=== PATIENT | female | born 1975 | race Caucasian/White ===

== ENCOUNTER 2022-11-08 11:50 | Emergency (ER) | payer OTHER, SELFPAY ==
[2022-11-08 11:56] VITALS: BP 180/97; PULSE 84; RESP 16; TEMP 36.6; O2SAT 100; BMI 30.8
--- NOTE | 2022-11-08 12:06 | ECG_ITS ---
The [facility] Test Date: 2022-11-08 Pat Name: Diana Arizmendi Department: Room: - Gender: Female General Administrator: : 1975 Requested By: Order Number: [id number] Reading MD: DESIREE PALOMINO Measurements Intervals [place] Rate: 70 P: 62 PA: 162 QRS: -7 QRSD: 94 T: 3 QT: 372 QTc: 393 Interpretive Statements 1100 Sinus rhythm T wave invcersion III, aVF -may represent inf wall ischemia 9130 borderline ECG No previous ECG available for comparison Electronically Signed On 11-11-2022 7:28:44 EDT by DESIREE PALOMINO
--- NOTE | 2022-11-08 12:07 | CT_ITS ---
The [address] [address] Patient Name: SANDEE VENEGAS MRN: [id number] date: 1975 Sex: F Assigned Patient Location: ER Current Patient Location: ER Accession/Order Number: [id number] Exam Date: 11/08/2022 12:35 Report Date: 11/08/2022 12:52 At the request of: BRENTON DIA Procedure: CT head/brain wo con EXAMINATION: CT head/brain wo con, 11/08/2022 12:35 PM EDT HISTORY: near-syncope, VO COMPARISON: None. TECHNIQUE: CT scan of the head was performed IV contrast. CT dose reduction technique was used, including Automated Exposure Control. HISTORY: near-syncope, VO FINDINGS: BRAIN: No edema, hemorrhage, mass, acute infarction, or inappropriate atrophy. CSF SPACES: No hydrocephalus, subarachnoid hemorrhage, or mass. Appropriate for age. SKULL: No fracture, mass, or other significant visible lesion. SINUSES: No significant mucosal thickening or fluid on the limited views. ORBITS: No appreciable abnormality on the limited views. OTHER: Negative IMPRESSION: No acute intracranial abnormality Electronically authenticated by: ERICKA LOERA Date: 11/08/2022 12:52
--- NOTE | 2022-11-08 12:08 | ED.DIZZY1 ---
HPI - Dizziness General Chief Complaint: Dizziness Stated Complaint: DIZZINESS Time Seen by Provider: 11/08/22 11:58 Source: patient Mode of arrival: walk-in History of Present Illness HPI Narrative: 46-year-old female presented for dizziness and a near syncopal episode. She had a normal day and had eaten breakfast and she was at a store. The symptoms came on suddenly and she felt like she needed to sit down or she would pass out. She did sit down and she did not pass out. She's had a headache for a week, no trauma. No palpitations. She felt a bit short of breath as well. No fever cough or vomiting. Related Data Home Medications Medication Instructions Recorded Confirmed adalimumab 40 mg/0.4 mL 40 mg subcut Q14D 11/08/22 11/08/22 subcutaneous pen kit (Humira(CF) Pen) alprazolam 0.5 mg tablet 0.5 mg PO DAILY 11/08/22 11/08/22 lisinopril 10 mg tablet 10 mg PO DAILY 11/08/22 11/08/22 Allergies Allergy/AdvReac Type Severity Reaction Status Date / Time infliximab-dyyb Allergy Severe Verified 11/08/22 12:01 [From Inflectra] influenza A (H5N1) virus Allergy Severe Verified 11/08/22 12:01 vaccine mo eggs Allergy Severe Uncoded 11/08/22 12:01 Review of Systems ROS Narrative A ten point review of systems is negative except as noted above. [facility] Medical History (Updated 11/08/22 @ 13:10 by Sonny Medina MD) Exam Narrative Exam Narrative: Nurses note and vital signs reviewed and patient is not hypoxic. General: The patient appears well and in no apparent distress. Patient is resting comfortably on cart. Skin: Warm, dry, no pallor noted. There is no rash noted. Head: Normocephalic, atraumatic Eye: Normal conjunctiva, no drainage, EOMI. PERRL Ears, Nose, Mouth, and Throat: oral mucosa is moist. Nares patent. Cardiovascular: Regular Rate and Rhythm Respiratory: Patient is in no distress, no accessory muscle use, lungs are clear to auscultation, no wheezing, rales or rhonchi Back: non-tender GI: soft and nontender Musculoskeletal: The patient has no evidence of calf tenderness, no pitting edema, symmetrical pulses noted bilaterally Neurological: A&O, normal speech; upper and lower extremity strength intact. Psychiatric: Cooperative Constitutional Vital Signs - 24 hr 11/08/22 11:56 11/08/22 12:28 11/08/22 13:04 Temperature 97.8 F Pulse Rate 72 Pulse Rate [Monitor] 84 Respiratory Rate 16 16 Blood Pressure 145/85 H Blood Pressure [Right Arm] 180/97 H Pulse Oximetry 100 100 98 Oxygen Delivery Method Room Air Room Air Course Vital Signs Vital signs: Vital Signs Temperature 97.8 F 11/08/22 11:56 Pulse Rate 84 11/08/22 11:56 Respiratory Rate 16 11/08/22 11:56 Blood Pressure 180/97 H 11/08/22 11:56 Pulse Oximetry 100 11/08/22 11:56 Oxygen Delivery Method Room Air 11/08/22 11:56 Temperature 97.8 F 11/08/22 11:56 Pulse Rate 72 11/08/22 13:04 Respiratory Rate 16 11/08/22 13:04 Blood Pressure 145/85 H 11/08/22 13:04 Pulse Oximetry 98 11/08/22 13:04 Oxygen Delivery Method Room Air 11/08/22 12:28 MDM - Dizziness MDM Narrative Medical decision making narrative: The patient's workup is negative and she is feeling improved. Her blood pressure has improved as well without intervention. The cause of her symptoms is uncertain and she'll be discharged home. Treatment diagnosis and follow-up were discussed with the patient. Differential Diagnosis Differential diagnosis: Likely benign paroxysmal positional vertigo, orthostatic hypotension and other (dehydration, anemia, hypoglycemia) Lab Data Attestation: I reviewed the patient's lab results. Labs: Lab Results 11/08/22 11/08/22 Range/Units 12:10 12:33 WBC 9.2 (4.0-11.0) 10^3/uL RBC 4.92 (4.20-5.40) 10^6/uL Hgb 10.6 L (12.0-16.0) g/dL Hct 35.6 L (36.0-48.0) % MCV 72.4 L (81.0-99.0) fL MCH 21.5 L (26.7-34.0) pg MCHC 29.8 L (29.9-35.2) g/dL RDW 18.7 H (11.0-15.0) % Plt Count 347 (150-450) 10^3/uL MPV 8.6 L (9.5-13.5) fL Neut % (Auto) 71.8 (43.0-75.0) % Lymph % (Auto) 18.6 L (20.5-60.0) % Martin % (Auto) 6.8 (1.7-12.0) % Eos % (Auto) 1.9 (0.9-7.0) % Baso % (Auto) 0.5 (0.2-2.0) % Neut # (Auto) 6.6 H (1.4-6.5) 10^3/uL Lymph # (Auto) 1.7 (1.2-3.8) 10^3/uL Martin # (Auto) 0.6 (0.3-0.8) 10^3/uL Eos # (Auto) 0.2 (0.0-0.7) 10^3/uL Baso # (Auto) 0.1 (0.0-0.1) 10^3/uL Abs Immat Gran (auto) 0.04 H (0.00-0.03) 10^3/uL Imm/Tot Granulo (auto) 0.4 (0.0-0.5) % Sodium 142 (136-145) mmol/L Potassium 3.8 (3.5-5.1) mmol/L Chloride 107 (98-107) mmol/L Carbon Dioxide 28.7 (21.0-32.0) mmol/L Anion Gap 10.1 BUN 12.0 (7.0-18.0) mg/dL Creatinine 0.81 (0.55-1.02) mg/dL Est GFR ( Amer) >60 (>=60) Est GFR (Non-Af Amer) >60 (>=60) BUN/Creatinine Ratio 14.8 Glucose 102 (74-106) mg/dL Calcium 9.1 (8.5-10.1) mg/dL Urine Color Lt. yellow (YELLOW) Urine Clarity Clear (CLEAR) Urine pH 6.0 (5.0-9.0) Ur Specific [place] <=1.005 A (1.005-1.025) Urine Protein Negative (NEG/TRACE) mg/dL Urine Glucose (UA) Negative (NEGATIVE) mg/dL Urine Ketones Negative (NEGATIVE) mg/dL Urine Occult Blood Negative (NEGATIVE) Urine Nitrite Negative (NEGATIVE) Urine Bilirubin Negative (NEGATIVE) Urine Urobilinogen 0.2 (0.2-1.0) EU/dL Ur Leukocyte Esterase Negative (NEGATIVE) Urine HCG, Qual Negative (NEGATIVE) ECG Data Attestation: I personally reviewed and interpreted this ECG as follows: (EKG on my interpretation shows sinus rhythm and a rate of 70) Discharge Plan Discharge Chief Complaint: Dizziness Clinical Impression: Dizziness Patient Disposition: Home, Self-Care Time of Disposition Decision: 13:09 Condition: Good Mode of Transportation: Private Vehicle Prescriptions / Home Meds: No Action Humira(CF) Pen 40 mg/0.4 mL pen injector kit 40 mg SUBCUT Q14D alprazolam 0.5 mg tablet 0.5 mg PO DAILY lisinopril 10 mg tablet 10 mg PO DAILY Instructions: Dizziness (ED) Additional Instructions: Follow up with your family DR and return to ER for any problems or concerns Stand Alone Forms: Portal Instructions Referrals: Physician,Non-Staff, MD [Primary Care Provider] - 1 week
--- NOTE | 2022-11-08 12:10 | XR_ITS ---
[address] [address] Patient Name: SANDEE VENEGAS MRN: [id number] date: 1975 Sex: F Assigned Patient Location: ER Current Patient Location: ER Accession/Order Number: [id number] Exam Date: 11/08/2022 12:35 Report Date: 11/08/2022 12:47 At the request of: BRENTON DIA Procedure: XR chest 1V EXAMINATION: XR chest 1V HISTORY: dizzy, SOB COMPARISON: No relevant comparison available. TECHNIQUE: AP portable FINDINGS: LUNGS: No significant pulmonary parenchymal abnormalities. VASCULATURE: No increased pulmonary vasculature. PLEURA: No pneumothorax, effusion, or pleural thickening. CARDIAC: No cardiomegaly or cardiac silhouette abnormality. MEDIASTINUM: No visible mass or adenopathy. BONES: No fracture or visible bone lesion. OTHER: Negative. IMPRESSION: No acute disease. Electronically authenticated by: ERICKA LOERA Date: 11/08/2022 12:47
[2022-11-08 12:28] VITALS: O2SAT 100
[2022-11-08 12:46] LABS: Basophils Absolute Auto 0.1 10^3/uL (0.0-0.1); Basophils Percent Auto 0.5 % (0.2-2.0); Eosinophils Absolute Auto 0.2 10^3/uL (0.0-0.7); Eosinophils Percent Auto 1.9 % (0.9-7.0); Hematocrit 35.6 % (36.0-48.0); Hemoglobin 10.6 g/dL (12.0-16.0); Immature Granulocytes Abs Auto 0.04 10^3/uL (0.00-0.03); Immature Granulocytes Pct Auto 0.4 % (0.0-0.5); Lymphocytes Absolute Auto 1.7 10^3/uL (1.2-3.8); Lymphocytes Percent Auto 18.6 % (20.5-60.0); Mean Corpuscular HGB Conc 29.8 g/dL (29.9-35.2); Mean Corpuscular Hemoglobin 21.5 pg (26.7-34.0); Mean Corpuscular Volume 72.4 fL (81.0-99.0); Mean Platelet Volume 8.6 fL (9.5-13.5); Monocytes Absolute Auto 0.6 10^3/uL (0.3-0.8); Monocytes Percent Auto 6.8 % (1.7-12.0); Neutrophils Absolute Auto 6.6 10^3/uL (1.4-6.5); Neutrophils Percent Auto 71.8 % (43.0-75.0); Platelet Count 347 10^3/uL (150-450); Red Blood Count 4.92 10^6/uL (4.20-5.40); Red Cell Distribution Width 18.7 % (11.0-15.0); White Blood Count 9.2 10^3/uL (4.0-11.0)
[2022-11-08 12:52] LABS: Anion Gap 10.1; BUN Creatinine Ratio 14.8; Calcium 9.1 mg/dL (8.5-10.1); Carbon Dioxide 28.7 mmol/L (21.0-32.0); Chloride 107 mmol/L (98-107); Estimated GFR (African America >60 (>=60); Estimated GFR (Non-African Ame >60 (>=60); Glucose 102 mg/dL (74-106); Potassium 3.8 mmol/L (3.5-5.1); Sodium 142 mmol/L (136-145)
[2022-11-08 12:59] LABS: Bilirubin Urine NEGATIVE (NEGATIVE); Blood Urine NEGATIVE (NEGATIVE); Clarity Urine CLEAR (CLEAR); Color Urine LT. YELLOW (YELLOW); Glucose Urine UA NEGATIVE (NEGATIVE); Ketones Urine NEGATIVE (NEGATIVE); Leukocyte Esterase Urine NEGATIVE (NEGATIVE); Nitrite Urine NEGATIVE (NEGATIVE); Protein Urine NEGATIVE (NEG/TRACE); Specific Gravity Urine <=1.005 (1.005-1.025); Urobilinogen Urine 0.2 EU/dL (0.2-1.0)
[2022-11-08 13:00] LABS: HCG Qualitative Urine* NEGATIVE (NEGATIVE)
[2022-11-08 13:04] VITALS: BP 145/85; PULSE 72; RESP 16; O2SAT 98
[2022-11-08] MEDS: KETOROLAC TROMETHAMINE 60 MG/2 ML VIAL IM (13:32)
--- NOTE | 2022-11-08 13:39 | PC.NURSE ---
d/c instructions complete, pt verbalized understanding. no new prescriptions and pt told to return for any problems or concerns
== END 2022-11-08 13:50 | disposition home or self-care (01) ==
PROVIDERS: Emergency Provider Emergency Medicine
DX: R42 Dizziness and giddiness (principal); Z79.899 Other long term (current) drug therapy
CPT/HCPCS: 36415; 70450; 71045; 80048; 81003; 84703; 85025; 93005; 96374; 99285

== ENCOUNTER 2023-11-22 23:29 | Emergency (ER) | payer OTHER, SELFPAY ==
[2023-11-22 23:35] VITALS: BP 161/107; PULSE 93; O2SAT 90; BMI 31.8
--- NOTE | 2023-11-22 23:57 | ED_ITS ---
HPI HPI - Back Pain/Injury General Chief Complaint: Back Pain/Injury Stated Complaint: flank pain Time Seen by Provider: 11/22/23 23:52 Source: patient Mode of arrival: Wheelchair Limitations: no limitations History of Present Illness HPI Narrative: past history of ulcerative colitis. Presents complaining of pain right chest and flank. Pain radiates to her right back. pain is pleuritic. Not short of breath. No fever or nausea. Increased pain when lying down. Denies injury Related Data Home Medications ?Medication ?Instructions ?Recorded ?Confirmed adalimumab 40 mg/0.4 mL 40 mg subcut Q14D 11/08/22 11/22/23 subcutaneous pen kit (Humira(CF) Pen) lisinopril 10 mg tablet 10 mg PO DAILY 11/08/22 11/22/23 alprazolam 0.25 mg tablet 0.25 mg PO TID PRN anxiety 11/22/23 11/22/23 sertraline 50 mg tablet 50 mg PO Q24H 11/22/23 11/22/23 zolpidem 5 mg tablet 5 mg PO .BED 11/22/23 11/22/23 Allergies Allergy/AdvReac Type Severity Reaction Status Date / Time infliximab-dyyb Allergy Severe Anaphylaxis Verified 11/22/23 23:41 [From Inflectra] influenza A (H5N1) virus Allergy Severe Hives Verified 11/22/23 23:41 vaccine mo eggs Allergy Severe Hives Uncoded 11/22/23 23:41 Opioid HPI Opioid Management Most Recent Opioid Data: Last Pain Scale 9 11/23/23 02:59 Last MAR Pain Assessment 11/23/23 02:59 Review of Systems ROS Status of ROS 10 or more systems reviewed and unremark able except as noted in history and below [facility] Medical History (Updated 11/23/23 @ 03:46 by Dionisio Cheung MD) Hypertension ?I10 - Essential (primary) hypertension (ICD-10) Colitis ?K52.9 - Noninfective gastroenteritis and colitis, unspecified (ICD-10) Anemia ?D64.9 - Anemia, unspecified (ICD-10) Exam Constitutional Vital Signs, click to edit/add: Last Vital Signs Pulse 70 11/23/23 03:20 Resp 14 11/23/23 03:20 BP 142/88 H 11/23/23 03:00 Pulse Ox 92 L 11/23/23 03:20 O2 Del Method Room Air 11/22/23 23:35 Common normals: no apparent distress (mod distres), average body habitus, oriented x3, healthy appearing, alert and well nourished [facility] Common normals: normocephalic and head/scalp atraumatic Eye Common normals: EOMs intact bilaterally and conjunctivae normal Chest Other: right chest wall tender. right flank tender. RUQ nontender Respiratory Common normals: normal respiratory effort, no retractions, no use of accessory muscles and clear to auscultation bilaterally Cardio Common normals: regular rate, regular rhythm, S1 normal heart sound and S2 normal heart sound GI Common normals: Normal to inspection, nondistended, normoactive bowel sounds present and soft to palpation Extremity Common normals: normal to inspection and full ROM Neuro Common normals: oriented x3, CN's II-XII intact bilaterally, moves all extremities, no focal motor deficits and no sensory deficits noted Psych Appearance: grossly normal Course Vital Signs Vital signs: Vital Signs Pulse Rate 93 H 11/22/23 23:35 Respiratory Rate 22 H 11/22/23 23:35 Blood Pressure 161/107 H 11/22/23 23:35 Pulse Oximetry 90 L 11/22/23 23:35 Oxygen Delivery Method Room Air 11/22/23 23:35 Pulse Rate 70 11/23/23 03:20 Respiratory Rate 14 11/23/23 03:20 Blood Pressure 142/88 H 11/23/23 03:00 Pulse Oximetry 92 L 11/23/23 03:20 Oxygen Delivery Method Room Air 11/22/23 23:35 MDM - Back Pain/Injury MDM Narrative Medical decision making narrative: patient presents with pleuritic chest pain for a couple of days. Pain right chest and upper abdomen. History of UC and takes adalimumab. workup remarkable for RML infiltrate. Patient treated in the department with Rocephin and zithromax and discharged home to follow up with her doctor. Patient states she is at risk for C. Diff. Also prescribed Flagyl for this treatment possibility pain improved at discharge Lab Data Labs: Lab Results 11/23/23 11/23/23 Range/Units 00:20 00:25 WBC 12.3 H (4.0-11.0) 10^3/uL RBC 4.56 (4.20-5.40) 10^6/uL Hgb 12.9 (12.0-16.0) g/dL Hct 40.2 (36.0-48.0) % MCV 88.2 (81.0-99.0) fL MCH 28.3 (26.7-34.0) pg MCHC 32.1 (29.9-35.2) g/dL RDW 13.5 (11.0-15.0) % Plt Count 291 (150-450) 10^3/uL MPV 9.4 L (9.5-13.5) fL Neut % (Auto) 67.3 (43.0-75.0) % Lymph % (Auto) 20.5 (20.5-60.0) % [place] % (Auto) 7.6 (1.7-12.0) % Eos % (Auto) 3.8 (0.9-7.0) % Baso % (Auto) 0.6 (0.2-2.0) % Neut # (Auto) 8.2 H (1.4-6.5) 10^3/uL Lymph # (Auto) 2.5 (1.2-3.8) 10^3/uL [place] # (Auto) 0.9 H (0.3-0.8) 10^3/uL Eos # (Auto) 0.5 (0.0-0.7) 10^3/uL Baso # (Auto) 0.1 (0.0-0.1) 10^3/uL Abs Immat Gran (auto) 0.03 (0.00-0.03) 10^3/uL Imm/Tot Granulo (auto) 0.2 (0.0-0.5) % Sodium 139 (136-145) mmol/L Potassium 3.5 (3.5-5.1) mmol/L Chloride 103 (98-107) mmol/L Carbon Dioxide 29.7 (21.0-32.0) mmol/L Anion Gap 9.8 BUN 9.0 (7.0-18.0) mg/dL Creatinine 0.73 (0.55-1.02) mg/dL Est GFR ( Amer) >60 (>=60) Est GFR (Non-Af Amer) >60 (>=60) BUN/Creatinine Ratio 12.3 Glucose 102 (74-106) mg/dL Lactate 0.8 (0.4-2.0) mmol/L Calcium 9.0 (8.5-10.1) mg/dL Total Bilirubin 0.2 (0.2-1.0) mg/dL AST 12 L (15-37) U/L ALT 19 (14-59) U/L Alkaline Phosphatase 62 (46-116) U/L Troponin I High Sens 4.6 (4.0-51.3) pg/mL Total Protein 7.0 (6.4-8.2) g/dL Albumin 3.4 (3.4-5.0) g/dL Globulin 3.6 g/dL Albumin/Globulin Ratio 0.9 Lipase 37.0 (16.0-77.0) U/L Urine Color Yellow (YELLOW) Urine Clarity Clear (CLEAR) Urine pH 6.0 (5.0-9.0) Ur Specific [place] 1.025 (1.005-1.025) Urine Protein Negative (NEG/TRACE) mg/dL Urine Glucose (UA) Negative (NEGATIVE) mg/dL Urine Ketones Negative (NEGATIVE) mg/dL Urine Occult Blood Trace-i (NEGATIVE) Urine Nitrite Negative (NEGATIVE) Urine Bilirubin Negative (NEGATIVE) Urine Urobilinogen 0.2 (0.2-1.0) EU/dL Ur Leukocyte Esterase Negative (NEGATIVE) Urine RBC 0-2 (0-2) #/HPF Urine WBC 0-2 A (NONE SEEN) #/HPF Ur Squamous Epith Cells Few A (NONE/RARE) #/LPF Urine Crystals None seen (None Seen) #/HPF Urine Bacteria Small A (NONE SEEN) #/HPF Urine Casts None seen (NONE SEEN) #/LPF Urine Mucus None seen (NONE SEEN) Ur Culture Indicated? Yes Imaging Data Chest x-ray: Radiologist's impression: ITS Impressions Chest CTA 11/23/23 00:00 IMPRESSION: 1. No dissection or aneurysm of the thoracoabdominal aorta or iliac arteries and pelvis. 2. Mild atherosclerotic calcific plaque of the infrarenal abdominal aorta and common iliac arteries. 3. Negative for acute PE. 4. Focal area of infection or inflammation lateral segment right middle lobe. Follow-up to ensure resolution. Correlate for any signs of early pneumonia. There is some superimposed dependent bibasilar atelectasis. 5. Mild hepatomegaly. 6. No acute abdominal or pelvic findings or other significant abnormality. Electronically authenticated by: COLIN AUSTIN Date: 11/23/2023 02:39 Abdomen/Pelvis CTA 11/23/23 00:01 IMPRESSION: 1. No dissection or aneurysm of the thoracoabdominal aorta or iliac arteries and pelvis. 2. Mild atherosclerotic calcific plaque of the infrarenal abdominal aorta and common iliac arteries. 3. Negative for acute PE. 4. Focal area of infection or inflammation lateral segment right middle lobe. Follow-up to ensure resolution. Correlate for any signs of early pneumonia. There is some superimposed dependent bibasilar atelectasis. 5. Mild hepatomegaly. 6. No acute abdominal or pelvic findings or other significant abnormality. Electronically authenticated by: COLIN AUSTIN Date: 11/23/2023 02:39 Discharge Plan Discharge Stand Alone Forms: Portal Instructions Chief Complaint: Back Pain/Injury Clinical Impression: Thoracic back pain, Pneumonia Patient Disposition: Home, Self-Care Prescriptions / Home Meds: No Action Humira(CF) Pen 40 mg/0.4 mL pen injector kit 40 mg SUBCUT Q14D lisinopril 10 mg tablet 10 mg PO DAILY alprazolam 0.25 mg tablet 0.25 mg PO TID PRN (Reason: anxiety) sertraline 50 mg tablet 50 mg PO Q24H zolpidem 5 mg tablet 5 mg PO .BED Print Language: Faroese Instructions: Thoracic Pain (ED), Pneumonia (ED) Additional Instructions: follow up with your doctor early next week Referrals: Physician,Non-Staff, MD [Primary Care Provider] - 1 week
[2023-11-23] VITALS (27 sets, daily range): BP systolic 114–146; BP diastolic 71–90; PULSE 62–90; O2SAT 90–98
--- NOTE | 2023-11-23 | CT_ITS ---
The [address] [address] Patient Name: SANDEE VENEGAS MRN: [id number] date: 1975 Sex: F Assigned Patient Location: ER Current Patient Location: Accession/Order Number: [id number] Exam Date: 11/23/2023 00:44 Report Date: 11/23/2023 02:39 At the request of: JOSE R GILMORE Procedure: CT angio chest EXAM: CT angio abdomen pelvis, CT angio chest HISTORY: abdominal pain COMPARISON: None. TECHNIQUE: Precontrast images obtained for timing bolus. Post IV contrast, contiguous thin section axial scans obtained from thoracic inlet through ischial tuberosities with coronal and sagittal reformatted images of the chest, abdomen and pelvis. MIP (maximum intensity projection) images or 3D post processing was performed. A separate workstation, 3-D reconstructions of the thoracoabdominal aorta and iliac arteries and pelvis obtained and reviewed. Dose reduction techniques were achieved by using automated exposure control and/or adjustment of mA and/or kV according to patient size and/or use of iterative reconstruction technique. CONTRAST: Optiray 350 100 ml IV. AORTIC FINDINGS: There is normal course and caliber of the thoracoabdominal aorta and iliac arteries with no dissection or aneurysm. Normal appearance of the arch and vessels and branches are patent. There is mild scattered calcific plaque and wall of the infrarenal abdominal aorta and common iliac arteries. Mesenteric arteries are patent throughout the abdominal aorta. Normal enhancement of the renal arteries. PULMONARY ARTERIES: Normal enhancement of the pulmonary arteries. No evidence of PE. CHEST FINDINGS: Cardiac chambers are normal in appearance and size. There is some dependent atelectasis at lung bases and base of lateral segment right middle lobe versus possible early right middle lobe lateral segment pneumonia. Follow-up. Both lungs otherwise are clear and expanded and well aerated. No mass or nodule. No pneumothorax or pleural effusion. No mediastinal or pericardial fluid. No mediastinal or hilar axillary adenopathy. Normal thoracic osseous structures. Normal thoracic inlet and thyroid gland. ABDOMEN AND PELVIC FINDINGS: Liver is mildly enlarged measuring 21 [place] in length. No liver mass or cyst. Normal spleen, pancreas, adrenals and kidneys. Normal appearance and caliber of small and large bowel loops without obstruction or inflammation. No diverticulosis. Normal appendix. No mass or adenopathy in the abdomen or pelvis. Urinary bladder is normal. Reproductive organs are normal. No ascites or free air or loculated fluid. No inflammatory changes of mesentery. Abdominal wall is normal. Normal osseous structures and joints within the abdomen and pelvis. 3-D reconstructions of the thoracoabdominal aorta demonstrate overall normal appearance. CT/CT angio chest IMPRESSION: 1. No dissection or aneurysm of the thoracoabdominal aorta or iliac arteries and pelvis. 2. Mild atherosclerotic calcific plaque of the infrarenal abdominal aorta and common iliac arteries. 3. Negative for acute PE. 4. Focal area of infection or inflammation lateral segment right middle lobe. Follow-up to ensure resolution. Correlate for any signs of early pneumonia. There is some superimposed dependent bibasilar atelectasis. 5. Mild hepatomegaly. 6. No acute abdominal or pelvic findings or other significant abnormality. Electronically authenticated by: COLIN AUSTIN Date: 11/23/2023 02:39
--- NOTE | 2023-11-23 00:01 | CT_ITS ---
The [address] [address] Patient Name: SANDEE VENEGAS MRN: [id number] date: 1975 Sex: F Assigned Patient Location: ER Current Patient Location: Accession/Order Number: [id number] Exam Date: 11/23/2023 00:44 Report Date: 11/23/2023 02:39 At the request of: JOSE R GILMORE Procedure: CT angio abdomen pelvis EXAM: CT angio abdomen pelvis, CT angio chest HISTORY: abdominal pain COMPARISON: None. TECHNIQUE: Precontrast images obtained for timing bolus. Post IV contrast, contiguous thin section axial scans obtained from thoracic inlet through ischial tuberosities with coronal and sagittal reformatted images of the chest, abdomen and pelvis. MIP (maximum intensity projection) images or 3D post processing was performed. A separate workstation, 3-D reconstructions of the thoracoabdominal aorta and iliac arteries and pelvis obtained and reviewed. Dose reduction techniques were achieved by using automated exposure control and/or adjustment of mA and/or kV according to patient size and/or use of iterative reconstruction technique. CONTRAST: Optiray 350 100 ml IV. AORTIC FINDINGS: There is normal course and caliber of the thoracoabdominal aorta and iliac arteries with no dissection or aneurysm. Normal appearance of the arch and vessels and branches are patent. There is mild scattered calcific plaque and wall of the infrarenal abdominal aorta and common iliac arteries. Mesenteric arteries are patent throughout the abdominal aorta. Normal enhancement of the renal arteries. PULMONARY ARTERIES: Normal enhancement of the pulmonary arteries. No evidence of PE. CHEST FINDINGS: Cardiac chambers are normal in appearance and size. There is some dependent atelectasis at lung bases and base of lateral segment right middle lobe versus possible early right middle lobe lateral segment pneumonia. Follow-up. Both lungs otherwise are clear and expanded and well aerated. No mass or nodule. No pneumothorax or pleural effusion. No mediastinal or pericardial fluid. No mediastinal or hilar axillary adenopathy. Normal thoracic osseous structures. Normal thoracic inlet and thyroid gland. ABDOMEN AND PELVIC FINDINGS: Liver is mildly enlarged measuring 21 [place] in length. No liver mass or cyst. Normal spleen, pancreas, adrenals and kidneys. Normal appearance and caliber of small and large bowel loops without obstruction or inflammation. No diverticulosis. Normal appendix. No mass or adenopathy in the abdomen or pelvis. Urinary bladder is normal. Reproductive organs are normal. No ascites or free air or loculated fluid. No inflammatory changes of mesentery. Abdominal wall is normal. Normal osseous structures and joints within the abdomen and pelvis. 3-D reconstructions of the thoracoabdominal aorta demonstrate overall normal appearance. CT/CT angio abdomen pelvis IMPRESSION: 1. No dissection or aneurysm of the thoracoabdominal aorta or iliac arteries and pelvis. 2. Mild atherosclerotic calcific plaque of the infrarenal abdominal aorta and common iliac arteries. 3. Negative for acute PE. 4. Focal area of infection or inflammation lateral segment right middle lobe. Follow-up to ensure resolution. Correlate for any signs of early pneumonia. There is some superimposed dependent bibasilar atelectasis. 5. Mild hepatomegaly. 6. No acute abdominal or pelvic findings or other significant abnormality. Electronically authenticated by: COLIN AUSTIN Date: 11/23/2023 02:39
--- NOTE | 2023-11-23 00:02 | ECG_ITS ---
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
[2023-11-23] MEDS: HYDROMORPHONE HCL 0.5 MG/0.5 ML SYRINGE IV ×2 (00:26→02:59)
[2023-11-23 00:33] LABS: Basophils Absolute Auto 0.1 10^3/uL (0.0-0.1); Basophils Percent Auto 0.6 % (0.2-2.0); Eosinophils Absolute Auto 0.5 10^3/uL (0.0-0.7); Eosinophils Percent Auto 3.8 % (0.9-7.0); Hematocrit 40.2 % (36.0-48.0); Hemoglobin 12.9 g/dL (12.0-16.0); Immature Granulocytes Abs Auto 0.03 10^3/uL (0.00-0.03); Immature Granulocytes Pct Auto 0.2 % (0.0-0.5); Lymphocytes Absolute Auto 2.5 10^3/uL (1.2-3.8); Lymphocytes Percent Auto 20.5 % (20.5-60.0); Mean Corpuscular HGB Conc 32.1 g/dL (29.9-35.2); Mean Corpuscular Hemoglobin 28.3 pg (26.7-34.0); Mean Corpuscular Volume 88.2 fL (81.0-99.0); Mean Platelet Volume 9.4 fL (9.5-13.5); Monocytes Absolute Auto 0.9 10^3/uL (0.3-0.8); Monocytes Percent Auto 7.6 % (1.7-12.0); Neutrophils Absolute Auto 8.2 10^3/uL (1.4-6.5); Neutrophils Percent Auto 67.3 % (43.0-75.0); Platelet Count 291 10^3/uL (150-450); Red Blood Count 4.56 10^6/uL (4.20-5.40); Red Cell Distribution Width 13.5 % (11.0-15.0); White Blood Count 12.3 10^3/uL (4.0-11.0)
[2023-11-23] MEDS: METHYLPREDNISOLONE SOD SUCC PF 125 MG/2 ML VIAL IVP (00:34)
[2023-11-23 00:42] LABS: Bilirubin Urine NEGATIVE (NEGATIVE); Blood Urine TRACE-I (NEGATIVE); Clarity Urine CLEAR (CLEAR); Color Urine YELLOW (YELLOW); Glucose Urine UA NEGATIVE (NEGATIVE); Ketones Urine NEGATIVE (NEGATIVE); Leukocyte Esterase Urine NEGATIVE (NEGATIVE); Nitrite Urine NEGATIVE (NEGATIVE); Protein Urine NEGATIVE (NEG/TRACE); Specific Gravity Urine 1.025 (1.005-1.025); Urobilinogen Urine 0.2 EU/dL (0.2-1.0)
[2023-11-23 00:43] LABS: Urine Microscopic Indicated YES
[2023-11-23 00:51] LABS: Lactate/Lactic Acid 0.8 mmol/L (0.4-2.0)
[2023-11-23 00:53] LABS: Bacteria Urine SMALL #/HPF (NONE SEEN); Cast Seen? NONE SEEN #/LPF (NONE SEEN); Crystals Seen? None Seen #/HPF (None Seen); Mucus Urine NONE SEEN (NONE SEEN); RBC Urine 0-2 #/HPF (0-2); Squamous Epithelial Cell Urine FEW #/LPF (NONE/RARE); Urine Culture Indicated YES; WBC Urine 0-2 #/HPF (NONE SEEN)
[2023-11-23 00:58] LABS: Alanine Aminotransferase 19 U/L (14-59); Albumin Globulin Ratio 0.9; Albumin Level 3.4 g/dL (3.4-5.0); Alkaline Phosphatase 62 U/L (46-116); Anion Gap 9.8; Aspartate Amino Transferase 12 U/L (15-37); BUN Creatinine Ratio 12.3; Bilirubin Total 0.2 mg/dL (0.2-1.0); Carbon Dioxide 29.7 mmol/L (21.0-32.0); Chloride 103 mmol/L (98-107); Estimated GFR (African America >60 (>=60); Estimated GFR (Non-African Ame >60 (>=60); Globulin 3.6 g/dL; Glucose 102 mg/dL (74-106); Potassium 3.5 mmol/L (3.5-5.1); Sodium 139 mmol/L (136-145); Troponin I High Sensitivity 4.6 pg/mL (4.0-51.3)
[2023-11-23] MEDS: KETOROLAC TROMETHAMINE 30 MG/ML VIAL IVP (04:16)
[2023-11-23] MEDS: AZITHROMYCIN 250 MG TABLET 500 MG PO (04:16)
[2023-11-23] MEDS: CEFTRIAXONE 1,000 MG in 0.9 % SODIUM CHLORIDE 50 ML 100 MG IV (04:16)
[2023-11-23] MEDS: KETOROLAC TROMETHAMINE 10 MG TABLET PO (04:56)
== END 2023-11-23 05:03 | disposition home or self-care (01) ==
PROVIDERS: Emergency Provider Internal Medicine
DX: J18.9 Pneumonia, unspecified organism (principal); M54.6 Pain in thoracic spine; K51.90 Ulcerative colitis, unspecified, without complications; Z79.899 Other long term (current) drug therapy
CPT/HCPCS: 36415; 71275; 74174; 80053; 81001; 83605; 83690; 84484; 85025; 87086; 93005; 96365; 96375; 96376; 99285; J0696; J1170; J1885; J2919; Q9967

== ENCOUNTER 2024-06-08 11:02 | Emergency (ER) | payer OTHER, SELFPAY ==
[2024-06-08 11:11] VITALS: BP 165/100; PULSE 81; TEMP 36.9; O2SAT 98; BMI 32.1
[2024-06-08 11:21] VITALS: O2SAT 98
--- NOTE | 2024-06-08 11:36 | ED.URI1 ---
HPI - URI/Sore Throat General Chief Complaint: Upper Respiratory Infection Stated Complaint: URTI COMPLAINTS Time Seen by Provider: 06/08/24 11:22 Source: patient Limitations: no limitations History of Present Illness HPI Narrative: 48-year-old female presents for a 7 to 10-day history of cough. She has been coughing up a small amount of phlegm and has not had a known fever. No hemoptysis. She is not worried about COVID or influenza but she is worried about pneumonia. She takes Humira and is immunocompromise because of that and is worried about pneumonia. Related Data Home Medications ?Medication ?Instructions ?Recorded ?Confirmed adalimumab 40 mg/0.4 mL 40 mg subcut Q14D 11/08/22 11/22/23 subcutaneous pen kit (Humira(CF) Pen) lisinopril 10 mg tablet 10 mg PO DAILY 11/08/22 11/22/23 alprazolam 0.25 mg tablet 0.25 mg PO TID PRN anxiety 11/22/23 11/22/23 sertraline 50 mg tablet 50 mg PO Q24H 11/22/23 11/22/23 zolpidem 5 mg tablet 5 mg PO .BED 11/22/23 11/22/23 Previous Rx's ?Medication ?Instructions ?Recorded azithromycin 250 mg tablet See Rx Instructions PO .COMPLEX #6 06/08/24 (Zithromax Z-Everardo) tabs Allergies Allergy/AdvReac Type Severity Reaction Status Date / Time infliximab-dyyb (From Allergy Severe Anaphylaxis Verified 06/08/24 11:17 Inflectra) influenza A (H5N1) virus Allergy Severe Hives Verified 06/08/24 11:17 vaccine mo eggs Allergy Severe Hives Uncoded 06/08/24 11:17 Review of Systems ROS Narrative A ten point review of systems is negative except as noted above. [facility] Medical History (Updated 06/08/24 @ 12:01 by Sonny Medina MD) Hypertension ?I10 - Essential (primary) hypertension (ICD-10) Colitis ?K52.9 - Noninfective gastroenteritis and colitis, unspecified (ICD-10) Anemia ?D64.9 - Anemia, unspecified (ICD-10) Social History Little interest or pleasure in doing things: not at all Feeling down, depressed, or hopeless: not at all Exam Narrative Exam Narrative: Nurses note and vital signs reviewed and patient is not hypoxic. General: The patient appears well and in no apparent distress. Patient is resting comfortably on cart. Skin: Warm, dry, no pallor noted. There is no rash noted. Head: Normocephalic, atraumatic Eye: Normal conjunctiva, no drainage Ears, Nose, Mouth, and Throat: oral mucosa is moist. Nares patent. Cardiovascular: Regular Rate and Rhythm Respiratory: Patient is in no distress, no accessory muscle use, lungs are clear to auscultation, no wheezing, rales or rhonchi Back: non-tender GI: Soft and nontender Musculoskeletal: The patient has no evidence of calf tenderness, no pitting edema, symmetrical pulses noted bilaterally Neurological: A&O normal speech Psychiatric: Cooperative Constitutional Vital Signs, click to edit/add: Last Vital Signs Temp 98.4 F 06/08/24 11:11 Pulse 81 06/08/24 11:11 Resp 20 06/08/24 11:11 BP 165/100 H 06/08/24 11:11 Pulse Ox 98 06/08/24 11:21 O2 Del Method Room Air 06/08/24 11:21 Course Vital Signs Vital signs: Vital Signs Temperature 98.4 F 06/08/24 11:11 Pulse Rate 81 06/08/24 11:11 Respiratory Rate 20 06/08/24 11:11 Blood Pressure 165/100 H 06/08/24 11:11 Pulse Oximetry 98 06/08/24 11:11 Oxygen Delivery Method Room Air 06/08/24 11:11 Temperature 98.4 F 06/08/24 11:11 Pulse Rate 81 06/08/24 11:11 Respiratory Rate 06/08/24 11:11 Blood Pressure 165/100 H 06/08/24 11:11 Pulse Oximetry 98 06/08/24 11:21 Oxygen Delivery Method Room Air 06/08/24 11:21 MDM - URI/Sore Throat MDM Narrative Medical decision making narrative: Chest x-ray per radiologist shows pneumonia and she is prescribed Zithromax. Treatment diagnosis and follow-up were discussed with the patient. Imaging Data Chest x-ray: Radiologist's impression: ITS Impressions Chest X-Ray 06/08/24 11:39 IMPRESSION: Right lung infiltrate, consider pneumonia Electronically authenticated by: ERICKA LOERA Date: 06/08/2024 11:44 Discharge Plan Discharge Chief Complaint: Upper Respiratory Infection Clinical Impression: Pneumonia Patient Disposition: Home, Self-Care Time of Disposition Decision: 12:01 Condition: Good Mode of Transportation: Private Vehicle Prescriptions / Home Meds: New azithromycin [Zithromax Z-Everardo] 250 mg tablet See Rx Instructions .ROUTE .COMPLEX Qty: 6 0RF Rx Instructions: For 250 mg dose pack: take 500 mg today (day 1), then 250 mg for 4 days (days 2-5) No Action Humira(CF) Pen 40 mg/0.4 mL pen injector kit 40 mg SUBCUT Q14D lisinopril 10 mg tablet 10 mg PO DAILY alprazolam 0.25 mg tablet 0.25 mg PO TID PRN (Reason: anxiety) sertraline 50 mg tablet 50 mg PO Q24H zolpidem 5 mg tablet 5 mg PO .BED Print Language: Mongolian Instructions: Community Acquired Pneumonia (ED) Referrals: Vernell Ackerman [Primary Care Provider] - 1 week
--- NOTE | 2024-06-08 11:39 | XR_ITS ---
The [address] [address] Patient Name: SANDEE VENEGAS MRN: [id number] date: 1975 Sex: F Assigned Patient Location: ER Current Patient Location: ER Accession/Order Number: [id number] Exam Date: 06/08/2024 11:30 Report Date: 06/08/2024 11:44 At the request of: BRENTON DIA Procedure: XR chest 1V EXAMINATION: XR chest 1V HISTORY: cough COMPARISON: 11/08/2022 TECHNIQUE: AP portable FINDINGS: LUNGS: Focal infiltrate right lateral midlung. The left lung is clear VASCULATURE: No increased pulmonary vasculature. PLEURA: No pneumothorax, effusion, or pleural thickening. CARDIAC: No cardiomegaly or cardiac silhouette abnormality. MEDIASTINUM: No visible mass or adenopathy. BONES: No fracture or visible bone lesion. OTHER: Negative. XR/XR chest 1V IMPRESSION: Right lung infiltrate, consider pneumonia Electronically authenticated by: ERICKA LOERA Date: 06/08/2024 11:44
== END 2024-06-08 12:19 | disposition home or self-care (01) ==
PROVIDERS: Emergency Provider Emergency Medicine; PCP Nurse Practitioner Family
DX: J18.9 Pneumonia, unspecified organism (principal); Z79.899 Other long term (current) drug therapy; T78.40XA Allergy, unspecified, initial encounter; X58.XXXA Exposure to other specified factors, initial encounter; I10 Essential (primary) hypertension
CPT/HCPCS: 71045; 94640; 96365; 96367; 96375; 99283; 99284; J1200; J2919; J3490

== ENCOUNTER 2024-06-08 20:15 | Emergency (ER) | payer OTHER, SELFPAY ==
[2024-06-08] VITALS (21 sets, daily range): BP systolic 129–181; BP diastolic 78–109; PULSE 74–79; TEMP 36.7–36.8; O2SAT 92–100; BMI 32.1
--- NOTE | 2024-06-08 20:38 | PC.NURSE ---
patient complains of warm feeling and redness to upper chest and tongue swelling, about 40 minutes ago plus took her oral ATB for the first dose. at this time this patient awake and alert sitting upright on the bed, talking full sentences and no visible drooling. this patient has redness to upper chest and no tongue swelling. this patient voices no other complaints and shows no signs of distress
[2024-06-08] MEDS: RACEPINEPHRINE HCL 11.25 MG, SODIUM CHLORIDE FOR INHALATION 3 ML IH (20:55)
[2024-06-08] MEDS: METHYLPREDNISOLONE SOD SUCC PF 40 MG/ML VIAL 80 MG IVP (21:00)
[2024-06-08] MEDS: FAMOTIDINE/PF 20 MG/2 ML VIAL IV (21:00)
[2024-06-08] MEDS: TRANEXAMIC ACID 1,000 MG in 0.9 % SODIUM CHLORIDE 100 ML 440 MG IV (21:05)
[2024-06-08] MEDS: diphenhydrAMINE HCL 25 MG in 0.9 % SODIUM CHLORIDE 100 ML 301.5 MG IV (21:31)
--- NOTE | 2024-06-08 22:50 | ED.GENADUL1 ---
HPI HPI - General Adult General Chief complaint: Allergic Reaction Stated complaint: ALLERGIC REACTION Time Seen by Provider: 06/08/24 20:22 History of Present Illness HPI narrative: Patient was seen in this ED earlier in the morning and was diagnosed with pneumonia of the right lung. She was placed on azithromycin. Around 6:30 PM tonight she took 2 azithromycin tablets and 1/2-hour later felt that her tongue was swollen and felt that she had fullness in her throat and difficulty swallowing. She also noticed a rash. She also takes lisinopril for hypertension. Related Data Home Medications ?Medication ?Instructions ?Recorded ?Confirmed adalimumab 40 mg/0.4 mL 40 mg subcut Q14D 11/08/22 11/22/23 subcutaneous pen kit (Humira(CF) Pen) lisinopril 10 mg tablet 10 mg PO DAILY 11/08/22 11/22/23 alprazolam 0.25 mg tablet 0.25 mg PO TID PRN anxiety 11/22/23 11/22/23 sertraline 50 mg tablet 50 mg PO Q24H 11/22/23 11/22/23 zolpidem 5 mg tablet 5 mg PO .BED 11/22/23 11/22/23 Previous Rx's ?Medication ?Instructions ?Recorded amlodipine 5 mg tablet 5 mg PO DAILY #30 tabs 06/08/24 azithromycin 250 mg tablet See Rx Instructions PO .COMPLEX #6 06/08/24 (Zithromax Z-Everardo) tabs doxycycline hyclate 100 mg capsule 100 mg PO BID 10 days #20 caps 06/08/24 Allergies Allergy/AdvReac Type Severity Reaction Status Date / Time azithromycin Allergy Severe Swelling Verified 06/08/24 20:32 of Lip/Tongue/Throat infliximab-dyyb (From Allergy Severe Anaphylaxis Verified 06/08/24 11:17 Inflectra) influenza A (H5N1) virus Allergy Severe Hives Verified 06/08/24 11:17 vaccine mo eggs Allergy Severe Hives Uncoded 06/08/24 11:17 Opioid HPI Opioid Management Most Recent Opioid Data: Last Pain Scale 9 11/23/23 02:59 11/23/23 Review of Systems ROS Status of ROS 10 or more systems reviewed and unremarkable except as noted in history and below [facility] Medical History Hypertension ?I10 - Essential (primary) hypertension (ICD-10) Colitis ?K52.9 - Noninfective gastroenteritis and colitis, unspecified (ICD-10) Anemia ?D64.9 - Anemia, unspecified (ICD-10) Social History Little interest or pleasure in doing things: not at all Feeling down, depressed, or hopeless: not at all Exam Narrative Exam Narrative: On examination patient's vitals are stable. With a fine rash over the chest and maybe the face also examination the oral cavity does not reveal obvious angioedema of the tongue. Pharynx is clear. No alteration of phonation is noted. Lung sounds are clear to auscultation bilaterally heart has regular rate and rhythm. Abdomen is soft benign. Constitutional Vital Signs, click to edit/add: Last Vital Signs Temp 98.2 F 06/08/24 23:03 Pulse 74 06/08/24 20:55 Resp 16 06/08/24 20:55 BP 139/78 06/08/24 23:00 Pulse Ox 95 06/08/24 23:00 O2 Del Method Room Air 06/08/24 20:27 Course Vital Signs Vital signs: Vital Signs Temperature 98.1 F 06/08/24 20:27 Pulse Rate 79 06/08/24 20:27 Respiratory Rate 18 06/08/24 20:27 Blood Pressure 178/109 H 06/08/24 20:27 Pulse Oximetry 98 06/08/24 20:27 Oxygen Delivery Method Room Air 06/08/24 20:27 Temperature 98.2 F 06/08/24 23:03 Pulse Rate 74 06/08/24 20:55 Respiratory Rate 16 06/08/24 20:55 Blood Pressure 139/78 06/08/24 23:00 Pulse Oximetry 95 06/08/24 23:00 Oxygen Delivery Method Room Air 06/08/24 20:27 Medical Decision Making MDM Narrative Medical decision making narrative: Patient presents with allergic type symptoms that started 1/2-hour after she took 2 azithromycin tablets. She reported swelling of the tongue which made me a little concerned because she is on an EMILY inhibitor also. She was treated with 1 g of TXA IV. She was also administered racemic epinephrine aerosol treatment, Pepcid, Benadryl, Solu-Medrol IV. Over the next hour his symptoms have completely resolved. She has been observed for over an hour and has not had any rebound. My plan is to switch her from azithromycin to doxycycline and have her continue Benadryl for a couple days. At this time my index of suspicion for EMILY inhibitor induced angioedema of the tongue is very low but as a caution I will ask her to discontinue lisinopril and instead will prescribe amlodipine in its place. Early follow-up as advised with PCP and she is to return anytime for worsening symptoms. Discharge Plan Discharge Chief Complaint: Allergic Reaction Clinical Impression: Allergic reaction Qualifiers: Encounter type: initial encounter Qualified Code(s): T78.40XA - Allergy, unspecified, initial encounter Patient Disposition: Home, Self-Care Time of Disposition Decision: 22:55 Condition: Good Mode of Transportation: Private Vehicle Prescriptions / Home Meds: New doxycycline hyclate 100 mg capsule 100 mg PO BID 10 Days Qty: 20 0RF amlodipine 5 mg tablet 5 mg PO DAILY Qty: 30 0RF No Action Humira(CF) Pen 40 mg/0.4 mL pen injector kit 40 mg SUBCUT Q14D lisinopril 10 mg tablet 10 mg PO DAILY alprazolam 0.25 mg tablet 0.25 mg PO TID PRN (Reason: anxiety) sertraline 50 mg tablet 50 mg PO Q24H zolpidem 5 mg tablet 5 mg PO .BED azithromycin [Zithromax Z-Everardo] 250 mg tablet See Rx Instructions .ROUTE .COMPLEX Qty: 6 0RF Rx Instructions: For 250 mg dose pack: take 500 mg today (day 1), then 250 mg for 4 days (days 2-5) Print Language: Namibian Instructions: General Allergic Reaction (ED) Additional Instructions: Stop taking Zithromax. Stop taking lisinopril. Doxycycline is the new antibiotic that has been prescribed for your pneumonia. Amlodipine is the new blood pressure medication that is being prescribed for hypertension. Benadryl 25 mg every 6 hours for any residual symptoms. Follow-up with your physician within the next 2 days. Return anytime for worsening symptoms. Referrals: Vernell Ackerman [Primary Care Provider] - As soon as possible Discharge Date/Time: 06/08/24 23:12
--- NOTE | 2024-06-08 23:10 | PC.NURSE ---
i gave this patient verbal and written discharge orders along with 2 e-scripts and this patient voices yes to understanding these. at time of discharge this patient voices no concerns and shows no signs of distress
== END 2024-06-08 23:12 | disposition home or self-care (01) ==
PROVIDERS: Emergency Provider Emergency Medicine; PCP Nurse Practitioner Family
DX: T78.40XA Allergy, unspecified, initial encounter (principal); X58.XXXA Exposure to other specified factors, initial encounter; I10 Essential (primary) hypertension
CPT/HCPCS: 94640; 96365; 96367; 96375; 99284; J1200; J2919; J3490

== ENCOUNTER 2024-07-16 12:30 | Emergency (ER) | payer OTHER, SELFPAY ==
[2024-07-16 12:35] VITALS: BP 168/98; PULSE 88; TEMP 36.8; O2SAT 99; BMI 32.6
[2024-07-16 12:40] VITALS: O2SAT 100
--- NOTE | 2024-07-16 12:48 | ED.GENADUL1 ---
HPI HPI - General Adult General Chief complaint: Upper Respiratory Infection Stated complaint: flu like symptoms Time Seen by Provider: 07/16/24 12:43 Source: patient Mode of arrival: walk-in Limitations: no limitations History of Present Illness HPI narrative: Patient presents with 3-day history of cough with some congestion. She reports headache with nausea. She has had a couple loose stools also and has felt feverish. She reports pain in the right lower chest anterolaterally when she coughs and is concerned about muscular pain due to coughing versus pneumonia. She has had pneumonia in the past. She has a history of hypertension for which she is on medication and she is a cigarette smoker also. Related Data Home Medications ?Medication ?Instructions ?Recorded ?Confirmed adalimumab 40 mg/0.4 mL 40 mg subcut Q14D 11/08/22 11/22/23 subcutaneous pen kit (Humira(CF) Pen) lisinopril 10 mg tablet 10 mg PO DAILY 11/08/22 11/22/23 alprazolam 0.25 mg tablet 0.25 mg PO TID PRN anxiety 11/22/23 11/22/23 sertraline 50 mg tablet 50 mg PO Q24H 11/22/23 11/22/23 zolpidem 5 mg tablet 5 mg PO .BED 11/22/23 11/22/23 Previous Rx's ?Medication ?Instructions ?Recorded amlodipine 5 mg tablet 5 mg PO DAILY #30 tabs 06/08/24 Allergies Allergy/AdvReac Type Severity Reaction Status Date / Time azithromycin Allergy Severe Swelling Verified 07/16/24 12:35 of Lip/Tongue/Throat infliximab-dyyb (From Allergy Severe Anaphylaxis Verified 07/16/24 12:35 Inflectra) influenza A (H5N1) virus Allergy Severe Hives Verified 07/16/24 12:35 vaccine mo eggs Allergy Severe Hives Uncoded 07/16/24 12:35 Opioid HPI Opioid Management Most Recent Opioid Data: Last Pain Scale 4 07/16/24 12:40 07/16/24 Review of Systems ROS Narrative All other systems are reviewed and are negative other than what is mentioned in the HPI. [facility] Medical History Hypertension ?I10 - Essential (primary) hypertension (ICD-10) Colitis ?K52.9 - Noninfective gastroenteritis and colitis, unspecified (ICD-10) Anemia ?D64.9 - Anemia, unspecified (ICD-10) Social History Little interest or pleasure in doing things: not at all Feeling down, depressed, or hopeless: not at all Exam Narrative Exam Narrative: Patient is noted to have a dry cough. She does not have conversational dyspnea. Vital signs are stable and are as documented. HEENT exam is normal to inspection. The oral cavity is moist with no erythema. Neck is supple. Lung sounds are clear to auscultation bilaterally. Heart has regular rate and rhythm. Abdomen is protuberant, soft and nontender. She does not have unilateral leg swelling or calf tenderness. Constitutional Vital Signs, click to edit/add: Last Vital Signs Temp 98.2 F 07/16/24 12:35 Pulse 88 07/16/24 12:35 Resp 20 07/16/24 12:35 BP 168/98 H 07/16/24 12:35 Pulse Ox 100 07/16/24 12:40 O2 Del Method Room Air 07/16/24 12:40 Course Vital Signs Vital signs: Vital Signs Temperature 98.2 F 07/16/24 12:35 Pulse Rate 88 07/16/24 12:35 Respiratory Rate 20 07/16/24 12:35 Blood Pressure 168/98 H 07/16/24 12:35 Pulse Oximetry 99 07/16/24 12:35 Oxygen Delivery Method Room Air 07/16/24 12:35 Temperature 98.2 F 07/16/24 12:35 Pulse Rate 88 07/16/24 12:35 Respiratory Rate 20 07/16/24 12:35 Blood Pressure 168/98 H 07/16/24 12:35 Pulse Oximetry 100 07/16/24 12:40 Oxygen Delivery Method Room Air 07/16/24 12:40 Medical Decision Making MDM Narrative Medical decision making narrative: Patient presents with URI symptoms and some musculoskeletal type right lower chest pain. She is concerned about pneumonia. Chest x-ray does not show any infiltrate. Patient's chest pain is of musculoskeletal etiology related to a viral upper respiratory tract infection. Supportive care is advised and she is advised to take ibuprofen for pain and Mucinex DM for cough. Follow-up is with her PCP next week and she may return to the ED anytime for worsening symptoms. Differential Diagnosis Differential Diagnosis: Pneumonia, pneumothorax, acute bronchitis, pleural effusion. Discharge Plan Discharge Chief Complaint: Upper Respiratory Infection Clinical Impression: Upper respiratory infection, viral Patient Disposition: Home, Self-Care Time of Disposition Decision: 13:26 Condition: Good Mode of Transportation: Private Vehicle Prescriptions / Home Meds: No Action Humira(CF) Pen 40 mg/0.4 mL pen injector kit 40 mg SUBCUT Q14D lisinopril 10 mg tablet 10 mg PO DAILY alprazolam 0.25 mg tablet 0.25 mg PO TID PRN (Reason: anxiety) sertraline 50 mg tablet 50 mg PO Q24H zolpidem 5 mg tablet 5 mg PO .BED amlodipine 5 mg tablet 5 mg PO DAILY Qty: 30 0RF Print Language: Occitan Instructions: Upper Respiratory Infection (ED) Additional Instructions: Mucinex DM twice a day for cough and congestion. Ibuprofen 400 mg every 6 hours for pain or fever as needed. Follow-up with your physician next week if not much better. Return for worsening symptoms. Referrals: Vernell Ackerman [Primary Care Provider] - 1 week
--- OUTSIDE RECORDS SUMMARY | 2024-07-16 13:01 | XMS_ITS | CCD ---
Author Organization [facility] Care Team Providers Care Filler Spreader Name Role Phone Unavailable Primary Care Provider UnavailVernell Constantino APRN, CNP Primary Care Provid er Agnieszka Frost DO Primary Care Provider Vernell Lozada APRN, CNP Primary Care Provid er Agnieszka Frost DO Primary Care Provider Vernell Ackerman Unavailable Unknown, Referring Provider Unavailable Unav ailable Unavailable Unavailable DR NATALIE BARAHONA Attending Unavailable BROOKLYN, DR ESTRADA Admitting Unavailable KOMAL BAZAN Consulting Unavailable MISC, DR CHI Primary Care Unavailable ZEE MCCANN Consulting Unavailable BRENTON DIA Admitting Unavailable BRENTON DIA Attending Unavailable MISMitchell, DR CHI Primary Care Unavailable BRENTON DIA Consulting Unavailable FALEDEN OSULLIVAN Consulting Unavailable KAVITA ZELAYA Consulting Unavailable JOSE R GILMORE Consulting Unavailable JOSE R GILMORE Admitting Unavailable JOSE R GILMORE Attending Unavailable MISC, DR CHI Primary Care Unavailable AZAR, DR DIMITRI Medina Consulting Unavaildejah CHEEK, DR JESSE Brown Admitting Unavailable NADEREJuan David, DR JESSE Brown Attending Unavailable MISC, DR CHI Primary Care Unavailable HAM, DR JESSE Brown Consulting Unavailable ZEE HILL Consulting Unavailable MARKER, DR KIRBY Consulting Unavailable JOJO CURIEL Consulting Unavailable JASPER ARNETT Consulting Unavailable BRENTON DIA Consulting Unavailable BRENTON DIA Admitting Unavailable BRENTON DIA Attending Unavailable YURIC, DR CHI Primary Care Unavailable BROOKLYN, DR ESTRADA Admitting Unavailable BROOKLYN, DR ESTRADA Attending Unavailable BROOKLYN, DR ESTRADA Consulting Unavailable MISC, DR CHI Primary Care Unavailable HAY, DR ESTRADA Attending Unavailable MISC, DR CHI Primary Care Unavailable SERGIO, ZEE FORMAN Consulting Unavailable HAY, DR ESTRADA Admitting Unavailable HAY, DR ESTRADA Attending Unavailable HAY, DR ESTRADA Admitting Unavailable HAY, DR ESTRADA Consulting Unavailable MISC, DR CHI Primary Care Unavailable NASEER, MIKEY Attending Unavailable LILKO, [facility] Primary Care Unavailable NASEER, MIKEY Referring Unavailable LILKO, [facility] Primary Care Unavailable LILKO, [facility] Primary Care Unavailable ALMA SHEN Attending Unavailable NASEER, MIKEY Attending Unavailable LILKO, [facility] Primary Care Unavailable NASEER, MIKEY Attending Unavailable NASEER, MIKEY Referring Unavailable LILKO, [facility] Primary Care Unavailable TimmiKimberly delgado Referring Unavaila ble UNKNOWN, PCP Primary Care Unavailable Rezaee, Dr. Gokul Siddiqui Attending Ara vailable UNKNOWN, PCP Primary Care Unavailable Rezaee, Dr. Gokul Siddiqui Referring Ara vailable Rezaee, Dr. Gokul Siddiqui Attending Ara vailable Rezaee, Gokul Attending Unavailable Rezaee, Gokul Referring Unavailable UNKNOWN, PCP Primary Care Unavailable Rezaee, Gokul Attending Unavailable Rezaee, Gokul Referring Unavailable UNKNOWN, PCP Primary Care Unavailable Baltazar LOPEZ - [facility], [facility], [facility] Primary Care Provid er Baltazar [facility] - [facility], [facility] Primary Care [facility] er SHYANN MARIA Referring Unavailable BALTAZAR, [facility] Primary Care Unavailable SHYANN MARIA Referring Unavailable BALTAZAR, [facility] Primary Care Unavailable SHYANN MARIA Referring Unavailable BALTAZAR, [facility] Primary Care Unavailable SHYANN MARIA Referring Unavailable BALTAZAR, [facility] Primary Care Unavailable Mercedes DOVER, Shyann Ames Attending Unavaila ble Baltazar [facility], [facility] Primary Care Unava deshaun Maria MD, Shyann Ames Attending Unavaila ble Baltazar [facility], [facility] Primary Care Unava deshaun Maria MD, Shyann Ames Attending Unavaila ble Baltazar [employer], [facility] Primary Care Unava deshaun Maria MD, Shyann Ames Attending Unavaila ble Baltazar [facility], [facility] Primary Care Unava Vernell Bazan Primary Care Fabien Maria MD, Shyann Ames Attending Mariaelena Maria MD, Shyann Ames Attending Vernell Smith Primary Care Venrell Bradley Primary Care Provider Allergies Allergy Classification Reported Allergen(s) Allergy Type Date of Onset Reaction(s) Facility (16 sources) Eggs Or Egg-Derived Products Propensity to adverse reactions to drug 8 [place] (12 sources) Egg; Translations: [EGG DERIVED] Drug Allergy 8 Other: See Comments (11 sources) inFLIXimab; Translations: [INFLIXIMAB-DYY B] Drug Allergy 2 Anaphylaxis (20 sources) Measles Immune Globulin; Translations: [Measles Immune Globulin] Drug Allergy 7 Other: See Comments, Rash (10 sources) inFLIXimab Drug Allergy 2 Anaphylaxis [facility] (9 sources) Flu Vac-2016 [id number](P f); Translations: [FLU VAC-2016 [id number](P F)] Drug Allergy 2 Hives (1 source) egg extract Drug Allergy 7 [facility] (2 sources) inFLIXimab; Translations: [Inflectra] Drug Allergy 2 [facility] (1 source) influenza A (H1N1) Drug allergy (disorder) 2 [facility] (3 sources) Egg-Derived Products Propensity to adverse reactions to drug 8 [facility] (1 source) Egg; Translations: [eggs] Propensity to adverse reactions to food (disorder) [facility] Rep[facility] Medications Current Medications Medication Drug Class(es) Dates Sig (Normalized) Sig (Original) acetaminophen 300 mg / codeine phosphate 30 mg oral tablet (11 sources) Opioid Agonist Start: 02-22-2022 take 1 tablet by mouth every six hours as needed acetaminophen-cod eine (TYLENOL #3) 300-30 mg per tablet Take 1 tablet by mouth every 6 (six) hours as needed. 02/22/2022 Active Start: 01-28-2022 End: 01-28-2022 acetaminophen-codeine (TYLEN OL #3) 300-30 MG per tablet 1 tablet Comment on above: Take 1 tablet by lucia th every 6 hours as needed. acetaminophen 325 mg / HYDROcodone bitartrate 5 mg oral tablet (2 sources) Opioid Agonist Start: 12-09-2021 End: 12-12-2021 HYDROcodone-acetaminophe n (NORCO) 5-325 MG per tablet Indications: Abdominal pain, unspecified abdominal location Take 1 tablet by mouth every 4 hours as needed for Pain for up to 3 days. Intended supply: 3 days. Take lowest dose possible to manage pain 18 tablet 0 12/09/2021 12/12/2021 Active Start: 09-18-2020 End: 09-25-2020 take 1-2 tablets by mouth every six hours as needed for pain HYDROcodone-acetaminophen (NORCO) 5-325 MG per tablet Indications: S/P left knee arthroscopy Take 1-2 tablets by mouth every 6 hours as needed for Pain for up to 7 days. 30 tablet 0 09/18/2020 09/25/2020 Active acetaminophen 325 mg / oxyCODONE hydrochloride 5 mg oral tablet (2 sources) Opioid Agonist Start: 03-12-2022 oxyCODONE-acet aminophen (PERCOCET) 5-325 mg per tablet Take 1 tablet by mouth 4 (four) times a day as needed. Max Daily Amount: 4 tablets 03/12/2022 Active Start: 01-25-2022 oxyCODONE-acet aminophen (PERCOCET) tablet 5-325 mg (2 tablet STARTER PACK) 0.8 ml adalimumab 100 mg/ml auto-injector (5 sources) Tumor Necrosis Factor Tiffanie Start: 08-13-2022 HUMIRA PEN-CD/UC/HS STARTER 80 MG/0.8ML PNKT INJECT 160MG (2 PENS) UNDER THE SKIN ON DAY 1, THEN 80MG (1 PEN) ON DAY 15 08/13/2022 Active ALPRAZolam 0.25 mg oral tablet (1 source) Benzodiazepine Start: 09-04-2023 take 1 tablet by mouth three times daily as needed for anxiety ALPRAZolam (XANAX) 0.25 mg tablet TAKE 1 TABLET BY MOUTH THREE TIMES DAILY NEEDED FOR ANXIETY 09/04/2023 Active amitriptyline hydrochloride 10 mg oral tablet (13 sources) Tricyclic Antidepressant Start: 02-26-2022 End: 03-28-2022 take 1 tablet by mouth once daily amitriptyline (ELAVIL) 10 mg tablet Take 1 tablet (10 mg total) by mouth nightly. 02/26/2022 Active Comment on above: Take 1 tablet by lucia th daily at bedtime. cholecalciferol 0.05 mg oral capsule (1 source) Vitamin D Start: 03-17-2022 take 1 capsule by mouth in the morning VITAMIN D3 50 mcg (2,000 unit) capsule Take 1 capsule (2,000 Units total) by mouth in the morning. 03/17/2022 Active Dextran (1 source) Dextran 70-Hypromellose (ARTIFICIAL TEARS PF OP) Apply to eye 0 Active erythromycin 0.005 mg/mg ophthalmic ointment (1 source) Macrolide, Macrolide Antimicrobial Start: 01-28-2022 erythromycin (ROMYCIN) ophthalmic ointment ferrous sulfate 325 mg oral tablet (6 sources) Start: 01-15-2024 End: 04-14-2024 take 1 tablet by mouth once daily at breakfast ferrous sulfate (IRON 325) 325 (65 Fe) MG tablet Indications: Anemia, unspecified type Take 1 tablet by mouth daily (with breakfast) 90 tablet 1 01/15/2024 04/14/2024 Active Start: 07-15-2022 take 1 tablet by lucia th once daily at breakfast ferrous sulfate (IRON 325) 325 (65 Fe) MG tablet Indications: Iron deficiency anemia, unspecified iron deficiency anemia type Take 1 tablet by mouth daily (with breakfast) 30 tablet 5 07/15/2022 Active 1 ml hydrALAZINE hydrochloride 20 mg/ml injection (1 source) Arteriolar Vasodilator Start: 09-18-2020 hydrALAZINE (APRESOLINE) injection 5 mg hydrOXYzine pamoate 50 mg oral capsule (1 source) Antihistamine Start: 02-28-2022 End: 03-30-2022 take 1 capsule by mouth three times daily as needed hydrOXYzine pamoate (VISTARIL) 50 MG capsule Indications: Anxiety , Dysthymia Take 1 capsule by mouth 3 times daily as needed for Itching 30 capsule 1 02/28/2022 03/30/2022 Active isopropyl alcohol 0.7 ml/ml medicated pad (3 sources) Start: 02-06-2023 UltiCare Alcohol Swabs 70 % PADS USE NEEDED 02/06/2023 Active labetalol hydrochloride 5 mg/ml injectable solution (1 source) beta-Adrenergic Tiffanie Start: 09-18-2020 labetalol (NORMODYNE;TRANDAT E) injection 5 mg lisinopril 10 mg oral tablet (20 sources) Angiotensin Converting Enzyme Inhibitor Start: 01-08-2024 take 1 tablet by mouth once daily lisinopril (PRINIVIL;ZESTRIL) 10 MG tablet Indications: Primary hypertension TAKE 1 TABLET BY MOUTH DAILY 90 tablet 01/08/2024 Active Start: 11-07-2021 take 1 tablet by lucia th once daily lisinopril (PRINIVIL;ZESTRIL) 10 MG tablet Indications: Primary hypertension Take 1 tablet by mouth daily 90 tablet 1 06/05/2023 Active Comment on above: Take 1 tablet by lucia th once daily. metoclopramide 10 mg oral tablet (5 sources) Dopamine-2 Receptor Antagonist Start: 12-09-2021 metoclopramide (REGLAN) 10 MG tablet Take 1 tablet by mouth in the morning and 1 tablet at noon and 1 tablet in the evening and 1 tablet before bedtime. 20 tablet 0 12/09/2021 Active Start: 12-09-2021 metoclopramide (REGLAN) injection 10 mg omeprazole 20 mg delayed release oral capsule (2 sources) Proton Pump Inhibitor Start: 01-01-2024 End: 01-31-2024 take 1 capsule by mouth once daily before breakfast omeprazole (PRILOSEC) 20 MG delayed release capsule Indications: Gastroesophageal reflux disease with esophagitis without hemorrhage Take 1 capsule by mouth every morning (before breakfast) 30 capsule 01/01/2024 01/31/2024 Active ondansetron 4 mg oral tablet (5 sources) Serotonin-3 Receptor Antagonist Start: 01-01-2024 End: 01-31-2024 take 1 tablet by mouth three times daily as needed for nausea ondansetron (ZOFRAN) 4 MG tablet Indications: Gastroesophageal reflux disease with esophagitis without hemorrhage Take 1 tablet by mouth 3 times daily as needed for Nausea or Vomiting 60 tablet 01/01/2024 01/31/2024 Active Start: 12-01-2021 End: 12-09-2021 take 1 tablet by mouth every eight hours as needed for nausea ondansetron (ZOFRAN ODT) 4 MG disintegrating tablet Take 1 tablet by mouth every 8 hours as needed for Nausea or Vomiting 10 tablet 0 12/01/2021 12/09/2021 Discontinued (LIST CLEANUP) Start: 12-01-2021 End: 12-01-2021 ondansetron (ZOFRAN) injecti on 4 mg Parenteral Therapy Supplies (SHARPSAFETY SAFETY IN ROOM) MISC (3 sources) Start: 04-21-2023 Parenteral The rapy Supplies (SHARPSAFETY SAFETY IN ROOM) MISC USE DIRECTED 04/21/2023 Active Start: 04-21-2023 Parenteral The rapy Supplies (SHARPSAFETY SAFETY IN ROOM) MISC USE DIRECTED 0 04/21/2023 Active polyethylene glycol 3350 517942 mg / potassium chloride 2970 mg / sodium bicarbonate 6740 mg / sodium chloride 5860 mg / sodium sulfate 33143 mg powder for oral solution (1 source) Osmotic Laxative Start: 02-26-2022 End: 02-26-2022 peg 3350-Electrolytes (GOLYTELY) 236-22.74-6.74 -5.86 gram suspension Take 4,000 mL by mouth one time only for 1 dose. Refer to printed prep instructions from your provider. 4000 mL 0 02/26/2022 02/26/2022 Active Comment on above: Take 4,000 mL by lucia th one time only for 1 dose. Refer to printed prep instructions from your provider. predniSONE 20 mg oral tablet (7 sources) Start: 12-09-2021 End: 12-09-2021 take 1 dose by mouth once 60 mg, Oral, ONCE, 1 dose, On 12/09/21 at 1430 Start: 11-07-2021 End: 12-09-2021 predniSONE (DELTASONE) 10 MG tablet Day 1-4: Take 6 tablets once a day. Day 5-6: Take 5 tablets once a day.Day 7-8: Take 4 tablets once a day.Day 9-10: Take 3 tablets once a day.Day 11-12: Take 2 tablets once a day.Day 13-14: Take 1 tablet once a day. 54 tablet 0 12/09/2021 Active promethazine hydrochloride 12.5 mg oral tablet (2 sources) Phenothiazine Start: 03-30-2022 take 1 tablet by mouth every four hours as needed for nausea and vomiting promethazine (PHENERGAN) 12.5 mg tablet TAKE 1 TABLET BY MOUTH EVERY 4 HOURS FOR 30 DAYS NEEDED FOR NAUSEA AND VOMITING 03/30/2022 Active Start: 09-18-2020 End: 09-18-2020 promethazine (PHENERGAN) inj ection 6.25 mg sertraline 50 mg oral tablet (5 sources) Serotonin Reuptake Inhibitor Start: 01-08-2024 End: 04-07-2024 take 1 tablet by mouth once daily sertraline (ZOLOFT) 50 MG tablet Indications: Anxiety TAKE 1 TABLET BY MOUTH DAILY 90 tablet 01/08/2024 04/07/2024 Active Start: 10-02-2023 End: 12-31-2023 take 1 tablet by mouth once daily sertraline (ZOLOFT) 50 MG tablet Indications: Anxiety Take 1 tablet by mouth daily 90 tablet 0 10/02/2023 12/31/2023 Active Start: 04-01-2022 sertraline (ZO LOFT) 50 mg tablet 04/01/2022 Active Start: 02-28-2022 End: 03-30-2022 sertraline (ZOLOFT) 50 MG ta blet Indications: Anxiety , Dysthymia Take 2 tablets by mouth daily Take 1 tablet for 7 days then increase to 2 tablets 90 tablet 1 02/28/2022 03/30/2022 Active 5 ml sodium chloride 9 mg/ml injection (6 sources) Start: 05-09-2022 End: 11-05-2022 NaCl (PF) 0.9% 10-20 mL injection Start: 12-01-2021 End: 12-01-2021 0.9 % sodium chloride bolus Start: 09-18-2020 sodium chlorid e flush 0.9 % injection 5-40 mL Start: 09-18-2020 0.9 % sodium c hloride infusion Start: 09-18-2020 sodium chlorid e flush 0.9 % injection 5-40 mL SUMAtriptan 50 mg oral tablet (1 source) Serotonin-1b and Serotonin-1d Receptor Agonist Start: 02-28-2022 take 1 tablet by mouth every two hours SUMAtriptan (IMITREX) 50 mg tablet take 1 tablet by mouth if needed AT ONSET OF HEADACHE may repeat in 2 hours IF headache PERSISTS 02/28/2022 Active zolpidem tartrate 5 mg oral tablet (4 sources) gamma-Aminobutyric Acid-ergic Agonist Start: 01-01-2024 End: 03-31-2024 take 1 tablet by mouth once daily as needed for sleep zolpidem (AMBIEN) 5 MG tablet Indications: Insomnia, unspecified type Take 1 tablet by mouth nightly as needed for Sleep for up to 90 days. Max Daily Amount: 5 mg 90 tablet 01/01/2024 03/31/2024 Active Start: 11-20-2022 End: 12-20-2022 take 1 tablet by mouth at bedtime for sleep zolpidem (AMBIEN) 5 MG tablet Indications: Insomnia, unspecified type take 1 tablet by mouth at bedtime if needed for sleep 30 tablet 1 11/20/2022 12/20/2022 Active Completed/Discontinued Medications Medication Drug Class(es) Dates Sig (Normalized) Sig (Original) acetaminophen 325 mg oral tablet (20 sources) Start: 01-28-2022 End: 01-28-2022 acetaminophen (TYLENOL) tablet 650 mg Start: 09-18-2020 End: 09-18-2020 acetaminophen (TYLENOL) tabl et 650 mg take 1 tablet by lucia th every six hours as needed for pain acetaminophen (TYLENOL) 500 MG tablet Take 1 tablet by mouth every 6 hours as needed for Pain Active Comment on above: Take 500 mg by mouth . acetaminophen 250 mg / aspirin 250 mg / caffeine 65 mg oral tablet (2 sources) Platelet Aggregation Inhibitor, Nonsteroidal Anti-inflammatory Drug, Central Nervous System Stimulant, Methylxanthine End: 12-10-19 take 1 tablet by mouth every six hours as needed for headache aspirin-acetaminoph en-caffeine (EXCEDRIN MIGRAINE) 250-250-65 MG per tablet Take 1 tablet by mouth every 6 hours as needed for Headaches 0 12/09/2021 Discontinued (LIST CLEANUP) acetaminophen 300 mg / butalbital 50 mg / caffeine 40 mg oral capsule (4 sources) Barbiturate, Central Nervous System Stimulant, Methylxanthine Start: 01-06-20 End: 09-09-19 take 1 capsule by mouth every six hours as needed for headache spbzdxtrrr-IFNK-shw feine (FIORICET) 50-300-40 MG CAPS per capsule Take 1 capsule by mouth every 6 hours as needed for Headaches 20 capsule 0 01/05/2019 09/08/2020 Discontinued (Therapy completed) aspirin 81 mg chewable tablet (1 source) Platelet Aggregation Inhibitor, Nonsteroidal Anti-inflammatory Drug Start: 01-26-20 End: 01-26-20 aspirin chewable tablet 324 mg budesonide 3 mg delayed release oral capsule (8 sources) Corticosteroid Start: 01-18-20 budesonide, enteric coated (ENTOCORT EC) 3 mg 24 hr capsule Take 3 mg by mouth. 0 01/17/2022 Active Comment on above: Take 3 mg by mouth. calcium chloride 0.0014 meq/ml / potassium chloride 0.004 meq/ml / sodium chloride 0.103 meq/ml / sodium lactate 0.028 meq/ml injectable solution (2 sources) Start: 12-10-19 End: 12-10-19 lactated ringers bolus Start: 09-18-2020 lactated ringe rs infusion Carboxymethylcellulose (8 sources) carboxymethylcel lulose sodium (ARTIFICIAL TEARS, CMC, OPHTHALMIC) Use in eyes. 0 Active Comment on above: Use in eyes. ceFAZolin 2000 mg injection (1 source) Cephalosporin Antibacterial Start: 2020 End: 2020 ceFAZolin (ANCEF) 2000 mg in dextrose 3 % 50 mL IVPB (duplex) dimenhyDRINATE 50 mg oral tablet (1 source) Start: 2020 End: 2020 dimenhyDRINATE (DRAMAMINE) tablet 50 mg 1 ml diphenhydrAMINE hydrochloride 50 mg/ml cartridge (1 source) Histamine-1 Receptor Antagonist Start: 2018 End: 2018 diphenhydrAMINE (BENADRYL) injection 25 mg 2 ml fentaNYL 0.05 mg/ml injection (3 sources) Opioid Agonist Start: 2021 End: 2021 fentaNYL (SUBLIMAZE) injection 50 mcg Start: 09-18-2020 fentaNYL (SUBL IMAZE) injection 50 mcg Start: 09-18-2020 fentaNYL (SUBL IMAZE) injection 25 mcg iopamidol (ISOVUE-370) 76 % injection 75 mL (2 sources) Start: 01-25-2022 End: 01-25-2022 iopamidol (ISOVUE-370) 76 % injection 75 mL Start: 12-01-2021 End: 12-01-2021 iopamidol (ISOVUE-370) 76 % injection 75 mL 10 ml iron sucrose 20 mg/ml injection (2 sources) Parenteral Iron Replacement Start: 05-09-2022 iron sucrose (VENOFE R) 200 mg iron/10 mL soln injection Indications: Iron deficiency anemia, unspecified iron deficiency anemia type , Intestinal malabsorption, unspecified type Inject 10 mL intravenously as directed for 4 doses. 10 mL 3 05/09/2022 Active Comment on above: Inject 10 mL intrave nously as directed for 4 doses. 2 ml ketorolac tromethamine 30 mg/ml cartridge (2 sources) Nonsteroidal Anti-inflammatory Drug, Cyclooxygenase Inhibitor Start: 01-28-2022 End: 01-28-2022 ketorolac (TORADOL) injection 60 mg Start: 01-05-2019 End: 01-05-2019 ketorolac (TORADOL) injectio n 15 mg mesalamine 66.7 mg/ml enema (15 sources) Aminosalicylate Start: 04-16-2022 take 4 g rectal route every twenty-four hours as needed mesalamine (ROWASA) 4 gram/60 mL enema 60 mL by RECTAL route at bedtime as needed. 900 mL 2 04/16/2022 Active Start: 02-26-2022 End: 03-28-2022 take 4 tablets by mouth once daily at mealtime mesalamine (LIALDA) 1.2 gram EC tablet take 4 tablets by mouth once daily take with food DO NOT CUT TABLET 02/26/2022 Active Start: 02-26-2022 take 1 tablet by mouth once da devora mesalamine (LIALDA) 1.2 g EC tablet Take 1.2 g by mouth daily 0 02/26/2022 Active Comment on above: Take 4 tablets by mo uth once daily. Take with food. Do not cut tablet. 60 mL [address] RECTAL rout e at bedtime as needed. 1 ml morphine sulfate 4 mg/ml cartridge (2 sources) Opioid Agonist Start: 01-25-2022 End: 01-25-2022 morphine injection 4 mg Start: 12-01-2021 End: 12-01-2021 morphine (PF) injection 2 mg oxyCODONE hydrochloride 5 mg oral tablet (1 source) Opioid Agonist Start: 09-18-2020 End: 09-18-2020 oxyCODONE (ROXICODONE) immediate release tablet 5 mg 2 ml prochlorperazine 5 mg/ml injection (2 sources) Phenothiazine Start: 09-18-2020 End: 09-18-2020 prochlorperazine (COMPAZINE) injection 5 mg Start: 01-05-2019 End: 01-05-2019 prochlorperazine (COMPAZINE) injection 10 mg proparacaine hydrochloride 5 mg/ml ophthalmic solution (1 source) Local Anesthetic Start: 01-28-2022 End: 01-28-2022 proparacaine (ALCAINE) 0.5 % ophthalmic solution 2 drop 20 ml ropivacaine hydrochloride 5 mg/ml injection (1 source) Amide Local Anesthetic Start: 09-18-2020 End: 09-18-2020 ropivacaine (NAROPIN) 0.5% injection vitamin b12 1 mg/ml injectable solution (2 sources) Vitamin B12 Start: 11-28-2022 End: 11-28-2022 cyanocobalamin injection 1,000 mcg Start: 11-27-2022 End: 11-27-2022 cyanocobalamin injection 1,0 00 mcg Problems Active Problems Problem Classification Problem Date Documented Da te Episodic/Chronic Abdominal pain (2 sources) Generalized abdominal pain; Translations: [Generalized abdominal pain] Episodic Cardiac dysrhythmias (1 source) Palpitations; Translations: [Palpitations] Onset: 2 Episodic Conditions associated with dizziness or vertigo (4 sources) Dizziness and giddiness; Translations: [DIZZINESS AND GIDDINESS] Onset: 2 Episodic Deficiency and other anemia (1 source) Anemia, unspecified; Translations: [Anemia, unspecified type] Onset: 2 Episodic Deficiency and other anemia (2 sources) Iron deficiency anemia; Translations: [Iron deficiency anemia, unspecified] Episodic Diseases of white blood cells (6 sources) Neutrophilia; Translations: [Disorder of white blood cells, unspecified] Onset: 3 09-05-2022 Chronic E Codes: Adverse effects of medical drugs (1 source) Adverse effect of antineoplastic and immunosuppressive drugs, initial encounter; Translations: [ADVRS EFF ANTINEOPL IMMUNOSUP INIT] Onset: 2 Episodic Essential hypertension (1 source) Essential (primary) hypertension; Translations: [ESSENTIAL PRIMARY HYPERTENSION] Onset: 2 Chronic Headache; including migraine (5 sources) Migraine; Translations: [Migraine, unspecified, not intractable, without status migrainosus] Onset: 2 Chronic Headache; including migraine (4 sources) Headache; including migraine; Translations: [HEADACHE UNSPECIFIED] Onset: 2 Inflammation; infection of eye (except that caused by tuberculosis or sexually transmitteddisease) (2 sources) Acute infectious conjunctivitis; Translations: [Unspecified acute conjunctivitis, right eye] Episodic Joint disorders and dislocations; trauma-related (12 sources) Derangement of lateral meniscus; Translations: [Other meniscus derangements, unspecified lateral meniscus, unspecified knee] Onset: 2 12-11-2021 Chronic Malaise and fatigue (4 sources) Fatigue; Translations: [Other fatigue] Onset: 4 01-14-2024 Episodic Mood disorders (1 source) Major depressive disorder, single episode, unspecified; Translations: [KAROLYN DEPRESS D/O SINGLE EPIS UNS] Onset: 2 Chronic Nausea and vomiting (2 sources) Nausea; Translations: [Nausea with vomiting, unspecified] Onset: 2 Episodic Nonspecific chest pain (1 source) Chest pain; Translations: [Chest pain, unspecified] Episodic Other aftercare (1 source) Other terminal worker (current) drug therapy; Translations: [OTH ALF CURRENT DRUG THERAPY] Onset: 2 Episodic Other aftercare (1 source) snf (current) use of systemic steroids; Translations: [ALF USE OF SYSTEMIC STEROIDS] Onset: 2 Episodic Other ear and sense organ disorders (1 source) Tinnitus, unspecified ear; Translations: [TINNITUS UNSPECIFIED EAR] Onset: 2 Episodic Other gastrointestinal disorders (1 source) Intestinal malabsorption; Translations: [Intestinal malabsorption, unspecified] Chronic Other gastrointestinal disorders (1 source) H/O: colitis; Translations: [Personal history of other diseases of the digestive system] Episodic Other gastrointestinal disorders (1 source) Diarrhea, unspecified; Translations: [Nausea vomiting and diarrhea] Onset: 2 Episodic Other inflammatory condition of skin (1 source) Pruritus, unspecified; Translations: [PRURITUS UNSPECIFIED] Onset: 2 Episodic Other non-traumatic joint disorders (3 sources) Pain in left knee; Translations: [Pain in left knee] Onset: 2 12-11-2021 Episodic Other nutritional; endocrine; and metabolic disorders (10 sources) Obese class I; Translations: [Obesity, unspecified] Onset: 2 02-26-2022 Chronic Other nutritional; endocrine; and metabolic disorders (1 source) Weight gain; Translations: [Abnormal weight gain] Episodic Other skin disorders (2 sources) Mass of parapharyngeal space; Translations: [Swelling, mass, or lump in head and neck] Episodic Other skin disorders (5 sources) Localized swelling, mass and lump, neck; Translations: [LOCALIZED SWELLING MASS AND LUMP NECK] Onset: 2 Episodic Regional enteritis and ulcerative colitis (18 sources) Ulcerative pancolitis; Translations: [Ulcerative (chronic) pancolitis with rectal bleeding] Onset: 2 Chronic Residual codes; unclassified (1 source) History of arthroscopy of knee joint; Translations: [Other specified postprocedural states] Episodic Residual codes; unclassified (1 source) Other specified postprocedural states; Translations: [History of endoscopy] Onset: 2 Episodic Screening and history of mental health and substance abuse codes (1 source) Personal history of nicotine dependence; Translations: [PERSONAL HISTORY OF NICOTINE DEPEND] Onset: 2 Episodic Spondylosis; intervertebral disc disorders; other back problems (4 sources) Dorsalgia, unspecified; Translations: [DORSALGIA UNSPECIFIED] Onset: 2 Episodic Syncope (1 source) Syncope and collapse; Translations: [Syncope and collapse] Onset: 2 Episodic Unclassified (1 source) CONTACT W/AND (SUSP) EXPOS COVID-19; Translations: [CONTACT W/AND (SUSP) EXPOS COVID-19] Onset: 2 Past or Other Problems Problem Classification Problem Date Documented Date Episodic/Chronic Blindness and vision defects (2 sources) Bilateral eye strain; Translations: [Unspecified subjective visual disturbances] 09-23-2023 Episodic Deficiency and other anemia (6 sources) Normocytic anemia; Translations: [Anemia, unspecified] Onset: 09-05-2022 09-05-2022 Episodic Deficiency and other anemia (6 sources) Anemia; Translations: [Anemia, unspecified] Onset: 09-05-2022 09-05-2022 Episodic Deficiency and other anemia (5 sources) Iron deficiency anemia secondary to inadequate dietary iron intake; Translations: [Other iron deficiency anemias] Onset: 11-18-2022 11-18-2022 Episodic Deficiency and other anemia (5 sources) Pernicious anemia; Translations: [Vitamin B12 deficiency anemia due to intrinsic factor deficiency] Onset: 11-18-2022 11-18-2022 Episodic Joint disorders and dislocations; trauma-related (12 sources) Tear of medial meniscus of knee; Translations: [Other tear of medial meniscus, current injury, left knee, initial encounter] Onset: 12-11-2021 12-11-2021 Episodic Nutritional deficiencies (9 sources) Cobalamin deficiency; Translations: [Deficiency of other specified B group vitamins] Onset: 11-18-2022 Episodic Other bone disease and musculoskeletal deformities (12 sources) Chondromalacia of left knee; Translations: [Chondromalacia, left knee] Onset: 12-11-2021 12-11-2021 Episodic Other connective tissue disease (12 sources) Transient synovitis, left knee; Translations: [Synovitis and tenosynovitis, unspecified] Onset: 12-11-2021 12-11-2021 Episodic Other connective tissue disease (12 sources) Synovial cyst of left popliteal space; Translations: [Synovial cyst of popliteal space [Brady], left knee] Onset: 12-11-2021 12-11-2021 Episodic Other eye disorders (1 source) Tear film insufficiency; Translations: [Dry eye syndrome of bilateral lacrimal glands] 09-23-2023 Episodic Other non-traumatic joint disorders (9 sources) Pain in left knee; Translations: [Pain in joint, lower leg] Onset: 12-11-2021 12-11-2021 Episodic Other screening for suspected conditions (not mental disorders or infectious disease) (16 sources) Imaging of gastrointestinal tract abnormal; Translations: [Abnormal findings on diagnostic imaging of other parts of digestive tract] Onset: 02-26-2022 Episodic Residual codes; unclassified (13 sources) Past history of procedure; Translations: [Other specified postprocedural states] Onset: 02-26-2022 Episodic Residual codes; unclassified (6 sources) Family history of breast cancer; Translations: [Family history of malignant neoplasm of breast] Onset: 09-05-2022 09-05-2022 Episodic Results Test Name Value Interpretation Reference Range Facility Gastroenterology Office/Clin ic Noteon 04-22-2024 Gastroenterology Office/Clinic Note Chief Complaint 6m f/u UC History of Present Illness 48-year-old female presents in follow-up of severe ulcerative colitis. Patient was seen in endoscopy 12/14/21 in evaluation of ulcerative colitis. The patient was diagnosed at age 16. She had not been on medications in over 15 years. Patient was having significant symptoms with diarrhea and hematochezia up to 20 bowel movements daily. Colonoscopy with findings of Diaz UC score 3 severe ulcerative colitis. Given findings and the patient symptoms she was admitted for inpatient management. Patient was initiated on IV steroids which she failed with ongoing significant diarrhea and hematochezia. She was given infliximab rescue with significant improvement in symptoms. The patient then developed significant eye irritation and is following with an lead coater. She reported resolution. Following the patient's third Inflectra infusion she reported an infusion reaction with loss of consciousness requiring emergency department evaluation. Full details and etiology are overall unclear. The patient has since discontinued Inflectra and ultimately transitioned to Humira. The patient was hospitalized for C. difficile infection and ultimately ileus as a result. Patient ultimately developed antibodies to Humira thus was transition to Entyvio 02/2024. The patient is currently doing well. Reports she can have formed stool up to multiple bowel movements in a day. No hematochezia. Reports some intermittent hair loss. Most recent endoscopic evaluation as below. No additional complaints. Notes: Impression: ?Incomplete colonoscopy advanced to the transverse colon ? Severely inflamed, ulcerated colonic mucosa with spontaneous bleeding consistent with Diaz UC score 3. Biopsied. [1] Parts A-E: Colon biopsies at 50, 40, 30, 20, and 10cm: Active colitis consistent with ulcerative colitis with moderate inflammatory activity. [1] (01/07/2022 09:22 EDT XR Abdomen 2 Views w/ Chest 1 View) personally reviewed per emr IMPRESSION: 1. Nonspecific few borderline dilated loops of small bowel in the upper abdomen. 2. Unremarkable chest. [1] Most recent cross-sectional imaging 03/16/2022 (03/16/2022 13:[address] Abdomen Pelvis w/ IV Contrast) IMPRESSION: 1. Grossly similar colonic wall thickening as compared to previous CT 03/11/2022 suggesting mild colitis. 2. Mildly increased stool and gas distention of the colon to the level of the sigmoid colon possibly on the basis of a partial functional obstruction versus colonic hypomotility. Stricture is felt unlikely. 3. Trace right pleural fluid, with minimal atelectasis of the lower lobes bilaterally. [1] EGD/colonoscopy 06/30/2023 ?Normal esophagus ? Gastric erythema. Biopsied. ? Duodenal erythema. Biopsied. [2] ?Normal examined terminal ileum ? Extensive pseudopolyps. Biopsied. [3] Part A: Duodenum, biopsy: Benign small bowel. Negative for celiac disease. Part B: Stomach, biopsy: Mild chronic gastritis. Parts C/D/E/F/G: Ascending colon, transverse colon, descending colon, sigmoid colon and rectum, multiple biopsies: Benign colonic mucosa with mild chronic inflammation consistent with quiescent ulcerative colitis. [1] Physical Exam Vitals & Measurements HR: 88 (Peripheral) SpO2: 96% HT: 163 cm WT: 87.1 kg BMI: 32.78 General: Alert and oriented, well nourished, no acute distress Eye: tracks well, anicteric sclera HENT: Normocephalic, external ear normal, no discharge, moist oral mucosa Neck: Supple, non-tender, trachea midline Lungs: symmetrical expansion, nonlabored respirations Heart: regular rate, distal pulses intact Abdomen: soft, nontender, nondistended Musculoskeletal: no deformity, no swelling Skin: clean, dry, intact, no jaundice Neurologic: A&Ox3, no focal deficits Psychiatric: Cooperative, appropriate mood and affect Additional Vitals No qualifying data available. Assessment/Plan 1. Ulcerative colitis 2. Iron deficiency 47-year-old with 1. Ulcerative colitis: Severe pancolonic disease diagnosed at age 16. Initiated on Inflectra 12/2021. Patient with reported infusion reaction secondary to Inflectra thus has been discontinued. Transition to Humira. Most recent colonoscopy with remission 06/2023. Transitione dto Entyvio 02/2024 due to ab to humira. ? Continue Entyvio , previously discussed risk and the patient was in agreement to continue ?Patient following with an lead coater regarding her prior eye concerns ? Counseled patient on the need for routine laboratory studies while on biologic. She reported understanding. Will obtain today and in 3 months ? [facility] ? Hepatitis B studies negative previously, QuantiFERON negative ?PCP follow-up for annual Pap smear, health maintenance, immunizations, bone health management, etc. ? Annual dermatology evaluation ? Counseled patient on sun safety previously - stop budesonide with next entyvio dose 2. Iron deficiency anemia: Patient continues on iron suppleme (more content not included)... Normal [facility] Calprotectin, Fecalon 2023 Calprotectin, Fecal 48 ug/g Normal <=49 [facility] Comment on above: Result Comment: (NOT E) REFERENCE INTERVAL: Calprotectin, Fecal by Immunoassay Less than 50 ug/g.........Normal 50-120 ug/g...............Borderline elevated, test should be re-evaluated in 4-6 weeks. 121 ug/g or greater.......Elevated Performed By: [facility] [address] [place] [address] Splicer Operator: Sonu Gonzalez MD, PhD CLIA Number: [id number] Performed By: #### A CALPF #### [facility] [address] [place] [address] Hospital Administrative Assistant: Tello Frazier MD Adalimumab/Ab to Adalimumab Quanton 01-16-2024 Ab to Adalimumab Quant 263 ng/mL Normal [facility] Comment on above: Result Comment: (NOT E) INTERPRETIVE INFORMATION: Antibodies to Adalimumab Quantitation Limit of Quantitation = 20 ng/mL Results of 20 ng/mL or higher indicate the detection of antibodies against adalimumab or an adalimumab biosimilar. Interpret in the context of adalimumab or adalimumab biosimilar trough concentration to determine clinical significance and impact on treatment efficacy. This test was developed and its performance characteristics determined by [facility]. It has not been cleared or approved by the U.S. Food and Drug Administration. This test was performed in a CLIA-certified laboratory and is intended for clinical purposes. Performed By: [facility] [address] [place] [address] Splicer Operator: Sonu Gonzalez MD, PhD CLIA Number: [id number] Performed By: #### A NORTH #### [facility] [address] [place] [address] Hospital Administrative Assistant: Tello Frazier MD #### FERI #### [address] [place], [place] [id number] Hospital Administrative Assistant: Raj Daly MD #### CRP #### [facility] [address] [place] [address] [place] [address] Hospital Administrative Assistant: Omar Martinez MD Adalimumab <0.4 Normal [facility] Comment on above: Result Comment: (NOT E) INTERPRETIVE INFORMATION: Adalimumab Quantitation Limit of Quantitation = 0.4 ug/mL. Results of 0.4 ug/mL or higher indicate the detection of adalimumab or an adalimumab biosimilar. Therapeutic level may vary depending on the disease being treated. Performed By: #### A NORTH #### [facility] [address] [place] [address] Hospital Administrative Assistant: Tello Frazier MD #### FERI #### [address] [address] Hospital Administrative Assistant: Raj Daly MD #### CRP #### [facility] [address] [place] [address] Hospital Administrative Assistant: Omar Martinez MD Ferritinon 01-16-2024 Ferritin [Mass/Vol] 26 ng/mL Normal 13-150 [facility] Comment on above: Result Comment: FERRITIN Reference Ranges: Adult Males 20 - 60 years: 30 - 400 ng/mL Adult females 17 - 60 years: 13 - 150 ng/mL Adults greater than 60 years: no established reference range Pediatrics: no established reference range Performed By: #### A NORTH #### [facility] [address] [place] [address] Hospital Administrative Assistant: Tello Frazier MD #### FERI #### [address] [address] Hospital Administrative Assistant: Raj Daly MD #### CRP #### [facility] [address] [place] [address] Hospital Administrative Assistant: Omar Martinez MD B12/Folate Panelon 4 Cobalamin (Vitamin B12) [Mass/Vol] 319 pg/mL Normal 232-1245 [facility] Comment on above: Performed By: #### B 12FOL #### [address] [address] Hospital Administrative Assistant: Raj Daly MD Folic Acid 8.7 ng/mL Normal 4.8-24.2 [facility] Comment on above: Performed By: #### B 12FOL #### [address] [address] Hospital Administrative Assistant: Raj Daly MD Iron Binding Cap.on 01-15-20 24 % Fe Saturation 16 % Low 20-55 [facility] Comment on above: Performed By: #### F EBMitchell VD25 #### [address] [address] Hospital Administrative Assistant: Raj Daly MD Iron [Mass/Vol] 61 ug/dL Normal 37-145 [facility] Comment on above: Performed By: #### F EBC, VD25 #### [address] [address] Hospital Administrative Assistant: Raj Daly MD Total Fe Binding Cap 385 ug/dL Normal 250-450 [facility] Comment on above: Performed By: #### F EBC, VD25 #### [address] [address] Hospital Administrative Assistant: Raj Daly MD Unbound Fe Bind Cap 324 ug/dL Normal 112-347 [facility] Comment on above: Performed By: #### F EBC, VD25 #### [facility] [address] [place], [place] [id number] Hospital Administrative Assistant: Raj Daly MD Vitamin D 25 OHon 01-15-2024 Vitamin D 25 [place] 45.7 ng/mL Normal 30.0-100.0 [facility] Comment on above: Result Comment: Reference Range: Vitamin D status Range Deficiency <20 ng/mL Mild Deficiency 20-30 ng/mL Sufficiency 30-100 ng/mL Toxicity >100 ng/mL Performed By: #### F EBC, VD25 #### [facility] [address] [place], [place] [id number] Hospital Administrative Assistant: Raj Daly MD C-Reactive Proteinon 024 CRP High sensitivity method [Mass/Vol] 4.6 mg/L 0.0 - 5.0 mg/L [facility] CRP [Mass/Vol] 4.6 mg/L Normal 0.0-5.0 [facility] Comment on above: Performed By: #### A NORTH #### [facility] [address] [place] [address] Hospital Administrative Assistant: Tello Frazier MD #### FERI #### [address] [id number] Hospital Administrative Assistant: Raj Daly MD #### CRP #### [facility] [address] [place] [address] [place] [address] Hospital Administrative Assistant: Omar Martinez MD TSH With Reflex Ft4on 2023 TSH Qn 0.66 m[IU]/L [facility] TSH w/reflex to FT4on 2023 Thyroid Stim. Horm. 0.66 uIU/mL Normal 0.27-4.20 [facility] Comment on above: Performed By: #### T SHX #### [facility] [address] [place] [address] [place] [address] Hospital Administrative Assistant: Omar Martinez MD Gastroenterology Office/Clin ic Noteon 12-25-2023 Gastroenterology Office/Clinic Note Chief Complaint f/u NELI, UC History of Present Illness 47-year-old female presents in follow-up of severe ulcerative colitis. Patient was seen in endoscopy 12/14/21 in evaluation of ulcerative colitis. The patient was diagnosed at age 16. She had not been on medications in over 15 years. Patient was having significant symptoms with diarrhea and hematochezia up to 20 bowel movements daily. Colonoscopy with findings of Diaz UC score 3 severe ulcerative colitis. Given findings and the patient symptoms she was admitted for inpatient management. Patient was initiated on IV steroids which she failed with ongoing significant diarrhea and hematochezia. She was given infliximab rescue with significant improvement in symptoms. The patient then developed significant eye irritation and is following with an lead coater. She reported resolution. Following the patient's third Inflectra infusion she reported an infusion reaction with loss of consciousness requiring emergency department evaluation. Full details and etiology are overall unclear. The patient has since discontinued Inflectra and ultimately transition to Humira. The patient was hospitalized for C. difficile infection and ultimately ileus as a result. The patient is currently doing well. Reports she can have formed stool up to multiple bowel movements in a day. No hematochezia. Patient does note recent fatigue. Most recent endoscopic evaluation as below. No additional complaints. Notes: Impression: ?Incomplete colonoscopy advanced to the transverse colon ? Severely inflamed, ulcerated colonic mucosa with spontaneous bleeding consistent with Diaz UC score 3. Biopsied. [1] Parts A-E: Colon biopsies at 50, 40, 30, 20, and 10cm: Active colitis consistent with ulcerative colitis with moderate inflammatory activity. [1] (01/07/2022 09:22 EDT XR Abdomen 2 Views w/ Chest 1 View) personally reviewed per emr IMPRESSION: 1. Nonspecific few borderline dilated loops of small bowel in the upper abdomen. 2. Unremarkable chest. [1] Most recent cross-sectional imaging 03/16/2022 (03/16/2022 13:[address] Abdomen Pelvis w/ IV Contrast) IMPRESSION: 1. Grossly similar colonic wall thickening as compared to previous CT 03/11/2022 suggesting mild colitis. 2. Mildly increased stool and gas distention of the colon to the level of the sigmoid colon possibly on the basis of a partial functional obstruction versus colonic hypomotility. Stricture is felt unlikely. 3. Trace right pleural fluid, with minimal atelectasis of the lower lobes bilaterally. [1] EGD/colonoscopy 06/30/2023 ?Normal esophagus ? Gastric erythema. Biopsied. ? Duodenal erythema. Biopsied. [2] ?Normal examined terminal ileum ? Extensive pseudopolyps. Biopsied. [3] Part A: Duodenum, biopsy: Benign small bowel. Negative for celiac disease. Part B: Stomach, biopsy: Mild chronic gastritis. Parts C/D/E/F/G: Ascending colon, transverse colon, descending colon, sigmoid colon and rectum, multiple biopsies: Benign colonic mucosa with mild chronic inflammation consistent with quiescent ulcerative colitis. [4] Physical Exam Vitals & Measurements HR: 91 (Peripheral) BP: 147/90 SpO2: 98 HT: 163 cm WT: 86.1 kg BMI: 32.41 General: Alert and oriented, well nourished, no acute distress Eye: tracks well, anicteric sclera HENT: Normocephalic, external ear normal, no discharge, moist oral mucosa Neck: Supple, non-tender, trachea midline Lungs: symmetrical expansion, nonlabored respirations Heart: regular rate, distal pulses intact Abdomen: soft, nontender, nondistended Musculoskeletal: no deformity, no swelling Skin: clean, dry, intact, no jaundice Neurologic: A&Ox3, no focal deficits Psychiatric: Cooperative, appropriate mood and affect Additional Vitals BP Position/Location: Sitting, Left arm Assessment/Plan 1. Ulcerative colitis 2. Iron deficiency 47-year-old with 1. Ulcerative colitis: Severe pancolonic disease diagnosed at age 16. Initiated on Inflectra 12/2021. Patient with reported infusion reaction secondary to Inflectra thus has been discontinued. Transition to Humira. Most recent colonoscopy with remission 06/2023. ? Continue Humira, previously discussed risk and the patient was in agreement to continue ?Patient following with an lead coater regarding her prior eye concerns ? Counseled patient on the need for routine laboratory studies while on biologic. She reported understanding. Will obtain today and in 3 months ? Obtain colonoscopy ? Hepatitis B studies negative previously, QuantiFERON negative ?PCP follow-up for annual Pap smear, health maintenance, immunizations, bone health management, etc. ? Annual dermatology evaluation ? Counseled patient on sun safety ?Given reports of fatigue will obtain additional laboratory studies. Will obtain Humira level and calprotectin as well given some changes in bowel habits. 2. Iron deficiency anemia: Patient continues on iron supplementation. Patient following with a h (more content not included)... Normal [facility] CBC with Auto Differentialon 12-18-2023 Basophils (Bld) [#/Vol] 0.07 10*3/uL [facility] Basophils/100 WBC (Bld) 1 % 0 - 2 % [facility] Eosinophils (Bld) [#/Vol] 0.38 10*3/uL [facility] Eosinophils/100 WBC (Bld) 4 % 1 - 4 % [facility] Erythrocyte distribution width (RBC) [Ratio] 13.0 % 11.8 - 14.4 % [facility] Hematocrit (Bld) [Volume fraction] 43.6 % 36.3 - 47.1 % [facility] Hemoglobin (Bld) [Mass/Vol] 14.2 g/dL 11.9 - 15.1 g/dL [facility] Immature granulocytes (Bld) [#/Vol] 0.04 10*3/uL [facility] Immature granulocytes/100 WBC (Bld) 0 % 0 [facility] Lymphocytes/100 WBC (Bld) 27 % 24 - 43 % [facility] Lymphocytes/100 WBC (Bld) 2.59 % [facility] MCH (RBC) [Entitic mass] 28.7 pg 25.2 - 33.5 pg [facility] MCHC (RBC) [Mass/Vol] 32.6 g/dL 28.4 - 34.8 g/dL [facility] MCV (RBC) [Entitic vol] 88.3 fL 82.6 - 102.9 fL [facility] Monocytes/100 WBC (Bld) 6 % 3 - 12 % [facility] Monocytes/100 WBC (Bld) 0.54 % [facility] Neutrophils/100 WBC (Bld) 62 % 36 - 65 % [facility] Nucleated RBC/100 WBC (Bld) [Ratio] 0.0 % 0.0 per 100 WBC [facility] Platelet mean volume (Bld) [Entitic vol] 9.3 fL 8.1 - 13.5 fL [facility] Platelets (Bld) [#/Vol] 388 10*3/uL [facility] RBC (Bld) [#/Vol] 4.94 10*6/uL 3.95 - 5.1 1 m/uL [facility] Segmented neutrophils/100 WBC (Bld) 6.12 % [facility] WBC other (Bld) [#/Vol] 9.7 [facility] CBC with Diffon 12-18-2023 Abs. Basophil 0.07 k/uL Normal 0.00-0.20 [facility] Comment on above: Performed By: #### C DP, CP #### [facility] [address] [place] [address] Hospital Administrative Assistant: Omar Martinez MD Abs.Imm.Granulocyte 0.04 k/uL Normal 0.00-0.30 [facility] Comment on above: Performed By: #### C DP, CP #### [facility] [address] [place], [facility] Hospital Administrative Assistant: Omar Martinez MD Abs.Neutrophil (Seg) 6.12 k/uL Normal 1.50-8.10 [facility] Comment on above: Performed By: #### C DP, CP #### [facility] [address] [place], [place] [address] Hospital Administrative Assistant: Omar Martinez MD Basophils/100 WBC (Bld) 1 % Normal 0-2 [facility] Comment on above: Performed By: #### C DP, CP #### [facility] [address] [place], [facility] Hospital Administrative Assistant: Omar Martinez MD Eosinophils (Bld) [#/Vol] 0.38 10*3/uL Normal 0.00-0.44 [facility] Comment on above: Performed By: #### C DP, CP #### [facility] [address] [place], [place] [id number] Hospital Administrative Assistant: Omar Martinez MD Eosinophils/100 WBC (Bld) 4 % Normal 1-4 [facility] Comment on above: Performed By: #### C DP, CP #### [address] [place], [facility] Hospital Administrative Assistant: Omar Martinez MD Erythrocyte distribution width (RBC) [Ratio] 13.0 % Normal 11.8-14.4 [facility] Comment on above: Performed By: #### C DP, CP #### [address] [place] [id number] Hospital Administrative Assistant: Omar Martinez MD Hematocrit (Bld) [Volume fraction] 43.6 % Normal 36.3-47.1 [facility] Comment on above: Performed By: #### C DP, CP #### [address] [place], [facility] Hospital Administrative Assistant: Omar Martinez MD Hemoglobin (Bld) [Mass/Vol] 14.2 g/dL Normal 11.9-15.1 [facility] Comment on above: Performed By: #### C DP, CP #### [address] [place], [facility] Hospital Administrative Assistant: Omar Martinez MD Immature granulocytes/100 WBC (Bld) 0 % Normal 0 [facility] Comment on above: Performed By: #### C DP, CP #### [address] [place], [facility] Hospital Administrative Assistant: Omar Martinez MD Lymphocytes (Bld) [#/Vol] 2.59 10*3/uL Normal 1.10-3.70 [facility] Comment on above: Performed By: #### C DP, CP #### [address] [place] [id number] Hospital Administrative Assistant: Omar Martinez MD Lymphocytes/100 WBC (Bld) 27 % Normal 24-43 [facility] Comment on above: Performed By: #### C DP, CP #### [facility] [address] [place], [place] [id number] Hospital Administrative Assistant: Omar Martinez MD MCH (RBC) [Entitic mass] 28.7 pg Normal 25.2-33.5 [facility] Comment on above: Performed By: #### C DP, CP #### [facility] [address] [place], [place] [id number] Hospital Administrative Assistant: Omar Martinez MD MCHC (RBC) [Mass/Vol] 32.6 g/dL Normal 28.4-34.8 [facility] Comment on above: Performed By: #### C DP, CP #### [address] [place], [facility] Hospital Administrative Assistant: Omar Martinez MD MCV (RBC) [Entitic vol] 88.3 fL Normal 82.6-102.9 [facility] Comment on above: Performed By: #### C DP, CP #### [address] [place], [place] [id number] Hospital Administrative Assistant: Omar Martinez MD Monocytes (Bld) [#/Vol] 0.54 10*3/uL Normal 0.10-1.20 [facility] Comment on above: Performed By: #### C DP, CP #### [facility] [address] [place] [address] Hospital Administrative Assistant: Omar Martinez MD Monocytes/100 WBC (Bld) 6 % Normal 3-12 [facility] Comment on above: Performed By: #### C DP, CP #### [facility] [address] [place], [place] [id number] Hospital Administrative Assistant: Omar Martinez MD Neutrophil (Seg) 62 % Normal 36-65 [facility] Comment on above: Performed By: #### C DP, CP #### [facility] [address] [place], [place] [id number] Hospital Administrative Assistant: Omar Martinez MD NRBC Automated 0.0 per 100 WBC Normal 0.0 [facility] Comment on above: Performed By: #### C DP, CP #### [facility] [address] [place], [place] [id number] Hospital Administrative Assistant: Omar Martinez MD Platelet mean volume (Bld) [Entitic vol] 9.3 fL Normal 8.1-13.5 [facility] Comment on above: Performed By: #### C DP, CP #### [facility] [address] [place], [place] [id number] Hospital Administrative Assistant: Omar Martinez MD Platelets (Bld) [#/Vol] 388 10*3/uL Normal 138-453 [facility] Comment on above: Performed By: #### C DP, CP #### [address] [place], [place] [id number] Hospital Administrative Assistant: Omar Martinez MD RBC (Bld) [#/Vol] 4.94 10*6/uL Normal 3.95-5.11 [facility] Comment on above: Performed By: #### C DP, CP #### [address] [place], [facility] Hospital Administrative Assistant: Omar Martinez MD WBC (Bld) [#/Vol] 9.7 10*3/uL Normal 3.5-11.3 [facility] Comment on above: Performed By: #### C DP, CP #### [facility] [address] [place] [address] Hospital Administrative Assistant: Omar Martinez MD Comp Metabolic Profon 2023 Bilirubin [Mass/Vol] mg/dL Low 0.3-1.2 [facility] Comment on above: Performed By: #### C DP, CP #### [facility] [address] [place], [place] [id number] Hospital Administrative Assistant: Omar Martinez MD Albumin [Mass/Vol] 4.2 g/dL Normal 3.5-5.2 [facility] Comment on above: Performed By: #### C DP, CP #### [facility] [address] [place], [place] [id number] Hospital Administrative Assistant: Omar Martinez MD Albumin/Glob Ratio 1.4 Normal 1.0-2.5 [facility] Comment on above: Performed By: #### C DP, CP #### [address] [place], [place] [id number] Hospital Administrative Assistant: Omar Martinez MD Alkaline Phos 63 U/L Normal 35-104 [facility] Comment on above: Performed By: #### C DP, CP #### [facility] [address] [place] [address] Dr[place], [place] 1335583 Hospital Administrative Assistant: Omar Martinez MD ALT [Catalytic activity/Vol] 8 U/L Normal 5-33 [facility] Comment on above: Performed By: #### C DP, CP #### [address] [place], [place] [id number] Hospital Administrative Assistant: Omar Martinez MD Anion gap [Moles/Vol] 9 mmol/L Normal 9-17 [facility] Comment on above: Performed By: #### C DP, CP #### [facility] [address] [place] [address] Dr[place], [place] [id number] Hospital Administrative Assistant: Omar Martinez MD AST [Catalytic activity/Vol] 14 U/L Normal <32 [facility] Comment on above: Performed By: #### C DP, CP #### [facility] [address] [place] [address] Dr[place], [place] [id number] Hospital Administrative Assistant: Omar Martinez MD BUN/CRE Ratio 10 Normal 9-20 [facility] Comment on above: Performed By: #### C DP, CP #### [facility] [address] [place], [place] 1909483 Hospital Administrative Assistant: Omar Martinez MD Calcium [Mass/Vol] 9.4 mg/dL Normal 8.6-10.4 [facility] Comment on above: Performed By: #### C DP, CP #### [facility] [address] [place], [place] [id number] Hospital Administrative Assistant: Omar Martinez MD Chloride [Moles/Vol] 104 mmol/L Normal 98-107 [facility] Comment on above: Performed By: #### C DP, CP #### [facility] [address] [place], [place] [id number] Hospital Administrative Assistant: Omar Martinez MD CO2 [Moles/Vol] 29 mmol/L Normal 20-31 [facility] Comment on above: Performed By: #### C DP, CP #### [facility] [address] [place], [place] [id number] Hospital Administrative Assistant: Omar Martinez MD Creatinine [Mass/Vol] 0.7 mg/dL Normal 0.5-0.9 [facility] Comment on above: Performed By: #### C DP, CP #### [address] [place], [place] [id number] Hospital Administrative Assistant: Omar Martinez MD GFR/1.73 sq M.predicted among non-blacks MDRD (S/P/Bld) [Vol rate/Area] mL/min/{1.73_m2} Normal >60 [facility] Comment on above: Result Comment: These results are not intended for use in patients <18 years of age. eGFR results are calculated without a race factor using the 2020 CKD-EPI equation. Careful clinical correlation is recommended, particularly when comparing to results calculated using previous equations. The CKD-EPI equation is less accurate in patients with extremes of muscle mass, extra-renal metabolism of creatine, excessive creatine ingestion, or following therapy that affects renal tubular secretion. Performed By: #### C DP, CP #### [facility] [address] [place] [address] Hospital Administrative Assistant: Omar Martinez MD Glucose [Mass/Vol] 90 mg/dL Normal 70-99 [facility] Comment on above: Performed By: #### C DP, CP #### [facility] [address] [place] [address] Hospital Administrative Assistant: Omar Martinez MD Potassium [Moles/Vol] 4.1 mmol/L Normal 3.7-5.3 [facility] Comment on above: Performed By: #### C DP, CP #### [facility] [address] [place] [address] Hospital Administrative Assistant: Omar Martinez MD Protein [Mass/Vol] 7.2 g/dL Normal 6.4-8.3 [facility] Comment on above: Performed By: #### C DP, CP #### [facility] [address] [place], [place] [id number] Hospital Administrative Assistant: Omar Martinez MD Sodium [Moles/Vol] 142 mmol/L Normal 135-144 [facility] Comment on above: Performed By: #### C DP, CP #### [facility] [address] [place], [place] [id number] Hospital Administrative Assistant: Omar Martinez MD Urea nitrogen [Mass/Vol] 7 mg/dL Normal 6-20 [facility] Comment on above: Performed By: #### C DP, CP #### [facility] [address] [place] [address] Hospital Administrative Assistant: Omar Martinez MD Comprehensive Metabolic Pane [facility] 12-18-2023 Albumin [Mass/Vol] 4.2 g/dL 3.5 - 5.2 g/dL [facility] Albumin/Globulin [Mass ratio] 1.4 {ratio} 1.0 - 2.5 [facility] ALP [Catalytic activity/Vol] 63 U/L 35 - 104 U/L [facility] ALT [Catalytic activity/Vol] 8 U/L 5 - 33 U/L [facility] Anion gap [Moles/Vol] 9 mmol/L 9 - 17 mmol/L [facility] AST [Catalytic activity/Vol] 14 U/L NINF - 32 U/L [facility] Bilirubin [Mass/Vol] mg/dL Low 0.3 - 1 .2 mg/dL [facility] Calcium [Mass/Vol] 9.4 mg/dL 8.6 - 10. 4 mg/dL [facility] Chloride [Moles/Vol] 104 mmol/L 98 - 10 7 mmol/L [facility] CO2 [Moles/Vol] 29 mmol/L 20 - 31 mmol/L [facility] Creatinine [Mass/Vol] 0.7 mg/dL 0.5 - 0.9 mg/dL [facility] Est, Glom Filt Rate - [facility] Comment on above: These results are not intended for use in patients <18 years of age. eGFR results are calculated without a race factor using the 2020 CKD-EPI equation. Careful clinical correlation is recommended, particularly when comparing to results calculated using previous equations. The CKD-EPI equation is less accurate in patients with extremes of muscle mass, extra-renal metabolism of creatine, excessive creatine ingestion, or following therapy that affects renal tubular secretion. Glucose [Mass/Vol] 90 mg/dL 70 - 99 mg/dL [facility] Interpretation and review of laboratory results Abnormal [facility] Potassium [Moles/Vol] 4.1 mmol/L 3.7 - 5.3 mmol/L [facility] Protein [Mass/Vol] 7.2 g/dL 6.4 - 8.3 g/dL [facility] Sodium [Moles/Vol] 142 mmol/L 135 - 144 mmol/L [facility] Urea nitrogen [Mass/Vol] 7 mg/dL 6 - 20 mg/dL [facility] Urea nitrogen/Creatinine [Mass ratio] 10 mg/mg 9 - 20 [facility] QuantiFERON TBon 07-06-2023 Quanti Kin minus NIL 8.94 IU/mL Normal [facility] Comment on above: Performed By: #### C DP, CP #### [facility] [address] [place] [address] Hospital Administrative Assistant: Omar Martinez MD Quanti TB Gold Plus Negative Normal Negative [facility] Comment on above: Result Comment: (NOT E) Interpretive Data: Quantiferon TB Gold Plus Interferon gamma release is measured for specimens from each of the four collection tubes. A qualitative result (Negative, Positive, or Indeterminate) is based on interpretation of the four values, NIL, MITOGEN minus NIL (MITOGEN-NIL), TB1 minus NIL (TB1-NIL), and TB2 minus NIL (TB2-NIL). The NIL value represents nonspecific reactivity produced by the patient specimen. The MITOGEN-NIL value serves as the positive control for the patient specimen, demonstrating successful lymphocyte activity. The TB1-NIL tube specifically detects CD4+ lymphocyte reactivity, specifically stimulated by the TB1 antigens. The TB2-NIL tube detects both CD4+ and CD8+ lymphocyte reactivity, stimulated by TB2 antigens. An overall Negative result does not completely rule out TB infection. A false-positive result in the absence of other clinical evidence of TB infection is not uncommon. Refer to: Updated Guidelines for Using Interferon Gamma Release Assays to Detect Mycobacterium tuberculosis Infection --- [place], 2010 (http://www.cdc.gov/mmwr/preview/mmwrhtml/ug8350u3.htm), for more information concerning test performance in low-prevalence populations and use in occupational screening. Performed By: #### C MELA, CP #### [facility] [address] [place] [address] Hospital Administrative Assistant: Omar Martinez MD Quanti TB1 minus NIL 0.01 IU/mL Normal 0.00-0.34 [facility] Comment on above: Performed By: #### C MELA, CP #### [facility] [address] [place] [address] Hospital Administrative Assistant: Omar Martinez MD Quanti TB2 minus NIL 0.08 IU/mL Normal 0.00-0.34 [facility] Comment on above: Performed By: #### C DP, CP #### [facility] [address] [place], [place] [id number] Hospital Administrative Assistant: Omar Martinez MD QuantiFERON NIL 0.02 IU/mL Normal [facility] Comment on above: Result Comment: (NOT E) Performed By: [employer] [address] [place] [id number] Splicer Operator: Sonu Gonzalez MD, PhD CLIA Number: [id number] Performed By: #### C DP, CP #### [facility] [address] [place], [place] [id number] Hospital Administrative Assistant: Omar Martinez MD C-Reactive Proteinon 024 CRP [Mass/Vol] 13.3 mg/L High 0.0-5.0 [facility] Comment on above: Performed By: #### C DP, CP #### [facility] [address] [place] [address] Dr[place], [facility] Hospital Administrative Assistant: Omar Martinez MD CBC with Diffon 07-03-2023 Abs. Basophil 0.08 k/uL Normal 0.00-0.20 [facility] Comment on above: Performed By: #### C DP, CP #### [facility] [address] [place] [address] [place] [address] Hospital Administrative Assistant: Omar Martinez MD Abs.Imm.Granulocyte 0.04 k/uL Normal 0.00-0.30 [facility] Comment on above: Performed By: #### C DP, CP #### [facility] [address] [place], [place] [id number] Hospital Administrative Assistant: Omar Martinez MD Abs.Neutrophil (Seg) 6.84 k/uL Normal 1.50-8.10 [facility] Comment on above: Performed By: #### C DP, CP #### [facility] [address] [place], [place] [id number] Hospital Administrative Assistant: Omar Martinez MD Basophils/100 WBC (Bld) 1 % Normal 0-2 [facility] Comment on above: Performed By: #### C DP, CP #### [facility] [address] [place], [place] [id number] Hospital Administrative Assistant: Omar Martinez MD Eosinophils (Bld) [#/Vol] 0.60 10*3/uL High 0.00-0.44 [facility] Comment on above: Performed By: #### C DP, CP #### [facility] [address] [place] [address] Hospital Administrative Assistant: Omar Martinez MD Eosinophils/100 WBC (Bld) 6 % High 1-4 [facility] Comment on above: Performed By: #### C DP, CP #### [address] [place], [facility] Hospital Administrative Assistant: Omar Martinez MD Erythrocyte distribution width (RBC) [Ratio] 13.6 % Normal 11.8-14.4 [facility] Comment on above: Performed By: #### C DP, CP #### [address] [place], [place] [id number] Hospital Administrative Assistant: Omar Martinez MD Hematocrit (Bld) [Volume fraction] 43.8 % Normal 36.3-47.1 [facility] Comment on above: Performed By: #### C DP, CP #### [address] [place], [facility] Hospital Administrative Assistant: Omar Martinez MD Hemoglobin (Bld) [Mass/Vol] 13.9 g/dL Normal 11.9-15.1 [facility] Comment on above: Performed By: #### C DP, CP #### [address] [place], [place] [id number] Hospital Administrative Assistant: Omar Martinez MD Immature granulocytes/100 WBC (Bld) 0 % Normal 0 [facility] Comment on above: Performed By: #### C DP, CP #### [address] [place], [facility] Hospital Administrative Assistant: Omar Martinez MD Lymphocytes (Bld) [#/Vol] 2.45 10*3/uL Normal 1.10-3.70 [facility] Comment on above: Performed By: #### C DP, CP #### [address] [place], [facility] Hospital Administrative Assistant: Omar Martinez MD Lymphocytes/100 WBC (Bld) 23 % Low 24-43 [facility] Comment on above: Performed By: #### C DP, CP #### [address] [place], [facility] Hospital Administrative Assistant: Omar Martinez MD MCH (RBC) [Entitic mass] 27.4 pg Normal 25.2-33.5 [facility] Comment on above: Performed By: #### C DP, CP #### [address] [place], [facility] Hospital Administrative Assistant: Omar Martinez MD MCHC (RBC) [Mass/Vol] 31.7 g/dL Normal 28.4-34.8 [facility] Comment on above: Performed By: #### C DP, CP #### [address] [place], [place] [address] Hospital Administrative Assistant: Omar Martinez MD MCV (RBC) [Entitic vol] 86.2 fL Normal 82.6-102.9 [facility] Comment on above: Performed By: #### C DP, CP #### [address] [place] [address] Hospital Administrative Assistant: Omar Martinez MD Monocytes (Bld) [#/Vol] 0.58 10*3/uL Normal 0.10-1.20 [facility] Comment on above: Performed By: #### C DP, CP #### [facility] [address] [place], [place] 1476983 Hospital Administrative Assistant: Omar Martinez MD Monocytes/100 WBC (Bld) 6 % Normal 3-12 [facility] Comment on above: Performed By: #### C DP, CP #### [facility] [address] [place], [place] [id number] Hospital Administrative Assistant: Omar Martinez MD Neutrophil (Seg) 64 % Normal 36-65 [facility] Comment on above: Performed By: #### C DP, CP #### [facility] [address] [place], [place] [id number] Hospital Administrative Assistant: Omar Martinez MD NRBC Automated 0.0 per 100 WBC Normal 0.0 [facility] Comment on above: Performed By: #### C DP, CP #### [address] [place], [facility] Hospital Administrative Assistant: Omar Martinze MD Platelet mean volume (Bld) [Entitic vol] 9.5 fL Normal 8.1-13.5 [facility] Comment on above: Performed By: #### C DP, CP #### [address] [place], [place] [id number] Hospital Administrative Assistant: Omar Martinez MD Platelets (Bld) [#/Vol] 360 10*3/uL Normal 138-453 [facility] Comment on above: Performed By: #### C DP, CP #### [facility] [address] [place] [address] [place] [address] Hospital Administrative Assistant: Omar Martinez MD RBC (Bld) [#/Vol] 5.08 10*6/uL Normal 3.95-5.11 [facility] Comment on above: Performed By: #### C DP, CP #### [facility] [address] [place], [place] [id number] Hospital Administrative Assistant: Omar Martinez MD WBC (Bld) [#/Vol] 10.6 10*3/uL Normal 3.5-11.3 [facility] Comment on above: Performed By: #### C DP, CP #### [facility] [address] [place], [place] [id number] Hospital Administrative Assistant: Omar Martinez MD Comp Metabolic Profon 2023 Albumin [Mass/Vol] 4.3 g/dL Normal 3.5-5.2 [facility] Comment on above: Performed By: #### C DP, CP #### [facility] [address] [place], [place] [id number] Hospital Administrative Assistant: Omar Martinez MD Albumin/Glob Ratio 1.3 Normal 1.0-2.5 [facility] Comment on above: Performed By: #### C DP, CP #### [facility] [address] [place], [place] [id number] Hospital Administrative Assistant: Omar Martinez MD Alkaline Phos 61 U/L Normal 35-104 [facility] Comment on above: Performed By: #### C DP, CP #### [facility] [address] [place], [place] [id number] Hospital Administrative Assistant: Omar Martinez MD ALT [Catalytic activity/Vol] 12 U/L Normal 5-33 [facility] Comment on above: Performed By: #### C DP, CP #### [facility] [address] [place], [place] 7198883 Hospital Administrative Assistant: Omar Martinez MD Anion gap [Moles/Vol] 10 mmol/L Normal 9-17 [facility] Comment on above: Performed By: #### C DP, CP #### [facility] [address] [place] [address] Hospital Administrative Assistant: Omar Martinez MD AST [Catalytic activity/Vol] 15 U/L Normal <32 [facility] Comment on above: Performed By: #### C DP, CP #### [facility] [address] [place], [place] [id number] Hospital Administrative Assistant: Omar Martinez MD Bilirubin [Mass/Vol] 0.2 mg/dL Low 0.3-1.2 [facility] Comment on above: Performed By: #### C DP, CP #### [facility] [address] [place], [place] 3461583 Hospital Administrative Assistant: Omar Martinez MD BUN/CRE Ratio 14 Normal 9-20 [facility] Comment on above: Performed By: #### C DP, CP #### [facility] [address] [place], [place] [id number] Hospital Administrative Assistant: Omar Martinez MD Calcium [Mass/Vol] 9.5 mg/dL Normal 8.6-10.4 [facility] Comment on above: Performed By: #### C DP, CP #### [facility] [address] [place] [address] Hospital Administrative Assistant: Omar Martinez MD Chloride [Moles/Vol] 104 mmol/L Normal 98-107 [facility] Comment on above: Performed By: #### C DP, CP #### [address] [place], [place] 9942283 Hospital Administrative Assistant: Omar Martinez MD CO2 [Moles/Vol] 28 mmol/L Normal 20-31 [facility] Comment on above: Performed By: #### C DP, CP #### [facility] [address] [place] [address] Hospital Administrative Assistant: Omar Martinez MD Creatinine [Mass/Vol] 0.7 mg/dL Normal 0.5-0.9 [facility] Comment on above: Performed By: #### C DP, CP #### [facility] [address] [place], [place] [id number] Hospital Administrative Assistant: Omar Martinez MD GFR/1.73 sq M.predicted among non-blacks MDRD (S/P/Bld) [Vol rate/Area] mL/min/{1.73_m2} Normal >60 [facility] Comment on above: Result Comment: These results are not intended for use in patients <18 years of age. eGFR results are calculated without a race factor using the 2020 CKD-EPI equation. Careful clinical correlation is recommended, particularly when comparing to results calculated using previous equations. The CKD-EPI equation is less accurate in patients with extremes of muscle mass, extra-renal metabolism of creatine, excessive creatine ingestion, or following therapy that affects renal tubular secretion. Performed By: #### C DP, CP #### [facility] [address] [place] [address] [place] [address] Hospital Administrative Assistant: Omar Martinez MD Glucose [Mass/Vol] 81 mg/dL Normal 70-99 [facility] Comment on above: Performed By: #### C DP, CP #### [address] [place], [place] [id number] Hospital Administrative Assistant: Omar Martinez MD Potassium [Moles/Vol] 4.3 mmol/L Normal 3.7-5.3 [facility] Comment on above: Performed By: #### C DP, CP #### [address] [place], [place] [id number] Hospital Administrative Assistant: Omar Martinez MD Protein [Mass/Vol] 7.7 g/dL Normal 6.4-8.3 [facility] Comment on above: Performed By: #### C DP, CP #### [facility] [address] [place] [address] [place], [place] [phone] Hospital Administrative Assistant: Omar Martinez MD Sodium [Moles/Vol] 142 mmol/L Normal 135-144 [facility] Comment on above: Performed By: #### C DP, CP #### [facility] [address] [place] [address] [place], [place] [phone] Hospital Administrative Assistant: Omar Martinez MD Urea nitrogen [Mass/Vol] 10 mg/dL Normal 6-20 [facility] Comment on above: Performed By: #### C DP, CP #### [facility] [address] [place], [place] [phone] Hospital Administrative Assistant: Omar Martinez MD Ferritinon 07-03-2023 Ferritin [Mass/Vol] 17 ng/mL Normal 13-150 [facility] Comment on above: Performed By: #### C DP, CP #### [facility] [address] [place], [place] [phone] Hospital Administrative Assistant: Omar Martinez MD Iron Binding Cap.on 07-03-19 24 % Fe Saturation 12 % Low 20-55 [facility] Comment on above: Performed By: #### C DP, CP #### [facility] [address] [place], [place] [id number] Hospital Administrative Assistant: Omar Martinez MD Iron [Mass/Vol] 44 ug/dL Normal 37-145 [facility] Comment on above: Performed By: #### C DP, CP #### [facility] [address] [place], [place] [phone] Hospital Administrative Assistant: Omar Martinez MD Total Fe Binding Cap 379 ug/dL Normal 250-450 [facility] Comment on above: Performed By: #### C DP, CP #### [facility] [address] [place] [address] Hospital Administrative Assistant: Omar Martinez MD Unbound Fe Bind Cap 335 ug/dL Normal 112-347 [facility] Comment on above: Performed By: #### C DP, CP #### [facility] [address] [place], [place] [phone] Hospital Administrative Assistant: Omar Martinez MD ABBIE [facility] DIGITAL DIAGNOSTIC UNILATERAL RIGHTon 09-13-2022 No mammographic evid ence of malignancy BIRADS: BIRADS - CATEGORY 1 Negative. Normal interval follow-up is recommended in 12 months. OVERALL ASSESSMENT - NEGATIVE A letter of notification will be sent to the patient regarding the results. [employer] recommends annual mammograms for women 40 years and older. [facility] EXAMINATION: DIAGNOSTIC DIGITAL RIGHT BREAST MAMMOGRAM WITH TOMOSYNTHESIS, 09/13/2022 9:46 am TECHNIQUE: Diagnostic mammography of the right breast was performed with tomosynthesis. 2D standard and 3D tomosynthesis combination imaging performed through the right breast. Computer aided detection was utilized in the interpretation of this exam. Views: COMPARISON: August 29, 2022 HISTORY: ORDERING SYSTEM PROVIDED HISTORY: Abnormality of right breast on screening mammogram TECHNOLOGIST PROVIDED HISTORY: abnormal screening mammogram of right breast Is the patient ?->No FINDINGS: The right breast is composed of scattered fibroglandular density. The asymmetry of concern sufficiently effaces with spot compressed imaging with no suspicious findings on this exam. [facility] Radiology Study observation (narrative) [employer] Work Phone: [facility]IMBERLY DIGITAL DIAGNOSTIC UNILATERAL RIGHTOrdered By: Alvin Colon on 09-13-2022 [employer] Work Phone: Cortisol Totalon 09-04-2022 Cortisol 9.3 ug/dL 2.7 - 18.4 ug/dL [employer] Comment on above: Cortisol Reference Range: AM 6.0-18.4 PM 2.7-10.5 [employer] Lipid Panelon 09-04-2022 Cholesterol [Mass/Vol] 194 mg/dL NINF - 200 mg/dL [employer] Comment on above: Cholesterol Guidelines: <200 Desirable 200-240 Borderline >240 Undesirable Cholesterol in HDL [Mass/Vol] 66 mg/dL 40 - PINF mg/dL [employer] Comment on above: HDL Guidelines: <40 Undesirable 40-59 Borderline >59 Desirable Cholesterol in LDL [Mass/Vol] 103 mg/dL 0 - 130 mg/dL [employer] Comment on above: LDL Guidelines: <100 Desirable 100-129 Near to/above Desirable 130-159 Borderline >159 Undesirable Direct (measured) LDL and calculated LDL are not interchangeable tests. Cholesterol.total/Cho lesterol in HDL [Mass ratio] 2.9 {ratio} NINF - 5 [employer] Triglyceride [Mass/Vol] 124 mg/dL NINF - 150 mg/dL [facility] Comment on above: Triglyceride Guidelines: <150 Desirable 150-199 Borderline 200-499 High >499 Very high Based on AHA Guidelines for fasting triglyceride, February 2012. [facility] TSH With Reflex Ft4on 2022 TSH Qn 0.56 m[IU]/L [facility] KIMBERLY DIGITAL SCREEN BILA TERALon 08-29-2022 Asymmetry posterior central right breast on the CC view. Recommend true lateral spot compressed right CC for complete evaluation with possible progression to ultrasound. BIRADS: BIRADS - CATEGORY 0 Incomplete: Needs Additional Imaging Evaluation OVERALL ASSESSMENT - INCOMPLETE:NEED ADDITIONAL IMAGING EVALUATION. [facility] EXAMINATION: SCREENING DIGITAL BILATERAL MAMMOGRAM WITH TOMOSYNTHESIS, 08/29/2022 TECHNIQUE: Screening mammography was performed with tomosynthesis including MLO and CC views of the bilateral breasts. Computer aided detection was used for the interpretation of this exam. COMPARISON: Baseline study HISTORY: Screening. FINDINGS: Breasts are composed of scattered fibroglandular density. Asymmetry posterior central right breast seen only on the CC view. Left breast demonstrates no concerning findings. No suspicious calcification either breast. 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 COMPARISON: CT February 2022. ACCESSION NUMBER(S): [id number] ORDERING CLINICIAN: GOKUL VOSS TECHNIQUE: Axial, sagittal and coronal T1 and T2 weighted images were performed through the soft tissues of the neck both before and following intravenous injection of utilizing fat suppression. FINDINGS: * The visualized orbits and paranasal sinuses are normal. *The skull base and mastoid air cells are normal. *The nasopharynx and oropharynx are normal. *The mandible, maxilla and casting technician spaces are normal *There is a heterogeneous partially calcified mass in the left parapharyngeal space measuring up to 2.5 cm in size. There is minimal peripheral enhancement following contrast injection without vascular enhancement or flow voids. *The major salivary glands are normal. *The larynx and related cartilages are normal *Thyroid gland is normal. *There is no measurable adenopathy. A subcentimeter lymph node is present at level 2A on the left unchanged from the previous exam. *The visualized cervical spine is normal. *The visualized mediastinum is normal. 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 : No Is the patient or breast feeding? : No What are the patient's signs and symptoms? : parapharyngeal space mass Chief Complaint parapharyngeal space mass History of Present IllnessCC: skull base mass Consulted by: dr butler HPI: was getting migraines, got a ct scan showed the mass no sympomts no swalloinwg issues no issues opening jaw Past medical history:UC, no DM, + HTN Past surgical history: knee surgery, c section, tubal Social history: stopped smoking one year ago, prior 1 ppd for 15 years, no drinking, lives with Family history: Reviewed and not relevant to the presenting complaint Current medications: Reviewed as noted in current orders Allergies: Reviewed and as noted in current orders ROS: All other systems have been reviewed and are negative for complaint. I personally reviewed the intake form that was scanned in today PE: CONSTITUTIONAL: Vitals -reviewed from intake field, well developed, well nourished. VOICE: RESPIRATION: Breathing comfortably, no stridor. CV: No clubbing/cyanosis/edema in hands. EYES: EOM Intact, sclera normal. NEURO: Alert and oriented times 3, Cranial nerves II-XII intact and symmetric bilaterally. HEAD AND FACE: Symmetric facial features, no masses or lesions, sinuses nontender to palpation. SALIVARY GLANDS: Parotid and submandibular glands normal bilaterally. EARS: Normal external ears, external auditory canals, and TMs to otoscopy, normal hearing to whispered voice. NOSE: External nose midline, anterior rhinoscopy is normal with limited visualization to the anterior aspect of the inferior turbinates. No lesions noted. ORAL CAVITY/OROPHARYNX/LIPS: Normal mucous membranes, normal floor of mouth/tongue/OP, no masses or lesions are noted. PHARYNGEAL ELIAS AND NASOPHARYNX: No masses noted. Mucosa appears clean and moist NECK/LYMPH: No LAD, no thyroid masses. Trachea palpably midline SKIN: Neck skin is without scar or injury PSYCH: Alert and oriented with appropriate mood and affect Radiology reviewed: I personally reviewed the ct sacn showing left paraphayngeal space mass A/P: left parapharyngeal space mass, asymptomatic disussed differential diagnosis and treatment option MRI +/- contrast discussed surgical options and observation in addition to indications for IR guided FNA regional cranial nerves and great vessels and functional defictis with surgery and options for rehab in needed reviewed surgical approaches reviewed interval for repeat imaging reviewed if obs chosen multiple questions answered ulikely cancer, she can proceed with UC infusions if medically indicated Vitals Vital Signs Recorded: [id number] 08:41AM [id number] F Height5 ft 4 in Etfwds964 lb 0.6 oz BMI Aizmvqhbld38.99 kg/m2 BSA Calculated1.79 'Scores and Scales' Signatures Electronically signed by : Gokul Voss MD; Apr 26 2022 10:13AM EST (Author) Normal [facility] 25(OH)D[facility] 2021 25-hydroxyvitamin D3 [Mass/Vol] 44.7 ng/mL Normal 31.0-80.0 [facility] Comment on above: Order Comment: Speci men Type: BLOOD SPECIMENOrdering Facility: [facility] Address: [address] [place] [phone] Result Comment: Clas sification of 25 [place] Vitamin D status: Deficiency/Insufficiency: < or = 30 ng/ml. Sufficiency/Optimal Levels: 31-80 ng/mL Toxicity: > 100 ng/mL. Test performed by chemiluminescent immunoassay. Performed By: #### 1 989-3 ####[facility] [id number] [address] [facility] CBC W Auto Differential pane l (Bld)on 04-16-2022 Basophils (Bld) [#/Vol] 0.04 10*3/uL Normal <0.11 [facility] Comment on above: Order Comment: Speci men Type: BLOOD SPECIMENOrdering Facility: [facility] Address: [address] [address] Performed By: #### 5 7021-8 ####[facility] [id number] [address] [place] Basophils/100 WBC (Bld) 0.5 % Normal [facility] Comment on above: Order Comment: Speci men Type: BLOOD SPECIMENOrdering Facility: [facility] Address: [address] [address] Performed By: #### 5 7021-8 ####[facility] [id number] [address] [place] Differential cell count method Nom (Bld) Auto Normal [facility] Comment on above: Order Comment: Speci men Type: BLOOD SPECIMENOrdering Facility: [facility] Address: [address] Performed By: #### 5 7021-8 ####[facility] LABIA [id number] [place] [address] [place] Eosinophils (Bld) [#/Vol] 0.08 10*3/uL Normal <0.46 [facility] Comment on above: Order Comment: Speci men Type: BLOOD SPECIMENOrdering Facility: [facility] Address: [address] Performed By: #### 5 7021-8 ####[facility] LABCLIA [id number] [place] [address] [place] Eosinophils/100 WBC (Bld) 1.0 % Normal [facility] Comment on above: Order Comment: Speci men Type: BLOOD SPECIMENOrdering Facility: [facility] Address: [address] [place] [address] Performed By: #### 5 7021-8 ####[facility]IA [id number] [place] [address] [place] Erythrocyte distribution width (RBC) [Ratio] 16.1 % High 11.5-15.0 [facility] Comment on above: Order Comment: Speci men Type: BLOOD SPECIMENOrdering Facility: [facility] Address: [address] [place] [address] Performed By: #### 5 7021-8 ####[facility]IA [id number] [place] [address] [place] Hematocrit (Bld) [Volume fraction] 35.6 % Low 36.0-46.0 [facility] Comment on above: Order Comment: Speci men Type: BLOOD SPECIMENOrdering Facility: [facility] Address: [address] [place] [address] Performed By: #### 5 7021-8 ####[facility]IA [id number] [place] [address] [place] Hemoglobin (Bld) [Mass/Vol] 10.5 g/dL Low 11.5-15.5 [facility] Comment on above: Order Comment: Speci men Type: BLOOD SPECIMENOrdering Facility: [facility] Address: [address] [place], [place] [address] Performed By: #### 5 7021-8 ####[facility]IA [id number] [place] [address] [place] Immature granulocytes (Bld) [#/Vol] 10*3/uL Normal <0.10 [facility] Comment on above: Order Comment: Speci men Type: BLOOD SPECIMENOrdering Facility: [facility] Address: [address] Performed By: #### 5 7021-8 ####[facility] LABCLIA [id number] [place] [address] [place] Immature granulocytes/100 WBC (Bld) 0.3 % Normal [facility] Comment on above: Order Comment: Speci men Type: BLOOD SPECIMENOrdering Facility: [facility] Address: [address] Performed By: #### 5 7021-8 ####[facility]IA [id number] [place] [address] [place] Lymphocytes (Bld) [#/Vol] 1.46 10*3/uL Normal 1.00-4.00 [facility] Comment on above: Order Comment: Speci men Type: BLOOD SPECIMENOrdering Facility: [facility] Address: [address] Performed By: #### 5 7021-8 ####[facility] LABCLIA [id number] [address] [place] Lymphocytes/100 WBC (Bld) 18.6 % Normal [facility] Comment on above: Order Comment: Speci men Type: BLOOD SPECIMENOrdering Facility: [facility] Address: [address] [place] [address] Performed By: #### 5 7021-8 ####[facility]IA [id number] [place] [address] [place] MCH (RBC) [Entitic mass] 22.5 pg Low 26.0-34.0 [facility] Comment on above: Order Comment: Speci men Type: BLOOD SPECIMENOrdering Facility: [facility] Address: [address] Performed By: #### 5 7021-8 ####[facility] LABCLIA [id number] [place] [address] [place] MCHC (RBC) [Mass/Vol] 29.5 g/dL Low 30.5-36.0 [facility] Comment on above: Order Comment: Speci men Type: BLOOD SPECIMENOrdering Facility: [facility] Address: [address] Performed By: #### 5 7021-8 ####[facility]IA [id number] [place] [address] [place] MCV (RBC) [Entitic vol] 76.4 fL Low 80.0-100.0 [facility] Comment on above: Order Comment: Speci men Type: BLOOD SPECIMENOrdering Facility: [facility] Address: [address] [place], [place] [address] Performed By: #### 5 7021-8 ####[facility]IA [id number] [place] [address] [place] Monocytes (Bld) [#/Vol] 0.78 10*3/uL Normal <0.87 [facility] Comment on above: Order Comment: Speci men Type: BLOOD SPECIMENOrdering Facility: [facility] Address: [address] [place] [address] Performed By: #### 5 7021-8 ####[facility]IA [id number] [address] [place] Monocytes/100 WBC (Bld) 9.9 % Normal [facility] Comment on above: Order Comment: Speci men Type: BLOOD SPECIMENOrdering Facility: [facility] Address: [address] [place] [address] Performed By: #### 5 7021-8 ####[facility]IA [id number] [id number] [address] [place] Neutrophils (Bld) [#/Vol] 5.46 10*3/uL Normal 1.45-7.50 [facility] Comment on above: Order Comment: Speci men Type: BLOOD SPECIMENOrdering Facility: [facility] Address: [address] [place] [address] Performed By: #### 5 7021-8 ####[facility] LABCLIA [id number] [place] [address] [place] Neutrophils/100 WBC (Bld) 69.7 % Normal [facility] Comment on above: Order Comment: Speci men Type: BLOOD SPECIMENOrdering Facility: [facility] Address: [address] [place] [address] Performed By: #### 5 7021-8 ####[facility] LABCLIA [id number] [place] [address] [place] Nucleated RBC (Bld) [#/Vol] 10*3/uL Normal <0.01 [facility] Comment on above: Order Comment: Speci men Type: BLOOD SPECIMENOrdering Facility: [facility] Address: [address] [place], [place] [address] Performed By: #### 5 7021-8 ####[facility] LABCLIA [id number] [place] [address] [place] Nucleated RBC/100 WBC (Bld) [Ratio] 0.0 /100 WBC Normal [facility] Comment on above: Order Comment: Speci men Type: BLOOD SPECIMENOrdering Facility: [facility] Address: [address] [place], [place] [address] Performed By: #### 5 7021-8 ####[facility] LABCLIA [id number] [place] [address] [place] Platelet mean volume (Bld) [Entitic vol] 8.5 fL Low 9.0-12.7 [facility] Comment on above: Order Comment: Speci men Type: BLOOD SPECIMENOrdering Facility: [facility] Address: [address] Performed By: #### 5 7021-8 ####[facility]IA [id number] [place] [address] [place] Platelets (Bld) [#/Vol] 422 10*3/uL High 150-400 [facility] Comment on above: Order Comment: Speci men Type: BLOOD SPECIMENOrdering Facility: [facility] Address: [address] Performed By: #### 5 7021-8 ####[facility]IA [id number] [place] [address] [place] RBC (Bld) [#/Vol] 4.66 10*6/uL Normal 3.90-5.20 [facility] Comment on above: Order Comment: Speci men Type: BLOOD SPECIMENOrdering Facility: [facility] Address: [address] [place], [place] [address] Performed By: #### 5 7021-8 ####[facility]IA [id number] [place] [address] [place] WBC (Bld) [#/Vol] 7.84 10*3/uL Normal 3.70-11.00 [facility] Comment on above: Order Comment: Speci men Type: BLOOD SPECIMENOrdering Facility: [facility] Address: [address] [place], [place] [address] Performed By: #### 5 7021-8 ####[facility]IA [id number] [place] [address] [place] Basophils (Bld) [#/Vol] 0.05 10*3/uL Normal <0.11 [facility] Comment on above: Order Comment: Speci men Type: BLOOD SPECIMENOrdering Facility: [facility] Address: [address] [place], [place] [address] Performed By: #### 5 7021-8 ####[facility] LABCLIA [id number] [address] [place] Basophils/100 WBC (Bld) 0.6 % Normal [facility] Comment on above: Order Comment: Speci men Type: BLOOD SPECIMENOrdering Facility: [facility] Address: [address] [place] [address] Performed By: #### 5 7021-8 ####[facility] LABCLIA [id number] [place] [address] [place] Differential cell count method Nom (Bld) Auto Normal [facility] Comment on above: Order Comment: Speci men Type: BLOOD SPECIMENOrdering Facility: [facility] Address: [address] [place] [address] Performed By: #### 5 7021-8 ####[facility] LABCLIA [id number] [place] [address] [place] Eosinophils (Bld) [#/Vol] 0.11 10*3/uL Normal <0.46 [facility] Comment on above: Order Comment: Speci men Type: BLOOD SPECIMENOrdering Facility: [facility] Address: [address] [place], [place] [address] Performed By: #### 5 7021-8 ####[facility] LABCLIA [id number] [address] [facility] Eosinophils/100 WBC (Bld) 1.2 % Normal [facility] Comment on above: Order Comment: Speci men Type: BLOOD SPECIMENOrdering Facility: [facility] Address: [address] [place], [place] [address] Performed By: #### 5 7021-8 ####[facility] LABCLIA [id number] [place] [address] [place] Erythrocyte distribution width (RBC) [Ratio] 16.1 % High 11.5-15.0 [facility] Comment on above: Order Comment: Speci men Type: BLOOD SPECIMENOrdering Facility: [facility] Address: [address] Performed By: #### 5 7021-8 ####[facility] LABIA [id number] [place] [address] [place] Hematocrit (Bld) [Volume fraction] 36.2 % Normal 36.0-46.0 [facility] Comment on above: Order Comment: Speci men Type: BLOOD SPECIMENOrdering Facility: [facility] Address: [address] Performed By: #### 5 7021-8 ####[facility] LABIA [id number] [place] [address] [place] Hemoglobin (Bld) [Mass/Vol] 10.7 g/dL Low 11.5-15.5 [facility] Comment on above: Order Comment: Speci men Type: BLOOD SPECIMENOrdering Facility: [facility] Address: [address] Performed By: #### 5 7021-8 ####[facility] LABIA [id number] [address] [place] Immature granulocytes (Bld) [#/Vol] 10*3/uL Normal <0.10 [facility] Comment on above: Order Comment: Speci men Type: BLOOD SPECIMENOrdering Facility: [facility] Address: [address] Performed By: #### 5 7021-8 ####[facility] LABIA [id number] [address] [place] Immature granulocytes/100 WBC (Bld) 0.2 % Normal [facility] Comment on above: Order Comment: Speci men Type: BLOOD SPECIMENOrdering Facility: [facility] Address: [address] Performed By: #### 5 7021-8 ####[facility] LABCLIA [id number] [place] [address] [place] Lymphocytes (Bld) [#/Vol] 2.50 10*3/uL Normal 1.00-4.00 [facility] Comment on above: Order Comment: Speci men Type: BLOOD SPECIMENOrdering Facility: [facility] Address: [address] [place] [address] Performed By: #### 5 7021-8 ####[facility] LABIA [id number] [place] [address] [place] Lymphocytes/100 WBC (Bld) 27.8 % Normal [facility] Comment on above: Order Comment: Speci men Type: BLOOD SPECIMENOrdering Facility: [facility] Address: [address] [place] [address] Performed By: #### 5 7021-8 ####[facility] LABIA [id number] [place] [address] [place] MCH (RBC) [Entitic mass] 23.3 pg Low 26.0-34.0 [facility] Comment on above: Order Comment: Speci men Type: BLOOD SPECIMENOrdering Facility: [facility] Address: [address] [place] [address] Performed By: #### 5 7021-8 ####[facility] LABIA [id number] [place] [address] [place] MCHC (RBC) [Mass/Vol] 29.6 g/dL Low 30.5-36.0 [facility] Comment on above: Order Comment: Speci men Type: BLOOD SPECIMENOrdering Facility: [facility] Address: [address] [place] [address] Performed By: #### 5 7021-8 ####[facility] LABIA [id number] [place] [address] [place] MCV (RBC) [Entitic vol] 78.7 fL Low 80.0-100.0 [facility] Comment on above: Order Comment: Speci men Type: BLOOD SPECIMENOrdering Facility: [facility] Address: [address] [place] [address] Performed By: #### 5 7021-8 ####[facility] LABCLIA [id number] [place] [address] [place] Monocytes (Bld) [#/Vol] 0.76 10*3/uL Normal <0.87 [facility] Comment on above: Order Comment: Speci men Type: BLOOD SPECIMENOrdering Facility: [facility] Address: [address] [place] [address] Performed By: #### 5 7021-8 ####[facility] LABCLIA [id number] [address] [place] Monocytes/100 WBC (Bld) 8.5 % Normal [facility] Comment on above: Order Comment: Speci men Type: BLOOD SPECIMENOrdering Facility: [facility] Address: [address] [place], [place] [address] Performed By: #### 5 7021-8 ####[facility] LABCLIA [id number] [place] [address] [place] Neutrophils (Bld) [#/Vol] 5.54 10*3/uL Normal 1.45-7.50 [facility] Comment on above: Order Comment: Speci men Type: BLOOD SPECIMENOrdering Facility: [facility] Address: [address] Performed By: #### 5 7021-8 ####[facility] LABCLIA [id number] [place] [address] [place] Neutrophils/100 WBC (Bld) 61.7 % Normal [facility] Comment on above: Order Comment: Speci men Type: BLOOD SPECIMENOrdering Facility: [facility] Address: [address] [place] [address] [place] [address] Performed By: #### 5 7021-8 ####[facility] LABCLIA [id number] [place] [address] [place] Nucleated RBC (Bld) [#/Vol] 10*3/uL Normal <0.01 [facility] Comment on above: Order Comment: Speci men Type: BLOOD SPECIMENOrdering Facility: [facility] Address: [address] [place] [address] Performed By: #### 5 7021-8 ####[facility] LABCLIA [id number] [place] [address] [place] Nucleated RBC/100 WBC (Bld) [Ratio] 0.0 /100 WBC Normal [facility] Comment on above: Order Comment: Speci men Type: BLOOD SPECIMENOrdering Facility: [facility] Address: [address] Performed By: #### 5 7021-8 ####[facility] LABIA [id number] [place] [address] [place] Platelet mean volume (Bld) [Entitic vol] 9.0 fL Normal 9.0-12.7 [facility] Comment on above: Order Comment: Speci men Type: BLOOD SPECIMENOrdering Facility: [facility] Address: [address] [place] [address] Performed By: #### 5 7021-8 ####[facility] LABCLIA [id number] [place] [address] [place] Platelets (Bld) [#/Vol] 498 10*3/uL High 150-400 [facility] Comment on above: Order Comment: Speci men Type: BLOOD SPECIMENOrdering Facility: [facility] Address: [address] [place] [address] Performed By: #### 5 7021-8 ####[facility] LABCLIA [id number] [place] [address] [place] RBC (Bld) [#/Vol] 4.60 10*6/uL Normal 3.90-5.20 [facility] Comment on above: Order Comment: Speci men Type: BLOOD SPECIMENOrdering Facility: [facility] Address: [address] [place] [address] Performed By: #### 5 7021-8 ####[facility] LABIA [id number] [place] [address] [place] WBC (Bld) [#/Vol] 8.98 10*3/uL Normal 3.70-11.00 [facility] Comment on above: Order Comment: Speci men Type: BLOOD SPECIMENOrdering Facility: [facility] Address: [address] [place] [address] Performed By: #### 5 7021-8 ####[facility] LABIA [id number] [place] [address] [place] CRP SerPl-ncon 04-16-2022 CRP [Mass/Vol] 1.9 mg/dL High <0.9 [facility] Comment on above: Order Comment: Speci men Type: BLOOD SPECIMENOrdering Facility: [facility] Address: [address] [place] [address] Performed By: #### 1 988-5, 56033-2, 3034-6 ####[facility] LABCLIA [id number] [place] [address] [place] CHEST W IVCON PEon 2021 CT CHEST W IVCON PE * * *Final Report* * * DATE OF EXAM: Apr 16 2022 3:31PM [facility] 0540 - CT CHEST W IVCON PE / PROCEDURE REASON: Pulmonary embolism (PE) suspected, high prob * * * * Physician Interpretation * * * * EXAMINATION: CHEST CT WITH CONTRAST (PULMONARY EMBOLISM PROTOCOL) Clinical History: PE suspected Technique: Spiral CT acquisition of the chest from the thoracic inlet to the upper abdomen following IV contrast. Axial 1 and 3 mm thick slices plus coronal and sagittal reformatted images. MQ: CTCP_5 Contrast: 100 mL Omnipaque [address] Radiation dose: Integrated Dose-length product (DLP) for this visit = 355 mGy*cm CT Dose Reduction Employed: Automated exposure control (AEC) Comparison: No relevant prior studies available. RESULT: Limitations: Suboptimal study due to non-ideal pulmonary arterial enhancement. Evaluation for thromboembolic disease: - Right heart chambers: No thromboembolic disease. - Main pulmonary arteries: No thromboembolic disease. - Lobar pulmonary arteries: No definite lobar pulmonary thromboembolic disease. - Segmental pulmonary arteries: Nondiagnostic. - Subsegmental pulmonary arteries: Nondiagnostic. - Additional pulmonary artery findings: The main pulmonary artery is normal in caliber. Lines, tubes, and devices: None. Lung parenchyma and airways: Posterior dependent groundglass opacities in the lower lobes, consistent with atelectasis. Few small pulmonary nodules are nonspecific. For example, there is a 2 mm right upper lobe nodule at image 60. Another 2 mm left upper lobe nodule is noted at image 61. No suspicious pulmonary nodule. Calcified granuloma in the right upper lobe. The central airways are patent and without endobronchial lesion. Pleural space: No pleural effusion. No pleural thickening. Lower neck, lymph nodes, and mediastinum: The imaged thyroid gland is normal. No lymphadenopathy in the supraclavicular, axillary, mediastinal, or hilar regions. Heart, pericardium, and thoracic vessels: The thoracic aorta is normal in caliber. The cardiac chambers are normal in size. Minimal coronary artery atherosclerotic calcifications are noted, although the study is not optimized for coronary assessment. No pericardial effusion or thickening. Bones and soft tissues: No destructive bone lesion. Degenerative changes. Chest wall is unremarkable. Upper abdomen: No abnormality in the imaged upper abdomen. Development Analyst (topogram) images: No additional findings. IMPRESSION: No CT evidence of pulmonary embolism within the limitations of the exam. Nondiagnostic study within the segmental, and subsegmental pulmonary arteries. No acute intrathoracic process. Developer Programmer: [email or web address] Transcribe Date/Time: Apr 16 2022 3:35P Dictated by : ROBERTO VILLEDA MD This examination was interpreted and the report reviewed and electronically signed by: MADONNA DAVENPORT MD on Apr 16 2022 3:55PM EST [id number] Normal [facility] Comprehensive metabolic 2000 panelon 04-16-2022 Albumin [Mass/Vol] 3.9 g/dL Normal 3.9-4.9 [facility] Comment on above: Order Comment: Speci men Type: BLOOD SPECIMENOrdering Facility: [facility] Address: [address] [place] [address] Performed By: #### 2 4323-8, 3040-3, [id number], 42804-0 ####[facility] LABCLIA [id number] [place] [address] [place] ALP [Catalytic activity/Vol] 98 U/L Normal 34-123 [facility] Comment on above: Order Comment: Speci men Type: BLOOD SPECIMENOrdering Facility: [facility] Address: [address] [place] [address] Performed By: #### 2 4323-8, 3040-3, [id number], ####[facility] LABCLIA [id number] [place] [address] [place] ALT [Catalytic activity/Vol] 13 U/L Normal 7-38 [facility] Comment on above: Order Comment: Speci men Type: BLOOD SPECIMENOrdering Facility: [facility] Address: [address] [place] [address] Performed By: #### 2 4323-8, 3040-3, [id number], ####[facility] LABCLIA [id number] [place] [address] [place] Anion gap [Moles/Vol] 12 mmol/L Normal 9-18 [facility] Comment on above: Order Comment: Speci men Type: BLOOD SPECIMENOrdering Facility: [facility] Address: [address] [place] [address] Performed By: #### 2 4323-8, 3040-3, [id number], 15250-0 ####[facility] LABCLIA [id number] [place] [address] [place] AST [Catalytic activity/Vol] 15 U/L Normal 13-35 [facility] Comment on above: Order Comment: Speci men Type: BLOOD SPECIMENOrdering Facility: [facility] Address: [address] [place] [address] Performed By: #### 2 4323-8, 3040-3, [id number], 34421-9 ####[facility] LABCLIA [id number] [place] [address] [place] Bilirubin [Mass/Vol] mg/dL Low 0.2-1.3 [facility] Comment on above: Order Comment: Speci men Type: BLOOD SPECIMENOrdering Facility: [facility] Address: [address] [place] [address] Performed By: #### 2 4323-8, 3040-3, [id number], ####[facility] LABCLIA [id number] [place] [address] [place] Calcium [Mass/Vol] 9.8 mg/dL Normal 8.5-10.2 [facility] Comment on above: Order Comment: Speci men Type: BLOOD SPECIMENOrdering Facility: [facility] Address: [address] [place] [address] Performed By: #### 2 4323-8, 3040-3, [id number], ####[facility] LABCLIA [id number] [place] [address] [place] Chloride [Moles/Vol] 99 mmol/L Normal 97-105 [facility] Comment on above: Order Comment: Speci men Type: BLOOD SPECIMENOrdering Facility: [facility] Address: [address] [place] [address] Performed By: #### 2 4323-8, 3040-3, [id number], 89416-9 ####[facility] LABCLIA [id number] [place] [address] [place] CO2 [Moles/Vol] 26 mmol/L Normal 22-30 [facility] Comment on above: Order Comment: Speci men Type: BLOOD SPECIMENOrdering Facility: [facility] Address: [address] [place] [address] Performed By: #### 2 4323-8, 3040-3, [id number], ####[facility] LABCLIA [id number] [place] [address] [place] Creatinine [Mass/Vol] 0.81 mg/dL Normal 0.58-0.96 [facility] Comment on above: Order Comment: Speci men Type: BLOOD SPECIMENOrdering Facility: [facility] Address: [address] [place] [address] Performed By: #### 2 4323-8, 3040-3, [id number], ####[facility] LABCLIA [id number] [place] [address] [place] ESTIMATED GLOMERULAR FILTRATION RATE 90 mL/min/1.73m??? Normal >=60 [facility] Comment on above: Order Comment: Speci men Type: BLOOD SPECIMENOrdering Facility: [facility] Address: [address] [place] [address] Result Comment: Catherine mated Glomerular Filtration Rate (eGFR) is calculated using the 2020 CKD-EPI creatinine equation. This equation utilizes serum creatinine, sex, and age as parameters. The creatinine assay has traceable calibration to isotope dilution-mass spectrometry. Refer to KDIGO guidelines for clinical interpretation. In patients with unstable renal function, e.g. those with acute kidney injury, the eGFR may not accurately reflect actual GFR. Performed By: #### 2 4323-8, 3040-3, [id number], 68662-9 ####[facility] LABCLIA [id number] [place] [id number] [place] Glucose [Mass/Vol] 121 mg/dL High 74-99 [facility] Comment on above: Order Comment: Alicja felix Type: BLOOD SPECIMENOrdering Facility: [facility] Address: [address] [place], [place] [address] Result Comment: The [place] [employer] (ADA) provides guidance for cutoff values for fasting glucose and random glucose. The ADA defines fasting as no caloric intake for at least 8 hours. Fasting plasma glucose results between 100 to 125 mg/dL indicate increased risk for diabetes (prediabetes). Fasting plasma glucose results greater than or equal to 126 mg/dL meet the criteria for diagnosis of diabetes. In the absence of unequivocal hyperglycemia, results should be confirmed by repeat testing. In a patient with classic symptoms of hyperglycemia or hyperglycemic crisis, random plasma glucose results greater than or equal to 200 mg/dL meet the criteria for diagnosis of diabetes. Reference: Standards of Medical Care in Diabetes 2016, [place] [employer]. Diabetes Care. 2016.39(Suppl 1). Performed By: #### 2 4323-8, 3040-3, [id number], 93971-7 ####[facility] LABCLIA [id number] [place] [address] [place] Potassium [Moles/Vol] 3.8 mmol/L Normal 3.7-5.1 [facility] Comment on above: Order Comment: Alicja felix Type: BLOOD SPECIMENOrdering Facility: [facility] Address: [address] [place], [place] [address] Performed By: #### 2 4323-8, 3040-3, [id number], 08434-0 ####[facility] LABCLIA [id number] [place] [address] [place] Protein [Mass/Vol] 7.7 g/dL Normal 6.3-8.0 [facility] Comment on above: Order Comment: Alicja felix Type: BLOOD SPECIMENOrdering Facility: [facility] Address: [address] [place], [place] [address] Performed By: #### 2 4323-8, 3040-3, [id number], 90387-1 ####[facility] LABCLIA [id number] [place] [address] [place] Sodium [Moles/Vol] 137 mmol/L Normal 136-144 [facility] Comment on above: Order Comment: Speci men Type: BLOOD SPECIMENOrdering Facility: [facility] Address: [address] [place] [address] Performed By: #### 2 4323-8, 3040-3, [id number], 41280-8 ####[facility] LABCLIA [id number] [place] [address] [place] Urea nitrogen [Mass/Vol] 9 mg/dL Normal 7-21 [facility] Comment on above: Order Comment: Speci men Type: BLOOD SPECIMENOrdering Facility: [facility] Address: [address] [place] [address] Performed By: #### 2 4323-8, 3040-3, [id number], 22372-5 ####[facility] LABCLIA [id number] [place] [address] [place] Albumin [Mass/Vol] 3.8 g/dL Low 3.9-4.9 [facility] Comment on above: Order Comment: Speci men Type: BLOOD SPECIMENOrdering Facility: [facility] Address: [address] [place], [place] [address] Performed By: #### 1 988-5, 00395-5, 3033-6 ####[facility] LABCLIA [id number] [place] [address] [place] ALP [Catalytic activity/Vol] 105 U/L Normal 34-123 [facility] Comment on above: Order Comment: Speci men Type: BLOOD SPECIMENOrdering Facility: [facility] Address: [address] [place], [place] [address] Performed By: #### 1 988-5, 56370-0, 3034-6 ####[facility] LABCLIA [id number] [address] [id number] [address] [place] ALT [Catalytic activity/Vol] 12 U/L Normal 7-38 [facility] Comment on above: Order Comment: Speci men Type: BLOOD SPECIMENOrdering Facility: [facility] Address: [place] [address] Performed By: #### 1 988-5, 66450-0, 3033-10 ####[facility] LABCLIA [id number] [place] [address] [place] Anion gap [Moles/Vol] 15 mmol/L Normal 9-18 [facility] Comment on above: Order Comment: Speci men Type: BLOOD SPECIMENOrdering Facility: [facility] Address: [address] [place], [place] [address] Performed By: #### 1 988-5, , 3033-10 ####[facility] LABCLIA [id number] [address] [place] AST [Catalytic activity/Vol] 18 U/L Normal 13-35 [facility] Comment on above: Order Comment: Speci men Type: BLOOD SPECIMENOrdering Facility: [facility] Address: [address] [place], [place] [address] Performed By: #### 1 988-5, 88698-7, 3033-10 ####[facility] LABCLIA [id number] [place] [address] [place] Bilirubin [Mass/Vol] mg/dL Low 0.2-1.3 [facility] Comment on above: Order Comment: Speci men Type: BLOOD SPECIMENOrdering Facility: [facility] Address: [address] [place], [place] [address] Performed By: #### 1 988-5, 83821-0, 3033-10 ####[facility] LABCLIA [id number] [address] [address] [place] Calcium [Mass/Vol] 9.7 mg/dL Normal 8.5-10.2 [facility] [facility] Comment on above: Order Comment: Speci men Type: BLOOD SPECIMENOrdering Facility: [facility] Address: [address] Performed By: #### 1 988-5, , 3033-10 ####[facility] LABCLIA [id number] [place] [address] [place] Chloride [Moles/Vol] 99 mmol/L Normal 97-105 [facility] Comment on above: Order Comment: Speci men Type: BLOOD SPECIMENOrdering Facility: [facility] Address: [address] Performed By: #### 1 988-5, , 3033-10 ####[facility] LABCLIA [id number] [place] [address] [place] CO2 [Moles/Vol] 22 mmol/L Normal 22-30 [facility] Comment on above: Order Comment: Speci men Type: BLOOD SPECIMENOrdering Facility: [facility] Address: [address] [place], [place] [address] Performed By: #### 1 988-5, , 3033-10 ####[facility] LABCLIA [id number] [place] [address] [place] Creatinine [Mass/Vol] 0.69 mg/dL Normal 0.58-0.96 [facility] Comment on above: Order Comment: Speci men Type: BLOOD SPECIMENOrdering Facility: [facility] Address: [address] [place] [address] Performed By: #### 1 988-5, , 3033-10 ####[facility] LABCLIA [id number] [address] [address] [place] ESTIMATED GLOMERULAR FILTRATION RATE 108 mL/min/1.73m??? Normal >=60 [facility] Comment on above: Order Comment: Speci men Type: BLOOD SPECIMENOrdering Facility: [facility] Address: [address] [place] [address] Result Comment: Catherine mated Glomerular Filtration Rate (eGFR) is calculated using the 2020 CKD-EPI creatinine equation. This equation utilizes serum creatinine, sex, and age as parameters. The creatinine assay has traceable calibration to isotope dilution-mass spectrometry. Refer to KDIGO guidelines for clinical interpretation. In patients with unstable renal function, e.g. those with acute kidney injury, the eGFR may not accurately reflect actual GFR. Performed By: #### 1 988-5, 21052-0, 6 ####[facility] LABCLIA [id number] [place] [address] [place] Glucose [Mass/Vol] 109 mg/dL High 74-99 [facility] Comment on above: Order Comment: Alicja felix Type: BLOOD SPECIMENOrdering Facility: [facility] Address: [address] [place] [address] Result Comment: The [place] [employer] (ADA) provides guidance for cutoff values for fasting glucose and random glucose. The ADA defines fasting as no caloric intake for at least 8 hours. Fasting plasma glucose results between 100 to 125 mg/dL indicate increased risk for diabetes (prediabetes). Fasting plasma glucose results greater than or equal to 126 mg/dL meet the criteria for diagnosis of diabetes. In the absence of unequivocal hyperglycemia, results should be confirmed by repeat testing. In a patient with classic symptoms of hyperglycemia or hyperglycemic crisis, random plasma glucose results greater than or equal to 200 mg/dL meet the criteria for diagnosis of diabetes. Reference: Standards of Medical Care in Diabetes 2016, [place] [employer]. Diabetes Care. 2016.39(Suppl 1). Performed By: #### 1 988-5, 11247-8, 6 ####[facility] LABCLIA [id number] [place] [id number] [place] Potassium [Moles/Vol] 4.1 mmol/L Normal 3.7-5.1 [facility] Comment on above: Order Comment: Alicja felix Type: BLOOD SPECIMENOrdering Facility: [facility] Address: [address] [place] [address] Performed By: #### 1 988-5, 91566-8, 3034-6 ####[facility] LABIA [id number] [place] [address] [place] Protein [Mass/Vol] 7.8 g/dL Normal 6.3-8.0 [facility] Comment on above: Order Comment: Speci men Type: BLOOD SPECIMENOrdering Facility: [facility] Address: [address] [place] [address] Performed By: #### 1 988-5, 39485-2, 303-6 ####[facility] LABIA [id number] [place] [address] [place] Sodium [Moles/Vol] 136 mmol/L Normal 136-144 [facility] Comment on above: Order Comment: Speci men Type: BLOOD SPECIMENOrdering Facility: [facility] Address: [address] [place] [address] Performed By: #### 1 988-5, 50840-2, 303-6 ####[facility] [id number] [place] [address] [place] Urea nitrogen [Mass/Vol] 9 mg/dL Normal 7-21 [facility] Comment on above: Order Comment: Speci men Type: BLOOD SPECIMENOrdering Facility: [facility] Address: [address] [place] [address] Performed By: #### 1 988-5, 30509-7, 303-6 ####[facility] LABIA [id number] [place] [address] [place] D dimer FEU PPP-mCncon 04-16 Fibrin D-dimer FEU (PPP) [Mass/Vol] 930 ng/mL FEU High <500 [facility] Comment on above: Order Comment: Speci men Type: BLOOD SPECIMENOrdering Facility: [facility] Address: [address] [place] [address] Performed By: #### 4 8065-7 ####[facility] LABCLIA [id number] [facility]ENTERChirag SOLDIERNIKOLE [id number] [place] [address] [id number] ED NOTEon 04-16-2022 ED NOTE HNO ID: [id number] Author: Viki Bill RN Service: Emergency Medicine Author Type: Registered Nurse Type: ED Notes Filed: 04/16/2022 6:46 PM Note Text: Discharge instructions, medications, and follow up discussed with patient. Pt verbalized understanding and discharged to the lobby with personal belongings. NAD noted. Normal [facility] ED NOTE HNO ID: [id number] Author: RT Hilda(R) Service: Lab Medicine Author Type: Technologist Type: ED Notes Filed: 04/16/2022 1:54 PM Note Text: Radiology Service Progress Note PATIENT NAME: Diana Venegas DATE OF SERVICE: April 16, 2022 TIME: 1:54 PM PATIENT IDENTITY VERIFICATION COMPLETED USING TWO (2) IDENTIFIERS: Name and Date of confirmed by patient verbally. FALL SCREENING: Has the patient had 2 falls in the last year or 1 fall with injury or currently using an Ambulatory Assistive Device (Walker, Cane, Wheelchair, Crutches, etc.)? Yes, Patient High Risk for Falls What interventions were put in place to prevent falls during this visit? Increased Observations by Caregivers PATIENT GENDER DATA: Female. status: : No status: NO. PATIENT RELEVANT IMPLANT DATA REVIEWED: Yes RADIOLOGY DEPARTMENT: General X-ray: Exam(s) Completed: Chest X-Ray PERIPHERAL IV DATA: Not applicable SIGNED BY: RT Hilda(R) April 16, 2022 1:54 PM Normal [facility] ED NOTE HNO ID: [id number] Author: Eden Kelly RN Service: Emergency Medicine Author Type: Registered Nurse Type: ED Notes Filed: 04/16/2022 1:00 PM Note Text: Pt brought in by EMS for c/o syncopal episode while getting lab work completed in out pt unit. Pt was at GI apt post colonoscopy last week. While having blood work completed, pt had syncopal episode and woke up vomiting. C/o n/v and VO. Denies CP/SOB, dizziness. Alert and oriented x3. Moving all extremities. Skin warm and dry. On monitor. EKG completed. Family at BS. Will monitor and report changes. Plan of care: Continue to monitor pt and assist with needs Notify LIP of acute changes Side rails up x2, bed in lowest locked position, call light within reach, ID band on as well as allergy/fall band as needed Provide safety and privacy Normal [facility] ED NOTE HNO ID: [id number] Author: Erin Mayfield RN Service: ? Author Type: Registered Nurse Type: ED Notes Filed: 04/16/2022 12:31 PM Note Text: Bed: E15 Expected date: Expected time: Means of arrival: Comments: [facility] Normal [facility] ED PROV NOTEon 04-16-2022 ED PROV NOTE HNO ID: [id number] Author: Alma Shen MD Service: Emergency Medicine Author Type: Physician Type: ED Provider Notes Filed: 04/17/2022 3:23 PM Note Text: ED Provider Note Patient Name: Diana Venegas : 1975 SERVICE DATE: 04/16/22 History Patient presents with: Nausea AND Vomiting Syncope: Syncopal episode during lab draw in out pt unit Diana Venegas is a 46 year old female w PMH ulcerative pancolitis, undifferentiated soft tissue neck mass (being worked up) who presents to the Emergency Department complaining of syncope, nausea and vomiting. Pt was brought to ED via [place] after having episode of syncope while having blood drawn. Pt reports she was having her blood drawn, began feeling warm, lightheaded and passed out. She states when she reawoke she was vomiting and was then transported to ED. Currently pt reports continued nausea as well as a frontal headache, pressure-like, similar to headaches she has had previously. Pt states prior to today, she had had some episodes of flushing, has also been having some palpitations and exertional fatigue and SOB, but is unsure if these are related to dehydration from a recent ulcerative colitis flare. She states since 04/09 she has been having increased frequency loose stools, some with blood, and some lower abd pain, for which she saw her analyst food and beverage today. Pt states she had eaten prior to this episode today. She denies vision changes, slurred speech, weakness, numbness, tingling, recent fever, chills, neck pain or stiffness, leg pain or swelling, chest pain. Pt states she does not typically pass out with blood draws. No past medical history on file. No past surgical history on file. No family history on file. Social History Tobacco Use Smoking status: Never Smokeless tobacco: Never Substance and Sexual Activity Alcohol use: Not Currently Drug use: Never Sexual activity: Not on file ALLERGIES Allergen Reactions Egg Derived Other: See Comments Flu Vac-2017 65up-A* Hives Infliximab-Dyyb Anaphylaxis Measles Immune Glob* Other: See Comments Review of Systems Constitutional: Negative for chills, fatigue and fever. HENT: Negative for congestion, sore throat and trouble swallowing. Eyes: Negative for photophobia, redness and visual disturbance. Respiratory: Positive for shortness of breath. Negative for cough and wheezing. Cardiovascular: Positive for palpitations. Negative for chest pain and leg swelling. Gastrointestinal: Positive for abdominal pain, blood in stool, diarrhea, nausea and vomiting. Genitourinary: Negative for decreased urine volume, difficulty urinating and dysuria. Musculoskeletal: Negative for arthralgias, back pain and gait problem. Skin: Negative for color change, rash and wound. Neurological: Positive for syncope and headaches. Negative for dizziness, speech difficulty, weakness and numbness. Psychiatric/Behavioral: Negative for agitation, behavioral problems and confusion. Physical Exam Vitals [04/16/22 1252] BP Pulse Temp Temp src Resp SpO2 Weight Height 118/63 (!) 114 36.4 ?C (97.6 ?F) Oral 20 96 % -- -- Physical Exam Vitals and nursing note reviewed. Constitutional: Appearance: She is well-developed. Comments: Well-appearing female sitting reclined in bed in no apparent distress. HENT: Head: Normocephalic and atraumatic. Eyes: Extraocular Movements: Extraocular movements intact. Conjunctiva/sclera: Conjunctivae normal. Pupils: Pupils are equal, round, and reactive to light. Cardiovascular: Rate and Rhythm: Normal rate and regular rhythm. Heart sounds: Normal heart sounds. Pulmonary: Effort: Pulmonary effort is normal. Breath sounds: Normal breath sounds. Abdominal: General: Abdomen is flat. Bowel sounds are normal. Palpations: Abdomen is soft. Tenderness: There is abdominal tenderness (lower). There is no guarding. Musculoskeletal: General: Normal range of motion. Cervical back: Normal range of motion and neck supple. Comments: No LE edema Skin: General: Skin is warm and dry. Neurological: Mental Status: She is alert and oriented to person, place, and time. GCS: GCS eye subscore is 4. GCS verbal subscore is 5. GCS motor subscore is 6. Cranial Nerves: No dysarthria or facial asymmetry. Motor: Motor function is intact. Psychiatric: Behavior: Behavior normal. Thought Content: Thought content normal. Diagnostic Testing ED Labs Ordered and Reviewed COMP METABOLIC PANEL - Abnormal; Notable for the following components: Result Value Ref Range Bilirubin, Total <0.2 (*) 0.2 - 1.3 mg/dL Glucose 121 (*) 74 - 99 mg/dL All other components within normal limits CBC + DIFF - Abnormal; Notable for the following components: Hemoglobin 10.5 (*) 11.5 - 15.5 g/dL Hematocrit 35.6 (*) 36.0 - 46.0 % MCV 76.4 (*) 80.0 - 100.0 fL MCH 22.5 (*) 26.0 - 34.0 pg MCHC 29.5 (*) 30.5 - 36.0 g/dL RDW-C (more content not included)... Normal [facility] ESR Westergren method (Bld) [Velocity]on 04-16-2022 ESR (Bld) [Velocity] 60 mm/h High 0-20 [facility] Comment on above: Order Comment: Speci men Type: BLOOD SPECIMENOrdering Facility: [facility] Address: [address] [place] [address] Performed By: #### 4 537-7 ####[facility] LABCLIA [id number] [place] [address] [place] HBV surface Ag Ser Qlon 12-0 HBV surface Ag Ql (S) Negative Normal Negative [facility] Comment on above: Order Comment: Speci men Type: BLOOD SPECIMENOrdering Facility: [facility] Address: [address] [place] [address] Performed By: #### 5 195-3 ####[facility] LABCLIA [id number] [address] HIGH SENSITIVITY TROPONIN T (INITIAL)on 04-16-2022 HIGH SENSITIVITY YARI <6 Normal <12 [facility] Comment on above: Order Comment: Alicja felix Type: BLOOD SPECIMENOrdering Facility: [facility] Address: [address] [place] [address] Result Comment: When assessing risk for acute coronary syndromes: In patients undergoing blood draw greater than or equal to 2 hours from symptom onset, with history of very low to moderate risk and non-ischemic ECG, an initial hs-Troponin T less than 12 ng/L AND a 1 hour delta hs-Troponin T less than 3 ng/L should be considered very low risk for 30 day MACE. Performed By: #### 2 4323-8, 3040-3, [id number], 59530-7 ####[facility] LABCLIA [id number] [address] HIGH SENSITIVITY TROPONIN T (SECOND)on 04-16-2022 HIGH SENSITIVITY YARI <6 Normal <12 [facility] Comment on above: Order Comment: Alicja felix Type: BLOOD SPECIMENOrdering Facility: [facility] Address: [address] [place] [address] Result Comment: When assessing risk for acute coronary syndromes: In patients undergoing blood draw greater than or equal to 2 hours from symptom onset, with history of very low to moderate risk and non-ischemic ECG, an initial hs-Troponin T less than 12 ng/L AND a 1 hour delta hs-Troponin T less than 3 ng/L should be considered very low risk for 30 day MACE. Performed By: #### L [id number] ####[facility] LABCLIA [id number] [address] OF [place] Iron and Iron binding capaci ty panelon 04-16-2022 Iron [Mass/Vol] 28 ug/dL Low 41-186 [facility] Comment on above: Order Comment: Speci men Type: BLOOD SPECIMENOrdering Facility: [facility] Address: [address] [place] [address] Performed By: #### 5 0190-8 ####[facility] LABCLIA [id number] [place] [address] [place] Iron binding capacity [Mass/Vol] 354 ug/dL Normal 232-386 [facility] Comment on above: Order Comment: Speci men Type: BLOOD SPECIMENOrdering Facility: [facility] Address: [address] [place] [address] Performed By: #### 5 0190-8 ####[facility] LABIA [id number] [place] [address] [place] Iron/TIBC [Molar ratio] 7.9 % Low 15.0-57.0 [facility] Comment on above: Order Comment: Speci men Type: BLOOD SPECIMENOrdering Facility: [facility] Address: [address] [place] [address] Performed By: #### 5 0190-8 ####[facility] LABIA [id number] [place] [address] [place] Lipase SerPl-cCncon 04-16-20 22 Lipase [Catalytic activity/Vol] 47 U/L Normal 16-61 [facility] Comment on above: Order Comment: Speci men Type: BLOOD SPECIMENOrdering Facility: [facility] Address: [address] [place] [address] Performed By: #### 2 4323-8, 3040-3, QXS3113, 43782-8 ####[facility] LABIA [id number] [place] [address] [place] Magnesium SerPl-mCncon 04-16 Magnesium [Mass/Vol] 2.0 mg/dL Normal 1.7-2.3 [facility] Comment on above: Order Comment: Speci men Type: BLOOD SPECIMENOrdering Facility: [facility] Address: [facility] [place] [address] Performed By: #### 2 4323-8, 3040-3, AMD3234, 36528-6 ####[facility] LABCLIA [id number] [address] [address] [place] Transferrin SerPl-mCncon Transferrin [Mass/Vol] 289 mg/dL Normal 200-360 [facility] Comment on above: Order Comment: Speci men Type: BLOOD SPECIMENOrdering Facility: [facility] Address: [address] [place] [id number] Performed By: #### 1 988-5, 26787-4, 3034-6 ####[facility] LABCLIA [id number] [place] [address] [place] XR CHEST 1V FRONTAL PORTon 1 06-17-2021 XR CHEST 1V FRONTAL PORT * * *Final Report* * * DATE OF EXAM: Apr 16 2022 2:40PM EGX [id number] - XR CHEST 1V FRONTAL PORT / PROCEDURE REASON: Shortness of breath * * * * Physician Interpretation * * * * EXAMINATION: CHEST RADIOGRAPH (PORTABLE SINGLE VIEW AP) Exam Date/Time: 04/16/2022 2:40 PM Clinical History: Shortness of breath MQ: XCPMC_6 Comparison: None RESULT: Lines, tubes, and devices: None. Lungs and pleura: Lungs are clear, no focal consolidation. No pleural effusion or pneumothorax. Cardiomediastinal silhouette: Cardiac silhouette is not enlarged. Other: . IMPRESSION: No acute disease. Developer Programmer: PSCB Transcribe Date/Time: Apr 16 2022 2:46P Dictated by : HANK COTTON MD This examination was interpreted and the report reviewed and electronically signed by: HANK COTTON MD on Apr 16 2022 2:46PM EST [id number] Normal [facility] COLONOSCOPY DIAGNOSTICon Colonoscopyon 04-08-2022 Colonoscopy A31 Gastrointestinal Endoscopy Patient Name: Diana Venegas Procedure Date: 04/08/2022 10:53 AM Date of : 1975 Admit Type: Outpatient Age: 46 Room: [address] Gender: Female Note Status: [employer] Over[employer] Attending MD: Mikey Brito MD Procedure: Colonoscopy Indications: Disease activity assessment of left-sided chronic ulcerative colitis Providers: Mikey Brito MD Patient Profile: Refer to note in patient chart for documentation of history and physical. Last Colonoscopy: none. The patient's first colonoscopy is today. Referring Physician: Mikey Brito MD (Referring MD) Medicines: Fentanyl 125 micrograms IV, Midazolam 5 mg IV Complications: No immediate complications. Requesting Provider: Procedure: Pre-Anesthesia Assessment: - Prior to the procedure, a History and Physical was performed, and patient medications and allergies were reviewed. The patient is competent. The risks and benefits of the procedure and the sedation options and risks were discussed with the patient. All questions were answered and informed consent was obtained. Patient identification and proposed procedure were verified by the physician in the pre-procedure area in the procedure room. Mental Status Examination: alert and oriented. Airway Examination: normal oropharyngeal airway and neck mobility. Respiratory Examination: clear to auscultation. CV Examination: normal. Prophylactic Antibiotics: The patient does not require prophylactic antibiotics. Prior Anticoagulants: The patient has taken no anticoagulant or antiplatelet agents. After reviewing the risks and benefits, the patient was deemed in satisfactory condition to undergo the procedure. The anesthesia plan was to use moderate sedation / analgesia (conscious sedation). Immediately prior to administration of medications, the patient was re-assessed for adequacy to receive sedatives. The heart rate, respiratory rate, oxygen saturations, blood pressure, adequacy of pulmonary ventilation, and response to care were monitored throughout the procedure. The physical status of the patient was re-assessed after the procedure. After I obtained informed consent, the scope was passed under direct vision. Throughout the procedure, the patient's blood pressure, pulse, and oxygen saturations were monitored continuously. The Colonoscope was introduced through the anus and advanced to the terminal ileum, with identification of the appendiceal orifice and IC valve. The quality of the bowel preparation was fair. The terminal ileum, ileocecal valve, appendiceal orifice, and rectum were photographed. The patient tolerated the procedure well. The colonoscopy was performed with ease. Moderate Sedation: The administration of moderate sedation was initiated at 11:09 AM. Findings: The terminal ileum appeared normal. Inflammation was found in the left sided colon. This was graded as Diaz Score 1 (mild, with erythema, decreased vascular pattern, mild friability). Several biopsies were obtained with cold forceps for histology. Diffuse pseudopolyps were found in the entire colon associated with narrowing in the descending colon. Non-bleeding external and internal hemorrhoids were found during retroflexion and during perianal exam. The hemorrhoids were moderate. Impression: - Preparation of the colon was fair. - The examined portion of the ileum was normal. - Mild (Diaz Score 1) left-sided ulcerative colitis. - Pseudopolyps in the entire examined colon with descending colon narrowing. - Non-bleeding external and internal hemorrhoids. - Several biopsies were obtained. Estimated Blood Loss: Estimated blood loss was minimal. Recommendation: - The patient will be observed post-procedure, until all discharge criteria are met. - Patient has a contact number available for emergencies. The signs and symptoms of potential delayed complications were discussed with the patient. Return to normal activities tomorrow. Written discharge instructions were provided to the patient. - Resume previous diet. - Continue present medications. - Repeat colonoscopy in 6 months to assess disease activity. - Avoid constipation - Follow up path results. Procedure Code(s): --- Professional --- 33411, Colonoscopy, flexible; with biopsy, single or multiple Diagnosis Code(s): --- Professional --- K64.8, Other hemorrhoids K51.50, Left sided colitis without complications K51.40, Inflammatory polyps of colon without complications CPT copyright 2020 [place] [employer]. All rights reserved. The codes documented in this report are preliminary and upon dissolver operator review may be revised to meet current compliance requirements. Attending Participation: I personally performed the entire procedure. Scope In: 11:11:54 AM Scope Out: 11:42:23 AM MD Mikey Cruz MD 04/08/2022 (more content not included)... Normal [facility] HISTORY PHYSICALon HISTORY PHYSICAL HNO ID: [id number] Author: Mikey Brito MD Service: Gastroenterology Author Type: Physician Type: HANDP Filed: 04/08/2022 10:16 AM Note Text: PROCEDURAL SEDATION HISTORY AND PHYSICAL EXAM SERVICE DATE: 04/08/2022 SERVICE TIME: 10:16 AM Subjective HPI: This is a 46 year old female who presents for screening Colonoscopy PAST ANESTHESIA HISTORY: No history of adverse event No past medical history on file. No past surgical history on file. Prior to Admission medications as of 04/08/22 1013 Medication Sig Last Dose Taking acetaminophen (TYLENOL) 500 mg tablet Take 500 mg by mouth. 04/08/2022 Yes acetaminophen-codeine (TYLENOL-COD #3) 300-30 mg per tablet Take 1 tablet by mouth every 6 hours as needed. budesonide, enteric coated (ENTOCORT EC) 3 mg 24 hr capsule Take 3 mg by mouth. lisinopril (ZESTRIL, PRINIVIL) 10 mg tablet Take 1 tablet by mouth once daily. carboxymethylcellulose sodium (ARTIFICIAL TEARS, CMC, OPHTHALMIC) Use in eyes. amitriptyline (ELAVIL) 10 mg tablet Take 1 tablet by mouth daily at bedtime. Mesalamine (LIALDA) 1.2 gram EC tablet Take 4 tablets by mouth once daily. Take with food. Do not cut tablet. ALLERGIES Allergen Reactions Egg Derived Other: See Comments Infliximab-Dyyb Anaphylaxis Measles Immune Glob* Other: See Comments Objective PHYSICAL EXAM: The remainder of the physical exam is noncontributory. GENERAL: Alert, no distress, cooperative SKIN: Skin color, texture, turgor normal. No rashes or lesions. HEAD/SINUSES: No significant findings ABDOMEN: Abdomen soft, non-tender, BS normal, No masses or organomegaly AIRWAY: Airway Visualization of Uvula: Yes Mouth opening greater than 2 fingerbreadths: Yes Neck Full Range of Motion: Yes LUNGS: Lungs clear to auscultation CARDIAC: Regular rhythm,Regular rate Assessment/Plan ASA Class: ASA Class:: Patient with mild systemic disease Active Problems: * No active hospital problems. * Resolved Problems: * No resolved hospital problems. * Medication and Non-Pharmacologic VTE Prophylaxis/Anticoagulan ts VTE Prophylaxis: VTE prophylaxis appropriate Provisional Diagnosis/Treatment Plan: colonoscopy SEDATION GOAL: Moderate SIGNATURE: Mikey Brito MD, MD PATIENT NAME: Diana Venegas DATE: April 08, 2022 TIME: 10:16 AM Normal [facility] NURSING PROGon 04-08-2022 NURSING PROG HNO ID: [id number] Author: Esther Meredith RN Service: ? Author Type: Registered Nurse Type: Nursing Progress Note Filed: 04/08/2022 11:54 AM Note Text: AMBULATORY PATIENT EDUCATION NOTE TOPIC: GI PROCEDURES: Colonoscopy with or without biopsies based on clinical findings READINESS TO LEARN INSTRUCTION PROVIDED TO: Patient and family member COGNITIVE ABILITY: Alert and oriented PTED MOTIVATION TO LEARN: Interested FAMILY SUPPORT: None - Unavailable/disintereste d IPATIENT LEARNS BEST BY: Individual Instruction Written Instruction - Hand-outs Verbal Instruction FACTORS AFFECTING LEARNING: None PHYSICAL LIMITATIONS AFFECTING LEARNING: None LEARNING RESPONSE METHOD OF INSTRUCTION: Individual instruction PATIENT / FAMILY RESPONSE: Verbalizes understanding of: WORSENING CONDITION-Signs and symptoms of a worsening condition that warrant a call to the physician FOLLOW-UP PLAN: Complete - No need for follow-up SUPPLEMENTAL MATERIAL: Procedure Discharge Instructions REFERRAL (RECOMMENDATION): None Electronically Signed By: Esther Meredith RN [facility] NURSING PROG HNO ID: [id number] Author: Esther Meredith RN Service: ? Author Type: Registered Nurse Type: Nursing Progress Note Filed: 04/08/2022 10:07 AM Note Text: PRE OP LEARNING ASSESSMENT PROCEDURE/SURGERY: GI PROCEDURES: Colonoscopy READINESS TO LEARN COGNITIVE ABILITY: Alert and oriented MOTIVATION TO LEARN: Interested FAMILY SUPPORT: None - Unavailable/disintereste d PATIENT LEARNS BEST BY: Individual Instruction FACTORS AFFECTING LEARNING: None PHYSICAL LIMITATIONS AFFECTING LEARNING: None Electronically Signed By: Esther Meredith RN In Department: GASTROENTEROLOGY Normal [facility] SURGICAL PATHOLOGYon CASE REPORT Normal [facility] Comment on above: Order Comment: Speci men Type: TISSUE SPECIMENOrdering Facility: [facility] Address: [address] [place] [id number] Result Comment: Surg ica Pathology Report Case: [id number] Authorizing Provider: Mikey Brito MD Collected: 04/08/2022 11:30 AM Ordering Location: Gastroenterology Received: 04/08/2022 02:06 PM Pathologist: Millie Segura MD Specimens: A) - COLON RIGHT BIOPSY, R/o colitis B) - TRANSVERSE COLON BIOPSY, r/o colitis C) - COLON LEFT BIOPSY, r/o colitis D) - RECTAL BIOPSY, r/o colitis Performed By: #### S ####[facility] LABCLIA [id number] [address] DIAGNOSIS COMMENT Normal [facility] Comment on above: Order Comment: Alvini isidro Type: TISSUE SPECIMENOrdering Facility: [facility] Address: [address] [place] [address] Result Comment: Immu nohistochemical stain for PU.1 performed on block B1 fails to highlight a definitive non-caseating granuloma. Overall, the histomorphologic features may be consistent with inflammatory bowel disease in the appropriate clinical context, although other causes, such as infection, cannot entirely be excluded. No viral cytopathic changes or granulomas are identified. Correlation with serologic and microbiologic studies is recommended. Laboratory Developed Test (LDT) Disclaimer: Performance characteristics of immunohistochemical, immunofluorescent and chromogenic in-situ hybridization tests have been determined by the performing laboratory within ???s [facility] Pathology and Laboratory Medicine [place] ([facility], [facility], [facility] or [facility]) in a manner consistent with CLIA requirements. One or more of these tests have not been cleared or approved by the FDA. [facility] is regulated under CLIA as qualified to perform high-complexity testing. These tests are used for clinical purposes. They should not be regarded as investigational or for research. Positive and negative controls stain appropriately. Performed By: #### S ####[facility] LABCLIA [id number] [address] FINAL DIAGNOSIS Normal [facility] Comment on above: Order Comment: Alvini isidro Type: TISSUE SPECIMENOrdering Facility: [facility] Address: [address] [address] Result Comment: A. C olon, right, biopsy - Colonic mucosa with architectural distortion (see comment) - Negative for colitis, granulomas and dysplasia B. Colon, transverse, biopsy - Chronic active colitis (see comment) - Negative for granulomas and dysplasia C. Colon, left, biopsy - Chronic active colitis (see comment) - Negative for granulomas and dysplasia - Negative for CMV by immunohistochemistry D. Rectum, biopsy - Rectal mucosa with architectural distortion (see comment) - Negative for proctitis, granulomas and dysplasia Performed By: #### S ####[facility] LABCLIA [id number] [address] [place] FINAL PERFORMING LAB Normal [facility] Comment on above: Order Comment: Speci men Type: TISSUE SPECIMENOrdering Facility: [facility] Address: [address] [address] Result Comment: Diag nostic interpretation performed at , [address] [address] CLIA# [id number] Splicer Operator: Indra Bergman M.D. Performed By: #### S ####[facility] LABCLIA [id number] [address] OF [place] GROSS DESCRIPTION Normal [facility] Comment on above: Order Comment: Speci men Type: TISSUE SPECIMENOrdering Facility: [facility] Address: [address] [address] Result Comment: A. C OLON RIGHT BIOPSY Received in formalin are multiple pieces of tomlin, soft tissue aggregating to 1.2 x 0.2 x 0.2 cm. Totally submitted in one cassette. B. TRANSVERSE COLON BIOPSY Received in formalin are multiple pieces of tomlin, soft tissue aggregating to 0.7 x 0.2 x 0.2 cm. Totally submitted in one cassette. C. COLON LEFT BIOPSY Received in formalin are multiple pieces of tomlin, soft tissue aggregating to 1.5 x 0.2 x 0.2 cm. Totally submitted in one cassette. D. RECTAL BIOPSY Received in formalin are multiple pieces of tomlin, soft tissue aggregating to 1.4 x 0.2 x 0.2 cm. Totally submitted in one cassette. EJL April 08, 2022 5:00 PM Gross examination performed at , [address] [facility] [place] [address] Performed By: #### S ####[facility] LABCLIA [id number] [place] [address] [place] CNPNon 04-01-2022 CNPN Telephone (GAPRA3) -------- DIANA VENEGAS ([id number]) 1975 F Date Time Provider Department 04/01/22 NATANAEL FIGUEROA GAPRA3 During your visit today, we recorded the following information about you: RAYRAY Uribe 04/01/2022 2:41 PM Signed Attempted to reach the patient at the contact number that they provided [phone] (home) . 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 Failure to have a responsible adult accompany the patient to their procedure appointment prevents the use of sedation or anesthesia for their procedure; and can result in cancellation of the procedure Clear liquids the day before the procedure, stop all liquids 4 hours before the procedure Instructions to contact their primary care provider regarding their medications and which medications to stop in preparation for their procedure Instructions to completely read and follow the written instructions that they recieved regarding their procedure. Number to call with questions or concerns [phone] Number to call to cancel their procedure [phone] RAYRAY Uribe Allergies As of Date: 04/01/2022 Noted Allergy Reaction EGG DERIVED 04/05/2018 14 - Other: See Comments INFLIXIMAB-DYYB 02/15/2022 10 - Anaphylaxis MEASLES IMMUNE GLOBULIN 06/18/2016 14 - Other: See Comments Date Reviewed: 02/26/2022 Reviewed by: Lincoln Arrington LPN - Fully Assessed Reason for Visit: Appointment [186] Prescriptions as of 04/01/2022 - acetaminophen (TYLENOL) 500 mg tablet Take 500 mg by mouth. - acetaminophen-codeine (TYLENOL-COD #3) 300-30 mg per tablet Take 1 tablet by mouth every 6 hours as needed. - budesonide, enteric coated (ENTOCORT EC) 3 mg 24 hr capsule Take 3 mg by mouth. - lisinopril (ZESTRIL, PRINIVIL) 10 mg tablet Take 1 tablet by mouth once daily. - carboxymethylcellulose sodium (ARTIFICIAL TEARS, CMC, OPHTHALMIC) Use in eyes. - amitriptyline (ELAVIL) 10 mg tablet Take 1 tablet by mouth daily at bedtime. - Mesalamine (LIALDA) 1.2 gram EC tablet Take 4 tablets by mouth once daily. Take with food. Do not cut tablet. Problem List As Of Date 04/01/2022 Noted Resolved History of endoscopy [Z98.890] 02/26/2022 Obesity, Class I, BMI 30-34.9 [E66.9] 02/26/2022 Ulcerative pancolitis with rectal bleeding (HCC*02/26/2022 Imaging of gastrointestinal tract abnormal [R93*02/26/2022 Encounter Status:Closed by NATANAEL FIGUEROA on 04/01/22 Normal [facility] CBC AUTO DIFFon 03-12-2022 BASO # 0.1 103/ul Normal 0.0-0.1 [facility] Comment on above: Performed By: #### C AUBREY GARNER AMY LIPA #### [facility] [address] [address] [address] Martir Alcantara Basophils/100 WBC (Bld) 0.6 % Normal 0.2-2.0 [facility] Comment on above: Performed By: #### C PASCUAL HSTROPDICKSON Gee LIPA #### [facility] [address] [address] [address] Martir Alcantara EO # 0.2 103/ul Normal 0.0-0.7 [facility] Comment on above: Performed By: #### C PASCUAL HSTROPDICKSON Gee LIPA #### [facility] [address] [address] [address] Martir Alcantara Eosinophils/100 WBC (Bld) 1.5 % Normal 0.9-7.0 [facility] Comment on above: Performed By: #### C PASCUAL HSTROPN, DICKSON, LIPA #### [facility] [address] [place] [address] Dr. Martir Alcantara Erythrocyte distribution width (RBC) [Ratio] 15.1 % Critically high 11.0-15.0 [facility] Comment on above: Performed By: #### C MP, HSTROPN, DICKSON, LIPA #### [facility] [address] [place] [address] Dr. Martir Alcantara Hematocrit (Bld) [Volume fraction] 28.8 % Critically low 36.0-48.0 [facility] Comment on above: Performed By: #### C MP, HSTROPN DICKSON, LIPA #### [facility] [address] [place] [address] Dr. Martir Alcantara Hemoglobin (Bld) [Mass/Vol] 8.7 g/dL Critically low 12.0-16.0 [facility] Comment on above: Performed By: #### C MP, HSTROPN, DICKSON, LIPA #### [facility] [address] [place] [address] Dr. Martir Alcantara IG # 0.03 10e3/ul Normal 0.00-0.03 [facility] Comment on above: Performed By: #### C MP, HSTROPN, DICKSON, LIPA #### [facility] [address] [place] [address] Dr. Martir Alcantara IG % 0.3 % Normal 0.0-0.5 [facility] Comment on above: Performed By: #### C MP, HSTROPN, DICKSON, LIPA #### [facility] [address] [place] [address] Dr. Martir Alcantara LYMPH # 1.7 103/ul Normal 1.2-3.8 [facility] Comment on above: Performed By: #### C MP, HSTROPN, DICKSON, LIPA #### [facility] [address] [place] [address] Dr. Martir Alcantara Lymphocytes/100 WBC (Bld) 15.8 % Critically low 20.5-60.0 [facility] Comment on above: Performed By: #### C MP, HSTROPN, DICKSON, LIPA #### [facility] [address] [address] [address] Martir Alcantara MANUAL DIFF REQ NO Normal [facility] Comment on above: Performed By: #### C MP, HSTROPN, DICKSON, LIPA #### [facility] [address] [place] [address] Dr. Martir Alcantara MCH (RBC) [Entitic mass] 23.9 pg Critically low 26.7-34.0 [facility] Comment on above: Performed By: #### C MP, HSTROPN, DICKSON, LIPA #### [facility] [address] [place] [address] Dr. Martir Alcantara MCHC (RBC) [Mass/Vol] 30.2 g/dL Normal 29.9-35.2 [facility] Comment on above: Performed By: #### C MP, HSTROPN, DICKSON, LIPA #### [facility] [address] [place] [address] Dr. Martir Alcantara MCV (RBC) [Entitic vol] 79.1 fL Critically low 81.0-99.0 [facility] Comment on above: Performed By: #### C MP, HSTROPN, DICKSON, LIPA #### [facility] [address] [place] [address] Dr. Martir Alcantara MONO # 1.1 103/ul Critically high 0.3-0.8 [facility] Comment on above: Performed By: #### C MP, HSTROPN, DICKSON, LIPA #### [facility] [address] [place] [address] Dr. Martir Alcantara Monocytes/100 WBC (Bld) 10.4 % Normal 1.7-12.0 [facility] Comment on above: Performed By: #### C MP, HSTROPN, DICKSON, LIPA #### [facility] [address] [place] [address] Dr. Martir Alcantara NEUT # 7.6 103/ul Critically high 1.4-6.5 [facility] Comment on above: Performed By: #### C PASCUAL, HSTROPMarlen DICKSON, LIPA #### [facility] [address] [address] [address] Martir Alcantara Neutrophils/100 WBC (Bld) 71.4 % Normal 43.0-75.0 [facility] Comment on above: Performed By: #### C PASCUAL HSTROPN DICKSON, LIPA #### [facility] [address] [place] [address] Dr. Martir Alcantara Platelet mean volume (Bld) [Entitic vol] 8.1 fL Critically low 9.5-13.5 [facility] Comment on above: Performed By: #### C PASCUAL HSTRDICKSON RUFF, LIPA #### [facility] [address] [place] [address] Dr. Martir Alcantara PLT 368 103/ul Normal 150-450 [facility] Comment on above: Performed By: #### C PASCUAL HSTROPMarlen DICKSON, LIPA #### [facility] [address] [place] [address] Dr. Martir Alcantara RBC 3.64 106/ul Critically low 4.20-5.40 [facility] Comment on above: Performed By: #### C PASCUAL HSTROPMarlen DICKSON, LIPA #### [facility] [address] [place] [address] Dr. Martir Alcantara WBC 10.6 103/ul Normal 4.0-11.0 [facility] Comment on above: Performed By: #### C PASCUAL, HSTROPN DICKSON, LIPA #### [facility] [address] [place] [address] Dr. Martir Alcantara GI PANEL (PCR)on 03-12-2022 Adenovirus F 40/41 Not detected Normal NOT DETECTED [facility] Comment on above: Performed By: #### C PASCUAL, HSTROPN DICKSON, LIPA #### [facility] [address] [place] [address] Dr. Martir Alcantara Astrovirus Not detected Normal NOT DETECTED [facility] Comment on above: Performed By: #### C MP, HSTROPN, DICKSON, LIPA #### [facility] [address] [address] [address] Martir Medrano. Diff toxin A/B Not detected Normal NOT DETECTED [facility] Comment on above: Performed By: #### C MP, HSTROPN, DICKSON, LIPA #### [facility] [address] [address] [address] Martir Alcantara Campylobacter Not detected Normal NOT DETECTED [facility] Comment on above: Performed By: #### C MP, HSTROPN, DICKSON, LIPA #### [facility] [address] [address] [address] Martir Alcantara Cryptosporidium Not detected Normal NOT DETECTED [facility] Comment on above: Performed By: #### C MP, HSTROPN, DICKSON, LIPA #### [facility] [address] [address] [address] Martir Alcantara Cyclos. Cayetanensis Not detected Normal NOT DETECTED [facility] Comment on above: Performed By: #### C MP, HSTROPN, DICKSON, LIPA #### [facility] [address] [place] [address] Dr. Martir Alcantara E. Coli O157 Not Applicable Normal Not Applicable [facility] Comment on above: Performed By: #### C MP, HSTROPN, DICKSON, LIPA #### [facility] [address] [place] [address] Dr. Martir Alcantara E. histolytica Not detected Normal NOT DETECTED [facility] Comment on above: Performed By: #### C MP, HSTROPN, DICKSON, LIPA #### [facility] [address] [address] [address] Martir Alcantara EAEC Not detected Normal NOT DETECTED [facility] Comment on above: Performed By: #### C MP, HSTROPN, DICKSON, LIPA #### [facility] [address] [address] [address] Martir Alcantara EIEC Not detected Normal NOT DETECTED [facility] Comment on above: Performed By: #### C MP, HSTROPN, DICKSON, LIPA #### [facility] [address] [address] [address] Martir Alcantara EPEC Not detected Normal NOT DETECTED [facility] Comment on above: Performed By: #### C MP, HSTROPN, DICKSON, LIPA #### [facility] [address] [address] [address] Martir Alcantara ETEC Not detected Normal NOT DETECTED [facility] Comment on above: Performed By: #### C MP, HSTROPN, DICKSON, LIPA #### [facility] [address] [address] [address] Martir Castrolicam Not detected Normal NOT DETECTED [facility] Comment on above: Performed By: #### C MP, HSTROPN, DICKSON, LIPA #### [facility] [address] [address] [address] Martir BORGES CONTROLS PASSED Normal [facility] Comment on above: Performed By: #### C MP, HSTROPN, DICKSON, LIPA #### [facility] [address] [address] [address] Martir GANDARA [facility] HEADER GI PANEL BACTERIA Normal [facility] Comment on above: Performed By: #### C MP, HSTROPN, DICKSON, LIPA #### [facility] [address] [address] [address] Martir [place] ECOLI GI PANEL DIARRHEAGEN IC E.COLI / SHIGELLA Normal [facility] Comment on above: Performed By: #### C MP, HSTROPN, DICKSON, LIPA #### [facility] [address] [address] [address] Martir [place] INFO SEE BELOW Normal [facility] Comment on above: Result Comment: EAEC - Enteroaggregative E. Coli EPEC- Enteropathogenic E. Coli ETEC- Enterotoxigenic E. Coli lt/st STEC- Shigella-like toxin-producing E. Coli stx1/stx2 EIEC- Shigella/Enteroinvasive E. Coli Performed By: #### C MP, HSTROPN, DICKSON, LIPA #### [facility] [address] [address] [address] Martir [place] PARASITES GI PANEL PARASITES Normal [facility] Comment on above: Performed By: #### C PASCUAL, HSTRDICKSON RUFF, LIPA #### [facility] [address] [address] [address] Martir [place] VIRUS GI PANEL VIRUSES Normal [facility] Comment on above: Performed By: #### C MP, HSTROPN DICKSON, LIPA #### [facility] [address] [address] [address] Martir Alcantara Norovirus GI/GII Not detected Normal NOT DETECTED [facility] Comment on above: Performed By: #### C PASCUAL, HSTROPMarlen DICKSON, LIPA #### [facility] [address] [address] [address] Martir Alcantara P. Shigelloides Not detected Normal NOT DETECTED [facility] Comment on above: Performed By: #### C MP, HSTROPN DICKSON, LIPA #### [facility] [address] [address] [address] Martir Alcantara Rotavirus A Not detected Normal NOT DETECTED [facility] Comment on above: Performed By: #### C PASCUAL, HSTROPMarlen DICKSON, LIPA #### [facility] [address] [address] [address] Martir Alcantara Salmonella Not detected Normal NOT DETECTED [facility] Comment on above: Performed By: #### C MP, HSTROPN DICKSON, LIPA #### [facility] [address] [address] [address] Martir Alcantara Sapovirus Not detected Normal NOT DETECTED [facility] Comment on above: Performed By: #### C MP, HSTROPN DICKSON, LIPA #### [facility] [place] [facility] [address] [address] [address] Martir Alcantara STEC Not detected Normal NOT DETECTED [facility] [place] Comment on above: Performed By: #### C MP, HSTROPN DICKSON, LIPA #### [facility] [place] [facility] [address] [address] [address] Martir Alcantara Vibrio Not detected Normal NOT DETECTED [facility] Comment on above: Performed By: #### C AUBREY GARNER AMY, LIPA #### [facility] [place] [facility] [address] [place] [address] Dr. Martir Alcantara Vibrio Cholera Not detected Normal NOT DETECTED [facility] Comment on above: Performed By: #### C AUBREY GARNER AMY, LIPA #### [facility] [place] [facility] [address] [place] [address] Dr. Martir Alcantara Y. Enterocolitica Not detected Normal NOT DETECTED [facility] [place] Comment on above: Performed By: #### C AUBREY GARNER AMY, LIPA #### [facility] [place] [facility] [address] [place] [address] Dr. Martir Alcantara PROF CHEM 8 (BAS METB)on Anion gap [Moles/Vol] 11.2 mmol/L Normal [facility] Comment on above: Performed By: #### B MP #### [facility] [place] [facility] [address] [place] [address] Dr. Martir Alcantara Calcium [Mass/Vol] 8.7 mg/dL Normal 8.5-10.1 [facility] Comment on above: Performed By: #### B MP #### [facility] [place] [facility] [address] [place] [address] Dr. Martir Alcantara Chloride [Moles/Vol] 103 mmol/L Normal 98-107 [facility] [place] Comment on above: Performed By: #### B MP #### [facility] [place] [facility] [address] [place] [address] Dr. Martir Alcantara CO2 [Moles/Vol] 24.5 mmol/L Normal 21.0-32.0 [facility] Comment on above: Performed By: #### B MP #### [facility] [place] [facility] [address] [place] [address] Dr. Martir Alcantara Creatinine [Mass/Vol] 0.73 mg/dL Normal 0.55-1.02 [facility] Comment on above: Performed By: #### B MP #### [facility] [place] [facility] [address] [address] [address] Martir Alcantara EGFR-AF TAJIK >60 Normal >=60 [facility] Comment on above: Performed By: #### B MP #### [facility] [place] [facility] [address] [address] [address] Martir Alcantara EGFR-NON AF TAJIK >60 Normal >=60 [facility] Comment on above: Performed By: #### B MP #### [facility] [place] [facility] [address] [address] [address] Martir Alcantara Glucose [Mass/Vol] 88 mg/dL Normal 74-106 [facility] Comment on above: Performed By: #### B MP #### [facility] [place] [facility] [address] [place] [address] Dr. Martir Alcantara Potassium [Moles/Vol] 3.7 mmol/L Normal 3.5-5.1 [facility] Comment on above: Performed By: #### B MP #### [facility] [place] [facility] [address] [place] [address] Dr. Martir Alcantara Sodium [Moles/Vol] 135 mmol/L Critically low 136-145 [facility] Comment on above: Performed By: #### B MP #### [facility] [place] [facility] [address] [place] [address] Dr. Martir Alcantara Urea nitrogen [Mass/Vol] 10.0 mg/dL Normal 7.0-18.0 [facility] Comment on above: Performed By: #### B MP #### [facility] [place] [facility] [address] [place] [address] Dr. Martir Alcantara Urea nitrogen/Creatinine [Mass ratio] 13.7 mg/mg Normal [facility] Comment on above: Performed By: #### B MP #### [facility] [place] [facility] [address] [place] [address] Dr. Martir Alcantara AMYLASEon 03-11-2022 Amylase [Catalytic activity/Vol] 19 U/L Critically low 25-115 [facility] Comment on above: Performed By: #### C MP, HSTROPN, DICKSON, LIPA #### [facility] [place] [facility] [address] [place] [address] Dr. Martir Alcantara CBC AUTO DIFFon 03-11-2022 BASO # 0.1 103/ul Normal 0.0-0.1 [facility] Comment on above: Performed By: #### C MP, HSTROPN, DICKSON, LIPA #### [facility] [place] [facility] [address] [place] [address] Dr. Martir Alcantara Basophils/100 WBC (Bld) 0.3 % Normal 0.2-2.0 [facility] [place] Comment on above: Performed By: #### C MP, HSTROPN, DICKSON, LIPA #### [facility] [place] [facility] [address] [place] [address] Dr. Martir Alcantara EO # 0.2 103/ul Normal 0.0-0.7 [facility] [place] Comment on above: Performed By: #### C MP, HSTROPN, DICKSON, LIPA #### [facility] [place] [facility] [address] [place] [address] Dr. Martir Alcantara Eosinophils/100 WBC (Bld) 1.0 % Normal 0.9-7.0 [facility] [place] Comment on above: Performed By: #### C MP, HSTROPN, DICKSON, LIPA #### [facility] [place] [facility] [address] [place] [address] Dr. Martir Alcantara Erythrocyte distribution width (RBC) [Ratio] 15.3 % Critically high 11.0-15.0 [facility] [place] Comment on above: Performed By: #### C MP, HSTROPN, DICKSON, LIPA #### [facility] [place] [facility] [address] [place] [address] Dr. Martir Alcantara Hematocrit (Bld) [Volume fraction] 32.6 % Critically low 36.0-48.0 [facility] [place] Comment on above: Performed By: #### C MP, HSTROPN, DICKSON, LIPA #### [facility] [place] [facility] [address] [place] [address] Dr. Martir Alcantara Hemoglobin (Bld) [Mass/Vol] 9.8 g/dL Critically low 12.0-16.0 [facility] Comment on above: Performed By: #### C MP, HSTROPN, DICKSON, LIPA #### [facility] [place] [facility] [address] [place] [address] Dr. Martir Alcantara IG # 0.05 10e3/ul Critically high 0.00-0.03 [facility] Comment on above: Performed By: #### C MP, HSTROPN, DICKSON, LIPA #### [facility] [place] [facility] [address] [place] [address] Dr. Martir Alcantara IG % 0.3 % Normal 0.0-0.5 [facility] Comment on above: Performed By: #### C MP, HSTROPN, DICKSON, LIPA #### [facility] [place] [facility] [address] [place] [address] Dr. Martir Alcantara LYMPH # 3.1 103/ul Normal 1.2-3.8 [facility] Comment on above: Performed By: #### C MP, HSTROPN, DICKSON, LIPA #### [facility] [place] [facility] [address] [place] [address] Dr. Martir Alcantara Lymphocytes/100 WBC (Bld) 16.6 % Critically low 20.5-60.0 [facility] Comment on above: Performed By: #### C MP, HSTROPN, DICKSON, LIPA #### [facility] [place] [facility] [address] [place] [address] Dr. Martir Alcantara MANUAL DIFF REQ NO Normal [facility] Comment on above: Performed By: #### C MP, HSTROPN, DICKSON, LIPA #### [facility] [place] [facility] [address] [place] [address] Dr. Martir Alcantara MCH (RBC) [Entitic mass] 24.0 pg Critically low 26.7-34.0 [facility] Comment on above: Performed By: #### C MP, HSTROPN, DICKSON, LIPA #### [facility] [place] [facility] [address] [place] [address] Dr. Martir Alcantara MCHC (RBC) [Mass/Vol] 30.1 g/dL Normal 29.9-35.2 [facility] Comment on above: Performed By: #### C MP, HSTROPN, DCIKSON, LIPA #### [facility] [place] [facility] [address] [place] [address] Dr. Martir Alcantara MCV (RBC) [Entitic vol] 79.7 fL Critically low 81.0-99.0 [facility] [place] Comment on above: Performed By: #### C MP, HSTROPN, DICKSON, LIPA #### [facility] [place] [facility] [address] [place] [address] Dr. Martir Alcantara MONO # 1.4 103/ul Critically high 0.3-0.8 [facility] Comment on above: Performed By: #### C MP, HSTROPN, DICKSON, LIPA #### [facility] [place] [facility] [address] [place] [address] Dr. Martir Alcantara Monocytes/100 WBC (Bld) 7.7 % Normal 1.7-12.0 [facility] [place] Comment on above: Performed By: #### C MP, HSTROPN, DICKSON, LIPA #### [facility] [place] [facility] [address] [place] [address] Dr. Martir Alcantara NEUT # 13.9 103/ul Critically high 1.4-6.5 [facility] Comment on above: Performed By: #### C MP, HSTROPN, DICKSON, LIPA #### [facility] [place] [facility] [address] [place] [address] Dr. Martir Alcantara Neutrophils/100 WBC (Bld) 74.1 % Normal 43.0-75.0 [facility] [place] Comment on above: Performed By: #### C MP, HSTROPN, DICKSON, LIPA #### [facility] [place] [facility] [address] [place] [address] Dr. Martir Alcantara Platelet mean volume (Bld) [Entitic vol] 8.1 fL Critically low 9.5-13.5 [facility] [place] Comment on above: Performed By: #### C MP, HSTROPN, DICKSON, LIPA #### [facility] [place] [facility] [address] [place] [address] Dr. Martir Alcantara PLT 551 103/ul Critically high 150-450 [facility] Comment on above: Performed By: #### C MP, HSTROPN, DICKSON, LIPA #### [facility] [place] [facility] [address] [place], [place] [address] Dr. Martir Alcantara RBC 4.09 106/ul Critically low 4.20-5.40 [facility] Comment on above: Performed By: #### C MP, HSTROPN, DICKSON, LIPA #### [facility] [place] [facility] [address] [place], [place] [address] Dr. Martir Alcantara WBC 18.7 103/ul Critically high 4.0-11.0 [facility] Comment on above: Performed By: #### C MP, HSTROPN, DICKSON, LIPA #### [facility] [place] [facility] [address] [place], [place] [address] ABD/PELV W CONon 03-11-20 CT ABD/PELV W CON CT ABDOMEN/PELVIS WI IV CONTRAST. INDICATION: ABDOMINAL DISTENSION (GASEOUS). COMPARISON: There are no other studies available for comparison. TECHNIQUE: Contiguous axial images were obtained from the lung bases to the pelvic floor following the intravenous administration of contrast. Coronal and sagittal reformations are provided. Approximately 100 ml Omnipaque 350 was administered intravenously. FINDINGS: LOWER LUNGS: There is mild atelectasis in the lower lungs. LIVER/BILIARY TREE: No mass. No intrahepatic ductal dilatation. GALLBLADDER: Distended gallbladder. No significant gallbladder wall thickening. No radiopaque stone. CBD: Normal CBD. SPLEEN: Normal in size. PANCREAS: No acute findings. No peripancreatic fluid or inflammation. No pancreatic duct dilatation. No discrete mass. ADRENALS: Normal. KIDNEYS: No hydronephrosis. No radiopaque calculus. STOMACH AND BOWEL: The decompressed stomach. No dilated bowel loops. There is mild diffuse colonic thickening. There is moderate colonic fecal load. Colonic diverticulosis. APPENDIX: Normal appendix. PERITONEAL CAVITY: No fluid. There is mild diffuse pericolonic stranding. ABDOMINAL WALL: No subcutaneous stranding. No subcutaneous fluid collection. There is a small umbilical hernia containing fat. LYMPH NODES: No mesenteric or retroperitoneal lymphadenopathy by CT criteria. ABDOMINAL AORTA: No aneurysm. PELVIS: No acute abnormality. MUSCULOSKELETAL: No acute osseous abnormality. IMPRESSION: 1. Mild diffuse colonic thickening. Correlate for colitis. 2. Moderate colonic fecal load. 3. Distended gallbladder which otherwise appears unremarkable.. Electronically authenticated by: JASPER ARNETT Date: 2022-03-11 19:12 Normal [facility] [place] CULTURE BLOODon 03-11-2022 Microscopic examination of blood, culture Culture Observations: NO GROWTH AT 5 DAYS. Normal [facility] [place] Comment on above: Performed By: #### C AUBREY GARNER AMY LIPA #### [facility] [place] [facility] [address] [place] [address] Dr. Martir Alcantara Microscopic examination of blood, culture Culture Observations: NO GROWTH AT 5 DAYS. Normal [facility] [place] Comment on above: Performed By: #### C AUBREY GARNER AMY LIPA #### [facility] [place] [facility] [address] [address] [address] Martir Alcantara Covid-19 PCR ([facility])on 02-11 SARS-CoV-2 (COVID-19) RNA DOROTHY+probe Ql (Unsp spec) Not detected Normal NOT DETECTED [facility] [place] Comment on above: Result Comment: When diagnostic testing is negative, the possibility of a false negative should be considered in the context of a patient's recent exposures and the presence of clinical signs and symptoms consistent with SARS-CoV-2. This test is not yet approved or cleared by the [place] FDA. When there are no FDA-approved or cleared tests available, and other criteria are met, FDA can make tests available under an emergency access mechanism called an Emergency Use Authorization (EUA). The EUA for this test is supported by the [employer]draulic [employer] Technician of Health and Human Service's declaration that circumstances exist to justify the emergency use of in vitro diagnostics for the detection and/or diagnosis of the virus that causes COVID-19. This EUA will remain in effect for the duration of the COVID-19 declaration justifying emergency of IVDs, unless it is terminated or revoked by the FDA (after which the test may no longer be used). Performed By: #### C AUBREY GARNER AMY LIPA #### [facility] [place] [facility] [address] [place] [address] Dr. Martir Alcantara LIPASEon 03-11-2022 Lipase [Catalytic activity/Vol] 45.0 U/L Critically low 73.0-393.0 [facility] Comment on above: Performed By: #### C KINSEY GARNEROPN, DICKSON, LIPA #### [facility] [place] [facility] [address] [place] [address] Dr. Martir Alcantara PROF 14(COMP METB)on 022 Albumin [Mass/Vol] 3.1 g/dL Critically low 3.4-5.0 Th e [facility] [place] Comment on above: Performed By: #### C MP, HSTROPN, DICKSON, LIPA #### [facility] [place] [facility] [address] [place] [address] Dr. Martir Alcantara Albumin/Globulin [Mass ratio] 0.7 {ratio} Normal [facility] Comment on above: Performed By: #### C MP, HSTROPN, DICKSON, LIPA #### [facility] [place] [facility] [address] [place] [address] Dr. Martir Alcantara ALP [Catalytic activity/Vol] 85 U/L Normal 46-116 [facility] Comment on above: Performed By: #### C MP, HSTROPN, DICKSON, LIPA #### [facility] [place] [facility] [address] [place] [address] Dr. Martir Alcantara ALT [Catalytic activity/Vol] 13 U/L Critically low 14-59 [facility] Comment on above: Performed By: #### C MP, HSTROPN, DICKSON, LIPA #### [facility] [place] [facility] [address] [place] [address] Dr. Martir Alcantara Anion gap [Moles/Vol] 9.2 mmol/L Normal [facility] Comment on above: Performed By: #### C MP, HSTROPN, DICKSON, LIPA #### [facility] [place] [facility] [address] [place] [address] Dr. Martir Alcantara AST [Catalytic activity/Vol] 9 U/L Critically low 15-37 [facility] Comment on above: Performed By: #### C MP, HSTROPN, DICKSON, LIPA #### [facility] [place] [facility] [address] [place] [address] Dr. Martir Alcantara Bilirubin [Mass/Vol] 0.3 mg/dL Normal 0.2-1.0 [facility] Comment on above: Performed By: #### C MP, HSTROPN, DICKSON, LIPA #### [facility] [place] [facility] [address] [address] [address] Martir Alcantara Calcium [Mass/Vol] 9.1 mg/dL Normal 8.5-10.1 [facility] Comment on above: Performed By: #### C MP, HSTROPN, DICKSON, LIPA #### [facility] [place] [facility] [address] [place] [address] Dr. Martir Alcantara Chloride [Moles/Vol] 101 mmol/L Normal 98-107 [facility] [place] Comment on above: Performed By: #### C MP, HSTROPN, DICKSON, LIPA #### [facility] [place] [facility] [address] [place] [address] Dr. Martir Alcantara CO2 [Moles/Vol] 28.2 mmol/L Normal 21.0-32.0 [facility] Comment on above: Performed By: #### C MP, HSTROPN, DICKSON, LIPA #### [facility] [place] [facility] [address] [place] [address] Dr. Martir Alcantara Creatinine [Mass/Vol] 0.91 mg/dL Normal 0.55-1.02 [facility] Comment on above: Performed By: #### C MP, HSTROPN, DICKSON, LIPA #### [facility] [place] [facility] [address] [place] [address] Dr. Martir Alcantara EGFR-AF TAJIK >60 Normal >=60 [facility] Comment on above: Performed By: #### C MP, HSTROPN, DICKSON, LIPA #### [facility] [place] [facility] [address] [place] [address] Dr. Martir Alcantara EGFR-NON AF TAJIK >60 Normal >=60 [facility] Comment on above: Performed By: #### C MP, HSTROPN, DICKSON, LIPA #### [facility] [place] [facility] [address] [place] [address] Dr. Martir Alcantara Globulin (S) [Mass/Vol] 4.7 g/dL Normal [facility] Comment on above: Performed By: #### C MP, HSTROPN, DICKSON, LIPA #### [facility] [place] [facility] [address] [address] [address] Martir Alcantara Glucose [Mass/Vol] 106 mg/dL Normal 74-106 [facility] Comment on above: Performed By: #### C MP, HSTROPN, DICKSON, LIPA #### [facility] [place] [facility] [address] [address] [address] Martir Alcantara Potassium [Moles/Vol] 3.4 mmol/L Critically low 3.5-5.1 [facility] Comment on above: Performed By: #### C MP, HSTROPN, DICKSON, LIPA #### [facility] [place] [facility] [address] [address] [address] Martir Alcantara Protein [Mass/Vol] 7.8 g/dL Normal 6.4-8.2 [facility] Comment on above: Performed By: #### C MP, HSTROPN, DICKSON, LIPA #### [facility] [place] [facility] [address] [place] [address] Dr. Martir Alcantara Sodium [Moles/Vol] 135 mmol/L Critically low 136-145 [facility] Comment on above: Performed By: #### C MP, HSTROPN, DICKSON, LIPA #### [facility] [place] [facility] [address] [address] [address] Martir Alcantara Urea nitrogen [Mass/Vol] 11.0 mg/dL Normal 7.0-18.0 [facility] Comment on above: Performed By: #### C MP, HSTROPN, DICKSON, LIPA #### [facility] [place] [facility] [address] [place] [address] Dr. Martir Alcantara Urea nitrogen/Creatinine [Mass ratio] 12.1 mg/mg Normal [facility] Comment on above: Performed By: #### C MP, HSTROPN, DICKSON, LIPA #### [facility] [place] [facility] [address] [place] [address] Dr. Martir Alcantara PROTIMEon 03-11-2022 INR Coag (PPP) [Relative time] 0.96 {INR} Normal [facility] Comment on above: Performed By: #### P TT, PT #### [facility] [place] [facility] [address] [address] [address] Martir Alcantara INR GUIDELINES SEE BELOW Normal [facility] Comment on above: Result Comment: AVINASH RED INR: 2.0 - 3.0 CONDITIONS NOT LISTED BELOW 2.5 - 3.5 FOR PROSTHETIC HEART VALVE REPLACEMENT 2.5 - 3.5 RECURRENT THROMBOSIS Performed By: #### P TT, PT #### [facility] [place] [facility] [address] [address] [address] Martir Alcantara PT Coag (PPP) [Time] 10.4 s Normal 9.0-11.6 [facility] [place] Comment on above: Performed By: #### P TT, PT #### [facility] [place] [facility] [address] [place] [address] Dr. Martir Alcantara PTTon 03-11-2022 aPTT Coag (Bld) [Time] 26.2 s Normal 22.3-36.2 [facility] [place] Comment on above: Performed By: #### C MP, HSTROPN, DICKSON, LIPA #### [facility] [place] [facility] [address] [place] [address] Dr. Martir Alcantara TROPONIN, HIGH SENSITIVITYon 03-11-2022 HSTROP 4.6 pg/mL Normal 4.0-51.3 [facility] [place] Comment on above: Result Comment: CUT- OFF POINTS HAVE BEEN ESTABLISHED BASED ON THE FOURTH UNIVERSAL DEFINITIONS OF MYOCARDIAL INFARCTION. THE UPPER REFERENCE LIMIT (URL) OF TROPONIN, DEFINED THE 99TH PERCENTILE OF cTnI DISTRIBUTION IN A REFERENCE POPULATION, HAS BEEN CONFIRMED THE DECISION THRESHOLD FOR NM DIAGNOSIS. Performed By: #### C MP, HSTROPN, DICKSON, LIPA #### [facility] [place] [facility] [address] [place] [address] Dr. Martir Alcantara T4, Freeon 03-06-2022 Thyroxine, Free 1.14 ng/dL 0.93 - 1.70 ng/dL [facility] TSHon 03-06-2022 TSH Qn 0.40 m[IU]/L [facility] CBC AUTO DIFFon 02-26-2022 BASO # 0.1 103/ul Normal 0.0-0.1 [facility] [place] Comment on above: Performed By: #### C MP, HSTROPN, DICKSON, LIPA #### [facility] [place] [facility] [address] [place] [address] Dr. Martir Alcantara Basophils/100 WBC (Bld) 0.4 % Normal 0.2-2.0 [facility] [place] Comment on above: Performed By: #### C MP, HSTROPN, DICKSON, LIPA #### [facility] [place] [facility] [address] [place] [address] Dr. Martir Alcantara EO # 0.4 103/ul Normal 0.0-0.7 [facility] [place] Comment on above: Performed By: #### C MP, HSTROPN, DICKSON, LIPA #### [facility] [place] [facility] [address] [place] [address] Dr. Martir Alcantara Eosinophils/100 WBC (Bld) 2.9 % Normal 0.9-7.0 [facility] [place] Comment on above: Performed By: #### C MP, HSTROPN, DICKSON, LIPA #### [facility] [place] [facility] [address] [place] [address] Dr. Martir Alcantara Erythrocyte distribution width (RBC) [Ratio] 15.4 % Critically high 11.0-15.0 [facility] [place] Comment on above: Performed By: #### C MP, HSTROPN, DICKSON, LIPA #### [facility] [place] [facility] [address] [place] [address] Dr. Martir Alcantara Hematocrit (Bld) [Volume fraction] 32.3 % Critically low 36.0-48.0 [facility] [place] Comment on above: Performed By: #### C MP, HSTROPN, DICKSON, LIPA #### [facility] [place] [facility] [address] [place] [address] Dr. Martir Alcantara Hemoglobin (Bld) [Mass/Vol] 9.5 g/dL Critically low 12.0-16.0 [facility] Comment on above: Performed By: #### C MP, HSTROPN, DICKSON, LIPA #### [facility] [place] [facility] [address] [place] [address] Dr. Martir Alcantara IG # 0.06 10e3/ul Critically high 0.00-0.03 [facility] Comment on above: Performed By: #### C MP, HSTROPN, DICKSON, LIPA #### [facility] [place] [facility] [address] [address] [address] Martir Alcantara IG % 0.4 % Normal 0.0-0.5 [facility] Comment on above: Performed By: #### C MP, HSTROPN, DICKSON, LIPA #### [facility] [place] [facility] [address] [place] [address] Dr. Martir Alcantara LYMPH # 3.5 103/ul Normal 1.2-3.8 [facility] Comment on above: Performed By: #### C MP, HSTROPN, DICKSON, LIPA #### [facility] [place] [facility] [address] [place] [address] Dr. Martir Alcantara Lymphocytes/100 WBC (Bld) 25.4 % Normal 20.5-60.0 [facility] Comment on above: Performed By: #### C MP, HSTROPN, DICKSON, LIPA #### [facility] [place] [facility] [address] [place] [address] Dr. Martir Alcantara MANUAL DIFF REQ NO Normal [facility] Comment on above: Performed By: #### C MP, HSTROPN, DICKSON, LIPA #### [facility] [place] [facility] [address] [place] [address] Dr. Martir Alcantara MCH (RBC) [Entitic mass] 24.5 pg Critically low 26.7-34.0 [facility] Comment on above: Performed By: #### C MP, HSTROPN, DICKSON, LIPA #### [facility] [address] [place] [address] Dr. Martir Alcantara MCHC (RBC) [Mass/Vol] 29.4 g/dL Critically low 29.9-35.2 [facility] Comment on above: Performed By: #### C MP, HSTROPN, DICKSON, LIPA #### [facility] [address] [place] [address] Dr. Martir Alcantara MCV (RBC) [Entitic vol] 83.5 fL Normal 81.0-99.0 [facility] Comment on above: Performed By: #### C MP, HSTROPN, DICKSON, LIPA #### [facility] [address] [address] [address] Martir Alcantara MONO # 0.8 103/ul Normal 0.3-0.8 [facility] Comment on above: Performed By: #### C MP, HSTROPN, DICKSON, LIPA #### [facility] [address] [address] [address] Martir Alcantara Monocytes/100 WBC (Bld) 5.7 % Normal 1.7-12.0 [facility] Comment on above: Performed By: #### C MP, HSTROPN, DICKSON, LIPA #### [facility] [address] [place] [address] Dr. Martir Alcantara NEUT # 8.9 103/ul Critically high 1.4-6.5 [facility] Comment on above: Performed By: #### C MP, HSTROPN, DICKSON, LIPA #### [facility] [address] [place] [address] Dr. Martir Alcantara Neutrophils/100 WBC (Bld) 65.2 % Normal 43.0-75.0 [facility] Comment on above: Performed By: #### C MP, HSTROPN, DICKSON, LIPA #### [facility] [address] [place] [address] Dr. Martir Alcantara Platelet mean volume (Bld) [Entitic vol] 8.7 fL Critically low 9.5-13.5 [facility] Comment on above: Performed By: #### C MP, HSTROPN, DICKSON, LIPA #### [facility] [address] [place] [address] Dr. Martir Alcantara PLT 609 103/ul Critically high 150-450 [facility] Comment on above: Performed By: #### C MP, HSTROPN, DICKSON, LIPA #### [facility] [address] [place] [address] Dr. Martir Alcantara RBC 3.87 106/ul Critically low 4.20-5.40 [facility] Comment on above: Performed By: #### C AUBREY GARNER AMY, LIPA #### [facility] [address] [address] [address] Martir Alcantara WBC 13.6 103/ul Critically high 4.0-11.0 [facility] Comment on above: Performed By: #### C AUBREY GARNER AMY LIPA #### [facility] [address] [address] [address] Martir Alcantara PROF CHEM 8 (BAS METB)on Anion gap [Moles/Vol] 9.5 mmol/L Normal [facility] Comment on above: Performed By: #### B MP #### [facility] [address] [place] [address] Dr. Martir Alcantara Calcium [Mass/Vol] 9.0 mg/dL Normal 8.5-10.1 [facility] Comment on above: Performed By: #### B MP #### [facility] [address] [place] [address] Dr. Martir Alcantara Chloride [Moles/Vol] 103 mmol/L Normal 98-107 [facility] Comment on above: Performed By: #### B MP #### [facility] [address] [place] [address] Dr. Martir Alcantara CO2 [Moles/Vol] 29.0 mmol/L Normal 21.0-32.0 [facility] Comment on above: Performed By: #### B MP #### [facility] [address] [place] [address] Dr. Martir Alcantara Creatinine [Mass/Vol] 0.77 mg/dL Normal 0.55-1.02 [facility] Comment on above: Performed By: #### B MP #### [facility] [address] [place] [address] Dr. Martir Alcantara EGFR-AF TAJIK >60 Normal >=60 [facility] Comment on above: Performed By: #### B MP #### [facility] [address] [place] [address] Dr. Martir Alcantara EGFR-NON AF TAJIK >60 Normal >=60 [facility] Comment on above: Performed By: #### B MP #### [facility] [address] [address] [address] Martir Alcantara Glucose [Mass/Vol] 133 mg/dL Critically high 74-106 [facility] Comment on above: Performed By: #### B MP #### [facility] [address] [address] [address] Martir Alcantara Potassium [Moles/Vol] 3.5 mmol/L Normal 3.5-5.1 [facility] Comment on above: Performed By: #### B MP #### [facility] [address] [place] [address] Dr. Martir Alcantara Sodium [Moles/Vol] 138 mmol/L Normal 136-145 [facility] Comment on above: Performed By: #### B MP #### [facility] [address] [place] [address] Dr. Martir Alcantara Urea nitrogen [Mass/Vol] 11.0 mg/dL Normal 7.0-18.0 [facility] Comment on above: Performed By: #### B MP #### [facility] [address] [place] [address] Dr. Martir Alcantara Urea nitrogen/Creatinine [Mass ratio] 14.3 mg/mg Normal [facility] Comment on above: Performed By: #### B MP #### [facility] [address] [place] [address] Dr. Martir Alcantara CBC AUTO DIFFon 02-22-2022 BASO # 0.1 103/ul Normal 0.0-0.1 [facility] Comment on above: Performed By: #### C BC #### [facility] [address] [place] [address] Dr. Martir Alcantara Basophils/100 WBC (Bld) 0.4 % Normal 0.2-2.0 [facility] Comment on above: Performed By: #### C BC #### [facility] [address] [place] [address] Dr. Martir Alcantara EO # 0.2 103/ul Normal 0.0-0.7 [facility] Comment on above: Performed By: #### C BC #### [facility] [address] [place] [address] Dr. Martir Alcantara Eosinophils/100 WBC (Bld) 1.7 % Normal 0.9-7.0 [facility] Comment on above: Performed By: #### C BC #### [facility] [address] [place] [address] Dr. Martir Alcantara Erythrocyte distribution width (RBC) [Ratio] 15.6 % Critically high 11.0-15.0 [facility] Comment on above: Performed By: #### C BC #### [facility] [address] [place] [address] Dr. Martir Alcantara Hematocrit (Bld) [Volume fraction] 30.6 % Critically low 36.0-48.0 [facility] Comment on above: Performed By: #### C BC #### [facility] [address] [place] [address] Dr. Martir Alcantara Hemoglobin (Bld) [Mass/Vol] 9.0 g/dL Critically low 12.0-16.0 [facility] Comment on above: Performed By: #### C BC #### [facility] [address] [place] [address] Dr. Martir Alcantara IG # 0.06 10e3/ul Critically high 0.00-0.03 [facility] Comment on above: Performed By: #### C BC #### [facility] [address] [place] [address] Dr. Martir Alcantara IG % 0.5 % Normal 0.0-0.5 [facility] Comment on above: Performed By: #### C BC #### [facility] [address] [place] [address] Dr. Martir Alcantara LYMPH # 3.1 103/ul Normal 1.2-3.8 [facility] Comment on above: Performed By: #### C BC #### [facility] [address] [place] [address] Dr. Martir Alcantara Lymphocytes/100 WBC (Bld) 23.7 % Normal 20.5-60.0 [facility] Comment on above: Performed By: #### C BC #### [facility] [address] [place] [address] Dr. Martir Alcantara MANUAL DIFF REQ NO Normal [facility] Comment on above: Performed By: #### C BC #### [facility] [address] [place] [address] Dr. Martir Alcantara MCH (RBC) [Entitic mass] 24.4 pg Critically low 26.7-34.0 [facility] Comment on above: Performed By: #### C BC #### [facility] [address] [place] [address] Dr. Martir Alcantara MCHC (RBC) [Mass/Vol] 29.4 g/dL Critically low 29.9-35.2 [facility] Comment on above: Performed By: #### C BC #### [facility] [address] [place] [address] Dr. Martir Alcantara MCV (RBC) [Entitic vol] 82.9 fL Normal 81.0-99.0 [facility] Comment on above: Performed By: #### C BC #### [facility] [address] [place] [address] Dr. Martir Alcantara MONO # 1.1 103/ul Critically high 0.3-0.8 [facility] Comment on above: Performed By: #### C BC #### [facility] [address] [place] [address] Dr. Martir Alcantara Monocytes/100 WBC (Bld) 8.5 % Normal 1.7-12.0 [facility] Comment on above: Performed By: #### C BC #### [facility] [address] [place] [address] Dr. Martir Alcantara NEUT # 8.4 103/ul Critically high 1.4-6.5 [facility] Comment on above: Performed By: #### C BC #### [facility] [address] [place] [address] Dr. Martir Alcantara Neutrophils/100 WBC (Bld) 65.2 % Normal 43.0-75.0 [facility] Comment on above: Performed By: #### C BC #### [facility] [address] [place] [address] Dr. Martir Alcantara Platelet mean volume (Bld) [Entitic vol] 8.2 fL Critically low 9.5-13.5 [facility] Comment on above: Performed By: #### C BC #### [facility] [address] [place] [address] Dr. Martir Alcantara PLT 580 103/ul Critically high 150-450 [facility] Comment on above: Performed By: #### C BC #### [facility] [address] [place] [address] Dr. Martir Alcantara RBC 3.69 106/ul Critically low 4.20-5.40 [facility] Comment on above: Performed By: #### C BC #### [facility] [address] [place] [address] Dr. Martir Alcantara WBC 12.9 103/ul Critically high 4.0-11.0 [facility] Comment on above: Performed By: #### C BC #### [facility] [address] [place] [address] HEAD WO CONon 02-22-2022 CT HEAD WO CON EXAMINATION: CT HEAD WO CON HISTORY: HEADACHE x1 day COMPARISON: None. TECHNIQUE: CT head spine without IV contrast. Coronal and sagittal reformations were performed. Dose reduction techniques were achieved by using automated exposure control and/or adjustment of mA and/or kV according to patient size and/or use of iterative reconstruction technique. FINDINGS: The lateral ventricles are normal size, shape and position. The third and fourth ventricles are midline. Alexandre-white differentiation is normal. A mass is not identified. No intracranial hemorrhage is detected. Cortical sulci are normal and are symmetrical side to side. A fracture or cortical irregularity is not identified. The visualized paranasal sinuses are clear. The mastoid air cells are normally pneumatized. There is an unusual anteriorly hyperdense masslike structure involving the left neck in the expected location of the jugular vein. IMPRESSION: 1. Unusual anteriorly hyperdense masslike structure within the upper left neck in the expected location of the left internal jugular vein. Possible explanations would include jugular vein thrombosis or a mass. The possibility of a glomus jugulare was considered but this asymmetry is more inferior than a typical glomus jugulare. Consider further assessment with an enhanced head CT. 2. Otherwise, unremarkable unenhanced head CT. Electronically authenticated by: KAVITA ZELAYA Date: 2022-02-22 16:27 Normal [facility] CTA NECK WO W CONon 02-23-20 22 CTA NECK WO W CON EXAMINATION: CTA HEA D WO W CON, CTA NECK WO W CON HISTORY: HEADACHE COMPARISON: Noncontrast CT head 02/22/2022. TECHNIQUE: Contrast enhanced head and neck CT arteriogram was performed. Scanning performed during the arterial phase from the thoracic inlet to the hopi of Guidry. 3D reconstructions were rendered on a separate 3D workstation to evaluate vascular anatomy. Dose reduction techniques were achieved by using automated exposure control and/or adjustment of mA and/or kV according to patient size and/or use of iterative reconstruction technique. Carotid stenosis was measured utilizing NASCET criteria. FINDINGS: VASCULATURE FINDINGS: Arch and Subclavian Arteries: Standard three vessel arch. Subclavian arteries are normal bilaterally. Common Carotids: Normal bilaterally. ICAs: Patent bilaterally to the carotid terminus. MCAs: Normal bilaterally. ACAs: Normal bilaterally. P-Comms: Visualized bilaterally. Vertebral Arteries: Normal to the confluence with the basilar artery. Basilar Artery: Normal. senior associate: Normal bilaterally. Aneurysm: None. NECK FINDINGS: Ill-defined heterogenous and partially calcified left parapharyngeal space soft tissue mass measures approximately 2.8 x 2.2 x 2.7 cm. This displaces the adjacent ICA posteriorly and laterally. The adjacent jugular vein is narrowed and possibly occluded however complete evaluation is limited due to phase of contrast. No other soft tissue normalities in the neck. Airway is patent. Normal thyroid. Visualized lungs are clear. Mild multilevel cervicothoracic spondylotic changes. IMPRESSION: 1. No large vessel arterial occlusion, high-grade narrowing, or substantial arterial luminal irregularity in the head or neck. 2. Indeterminate heterogenous and partially calcified 2.8 x 2.7 cm left parapharyngeal space soft tissue mass. The adjacent jugular vein is narrowed and possibly occluded however complete evaluation is limited due to phase of contrast. This could represent a salivary gland neoplasm such as a pleomorphic adenoma, peripheral nerve sheath tumor, or lymphangioma (among other etiologies). Electronically authenticated by: EDEN EUCEDA Date: 2022-02-22 18:36 Normal [facility] PROF CHEM 8 (BAS METB)on Anion gap [Moles/Vol] 11.1 mmol/L Normal [facility] Comment on above: Performed By: #### B MP #### [facility] [address] [address] [address] Martir Alcantara Calcium [Mass/Vol] 9.0 mg/dL Normal 8.5-10.1 [facility] Comment on above: Performed By: #### B MP #### [facility] [address] [place] [address] Dr. Martir Alcantara Chloride [Moles/Vol] 101 mmol/L Normal 98-107 [facility] Comment on above: Performed By: #### B MP #### [facility] [address] [address] [address] Martir Alcantara CO2 [Moles/Vol] 29.3 mmol/L Normal 21.0-32.0 [facility] Comment on above: Performed By: #### B MP #### [facility] [address] [address] [address] Martir Alcantara Creatinine [Mass/Vol] 0.69 mg/dL Normal 0.55-1.02 [facility] Comment on above: Performed By: #### B MP #### [facility] [address] [address] [address] Martir Alcantara EGFR-AF TAJIK >60 Normal >=60 [facility] Comment on above: Performed By: #### B MP #### [facility] [address] [address] [address] Martir Alcantara EGFR-NON AF TAJIK >60 Normal >=60 [facility] Comment on above: Performed By: #### B MP #### [facility] [address] [place] [address] Dr. Martir Alcantara Glucose [Mass/Vol] 95 mg/dL Normal 74-106 [facility] Comment on above: Performed By: #### B MP #### [facility] [address] [address] [address] Martir Alcantara Potassium [Moles/Vol] 4.4 mmol/L Normal 3.5-5.1 [facility] Comment on above: Performed By: #### B MP #### [facility] [address] [place] [address] Dr. Martir Alcantara Sodium [Moles/Vol] 137 mmol/L Normal 136-145 [facility] Comment on above: Performed By: #### B MP #### [facility] [address] [place] [address] Dr. Martir Alcantara Urea nitrogen [Mass/Vol] 15.0 mg/dL Normal 7.0-18.0 [facility] Comment on above: Performed By: #### B MP #### [facility] [address] [place] [address] Dr. Martir Alcantara Urea nitrogen/Creatinine [Mass ratio] 21.7 mg/mg Normal [facility] Comment on above: Performed By: #### B MP #### [facility] [address] [place] [address] Dr. Martir Alcantara CBC AUTO DIFFon 02-15-2022 BASO # 0.1 103/ul Normal 0.0-0.1 [facility] Comment on above: Performed By: #### C BC #### [facility] [address] [place] [address] Dr. Martir Alcantara Basophils/100 WBC (Bld) 0.3 % Normal 0.2-2.0 [facility] Comment on above: Performed By: #### C BC #### [facility] [address] [place] [address] Dr. Martir Alcantara EO # 0.1 103/ul Normal 0.0-0.7 [facility] Comment on above: Performed By: #### C BC #### [facility] [address] [place] [address] Dr. Martir Alcantara Eosinophils/100 WBC (Bld) 0.3 % Critically low 0.9-7.0 [facility] Comment on above: Performed By: #### C BC #### [facility] [address] [address] [address] Martir Alcantara Erythrocyte distribution width (RBC) [Ratio] 16.1 % Critically high 11.0-15.0 [facility] Comment on above: Performed By: #### C BC #### [facility] [address] [place] [address] Dr. Martir Alcantara Hematocrit (Bld) [Volume fraction] 30.1 % Critically low 36.0-48.0 [facility] Comment on above: Performed By: #### C BC #### [facility] [address] [place] [address] Dr. Matrir Alcantara Hemoglobin (Bld) [Mass/Vol] 9.0 g/dL Critically low 12.0-16.0 [facility] Comment on above: Performed By: #### C BC #### [facility] [address] [place] [address] Dr. Martir Alcantara IG # 0.14 10e3/ul Critically high 0.00-0.03 [facility] Comment on above: Performed By: #### C BC #### [facility] [address] [place] [address] Dr. Martir Alcantara IG % 0.7 % Critically high 0.0-0.5 [facility] Comment on above: Performed By: #### C BC #### [facility] [address] [place] [address] Dr. Martir Alcantara LYMPH # 1.0 103/ul Critically low 1.2-3.8 [facility] Comment on above: Performed By: #### C BC #### [facility] [address] [place] [address] Dr. Martir Alcantara Lymphocytes/100 WBC (Bld) 5.4 % Critically low 20.5-60.0 [facility] Comment on above: Performed By: #### C BC #### [facility] [address] [place] [address] Dr. Martir Alcantara MANUAL DIFF REQ NO Normal [facility] Comment on above: Performed By: #### C BC #### [facility] [address] [address] [address] Martir Alcantara MCH (RBC) [Entitic mass] 25.5 pg Critically low 26.7-34.0 [facility] Comment on above: Performed By: #### C BC #### [facility] [address] [address] [address] Martir Alcantara MCHC (RBC) [Mass/Vol] 29.9 g/dL Normal 29.9-35.2 [facility] Comment on above: Performed By: #### C BC #### [facility] [address] [address] [address] Martir Alcantara MCV (RBC) [Entitic vol] 85.3 fL Normal 81.0-99.0 [facility] Comment on above: Performed By: #### C BC #### [facility] [address] [place] [address] Dr. Martir Alcantara MONO # 1.1 103/ul Critically high 0.3-0.8 [facility] Comment on above: Performed By: #### C BC #### [facility] [address] [address] [address] Martir Alcantara Monocytes/100 WBC (Bld) 5.5 % Normal 1.7-12.0 [facility] Comment on above: Performed By: #### C BC #### [facility] [address] [address] [address] Maritr Alcantara NEUT # 17.0 103/ul Critically high 1.4-6.5 [facility] Comment on above: Performed By: #### C BC #### [facility] [address] [address] [address] Martir Alcantara Neutrophils/100 WBC (Bld) 87.8 % Critically high 43.0-75.0 [facility] Comment on above: Performed By: #### C BC #### [facility] [address] [address] [address] Martir Alcantara Platelet mean volume (Bld) [Entitic vol] 8.0 fL Critically low 9.5-13.5 [facility] Comment on above: Performed By: #### C BC #### [facility] [address] [address] [address] Martir Alcantara PLT 524 103/ul Critically high 150-450 [facility] Comment on above: Performed By: #### C BC #### [facility] [address] [place] [address] Dr. Martir Alcantara RBC 3.53 106/ul Critically low 4.20-5.40 [facility] Comment on above: Performed By: #### C BC #### [facility] [address] [place] [address] Dr. Martir Alcantara WBC 19.4 103/ul Critically high 4.0-11.0 [facility] Comment on above: Performed By: #### C BC #### [facility] [address] [place] [address] Dr. Martir Alcantara PROF CHEM 8 (BAS METB)on Anion gap [Moles/Vol] 10.1 mmol/L Normal [facility] Comment on above: Performed By: #### C MP, HSTROPN, DICKSON, LIPA #### [facility] [address] [place] [address] Dr. Maritr Aclantara Calcium [Mass/Vol] 8.0 mg/dL Critically low 8.5-10.1 [facility] Comment on above: Performed By: #### C MP, HSTROPN, DICKSON, LIPA #### [facility] [address] [place] [address] Dr. Martir Alcantara Chloride [Moles/Vol] 106 mmol/L Normal 98-107 [facility] Comment on above: Performed By: #### C MP, HSTROPN, DICKSON, LIPA #### [facility] [address] [place] [address] Dr. Martir Alcantara CO2 [Moles/Vol] 25.0 mmol/L Normal 21.0-32.0 [facility] Comment on above: Performed By: #### C MP, HSTROPN, DICKSON, LIPA #### [facility] [address] [address] [address] Martir Alcantara Creatinine [Mass/Vol] 0.75 mg/dL Normal 0.55-1.02 [facility] Comment on above: Performed By: #### C MP, HSTROPN, DICKSON, LIPA #### [facility] [address] [address] [address] Martir Alcantara EGFR-AF TAJIK >60 Normal >=60 [facility] Comment on above: Performed By: #### C MP, HSTROPN, DICKSON, LIPA #### [facility] [address] [address] [address] Martir Alcantara EGFR-NON AF TAJIK >60 Normal >=60 [facility] Comment on above: Performed By: #### C MP, HSTROPN, DICKSON, LIPA #### [facility] [address] [place] [address] Dr. Martir Alcantara Glucose [Mass/Vol] 95 mg/dL Normal 74-106 [facility] Comment on above: Performed By: #### C MP, HSTROPN, DICKSON, LIPA #### [facility] [address] [address] [address] Martir Alcantara Potassium [Moles/Vol] 4.1 mmol/L Normal 3.5-5.1 [facility] Comment on above: Performed By: #### C MP, HSTROPN, DICKSON, LIPA #### [facility] [address] [address] [address] Martir Alcantara Sodium [Moles/Vol] 137 mmol/L Normal 136-145 [facility] Comment on above: Performed By: #### C MP, HSTROPN, DICKSON, LIPA #### [facility] [address] [address] [address] Martir Alcantara Urea nitrogen [Mass/Vol] 13.0 mg/dL Normal 7.0-18.0 [facility] Comment on above: Performed By: #### C MP, HSTROPN, DICKSON, LIPA #### [facility] [address] [address] [address] Martir Alcantara Urea nitrogen/Creatinine [Mass ratio] 17.3 mg/mg Normal [facility] Comment on above: Performed By: #### C MP, HSTROPN, DICKSON, LIPA #### [facility] [address] [place] [address] Dr. Martir Alcantara CBC AUTO DIFFon 02-08-2022 BASO # 0.1 103/ul Normal 0.0-0.1 [facility] Comment on above: Performed By: #### C MP, HSTROPN, DICKSON, LIPA #### [facility] [address] [place] [address] Dr. Martir Alcantara Basophils/100 WBC (Bld) 0.4 % Normal 0.2-2.0 [facility] Comment on above: Performed By: #### C MP, HSTROPN, DICKSON, LIPA #### [facility] [address] [place] [address] Dr. Martir Alcantara EO # 0.2 103/ul Normal 0.0-0.7 [facility] Comment on above: Performed By: #### C MP, HSTROPN, DICKSON, LIPA #### [facility] [address] [place] [address] Dr. Martir Alcantara Eosinophils/100 WBC (Bld) 1.3 % Normal 0.9-7.0 [facility] Comment on above: Performed By: #### C MP, HSTROPN, DICKSON, LIPA #### [facility] [address] [place] [address] Dr. Martir Alcantara Erythrocyte distribution width (RBC) [Ratio] 15.8 % Critically high 11.0-15.0 [facility] Comment on above: Performed By: #### C MP, HSTROPN, DICKSON, LIPA #### [facility] [address] [place] [address] Dr. Martir Alcantara Hematocrit (Bld) [Volume fraction] 31.2 % Critically low 36.0-48.0 [facility] Comment on above: Performed By: #### C MP, HSTROPN, DICKSON, LIPA #### [facility] [address] [place] [address] Dr. Martir Alcantara Hemoglobin (Bld) [Mass/Vol] 9.3 g/dL Critically low 12.0-16.0 [facility] Comment on above: Performed By: #### C MP, HSTROPN, DICKSON, LIPA #### [facility] [address] [place] [address] Dr. Martir Alcantara IG # 0.17 10e3/ul Critically high 0.00-0.03 [facility] Comment on above: Performed By: #### C MP, HSTROPN, DICKSON, LIPA #### [facility] [address] [place] [address] Dr. Martir Alcantara IG % 0.9 % Critically high 0.0-0.5 [facility] Comment on above: Performed By: #### C MP, HSTROPN, DICKSON, LIPA #### [facility] [address] [place] [address] Dr. Martir Alcantara LYMPH # 3.7 103/ul Normal 1.2-3.8 [facility] Comment on above: Performed By: #### C MP, HSTROPN, DICKSON, LIPA #### [facility] [address] [place] [address] Dr. Martir Alcantara Lymphocytes/100 WBC (Bld) 19.9 % Critically low 20.5-60.0 [facility] Comment on above: Performed By: #### C MP, HSTROPN, DICKSON, LIPA #### [facility] [address] [place] [address] Dr. Martir Alcantara MANUAL DIFF REQ NO Normal [facility] Comment on above: Performed By: #### C MP, HSTROPN, DICKSON, LIPA #### [facility] [address] [place] [address] Dr. Martir Alcantara MCH (RBC) [Entitic mass] 25.1 pg Critically low 26.7-34.0 [facility] Comment on above: Performed By: #### C MP, HSTROPN, DICKSON, LIPA #### [facility] [address] [place], [place] [id number] Dr. Martir Alcantara MCHC (RBC) [Mass/Vol] 29.8 g/dL Critically low 29.9-35.2 [facility] Comment on above: Performed By: #### C MP, HSTROPN, DICKSON, LIPA #### [facility] [address] [place] [address] Dr. Martir Alcantara MCV (RBC) [Entitic vol] 84.3 fL Normal 81.0-99.0 [facility] Comment on above: Performed By: #### C MP, HSTROPN, DICKSON, LIPA #### [facility] [address] [place] [address] Dr. Martir Alcantara MONO # 1.1 103/ul Critically high 0.3-0.8 [facility] Comment on above: Performed By: #### C MP, HSTROPN, DICKSON, LIPA #### [facility] [address] [place] [address] Dr. Martir Alcantara Monocytes/100 WBC (Bld) 5.8 % Normal 1.7-12.0 [facility] Comment on above: Performed By: #### C MP, HSTROPN, DICKSON, LIPA #### [facility] [address] [place] [address] Dr. Martir Alcantara NEUT # 13.4 103/ul Critically high 1.4-6.5 [facility] Comment on above: Performed By: #### C MP, HSTROPN, DICKSON, LIPA #### [facility] [address] [place] [address] Dr. Martir Alcantara Neutrophils/100 WBC (Bld) 71.7 % Normal 43.0-75.0 [facility] Comment on above: Performed By: #### C MP, HSTROPN, DICKSON, LIPA #### [facility] [address] [place] [address] Dr. Martir Alcantara Platelet mean volume (Bld) [Entitic vol] 8.1 fL Critically low 9.5-13.5 [facility] Comment on above: Performed By: #### C MP, HSTROPN, DICKSON, LIPA #### [facility] [address] [address] [address] Martir Alcantara PLT 617 103/ul Critically high 150-450 [facility] Comment on above: Performed By: #### C MP, HSTROPN, DICKSON, LIPA #### [facility] [address] [address] [address] Martir Alcantara RBC 3.70 106/ul Critically low 4.20-5.40 [facility] Comment on above: Performed By: #### C MP, HSTROPN, DICKSON, LIPA #### [facility] [address] [place] [address] Dr. Martir Alcantara WBC 18.7 103/ul Critically high 4.0-11.0 [facility] Comment on above: Performed By: #### C MP, HSTROPN, DICKSON, LIPA #### [facility] [address] [place] [address] Dr. Martir Alcantara ER URINE PROFILEon 2 Bilirubin Ql (U) Negative Normal NEGATIVE [facility] Comment on above: Performed By: #### C MP, HSTROPN, DICKSON, LIPA #### [facility] [address] [place] [address] Dr. Martir Alcantara Clarity (U) CLEAR Normal CLEAR [facility] Comment on above: Performed By: #### C MP, HSTROPN, DICKSON, LIPA #### [facility] [address] [place] [address] Dr. Martir Alcantara Color (U) LT. YELLOW Normal YELLOW [facility] Comment on above: Performed By: #### C MP, HSTROPN, DICKSON, LIPA #### [facility] [address] [place] [address] Dr. Martir Alcantara ERUEDUIN A micrscopic examina tion will be performed if indicated. Normal [facility] Comment on above: Performed By: #### C MP, HSTROPN, DICKSON, LIPA #### [facility] [address] [place] [address] Dr. Martir Alcantara Glucose Ql (U) Negative Normal NEGATIVE [facility] Comment on above: Performed By: #### C MP, HSTROPN, DICKSON, LIPA #### [facility] [address] [address] [address] Martir Alcantara Hemoglobin Ql (U) Negative Normal NEGATIVE [facility] Comment on above: Performed By: #### C MP, HSTROPN, DICKSON, LIPA #### [facility] [address] [address] [address] Martir Alcantara Ketones Ql (U) Negative Normal NEGATIVE [facility] Comment on above: Performed By: #### C MP, HSTROPN, DICKSON, LIPA #### [facility] [address] [place] [address] Dr. Martir Alcantara LEUKOCYTES Negative Normal NEGATIVE [facility] Comment on above: Performed By: #### C MP, HSTROPN, DICKSON, LIPA #### [facility] [address] [place] [address] Dr. Martir Alcantara Nitrite Ql (U) Negative Normal NEGATIVE [facility] Comment on above: Performed By: #### C MP, HSTROPN, DICKSON, LIPA #### [facility] [address] [place] [address] Dr. Martir Alcantara pH (U) 6.0 [pH] Normal 5-9 [facility] Comment on above: Performed By: #### C MP, HSTROPN, DICKSON, LIPA #### [facility] [address] [place] [address] Dr. Martir Alcantara SPEC GRAVITY <=1.005 Abnormal 1.005-<=1.0 25 [facility] Comment on above: Performed By: #### C MP, HSTROPN, DICKSON, LIPA #### [facility] [address] [place] [address] Dr. Martir Alcantara UA PROTEIN Negative Normal NEGATIVE/ TRACE [facility] Comment on above: Performed By: #### C MP, HSTROPN, DICKSON, LIPA #### [facility] [address] [place] [address] Dr. Martir Alcantara UR MICRO IND NOT INDICATED Normal [facility] Comment on above: Performed By: #### C MP, HSTROPN, DICKSON, LIPA #### [facility] [address] [place] [address] Dr. Martir Alcantara Urobilinogen Qn (U) 0.2 {Nicho'U}/dL Normal 0.2 - 1. 0 [facility] Comment on above: Performed By: #### C MP, HSTROPN, DICKSON, LIPA #### [facility] [address] [place] [address] Dr. Martir Alcantara PROF CHEM 8 (BAS METB)on Anion gap [Moles/Vol] 12.2 mmol/L Normal [facility] Comment on above: Performed By: #### C MP, HSTROPN, DICKSON, LIPA #### [facility] [address] [place] [address] Dr. Martir Alcantara Calcium [Mass/Vol] 8.8 mg/dL Normal 8.5-10.1 [facility] Comment on above: Performed By: #### C MP, HSTROPN, DICKSON, LIPA #### [facility] [address] [place] [address] Dr. Martir Alcantara Chloride [Moles/Vol] 99 mmol/L Normal 98-107 [facility] Comment on above: Performed By: #### C MP, HSTROPN, DICKSON, LIPA #### [facility] [address] [place] [address] Dr. Martir Alcantara CO2 [Moles/Vol] 28.8 mmol/L Normal 21.0-32.0 [facility] Comment on above: Performed By: #### C MP, HSTROPN, DICKSON, LIPA #### [facility] [address] [place] [address] Dr. Martir Alcantara Creatinine [Mass/Vol] 0.73 mg/dL Normal 0.55-1.02 [facility] Comment on above: Performed By: #### C MP, HSTROPN, DICKSON, LIPA #### [facility] [address] [address] [address] Martir Alcantara EGFR-AF TAJIK >60 Normal >=60 [facility] Comment on above: Performed By: #### C MP, HSTROPN, DICKSON, LIPA #### [facility] [address] [place] [address] Dr. Martir Alcantara EGFR-NON AF TAJIK >60 Normal >=60 [facility] Comment on above: Performed By: #### C MP, HSTROPN, DICKSON, LIPA #### [facility] [address] [place] [address] Dr. Martir Alcantara Glucose [Mass/Vol] 95 mg/dL Normal 74-106 [facility] Comment on above: Performed By: #### C MP, HSTROPN, DICKSON, LIPA #### [facility] [address] [place] [address] Dr. Martir Alcantara Potassium [Moles/Vol] 4.0 mmol/L Normal 3.5-5.1 [facility] Comment on above: Performed By: #### C MP, HSTROPN, DICKSON, LIPA #### [facility] [address] [place] [address] Dr. Martir Alcantara Sodium [Moles/Vol] 136 mmol/L Normal 136-145 [facility] Comment on above: Performed By: #### C MP, HSTROPN, DICKSON, LIPA #### [facility] [address] [place] [address] Dr. Martir Alcantara Urea nitrogen [Mass/Vol] 9.0 mg/dL Normal 7.0-18.0 [facility] Comment on above: Performed By: #### C MP, HSTROPN, DICKSON, LIPA #### [facility] [address] [place] [address] Dr. Martir Alcantara Urea nitrogen/Creatinine [Mass ratio] 12.3 mg/mg Normal [facility] Comment on above: Performed By: #### C MP, HSTROPN, DICKSON, LIPA #### [facility] [address] [place] [address] Dr. Martir Alcantara Basic Metabolic Panelon 01-10 Anion gap [Moles/Vol] 11 mmol/L 9 - 17 mmol/L [facility] Calcium [Mass/Vol] 9.3 mg/dL 8.6 - 10. 4 mg/dL [facility] Chloride [Moles/Vol] 96 mmol/L Low 98 - 10 7 mmol/L [facility] CO2 [Moles/Vol] 28 mmol/L 20 - 31 mmol/L [facility] Creatinine [Mass/Vol] 0.56 mg/dL 0.5 - 0.9 mg/dL [facility] GFR >60 60 - PI NF mL/min [facility] GFR Non- >60 60 - PINF mL/min [facility] Glucose [Mass/Vol] 106 mg/dL High 70 - 99 mg/dL [facility] Interpretation and review of laboratory results Abnormal [facility] Potassium [Moles/Vol] 4.3 mmol/L 3.7 - 5.3 mmol/L [facility] Sodium [Moles/Vol] 135 mmol/L 135 - 144 mmol/L [facility] Urea nitrogen (BldV) [Mass/Vol] 7 mg/dL 6 - 20 mg/dL [facility] Urea nitrogen/Creatinine (Bld) [Mass ratio] 13 9 - 20 [facility] CBC with Auto Differentialon 01-25-2022 Absolute Eos # 0.09 [facility] Absolute Immature Granulocyte 0.07 [facility] Absolute Lymph # 2.59 [facility] Absolute [place] # 1.26 High [facility] Basophils (Bld) [#/Vol] 0.03 10*3/uL [facility] Basophils/100 WBC (Bld) 0 % 0 - 2 % [facility] Eosinophils/100 WBC (Bld) 1 % 1 - 4 % [facility] Hematocrit (Bld) [Volume fraction] 30.0 % Low 36.3 - 47.1 % [facility] Hemoglobin (Bld) [Mass/Vol] 8.9 g/dL Low 11.9 - 15.1 g/dL [facility] Immature granulocytes/100 WBC (Bld) 1 % High 0 [facility] Interpretation and review of laboratory results Abnormal [facility] Lymphocytes/100 WBC (Bld) 17 % Low 24 - 43 % [facility] MCH (RBC) [Entitic mass] 26.7 pg 25.2 - 33.5 pg [facility] MCHC (RBC) [Mass/Vol] 29.7 g/dL 28.4 - 34.8 g/dL [facility] MCV (RBC) [Entitic vol] 90.1 fL 82.6 - 102.9 fL [facility] Monocytes/100 WBC (Bld) 8 % 3 - 12 % [facility] NRBC Automated 0.0 0.0 per 100 WBC [facility] Platelet distribution width (Bld) [Ratio] 14.8 % High 11.8 - 14.4 % [facility] Platelet mean volume (Bld) [Entitic vol] 7.9 fL Low 8.1 - 13.5 fL [facility] Platelets (Bld) [#/Vol] 452 10*3/uL [facility] RBC (Bld) [#/Vol] 3.33 10*6/uL Low 3.95 - 5.1 1 m/uL [facility] Segmented neutrophils/100 WBC (Bld) 73 % High 36 - 65 % [facility] Segs Absolute 10.96 High [facility] WBC (Bld) [#/Vol] 15.0 10*3/uL High [facility] COVID-19, Rapidon 01-25-2022 SARS-CoV-2 (COVID-19) RNA DOROTHY+probe Ql (Unsp spec) Not detected Not Detected [facility] Comment on above: Rapid NAAT: The specimen is NEGATIVE for SARS-CoV-2, the novel coronavirus associated with COVID-19. The ID NOW COVID-19 assay is designed to detect the virus that causes COVID-19 in patients with signs and symptoms of infection who are suspected of COVID-19. An individual without symptoms of COVID-19 and who is not shedding SARS-CoV-2 virus would expect to have a negative (not detected) result in this assay. Negative results should be treated as presumptive and, if inconsistent with clinical signs and symptoms or necessary for patient management, should be tested with an alternative molecular assay. Negative results do not preclude SARS-CoV-2 infection and should not be used as the sole basis for patient management decisions. Fact sheet for Healthcare Providers: https://www.fda.gov/media/044072/download Fact sheet for Patients: https://www.fda.gov/media/711539/download Methodology: Isothermal Nucleic Acid Amplification Specimen Description .NASOPHARYNGEAL SWAB [facility] CT CHEST PULMONARY EMBOLISM W CONTRASTon 01-25-2022 No evidence of pulmo nary embolism or acute pulmonary abnormality. [facility] EXAMINATION: CTA OF THE CHEST 01/25/2022 10:14 pm TECHNIQUE: CTA of the chest was performed after the administration of intravenous contrast. Multiplanar reformatted images are provided for review. MIP images are provided for review. Automated exposure control, iterative reconstruction, and/or weight based adjustment of the mA/kV was utilized to reduce the radiation dose to as low as reasonably achievable. COMPARISON: Chest radiograph today. Chest CT 01/03/2022 HISTORY: ORDERING SYSTEM PROVIDED HISTORY: Chest pain, dyspnea, elevated d-dimer TECHNOLOGIST PROVIDED HISTORY: Chest pain, dyspnea, elevated d-dimer Decision Support Exception - unselect if not a suspected or confirmed emergency medical condition->Emergency Medical Condition (MA) FINDINGS: Pulmonary Arteries: Pulmonary arteries are adequately opacified for evaluation. No evidence of intraluminal filling defect to suggest pulmonary embolism. Main pulmonary artery is normal in caliber. Mediastinum: No evidence of mediastinal lymphadenopathy. The heart and pericardium demonstrate no acute abnormality. There is no acute abnormality of the thoracic aorta. Lungs/pleura: The lungs are without acute process. No focal consolidation or pulmonary edema. No evidence of pleural effusion or pneumothorax. Upper Abdomen: Findings suggestive of hepatic steatosis. Soft Tissues/Bones: No acute bone or soft tissue abnormality. [facility] Karri Peterson MD - 01/25/2022 EXAMINATION: CTA OF THE CHEST 01/25/2022 10:14 pm TECHNIQUE: CTA of the chest was performed after the administration of intravenous contrast. Multiplanar reformatted images are provided for review. MIP images are provided for review. Automated exposure control, iterative reconstruction, and/or weight based adjustment of the mA/kV was utilized to reduce the radiation dose to as low as reasonably achievable. COMPARISON: Chest radiograph today. Chest CT 01/03/2022 HISTORY: ORDERING SYSTEM PROVIDED HISTORY: Chest pain, dyspnea, elevated d-dimer TECHNOLOGIST PROVIDED HISTORY: Chest pain, dyspnea, elevated d-dimer Decision Support Exception - unselect if not a suspected or confirmed emergency medical condition->Emergency Medical Condition (MA) FINDINGS: Pulmonary Arteries: Pulmonary arteries are adequately opacified for evaluation. No evidence of intraluminal filling defect to suggest pulmonary embolism. Main pulmonary artery is normal in caliber. Mediastinum: No evidence of mediastinal lymphadenopathy. The heart and pericardium demonstrate no acute abnormality. There is no acute abnormality of the thoracic aorta. Lungs/pleura: The lungs are without acute process. No focal consolidation or pulmonary edema. No evidence of pleural effusion or pneumothorax. Upper Abdomen: Findings suggestive of hepatic steatosis. Soft Tissues/Bones: No acute bone or soft tissue abnormality. IMPRESSION: No evidence of pulmonary embolism or acute pulmonary abnormality. [employer] Work Phone: [employer] Phone: Radiology Study observation (narrative) [employer] Phone: D-Dimer, Quantitativeon 01-10 D-Dimer, Quant 2.78 High [facility] C2 [facility] [employer] Comment on above: When combined with a low clinical probability, a D dimer value of <0.50 mg/L FEU is considered negative for DVT and PE (negative predictive value of 98%, sensitivity of 97%). If this test is not being used to help rule out DVT and PE, then the following reference range should be utilized: 0.00 - 0.59 mg/L FEU. The D-Dimer assay is intended for use as an aid in the diagnosis of venous thromboembolism (DVT and PE) and the results should be interpreted in conjunction with the patient's medical history, clinical presentation, and other findings. Elevated levels of D-dimer activity can be seen in any state of coagulation activation and is not recommended in patients with therapeutic dose anticoagulant therapy for >24 hours, fibrinolytic therapy within the previous 7 days, trauma or surgery within the previous 4 weeks, disseminated malignancies, aortic aneurysm, sepsis, severe infections, pneumonia, severe skin infections, liver cirrhosis, advanced age, coronary disease, diabetes, and . A very low percentage of patients with DVT may yield D-dimer results below the cutoff of 0.5 mg/L FEU. This is known to be more prevalent in patients with distal DVT. Interpretation and review of laboratory results Abnormal [facility] Hepatic Function Panelon Albumin [Mass/Vol] 3.7 g/dL 3.5 - 5.2 g/dL [facility] Albumin/Globulin [Mass ratio] 1.0 {ratio} 1 - 2.5 [facility] ALP (Bld) [Catalytic activity/Vol] 66 U/L 35 - 104 U/L [facility] ALT [Catalytic activity/Vol] 10 U/L 5 - 33 U/L [facility] AST [Catalytic activity/Vol] 7 U/L NINF - 32 U/L [facility] Bilirubin [Mass/Vol] 0.2 mg/dL Low 0.3 - 1 .2 mg/dL [facility] Bilirubin, Indirect Can not be calculated 0 - 1 mg/dL [facility] Bilirubin.indirect [Mass/Vol] mg/dL NINF - 0.31 mg/dL [facility] Free PSA/Total PSA [Mass fraction] 7.5 g/dL 6.4 - 8.3 g/dL [facility] Interpretation and review of laboratory results Abnormal [facility] Laboratory - Chemistry and C hemistry - challengeon 01-25-2022 GFR/1.73 sq M.predicted MDRD (S/P/Bld) [Vol rate/Area] [facility] Comment on above: Average GFR for 40-4 9 years old: 99 mL/min/1.73sq m Chronic Kidney Disease: <60 mL/min/1.73sq m Kidney failure: <15 mL/min/1.73sq m eGFR calculated using average adult body mass. Additional eGFR calculator available at: http://www.[employer]/multiple_crcl_2011.htm Stage 1: Some kidney damage normal GFR Stage 2: Mild kidney damage GFR 60-89 Stage 3: Moderate kidney damage GFR 30-59 Stage 4: Severe kidney damage GFR 15-29 Stage 5: Severe kidney damage GFR <15 ESRD - chronic treatment by dialysis or transplant Troponinon 01-25-2022 Troponin, High Sensitivity ng/L 0 - 14 ng/L [employer] Comment on above: High Sensitivity Troponin values cannot be compared with other Troponin methodologies. Patients with high levels of Biotin oral intake (i.e >5mg/day) may have falsely decreased Troponin levels. Samples collected within 8 hours of biotin intake may require additional information for diagnosis. [employer] Troponin, High Sensitivity ng/L 0 - 14 ng/L [employer] Comment on above: High Sensitivity Troponin values cannot be compared with other Troponin methodologies. Patients with high levels of Biotin oral intake (i.e >5mg/day) may have falsely decreased Troponin levels. Samples collected within 8 hours of biotin intake may require additional information for diagnosis. [employer] XR CHEST PORTABLEon 01-26-20 No acute airspace disease identified. [facility] CON[facility] EXAMINATION: ONE XRAY VIEW OF THE CHEST 01/25/2022 9:13 pm COMPARISON: 01/03/2022 HISTORY: ORDERING SYSTEM PROVIDED HISTORY: chest pain TECHNOLOGIST PROVIDED HISTORY: chest pain FINDINGS: The cardiomediastinal silhouette is within normal limits. There is no consolidation, pneumothorax or evidence for edema. No evidence for effusion. No acute osseous abnormality is identified. [facility] Karri Peterson MD - 01/25/2022 EXAMINATION: ONE XRAY VIEW OF THE CHEST 01/25/2022 9:13 pm COMPARISON: 01/03/2022 HISTORY: ORDERING SYSTEM PROVIDED HISTORY: chest pain TECHNOLOGIST PROVIDED HISTORY: chest pain FINDINGS: The cardiomediastinal silhouette is within normal limits. There is no consolidation, pneumothorax or evidence for edema. No evidence for effusion. No acute osseous abnormality is identified. IMPRESSION: No acute airspace disease identified. [employer] Work Phone: Radiology Study observation (narrative) [employer] Phone: XR CHEST PORTABLEOrdered By: Karri Peterson on 01-25-2022 [employer] Phone: CBC with Auto Differentialon 01-23-2022 Absolute [facility] # 0.12 [facility] Absolute Immature Granulocyte 0.08 [facility] Absolute Lymph # 3.46 [facility] Absolute Sierra # 1.13 [facility] Basophils (Bld) [#/Vol] 0.07 10*3/uL [facility] Basophils/100 WBC (Bld) 1 % 0 - 2 % [facility] Eosinophils/100 WBC (Bld) 1 % 1 - 4 % [facility] Hematocrit (Bld) [Volume fraction] 30.8 % Low 36.3 - 47.1 % [facility] Hemoglobin (Bld) [Mass/Vol] 9.2 g/dL Low 11.9 - 15.1 g/dL [facility] Immature granulocytes/100 WBC (Bld) 1 % High 0 [facility] Interpretation and review of laboratory results Abnormal [facility] Lymphocytes/100 WBC (Bld) 23 % Low 24 - 43 % [facility] MCH (RBC) [Entitic mass] 27.1 pg 25.2 - 33.5 pg [facility] MCHC (RBC) [Mass/Vol] 29.9 g/dL 28.4 - 34.8 g/dL [facility] MCV (RBC) [Entitic vol] 90.6 fL 82.6 - 102.9 fL [facility] Monocytes/100 WBC (Bld) 7 % 3 - 12 % [facility] NRBC Automated 0.0 0.0 per 100 WBC [facility] Platelet distribution width (Bld) [Ratio] 14.9 % High 11.8 - 14.4 % [facility] Platelet mean volume (Bld) [Entitic vol] 7.9 fL Low 8.1 - 13.5 fL [facility] Platelets (Bld) [#/Vol] 471 10*3/uL High [facility] RBC (Bld) [#/Vol] 3.40 10*6/uL Low 3.95 - 5.1 1 m/uL [facility] Segmented neutrophils/100 WBC (Bld) 67 % High 36 - 65 % [facility] Segs Absolute 10.49 High [facility] WBC (Bld) [#/Vol] 15.4 10*3/uL High [facility] Basic Metabolic Panelon 11-11 Anion gap [Moles/Vol] 11 mmol/L 9 - 17 mmol/L [facility] Calcium [Mass/Vol] 8.4 mg/dL Low 8.6 - 10. 4 mg/dL [facility] Chloride [Moles/Vol] 96 mmol/L Low 98 - 10 7 mmol/L [facility] CO2 [Moles/Vol] 27 mmol/L 20 - 31 mmol/L [facility] Creatinine [Mass/Vol] 0.62 mg/dL 0.5 - 0.9 mg/dL [facility] GFR >60 60 - PI NF mL/min [facility] GFR Non- >60 60 - PINF mL/min [facility] Glucose [Mass/Vol] 92 mg/dL 70 - 99 mg/dL [facility] Potassium [Moles/Vol] 3.4 mmol/L Low 3.7 - 5.3 mmol/L [facility] Sodium [Moles/Vol] 134 mmol/L Low 135 - 144 mmol/L [facility] Urea nitrogen (BldV) [Mass/Vol] 7 mg/dL 6 - 20 mg/dL [facility] Urea nitrogen/Creatinine (Bld) [Mass ratio] 11 9 - 20 [facility] CBC with Auto Differentialon 12-09-2021 Absolute Eos # 0.29 [facility] SEC[facility] S [facility] Absolute Immature Granulocyte 0.14 [facility] Absolute Lymph # 3.16 [facility] Absolute Sierra # 1.48 High [facility] Basophils (Bld[facility] [#/Vol] 0.07 10*3/uL [facility] Basophils/100 WBC (Bld) 1 % 0 - 2 % [facility] Eosinophils/100 WBC (Bld) 2 % 1 - 4 % [facility] Hematocrit (Bld) [Volume fraction] 34.6 % Low 36.3 - 47.1 % [facility] Hemoglobin (Bld) [Mass/Vol] 10.8 g/dL Low 11.9 - 15.1 g/dL [facility] Immature granulocytes/100 WBC (Bld) 1 % High 0 [facility] Interpretation and review of laboratory results Abnormal [facility] Lymphocytes/100 WBC (Bld) 23 % Low 24 - 43 % [facility] MCH (RBC) [Entitic mass] 27.9 pg 25.2 - 33.5 pg [facility] MCHC (RBC) [Mass/Vol] 31.2 g/dL 28.4 - 34.8 g/dL [facility] MCV (RBC) [Entitic vol] 89.4 fL 82.6 - 102.9 fL [facility] Monocytes/100 WBC (Bld) 11 % 3 - 12 % [facility] NRBC Automated 0.0 0.0 per 100 WBC [facility] Platelet distribution width (Bld) [Ratio] 13.5 % 11.8 - 14.4 % [facility] Platelet mean volume (Bld) [Entitic vol] 8.1 fL 8.1 - 13.5 fL [facility] Platelets (Bld) [#/Vol] 469 10*3/uL High [facility] RBC (Bld) [#/Vol] 3.87 10*6/uL Low 3.95 - 5.1 1 m/uL [facility] Segmented neutrophils/100 WBC (Bld) 62 % 36 - 65 % [facility] Segs Absolute 8.45 High [facility] WBC (Bld) [#/Vol] 13.6 10*3/uL High [facility] HCG Qualitative, Serumon hCG Qual Negative NEGATIVE [facility] Comment on above: Specimens with hCG l evels near the threshold of the test (25 mIU/mL) may give a negative or indeterminate result. In such cases, another test should be performed with a new specimen in 48-72 hours. If early is suspected clinically in this setting, correlation with quantitative serum b-hCG level is suggested. [employer] has confirmed the use of plasma for this test. This has not been cleared or approved by the U.S. Food and Drug Administration. The FDA has determined that such clearance is not necessary. [facility] [employer] Hepatic Function Panelon Albumin [Mass/Vol] 3.1 g/dL Low 3.5 - 5.2 g/dL [facility] [employer] Albumin/Globulin [Mass ratio] 1.0 {ratio} 1 - 2.5 [facility] [employer] ALP (Bld) [Catalytic activity/Vol] 77 U/L 35 - 104 U/L [facility] [employer] ALT [Catalytic activity/Vol] 6 U/L 5 - 33 U/L [facility] [address] AST [Catalytic activity/Vol] 9 U/L NINF - 32 U/L [facility] [employer] Bilirubin [Mass/Vol] 0.21 mg/dL Low 0.3 - 1 .2 mg/dL [facility] [employer] Bilirubin, Indirect Can not be calculated 0 - 1 mg/dL [facility] [employer] Bilirubin.indirect [Mass/Vol] mg/dL NINF - 0.31 mg/dL [facility] [employer] Free PSA/Total PSA [Mass fraction] 6.2 g/dL Low 6.4 - 8.3 g/dL [facility] [employer] Laboratory - Chemistry and C hemistry - challengeon 12-09-2021 GFR/1.73 sq M.predicted MDRD (S/P/Bld) [Vol rate/Area] [facility] Comment on above: Average GFR for 40-4 9 years old: 99 mL/min/1.73sq m Chronic Kidney Disease: <60 mL/min/1.73sq m Kidney failure: <15 mL/min/1.73sq m eGFR calculated using average adult body mass. Additional eGFR calculator available at: http://www.[employer]/multiple_crcl_2011.htm Stage 1: Some kidney damage normal GFR Stage 2: Mild kidney damage GFR 60-89 Stage 3: Moderate kidney damage GFR 30-59 Stage 4: Severe kidney damage GFR 15-29 Stage 5: Severe kidney damage GFR <15 ESRD - chronic treatment by dialysis or transplant Lipaseon 12-09-2021 Lipase [Catalytic activity/Vol] 11 U/L Low 13 - 60 U/L [facility] No Panel Informationon 12-09 Interpretation and review of laboratory results Abnormal [facility] CBC with Auto Differentialon 12-01-2021 Absolute Eos # 0.62 High [facility] Absolute Immature Granulocyte 0.13 [facility] Absolute Lymph # 2.90 [place] [facility] Absolute Sierra # 1.28 High [facility] Basophils (Bld) [#/Vol] 0.09 10*3/uL [facility] Basophils/100 WBC (Bld) 1 % 0 - 2 % [facility] Eosinophils/100 WBC (Bld) 5 % High 1 - 4 % [facility] Hematocrit (Bld) [Volume fraction] 37.9 % 36.3 - 47.1 % [facility] Hemoglobin (Bld) [Mass/Vol] 12.0 g/dL 11.9 - 15.1 g/dL [facility] Immature granulocytes/100 WBC (Bld) 1 % High 0 [facility] Interpretation and review of laboratory results Abnormal [facility] Lymphocytes/100 WBC (Bld) 24 % 24 - 43 % [facility] MCH (RBC) [Entitic mass] 28.1 pg 25.2 - 33.5 pg [facility] MCHC (RBC) [Mass/Vol] 31.7 g/dL 28.4 - 34.8 g/dL [facility] MCV (RBC) [Entitic vol] 88.8 fL 82.6 - 102.9 fL [facility] Monocytes/100 WBC (Bld) 11 % 3 - 12 % [facility] NRBC Automated 0.0 0.0 per 100 WBC [facility] Platelet distribution width (Bld) [Ratio] 13.6 % 11.8 - 14.4 % [facility] Platelet mean volume (Bld) [Entitic vol] 8.4 fL 8.1 - 13.5 fL [facility] Platelets (Bld) [#/Vol] 385 10*3/uL [facility] RBC (Bld) [#/Vol] 4.27 10*6/uL 3.95 - 5.1 1 m/uL [facility] Segmented neutrophils/100 WBC (Bld) 58 % 36 - 65 % [facility] Segs Absolute 7.10 [facility] WBC (Bld) [#/Vol] 12.1 10*3/uL High [facility] CT ABDOMEN PELVIS W IV CONTR AST Additional Contrast? Noneon 12-01-2021 No acute abdominal o r pelvic abnormality. Trace free fluid in the pelvis and right pericolic gutter that may be physiologic. [facility] CONSOLIDATED EXAMINATION: CT OF THE ABDOMEN AND PELVIS WITH CONTRAST 12/01/2021 12:34 pm TECHNIQUE: CT of the abdomen and pelvis was performed with the administration of intravenous contrast. Multiplanar reformatted images are provided for review. Automated exposure control, iterative reconstruction, and/or weight based adjustment of the mA/kV was utilized to reduce the radiation dose to as low as reasonably achievable. COMPARISON: None. HISTORY: ORDERING SYSTEM PROVIDED HISTORY: Abdominal pain history of colitis TECHNOLOGIST PROVIDED HISTORY: Abdominal pain history of colitis Decision Support Exception - unselect if not a suspected or confirmed emergency medical condition->Emergency Medical Condition (MA) FINDINGS: Lower Chest: Lung bases are without consolidation effusion. The visualized cardiac structures unremarkable. Organs: The liver and spleen are normal size and overall attenuation. The gallbladder, pancreas, and adrenal glands are unremarkable. There is no obstructive uropathy. Urinary bladder is unremarkable. GI/Bowel: The stomach is contracted and otherwise unremarkable. Loops of small bowel are normal in caliber without evidence for obstruction. The colon contains air and fecal residue and is otherwise unremarkable. The appendix is normal. There is trace free fluid in the right pericolic gutter and pelvis. There is no free air. Pelvis: The uterus is age-appropriate. Peritoneum/Retroperitone um: The psoas muscles are symmetric. The abdominal aorta is normal in caliber. The inferior vena cava is unremarkable. There is no retroperitoneal or mesenteric adenopathy. Bones/Soft Tissues: The extra-abdominal soft tissues are unremarkable. There is no acute osseous abnormality. [facility] Al Holloway MD - 12/01/2021 EXAMINATION: CT OF THE ABDOMEN AND PELVIS WITH CONTRAST 12/01/2021 12:34 pm TECHNIQUE: CT of the abdomen and pelvis was performed with the administration of intravenous contrast. Multiplanar reformatted images are provided for review. Automated exposure control, iterative reconstruction, and/or weight based adjustment of the mA/kV was utilized to reduce the radiation dose to as low as reasonably achievable. COMPARISON: None. HISTORY: ORDERING SYSTEM PROVIDED HISTORY: Abdominal pain history of colitis TECHNOLOGIST PROVIDED HISTORY: Abdominal pain history of colitis Decision Support Exception - unselect if not a suspected or confirmed emergency medical condition->Emergency Medical Condition (MA) FINDINGS: Lower Chest: Lung bases are without consolidation effusion. The visualized cardiac structures unremarkable. Organs: The liver and spleen are normal size and overall attenuation. The gallbladder, pancreas, and adrenal glands are unremarkable. There is no obstructive uropathy. Urinary bladder is unremarkable. GI/Bowel: The stomach is contracted and otherwise unremarkable. Loops of small bowel are normal in caliber without evidence for obstruction. The colon contains air and fecal residue and is otherwise unremarkable. The appendix is normal. There is trace free fluid in the right pericolic gutter and pelvis. There is no free air. Pelvis: The uterus is age-appropriate. Peritoneum/Retroperitone um: The psoas muscles are symmetric. The abdominal aorta is normal in caliber. The inferior vena cava is unremarkable. There is no retroperitoneal or mesenteric adenopathy. Bones/Soft Tissues: The extra-abdominal soft tissues are unremarkable. There is no acute osseous abnormality. IMPRESSION: No acute abdominal or pelvic abnormality. Trace free fluid in the pelvis and right pericolic gutter that may be physiologic. [employer] Work Phone: Radiology Study observation (narrative) [employer] Phone: CT ABDOMEN PELVIS W IV CONTR AST Additional Contrast? NoneOrdered By: Al Holloway on 12-01-2021 [employer] Work Phone: Comprehensive Metabolic Pane carla 12-01-2021 Albumin [Mass/Vol] 3.9 g/dL 3.5 - 5.2 g/dL [employer] Albumin/Globulin [Mass ratio] 1.2 {ratio} 1 - 2.5 [employer] ALP (Bld) [Catalytic activity/Vol] 78 U/L 35 - 104 U/L [facility] ALT [Catalytic activity/Vol] 13 U/L 5 - 33 U/L [facility] Anion gap [Moles/Vol] 11 mmol/L 9 - 17 mmol/L [facility] AST [Catalytic activity/Vol] 13 U/L NINF - 32 U/L [facility] Bilirubin [Mass/Vol] 0.16 mg/dL Low 0.3 - 1 .2 mg/dL [facility] Calcium [Mass/Vol] 9.3 mg/dL 8.6 - 10. 4 mg/dL [facility] Chloride [Moles/Vol] 101 mmol/L 98 - 10 7 mmol/L [facility] CO2 [Moles/Vol] 26 mmol/L 20 - 31 mmol/L [facility] Creatinine [Mass/Vol] 0.7 mg/dL 0.5 - 0.9 mg/dL [facility] Free PSA/Total PSA [Mass fraction] 7.2 g/dL 6.4 - 8.3 g/dL [facility] GFR >60 60 - PI NF mL/min [facility] GFR Non- >60 60 - PINF mL/min [facility] Glucose [Mass/Vol] 89 mg/dL 70 - 99 mg/dL [facility] Interpretation and review of laboratory results Abnormal [facility] Potassium [Moles/Vol] 3.9 mmol/L 3.7 - 5.3 mmol/L [facility] Sodium [Moles/Vol] 138 mmol/L 135 - 144 mmol/L [facility] Urea nitrogen (BldV) [Mass/Vol] 6 mg/dL 6 - 20 mg/dL [facility] Urea nitrogen/Creatinine (Bld) [Mass ratio] 9 9 - 20 [facility] Laboratory - Chemistry and C hemistry - challengeon 12-01-2021 GFR/1.73 sq M.predicted MDRD (S/P/Bld) [Vol rate/Area] [facility] Comment on above: Average GFR for 40-4 9 years old: 99 mL/min/1.73sq m Chronic Kidney Disease: <60 mL/min/1.73sq m Kidney failure: <15 mL/min/1.73sq m eGFR calculated using average adult body mass. Additional eGFR calculator available at: http://www.[employer]/multiple_crcl_2012.htm Stage 1: Some kidney damage normal GFR Stage 2: Mild kidney damage GFR 60-89 Stage 3: Moderate kidney damage GFR 30-59 Stage 4: Severe kidney damage GFR 15-29 Stage 5: Severe kidney damage GFR <15 ESRD - chronic treatment by dialysis or transplant Lipaseon 12-01-2021 Lipase [Catalytic activity/Vol] 18 U/L 13 - 60 U/L [facility] No Panel Informationon 12-01 [facility] , Urineon 2 Beta HCG ( test) Ql (U) Negative NEGATIVE [facility] Comment on above: Specimens with hCG l evels near the threshold of the test (25 mIU/mL) may give a negative or indeterminate result. In such cases, another test should be performed with a new specimen in 48-72 hours. If early is suspected clinically in this setting, correlation with quantitative serum b-hCG level is suggested. [employer] has confirmed the use of plasma for this test. This has not been cleared or approved by the U.S. Food and Drug Administration. The FDA has determined that such clearance is not necessary. [facility] Urinalysis with Microscopico n 12-01-2021 - [facility] Bacteria, UA 1+ Abnormal None [facility] Bilirubin Urine Negative NEGATIVE [facility] Color, UA Yellow Yellow [facility] Epithelial Cells UA 0 TO 2 [facility] Glucose, Ur Negative NEGATIVE [facility] Interpretation and review of laboratory results Abnormal [facility] Ketones Ql (U) Negative NEGATIVE [facility] Leukocyte esterase Test strip Ql (U) Negative NEGATIVE [facility] Nitrite, Urine Negative NEGATIVE [facility] pH, UA 6.0 5 - 9 [facility] Protein, UA Negative NEGATIVE [facility] RBC, UA None [facility] Specific Bazine, UA Low 1.01 - 1.02 [facility] Turbidity UA Clear Clear [facility] Hgb Negative NEGATIVE [facility] [address] Urobilinogen, Urine Normal Normal [facility] WBC, UA None [facility] [employer] COVID-19Ordered By: Bandar garcia on 09-12-2020 SARS-CoV-2 (COVID-19) RNA DOROTHY+probe Ql (Unsp spec) [employer] Phone: SARS-CoV-2 (COVID-19) RNA DOROTHY+probe Ql (Unsp spec) Not detected Not Detected [employer] Phone: Comment on above: The specimen is NEGATIVE for SARS-CoV-2, the novel coronavirus associated with COVID-19. A negative result does not rule out COVID-19. Romario SARS-CoV-2 for use on the [id number] is a real-time RT-PCR test intended for the qualitative detection of nucleic acids from SARS-CoV-2 in clinician-collected nasal, nasopharyngeal, and oropharyngeal swab specimens from individuals who meet COVID-19 clinical and/or epidemiological criteria. [employer] SARS-CoV-2 is for use only under Emergency Use Authorization (EUA) in laboratories certified under Clinical Laboratory Improvement Amendments of 1988 (CLIA), 42 U.S.C. 263a, that meet requirements to perform high or moderate complexity tests. An individual without symptoms of COVID-19 and who is not shedding SARS-CoV-2 virus would expect to have a negative (not detected) result in this assay. Fact sheet for Healthcare Providers: https://www.fda.gov/media/912115/download Fact sheet for Patients: https://www.fda.gov/media/817333/download METHODOLOGY: RT-PCR Source .NASOPHARYNGEAL SWAB [employer] Phone: Basic Metabolic PanelOrdered By: Eric Contreras on 09-01-2020 Anion gap [Moles/Vol] 8 mmol/L Low 9 - 17 mmol/L [employer] Phone: Calcium [Mass/Vol] 9.9 mg/dL 8.6 - 10. 4 mg/dL [employer] Phone: Chloride [Moles/Vol] 106 mmol/L 98 - 10 7 mmol/L [employer] Phone: CO2 [Moles/Vol] 29 mmol/L 20 - 31 mmol/L [employer] Work Phone: Creatinine [Mass/Vol] 0.63 mg/dL 0.50 - 0.90 mg/dL [employer] Work Phone: GFR >60 >60 mL/min [employer] Work Phone: GFR Non- >60 >60 mL/min [employer] Work Phone: Glucose [Mass/Vol] 96 mg/dL 70 - 99 mg/dL [employer] Phone: Interpretation and review of laboratory results Abnormal [employer] Phone: Potassium [Moles/Vol] 4.3 mmol/L 3.7 - 5.3 mmol/L [employer] Work Phone: Sodium [Moles/Vol] 143 mmol/L 135 - 144 mmol/L [employer] Phone: Urea nitrogen (BldV) [Mass/Vol] 5 mg/dL Low 6 - 20 mg/dL [employer] Work Phone: Urea nitrogen/Creatinine (Bld) [Mass ratio] 8 Low [employer] Work Phone: CBC Auto DifferentialOrdered By: Eric Contreras on 09-01-2020 Absolute Eos # 0.53 High [place] [facility] Work Phone: Absolute Immature Granulocyte 0.03 [facility] Work Phone: Absolute Lymph # 2.59 [place] [facility] Work Phone: Absolute Sierra # 0.60 [employer] [facility] Work Phone: Basophils (Bld) [#/Vol] 0.06 10*3/uL [employer] Phone: Basophils/100 WBC (Bld) 1 % 0 - 2 % [employer] Phone: Differential Type NOT REPORTED [employer] Phone: Eosinophils/100 WBC (Bld) 5 % High 1 - 4 % [employer] Phone: Hematocrit (Bld) [Volume fraction] 46.9 % 36.3 - 47.1 % [employer] Phone: Hemoglobin.gastrointe stinal spec 1 Ql (Stl) 15.2 g/dL High 11.9 - 15.1 g/dL [employer] Phone: Immature granulocytes/100 WBC (Bld) 0 % 0 [employer] Phone: Interpretation and review of laboratory results Abnormal [employer] Phone: Lymphocytes/100 WBC (Bld) 25 % 24 - 43 % [employer] Phone: MCH (RBC) [Entitic mass] 29.2 pg 25.2 - 33.5 pg [employer] Phone: MCHC (RBC) [Mass/Vol] 32.4 g/dL 28.4 - 34.8 g/dL [employer] Phone: MCV (RBC) [Entitic vol] 90.2 fL 82.6 - 102.9 fL [employer] Phone: Monocytes/100 WBC (Bld) 6 % 3 - 12 % [employer] Phone: NRBC Automated 0.0 0.0 per 100 WBC [employer] Phone: Platelet distribution width (Bld) [Ratio] 12.5 % 11.8 - 14.4 % [employer] Phone: Platelet Estimate NOT REPORTED [employer] Phone: Platelet mean volume (Bld) [Entitic vol] 8.9 fL 8.1 - 13.5 fL [employer] Work Phone: Platelets (Bld) [#/Vol] 376 10*3/uL [employer] Work Phone: RBC (Bld) [#/Vol] 5.20 10*6/uL High 3.95 - 5.1 1 m/uL [employer] Work Phone: RBC (Bld) [#/Vol] NOT REPORTED [employer] Work Phone: Segmented neutrophils/100 WBC (Bld) 63 % 36 - 65 % [employer] Work Phone: Segs Absolute 6.41 [employer] Work Phone: WBC (Bld) [#/Vol] 10.2 10*3/uL [employer] Work Phone: WBC (Bld) [#/Vol] NOT REPORTED [employer] Work Phone: EKG 12 LeadOrdered By: Thomas Contreras on 09-01-2020 Atrial Rate 77 BPM [employer] Work Phone: P Cumming 68 degrees [employer] Work Phone: P-R Interval 154 ms [employer] Work Phone: Q-T Interval 376 ms [employer] Work Phone: QRS Duration 92 ms [employer] Work Phone: QTc Calculation (Bazett) 425 ms [employer] Work Phone: R Cumming -12 degrees [employer] Work Phone: T Cumming 32 degrees [employer] Work Phone: Ventricular Rate 77 [employer] Work Phone: Normal sinus rhythm with sinus arrhythmia Normal ECG No previous ECGs available Confirmed by AZ WOLFE ([id number]) on 09/01/2020 12:36:41 PM [employer] Work Phone: Tom, Mhpn Incoming E kg Results From Ge Brady - 09/01/2020 12:36 PM EDT Normal sinus rhythm with sinus arrhythmia Normal ECG No previous ECGs available Confirmed by AZ WOLFE ([id number]) on 09/01/2020 12:36:41 PM [employer] Work Phone: Laboratory - Chemistry and C hemistry - challengeOrdered By: Eric Contreras on 09-01-2020 GFR/1.73 sq M.predicted MDRD (S/P/Bld) [Vol rate/Area] [employer] Phone: Comment on above: Average GFR for 40-4 9 years old: 99 mL/min/1.73sq m Chronic Kidney Disease: <60 mL/min/1.73sq m Kidney failure: <15 mL/min/1.73sq m eGFR calculated using average adult body mass. Additional eGFR calculator available at: http://www.[employer]/multiple_crcl_2012.htm Stage 1: Some kidney damage normal GFR Stage 2: Mild kidney damage GFR 60-89 Stage 3: Moderate kidney damage GFR 30-59 Stage 4: Severe kidney damage GFR 15-29 Stage 5: Severe kidney damage GFR <15 ESRD - chronic treatment by dialysis or transplant CYTOLOGY NON-ANESTHESIOLOGY TECH, CONVERTEDo n 05-13-2012 SURGICAL PATHOLOGY, JOANA Pierre 07-01-2007 Vital Signs Date Time Vital Sign Value Performing Clinician Facility 11-28-2022 08:00-0400 Body temperature 97.9 [degF] [facility] [employer] 11-28-2022 08:00-0400 Diastolic blood pressure 84 mm[Hg] [facility] [address] 11-28-2022 08:00-0400 Heart rate 86 /min [facility] [employer] 11-28-2022 08:00-0400 Respiratory rate 16 /min [facility] [employer] 11-28-2022 08:00-0400 Systolic blood pressure 141 mm[Hg] Mthz Schedule [facility] [employer] 11-27-2022 14:00-0400 Body temperature 98.2 [degF] [facility] 11-27-2022 14:00-0400 Diastolic blood pressure 78 mm[Hg] Mthz Schedule [facility] 11-27-2022 14:00-0400 Heart rate 90 /min Mthz Schedule [facility] 11-27-2022 14:00-0400 Respiratory rate 16 /min Mthz Schedule [facility] 11-27-2022 14:00-0400 Systolic blood pressure 134 mm[Hg] Mthz Schedule [facility] 04-26-2022 08:41-0500 Body height 162.56 cm Referring Provider [facility] Work Phone: 04-26-2022 08:41-0500 Body mass index (BMI) [Ratio] 27.99 kg/m2 Referring Provider Unknown [facility] 4100 Work Phone: 04-26-2022 08:41-0500 Body surface area Derived from formula 1.79 m2 Referring Provider Unknown [facility] 4100 Work Phone: 04-26-2022 08:41-0500 Body temperature 96 [degF] Referring Provider Unknown [facility] 4101 Work Phone: 04-26-2022 08:41-0500 Body weight 73.95 kg Referring Provider [facility] Work Phone: 04-16-2022 10:29-0500 Body height 162.6 cm Mikey Brito MD Work Phone: 04-16-2022 10:29-0500 Body temperature 98.2 [degF] Mikey Brito MD Work Phone: 04-16-2022 10:29-0500 Body weight 71.58 kg Mikey Brito MD Work Phone: 04-16-2022 10:29-0500 Diastolic blood pressure 75 mm[Hg] Mikey Brito MD Work Phone: 04-16-2022 10:29-0500 Heart rate 112 /min Mikey Brito MD Work Phone: 04-16-2022 10:29-0500 SaO2% (BldA) [Mass fraction] 98 % Mikey Brito MD Work Phone: 04-16-2022 10:29-0500 Systolic blood pressure 117 mm[Hg] Mikey Brito MD Work Phone: 04-08-2022 12:15-0500 Diastolic blood pressure 88 mm[Hg] Mikey Brito MD Work Phone: 04-08-2022 12:15-0500 Heart rate 109 /min Mikey Brito MD Work Phone: 04-08-2022 12:15-0500 SaO2% (BldA) [Mass fraction] 96 % Mikey Brito MD Work Phone: 04-08-2022 12:15-0500 Systolic blood pressure 139 mm[Hg] Mikey Brito MD Work Phone: 04-08-2022 12:10-0500 Respiratory rate 16 /min Mikey Brito MD Work Phone: 04-08-2022 10:16-0500 Body height 162.6 cm Mikey Brito MD Work Phone: 04-08-2022 10:16-0500 Body temperature 97.9 [degF] Mikey Brito MD Work Phone: 04-08-2022 10:16-0500 Body weight 72.58 kg Mikey Brito MD Work Phone: 02-26-2022 13:49-0400 Body height 162.6 cm Mikey Brito MD Work Phone: 02-26-2022 13:49-0400 Body weight 79.83 kg Mikey Brito MD Work Phone: 02-26-2022 13:49-0400 Diastolic blood pressure 87 mm[Hg] Mikey Brito MD Work Phone: 02-26-2022 13:49-0400 Heart rate 93 /min Mikey Brito MD Work Phone: 02-26-2022 13:49-0400 Systolic blood pressure 134 mm[Hg] Mikey Brito MD Work Phone: 01-28-2022 16:23-0400 Body temperature 99.3 [degF] Alexa Andres DO Work Phone: [employer] 01-28-2022 16:23-0400 Diastolic blood pressure 87 mm[Hg] Alexa Andres DO Work Phone: [employer] 01-28-2022 16:23-0400 Heart rate 109 /min Alexa Andres DO Work Phone: [employer] 01-28-2022 16:23-0400 Respiratory rate 18 /min Alexa Andres DO Work Phone: [employer] 01-28-2022 16:23-0400 SaO2% (BldA) [Mass fraction] 98 % Alexa Andres DO Work Phone: [employer] 01-28-2022 16:23-0400 Systolic blood pressure 151 mm[Hg] Alexa Andres DO Work Phone: [employer] 01-25-2022 23:03-0400 Diastolic blood pressure 62 mm[Hg] Fredy Davis MD [facility] 01-25-2022 23:03-0400 Heart rate 103 /min Fredy Davis MD [facility] [employer] 01-25-2022 23:03-0400 Respiratory rate 16 /min Fred[facility] [employer] 01-25-2022 23:03-0400 SaO2% (BldA) [Mass fraction] 96 % Fredy Davis MD [facility] 01-25-2022 23:03-0400 Systolic blood pressure 112 mm[Hg] Fredy Davis MD [facility] 12-09-2021 12:17-0400 Body height 162.6 cm Kavita Jurado MD Work Phone: [facility] 12-09-2021 12:17-0400 Body mass index (BMI) [Ratio] 29.35 kg/m2 Kavita Jurado MD Work Phone: [facility] [employer] 12-09-2021 12:17-0400 Body temperature 99.9 [degF] Kavita Jurado MD Work Phone: [facility] 12-09-2021 12:17-0400 Body weight 77.56 kg Kavita Jurado MD Work Phone: [facility] 12-09-2021 12:17-0400 Diastolic blood pressure 93 mm[Hg] Kavita Jurado MD Work Phone: [facility] [employer] 12-09-2021 12:17-0400 Heart rate 118 /min Kavita Jurado MD Work Phone: [facility] [employer] 12-09-2021 12:17-0400 Respiratory rate 18 /min Kavita Jurado MD Work Phone: [facility] [employer] 12-09-2021 12:17-0400 SaO2% (BldA) [Mass fraction] 98 % Kavita Jurado MD Work Phone: [facility] [employer] 12-09-2021 12:17-0400 Systolic blood pressure 160 mm[Hg] Kavita Jurado MD Work Phone: [facility] [employer] 12-01-2021 11:28-0400 Body mass index (BMI) [Ratio] 29.87 kg/m2 Vernell Baltazaryony LOPEZ [employer]OU[employer]IVER SALESPERSON Work Phone: [facility] [employer] 12-01-2021 11:28-0400 Body temperature 98.91 [degF] Vernell Baltazar [employer] Work Phone: [facility] [employer] 12-01-2021 11:28-0400 Body weight 78.93 kg Vernell Baltazar [employer] Work Phone: [facility] [employer] 12-01-2021 11:28-0400 Diastolic blood pressure 112 mm[Hg] Vernell Baltazar KNOT B[employer]ER [employer]OUTE DRIVER SALESPERSON Work Phone: [facility] [employer] 12-01-2021 11:28-0400 Heart rate 112 /min Vernell Baltazar [employer] Work Phone: [facility] [employer] 12-01-2021 11:28-0400 Respiratory rate 16 /min Vernell Baltazar [employer] Work Phone: [facility] [employer] 12-01-2021 11:28-0400 SaO2% (BldA) [Mass fraction] 98 % Vernell Baltazar [employer] Work Phone: [facility] [employer] 12-01-2021 11:28-0400 Systolic blood pressure 149 mm[Hg] Vernell Baltazar Niche ROUTE DRIVER SALESPERSON Work Phone: [facility] [employer] 09-18-2020 13:15-0400 Diastolic blood pressure 71 mm[Hg] Eric Contreras MD Work Phone: [employer] Work Phone: 09-18-2020 13:15-0400 Heart rate 80 /min Eric Contreras MD Work Phone: [employer] Work Phone: 09-18-2020 13:15-0400 Respiratory rate 18 /min Eric Contreras MD Work Phone: [employer] Work Phone: 09-18-2020 13:15-0400 SaO2% (BldA) [Mass fraction] 95 % Eric Contreras MD Work Phone: [employer] Work Phone: 09-18-2020 13:15-0400 Systolic blood pressure 135 mm[Hg] Eric oCntreras MD Work Phone: [employer] Work Phone: 09-18-2020 12:30-0400 Body temperature 98.01 [degF] Eric Contreras MD Work Phone: [employer] Work Phone: 09-18-2020 09:43-0400 Body height 162.6 cm Eric Contreras MD Work Phone: [employer] Work Phone: 09-18-2020 09:43-0400 Body mass index (BMI) [Ratio] 30.66 kg/m2 Eric Contreras MD Work Phone: [employer] Work Phone: 09-18-2020 09:43-0400 Body weight 81.01 kg Eric Contreras MD Work Phone: [employer] Work Phone: 01-06-2019 00:07-0400 BP Diastolic 97 mm[Hg] Holger [employer] [place] 01-06-2019 00:07-0400 BP Systolic 165 mm[Hg] Hloger Marshall [facility] [place] 01-05-2019 22:18-0400 Body Temperature 97.7 [degF] [facility]ger Marshall [facility] [place] 01-05-2019 22:18-0400 Pulse (Heart Rate) 88 /min Holger Marshall [facility] [place] 01-05-2019 22:18-0400 Pulse Oximetry 99 % Holger Marshall [facility] [place] 01-05-2019 22:18-0400 Respiratory Rate 16 /min Holger Fraizer [facility] [place] HDONNIE Encounters Encounter Date Encounter Type Care Provider Facility Start: 06-09-2024 ambulatory Shyann zepeda MD Facility[facility] Start: 04-22-2024 End: 04-22-2024 ambulatory Shyann Maria MD [facility] Start: 01-16-2024 End: 01-16-2024 ambulatory SHYANN MARIA [facility] Start: 01-16-2024 End: 01-16-2024 Subsequent hospital visit by physician Vernell Ackerman K[employer] - [employer] Work Phone: [facility] Start: 01-14-2024 End: 01-14-2024 ambulatory SHYANN MARIA [facility] Start: 01-14-2024 End: 01-14-2024 Subsequent hospital visit by physician Vernell Ackerman KNOT BORER - [employer]OUTE DRIVER SALESPERSON Work Phone: [facility] Comment on above: Other fatigue Start: 12-25-2023 End: 12-25-2023 ambulatory Vernell Ackerman KNOT BORER-ROUTE DRIVER SALESPERSON [facility] Start: 12-18-2023 End: 12-18-2023 ambulatory SHYANN MARIA [facility] Start: 12-18-2023 End: 12-18-2023 Subsequent hospital visit by physician Vernell Ackerman K[employer] BORER - [employer]OUTE DRIVER SALESPERSON Work Phone: [facility] Start: 09-23-2023 End: 09-23-2023 Office outpatient new 30 minutes Lucia Campos OD Work Phone: [facility] Comment on above: Dry eye syndrome of both eyes (Primary Dx); Eyestrain, bilateral; Presbyopia Start: 08-22-2023 ambulatory Shyann zepeda MD Facility:[facility] Start: 07-03-2023 End: 07-03-2023 ambulatory SHYANN [facility] Start: 06-30-2023 End: 06-30-2023 ambulatory Shyann Maria MD Facility:[facility] Start: 11-28-2022 End: 11-28-2022 Subsequent [facility] Comment on above: B12 deficiency (Prim anna Dx) Start: 11-27-2022 End: 11-27-2022 Subsequent hospital visit by physician [facility] Schedule [facility] Comment on above: B12 deficiency (Prim anna Dx) Start: 09-13-2022 End: 09-15-2022 Subsequent hospital visit by physician [facility] Comment on above: Abnormality of right breast on screening mammogram Start: 09-04-2022 End: 09-04-2022 Subsequent hospital visit by physician Vernell Ackerman APRN - ROUTE DRIVER SALESPERSON Work Phone: [facility] Comment on above: Weight gain; Diabetes mellitus screening; Lipid screening Start: 08-29-2022 AUDIT Referring Prov ider Unknown [facility] Work Phone: Start: 08-29-2022 End: 08-31-2022 Subsequent hospital visit by physician [facility] Comment on above: Other screening mamm ogram Start: 07-25-2022 ambulatory Gokul Rezaee Facility:[id number] Start: 05-24-2022 ambulatory PCP UNKNOWN Facility:[id number] Start: 05-10-2022 Telephone encounter Mikey wilson MD Work Phone: Gastroenterology Comment on above: Received Outside Med ical Records (Outside ENT report) Start: 05-10-2022 ambulatory Gokul Rezaee Facility:[id number] Start: 05-09-2022 Orders Only Sena Chaudhari RN Interna l Medicine [facility] Comment on above: Iron deficiency anem ia, unspecified iron deficiency anemia type (Primary Dx); Intestinal malabsorption, unspecified type Start: 05-07-2022 Orders Only Ashley woodruff APRN.ROUTE DRIVER SALESPERSON Work Phone: Gastroenterology Comment on above: Iron deficiency anem ia, unspecified iron deficiency anemia type (Primary Dx) Start: 04-26-2022 Office consultation new/estab patient 60 min Referring Provider Unknown [facility] 2[facility] Work Phone: Start: 04-26-2022 ambulatory Kimberly Butler Facility:[id number] Start: 04-25-2022 End: 04-25-[address] NATALIE BARAHONA Facility:[facility] Start: 04-16-2022 End: 04-16-2022 Emergency department patient visit AGNIESZKA FROST Facility:[facility] Start: 04-16-2022 End: 04-17-2022 ambulatory MIKEY BRITO Facility:[facility] Start: 04-16-2022 End: 04-16-2022 ambulatory MIKEY BRITO Facility:[facility] Start: 04-16-2022 End: 04-16-2022 Patient encounter procedure Mikey Brito MD Work Phone: Gastroenterology Comment on above: Ulcerative pancoliti s with rectal bleeding (HCC) (Primary Dx); History of endoscopy Start: 04-08-2022 End: 04-08-2022 ambulatory MIKEY BRITO Facility:[facility] Start: 04-08-2022 End: 04-08-2022 Subsequent hospital visit by physician Mikey Brito MD Work Phone: Gastroenterology Comment on above: Ulcerative pancoliti s with rectal bleeding (HCC) [K51.011] Start: 04-05-2022 End: 04-05-2022 ambulatory BRENTON YUSUFSERGIO Facility:[facility] Start: 04-01-2022 Telephone encounter Natanael [facility] Comment on above: Appointment Start: 03-11-2022 End: 03-12-[address] DIMITRI ASKEW Facility:[facility] Start: 03-06-2022 End: 03-06-2022 Subsequent hospital visit by physician Vernell Ackerman K[employer] BORER - ROUTE DRIVER SALESPERSON Work Phone: [facility] Start: 02-26-2022 End: 02-27-2022 ambulatory JOSE R GILMORE Facility:[facility] Start: 02-26-2022 End: 02-27-2022 ambulatory MIKEY BRITO Facility:[facility] Start: 02-26-2022 End: 02-26-2022 Patient encounter procedure Mikey Brito MD Work Phone: Gastroenterology Comment on above: Ulcerative pancoliti s with rectal bleeding (HCC) (Primary Dx); History of endoscopy; Imaging of gastrointestinal tract abnormal Start: 02-22-2022 End: 02-22-2022 ambulatory ZEE MCCANN Facility:[facility] Start: 02-19-2022 End: 02-19-[address] NATALIE BARAHONA Facility:[facility] Start: 02-15-2022 End: 02-15-[address] NATALIE BARAHONA Facility:[facility] Start: 02-08-2022 End: 02-08-[address] NATALIE BARAHONA Facility:[facility] Start: 01-28-2022 End: 01-28-2022 Emergency department patient visit Alexa J Dmitry DOWNEY Work Phone: [facility] ED Comment on above: Acute bacterial conj unctivitis of right eye (Primary Dx); Acute iritis of right eye Start: 01-25-2022 End: 01-25-2022 Emergency department patient visit Fredy Davis MD [facility] Comment on above: Chest pain, unspecif ied type (Primary Dx) Start: 01-23-2022 End: 01-23-2022 Subsequent hospital visit by physician Vernell Ackerman APRN - ROUTE DRIVER SALESPERSON Work Phone: [facility] Start: 12-09-2021 End: 12-09-2021 Emergency department patient visit Kavita Jurado MD Work Phone: [facility] Comment on above: Abdominal pain, unsp ecified abdominal location (Primary Dx) Start: 12-01-2021 End: 12-01-2021 Emergency department patient visit Vernell Ackerman K[employer]ER - [employer]OUTE DRIVER SALESPERSON Work Phone: [facility] Comment on above: Generalized abdomina l pain (Primary Dx); History of colitis Start: 09-18-2020 End: 09-18-2020 Subsequent hospital visit by physician Eric Contreras MD Work Phone: [facility] OR Comment on above: S/P left knee arthro scopy (Primary Dx) Start: 09-11-2020 End: 09-15-2020 Patient encounter status [facility] PRE ADMIT Start: 09-11-2020 End: 09-15-2020 Subsequent hospital visit by physician Shirley Covid19 Pat Screening Schedule [facility] PRE ADMIT Comment on above: Preoperative testing Start: 09-01-2020 End: 09-01-2020 Subsequent hospital visit by physician WILLIAM EKG Start: 01-05-2019 End: 01-06-2019 Emergency department patient visit Holger Olivares Work Phone: [facility] Comment on above: Other migraine witho ut status migrainosus, not intractable (Primary Dx) Start: 05-13-2012 Documentation procedure Mnoique Cabrales [place] Work Phone: [facility] Start: 05-13-2012 Historic EMR Ida Samra figueroae Work Phone: [facility] Start: 07-01-2007 Documentation procedure Gabe Alcala MD Work Phone: [facility] Start: 07-01-2007 Historic EMR Gabe colon MD Work Phone: [facility] Procedures Date Procedure Procedure Detail Performing Clinician Start: 01-14-2024 Assay of thyroid stimulating hormone tsh Vernell Ackerman K[employer] - [employer]IVER SALESP[employer] Work Phone: Start: 01-14-2024 C-reactive protein Gabriel Maria MD Work Phone: Start: 12-18-2023 Comprehensive metabo lic panel Shyann Maria MD Work Phone: Start: 06-30-2023 Colonoscopy Vernell Duvall [employer]ER - [employer]OU[employer] DRIVER SALESPERSON Work Phone: Start: 09-13-2022 Diagnostic mammograp hy computer-aided detcj uni Vernell Newmaner K[employer]ER - ROUTE DRIVER SALESPERSON Work Phone: Start: 09-04-2022 Lipid panel Vernell Ackerman K[employer]ER - ROUTE DRIVER SALESPERSON Work Phone: Start: 09-04-2022 End: 09-04-2022 Cortisol total Vernell Ackerman APR N - ROUTE DRIVER SALESPERSON Work Phone: Start: 08-29-2022 Screening mammograph y bi 2-view breast inc cad Vernell Ackerman K[employer] B[employer]ER - ROUTE DRIVER SALESPERSON Work Phone: Start: 04-08-2022 Colonoscopy flx dx w /collj spec when pfrmd Mikey Brtio MD Work Phone: Start: 04-08-2022 Colonoscopy Mikey wilson MD Work Phone: Start: 03-06-2022 Assay of free thyroxine Unknown Provider Result Start: 01-25-2022 Assay of troponin quantitative Fredy Davis MD Start: 01-25-2022 Ct thorax w/contrast material Fredy Davis MD Start: 01-25-2022 COVID-19, RAPID Fredy mendes MD Start: 01-25-2022 Radiologic exam ches t single view Fredy Davis MD Start: 01-25-2022 Basic metabolic pane l calcium total Fredy Davis MD Start: 01-25-2022 Hepatic function panel Fredy Davis MD Start: 01-25-2022 Ecg routine ecg w/le ast 12 lds w/i&r Fredy Davis MD Start: 01-23-2022 Blood count complete auto&auto difrntl wbc Shyann Maria MD Work Phone: Start: 12-09-2021 Basic metabolic pane l calcium total Kavita Jurado MD Work Phone: Start: 12-09-2021 Hepatic function panel Kavita Jurado MD Work Phone: Start: 12-01-2021 Ct abdomen & pelvis w/contrast material Jesse KOCH-Mitchell Work Phone: Start: 12-01-2021 Comprehensive metabo lic panel Jesse Campos PA-C Work Phone: Start: 12-01-2021 Urine test visual color cmprsn meths Jesse KOCH-C Work Phone: Start: 12-01-2021 Urnls dip stick/tabl et reagent auto microscopy Jesse Campos PA-C Work Phone: Start: 09-11-2020 COVID-19 Bandar garcia MD Work Phone: Start: 09-01-2020 Basic metabolic pane l calcium total Eric Contreras MD Work Phone: Start: 09-01-2020 Ecg routine ecg w/le ast 12 lds w/i&r Eric Contreras MD Work Phone: Start: 05-13-2012 CYTOLOGY NON-ANESTHESIOLOGY TECH, CONVERTED Ida Hampton Work Phone: Start: 07-01-2007 SURGICAL PATHOLOGY, CONVERTED Gabe Alcala MD Work Phone: Plan of Treatment Date Care Activity Detail Author Start: 2034 Hepatitis B Vaccine (1 of 3 - Risk 3-dose series) Hepatitis B Vaccine (1 of 3 - Risk 3-dose series) Start: 06-30-2033 Screening for malignant neoplasm of colon [employer] [facility] Start: 09-05-2027 Lipid panel Lipids [facility] [employer] Start: 09-04-2025 Diabetes screen Diabetes screen [facility] [employer] Start: 04-16-2025 DIABETES SCREEN DIABETES SCREEN Start: 04-16-2025 Diabetes Screening Diabetes Screening Start: 12-31-2024 Depression Monitoring Depression Monitoring [employer] [facility] Start: 10-01-2024 Depression Monitoring Depression Monitoring [employer] Start: 09-22-2024 Tobacco Screening Tobacco Screening [facility] Start: 09-13-2024 Screening for malignant neoplasm of breast Breast cancer screen [employer] [facility] Start: 04-05-2024 End: 04-05-2024 Patient encounter procedure 04/05/2024 9:40 AM EST Office Visit [facility] [address] [place] [address] Vernell Ackerman, JOHN - ROUTE DRIVER SALESPERSON [address] [place] [address] [facility] Start: 01-22-2024 COVID-19 Vaccine (#1) COVID-19 Vaccine (#1) [employer] Comment on above: Postponed from 12/30/1979 (Patient Does Not Have Time) Start: 01-22-2024 DTaP/Tdap/Td vaccine (1 - Tdap) DTaP/Tdap/Td vaccine (1 - Tdap) [facility] Comment on above: Postponed from 1993 (Patient Refus ed) Start: 01-22-2024 Hepatitis B vaccine (1 of 3 - 19+ 3-dose series) Hepatitis B vaccine (1 of 3 - 19+ 3-dose series) [facility] [employer] [facility] Comment on above: Postponed from 1993 (Patient Refus ed) Start: 01-22-2024 Hepatitis B vaccine (1 of 3 - 3-dose series) Hepatitis B vaccine (1 of 3 - 3-dose series) [facility] Comment on above: Postponed from 1974 (Patient Refus ed) Start: 01-22-2024 Hepatitis C screening Hepatitis C screen [facility] Comment on above: Postponed from 1992 (Patient Refus ed) Start: 01-22-2024 HIV screening HIV screen [facility] Comment on above: Postponed from 1989 (Patient Refus ed) Start: 01-22-2024 Pneumococcal 0-64 years Vaccine (1 of 2 - PCV) Pneumococcal 0-64 years Vaccine (1 of 2 - PCV) [facility] Comment on above: Postponed from 1980 (Patient Does Not Have Time) Start: 01-11-2024 Influenza vaccination Influenza Vaccine [employer] Start: 01-01-2024 End: 01-01-2024 Patient encounter procedure 01/01/2024 10:00 AM EDT Office Visit [facility] [address] [place] [id number] Vernell Ackerman, JOHN - JAIRO [address] [place] [address] 3 month [facility] Comment on above: 3 month Start: 12-11-2023 Influenza vaccination Flu vaccine (#1) [facility] [employer] [facility] Start: 10-17-2023 Depression Monitoring Depression Monitoring [facility] [employer] Start: 10-03-2023 Shingles vaccine (1 of 2) Shingles vaccine (1 of 2) [facility] [employer] [facility] Comment on above: Postponed from 1993 (Patient Refus ed) Start: 07-16-2023 Depression Monitoring Depression Monitoring [employer] Start: 04-08-2023 Colonoscopy COLONOSCOPY Start: 04-08-2023 COLORECTAL CANCER SCREENING COLORECTAL CANCER SCREENING Start: 02-28-2023 Depression Monitoring Depression Monitoring [employer] Start: 01-29-2023 Influenza vaccination [facility] [employer] Comment on above: Postponed from 12/10/2021 (Patient Refus ed) Postponed from 12/10 (Patient Refused) Start: 01-20-2023 End: 01-20-2023 Patient encounter procedure 01/20/2023 [place] [address] [place] [address] [facility] Part of [facility] Start: 01-16-2023 End: 01-16-2023 Patient encounter procedure 01/16/2023 Office Visit Primary Care Vernell Ackerman, KNOT BORER - ROUTE DRIVER SALESPERSON [address] [place] [address] [facility] Start: 01-10-2023 Influenza vaccination Influenza Vaccine (#1) [facility] Start: 12-11-2022 Depression Screen Depression Screen [employer]TH Start: 12-11-2022 Screening for malignant neoplasm of cervix Cervical cancer screen [facility] [employer] Comment on above: Postponed from 12/30/1995 (Not Indicated ) Start: 12-10-2022 Influenza vaccination Flu vaccine (#1) [employer] [facility] Start: 11-29-2022 End: 11-29-2022 Patient encounter procedure 11/29/2022 Appointment Infusion Therapy [facility] Start: 11-28-2022 End: 11-28-2022 Patient encounter procedure 11/28/2022 Appointment Infusion Therapy [facility] Start: 11-07-2022 COVID-19 Vaccine (#1) COVID-19 Vaccine (#1) [facility] [employer] Comment on above: Postponed from 07/01/1975 (Patient Refus ed) Start: 11-07-2022 Depression Screen Depression Screen [facility] [employer] ALTH Start: 11-07-2022 DTaP/Tdap/Td vaccine (1 - Tdap) DTaP/Tdap/Td vaccine (1 - Tdap) [facility] Comment on above: Postponed from 1993 (Patient Refus ed) Start: 11-07-2022 Hepatitis C screening Hepatitis C screen [facility] Comment on above: Postponed from 1992 (Patient Refus ed) Start: 11-07-2022 HIV screening HIV screen [facility] [employer] ALTH Comment on above: Postponed from 1989 (Patient Refus ed) Start: 11-07-2022 Pneumococcal 0-64 years Vaccine (1 - PCV) Pneumococcal 0-64 years Vaccine (1 - PCV) [facility] Comment on above: Postponed from 1980 (Patient Refus ed) Start: 10-24-2022 End: 10-24-2022 Patient encounter procedure 10/24/2022 [place] [address] [place], [place] [id number] [facility] Part of [facility] Start: 09-13-2022 End: 09-13-2022 Patient encounter procedure 09/13/2022 Appointment Radiology Radiologist, [facility] Mammography Start: 09-05-2022 End: 09-05-2022 Patient encounter procedure 09/05/2022 [place] [address] [place] [address] [facility] of [facility] Start: 05-17-2022 LAWSON, Provider: Gokul Voss, Status: Pen, Time: 12:00 PM LAWSON, Provider: Gokul Voss, Status: Pen, Time: 12:00 PM [facility] Work Phone: Start: 05-12-2022 DEPRESSION ASSESSMENT DEPRESSION ASSESSMENT Start: 04-01-2022 End: 04-01-2022 Patient encounter procedure 04/01/2022 Office Visit Primary Care Baltazar, Vernell Banks, KNOT BORER - ROUTE DRIVER SALESPERSON [address] [place] [address] [facility] Start: 02-26-2022 End: 04-28-2022 25-hydroxyvitamin D3 [Mass/volume] in Serum or Plasma VITAMIN D 25 HYDROXY Lab Routine Ulcerative pancolitis with rectal bleeding (HCC) Expected: 02/26/2022, Expires: 04/28/2022 [facility] Work Phone: Comment on above: Expected: 02/26/2022, Expires: 2 Start: 02-26-2022 End: 04-28-2022 BLOOD TB SCREEN BLOOD TB SCREEN Lab Routine Ulcerative pancolitis with rectal bleeding (HCC) Expected: 02/26/2022, Expires: 04/28/2022 [facility] Work Phone: Comment on above: Expected: 02/26/2022, Expires: 2 Start: 02-26-2022 End: 04-28-2022 C reactive protein [Mass/volume] in Serum or Plasma C-REACTIVE PROTEIN (CRP) Lab Routine Ulcerative pancolitis with rectal bleeding (HCC) Expected: 02/26/2022, Expires: 04/28/2022 [facility] Work Phone: Comment on above: Expected: 02/26/2022, Expires: 2 Start: 02-26-2022 End: 04-28-2022 CBC W Auto Differential panel - Blood CBC + DIFF Lab Routine Ulcerative pancolitis with rectal bleeding (HCC) Expected: 02/26/2022, Expires: 04/28/2022 [facility] Work Phone: Comment on above: Expected: 02/26/2022, Expires: 2 Start: 02-26-2022 End: 04-28-2022 Comprehensive metabolic 2000 panel - Serum or Plasma COMP METABOLIC PANEL Lab Routine Ulcerative pancolitis with rectal bleeding (HCC) Expected: 02/26/2022, Expires: 04/28/2022 [facility] Work Phone: Comment on above: Expected: 02/26/2022, Expires: 2 Start: 02-26-2022 End: 04-28-2022 Erythrocyte sedimentation rate SED RATE WESTERGREN Lab Routine Ulcerative pancolitis with rectal bleeding (HCC) Expected: 02/26/2022, Expires: 04/28/2022 [facility] Work Phone: Comment on above: Expected: 02/26/2022, Expires: 2 Start: 02-26-2022 End: 04-28-2022 Hepatitis B virus surface Ab [Presence] in Serum by Immunoassay HEP B SURF AG SCRN Lab Routine Ulcerative pancolitis with rectal bleeding (HCC) Expected: 02/26/2022, Expires: 04/28/2022 [facility] Work Phone: Comment on above: Expected: 02/26/2022, Expires: 2 Start: 02-26-2022 End: 04-28-2022 Iron and Iron binding capacity panel - Serum or Plasma IRON + TIBC Lab Routine Ulcerative pancolitis with rectal bleeding (HCC) Expected: 02/26/2022, Expires: 04/28/2022 [facility] Work Phone: Comment on above: Expected: 02/26/2022, Expires: 2 Start: 02-26-2022 End: 04-28-2022 Transferrin [Mass/volume] in Serum or Plasma TRANSFERRIN BLD Lab Routine Ulcerative pancolitis with rectal bleeding (HCC) Expected: 02/26/2022, Expires: 04/28/2022 [facility] Work Phone: Comment on above: Expected: 02/26/2022, Expires: 2 Start: 01-29-2022 End: 01-29-2022 Patient encounter procedure 01/29/2022 Office Visit Primary Care Baltazar, Vernell Banks APRN - ROUTE DRIVER SALESPERSON [address] [place] [address] [facility] Start: 01-10-2022 Influenza vaccination [facility] Start: 12-27-2021 End: 12-27-2021 Patient encounter procedure 12/27/2021 Office Visit Gastroenterology Yina Montana MD [facility] [place] [address] [place] [address] [facility] Gastroenterology Start: 12-11-2021 End: 12-11-2021 Patient encounter procedure 12/11/2021 Office Visit Primary Care Vernell Ackerman, KNOT BORER - ROUTE DRIVER SALESPERSON [address] [place] [address] [facility] Start: 05-12-2021 DEPRESSION ASSESSMENT DEPRESSION ASSESSMENT Start: 01-10-2021 Influenza vaccination Flu vaccine (Season Ended) [facility] Work Phone: Start: 09-18-2020 End: 09-18-2020 Admission to same day surgery center 09/18/2020 Surgery IP Unit Eric Contreras MD [address] [place] [id number] [phone] KNEE ARTHROSCOPY, LATERAL MENISCECTOMY, MEDIAL MENISCUS ROOT REPAIR [facility] Comment on above: KNEE ARTHROSCOPY, LATERAL MENISCECTOMY, MEDIAL MENISCUS ROOT REPAIR Start: 09-18-2020 End: 09-18-2020 Anesthesia consultation 09/18/2020 Anesthesia Event IP Unit Mary Kate Dangelo, KNOT BORER - TECHNOLOGY PROGRAM MANAGER [address] [place] [address] [phone] [facility] Start: 09-18-2020 Subsequent hospital visit by physician 09/18/2020 Hospital Encounter IP Unit Eric Contreras MD [address] [place] [id number] [phone] [facility] Start: 12-30-2019 COLOGUARD (FIT-DNA) COLOGUARD (FIT-DNA) Start: 12-30-2019 Colonoscopy COLONOSCOPY Start: 12-30-2019 COLORECTAL CANCER SCREENING COLORECTAL CANCER SCREENING Start: 12-30-[address] COLONOGRAPHY Start: 12-30-2019 DIABETES SCREEN DIABETES SCREEN Start: 12-30-2019 FECAL OCCULT BLOOD FECAL OCCULT BLOOD Start: 12-30-2019 Lipid 1996 panel - Serum or Plasma Lipid Screening Start: 12-30-2019 LIPID SCREEN LIPID SCREEN Start: 12-30-2019 Screening for malignant neoplasm of colon [facility] Start: 12-30-2019 SIGMOIDOSCOPY SIGMOIDOSCOPY Start: 01-10-2019 Influenza vaccination Flu vaccine (#1) [facility] [place] Start: 2014 Diabetes screen Diabetes screen [place], [place] Start: 2014 [facility] Start: 2014 Lipid screen Lipid screen [place], [place] Start: 2014 Mammography Start: 2009 Diabetes screen Diabetes screen [facility] Start: 2004 HPV TESTING HPV TESTING Start: 2004 Screening for malignant neoplasm of cervix [facility] Start: 12-30-1995 Cervical cancer screen Cervical cancer screen [place], [place] Start: 12-30-1995 PAP TESTING PAP TESTING Start: 12-30-1995 Screening for malignant neoplasm of cervix [facility] Start: 1993 DTaP,Tdap and Td Vaccines (1 - Tdap) DTaP,Tdap and Td Vaccines (1 - Tdap) [facility] Start: 1993 DTaP/Tdap/Td vaccine (1 - Tdap) DTaP/Tdap/Td vaccine (1 - Tdap) [facility] Start: 1993 Hepatitis A Vaccine (1 of 2 - Risk 2-dose series) Hepatitis A Vaccine (1 of 2 - Risk 2-dose series) Start: 1993 Shingles vaccine (1 of 2) Shingles vaccine (1 of 2) [facility] Start: 1993 Urine microalbumin profile Start: 1992 Adult BMI Screening Adult BMI Screening [facility] [employer] Start: 1992 HEPATITIS C SCREENING HEPATITIS C SCREENING Start: 1992 Hepatitis C screening Hepatitis C screen [facility] Start: 1992 HIV SCREENING HIV SCREENING Start: 1992 MMR Vaccine (1 of 2 - Risk 2-dose series) MMR Vaccine (1 of 2 - Risk 2-dose series) Start: 1990 COVID-19 Vaccine (1) COVID-19 Vaccine (1) [facility] Work Phone: Start: 1989 HIV screen HIV screen [facility] [place] Start: 1989 HIV screening HIV screen [facility] Start: 1986 Depression Screening Depression Screening [facility] [employer] Start: 1984 Meningococcal B Vaccine: Consider Based On Risk (1 of 4 - Increased Risk) Meningococcal B Vaccine: Consider Based On Risk (1 of 4 - Increased Risk) Start: 1980 Pneumococcal 0-64 years Vaccine (1 - PCV) Pneumococcal 0-64 years Vaccine (1 - PCV) [facility] Start: 1980 Pneumococcal 0-64 years Vaccine (1 of 1 - PPSV23) Pneumococcal 0-64 years Vaccine (1 of 1 - PPSV23) [place], [place] Start: 07-01-1975 COVID-19 VACCINE (#1) COVID-19 VACCINE (#1) Start: 1974 HEPATITIS B (1 of 3 - 3-dose series) HEPATITIS B (1 of 3 - 3-dose series) Start: 1974 Hepatitis C screening Hepatitis C screen [facility] Phone: End: 01-14-2024 Adalimumbab Lvl + AB [facility] [employer] Work Phone: Comment on above: Once for 1 Occurrences starting 01/14/20 24 until 01/14/2024 Calprotectin [Mass/mass] in Stool CALPROTECTIN,FECAL Lab Routine Ulcerative pancolitis with rectal bleeding (HCC) Ordered: 04/16/2022 [facility] Work Phone: Comment on above: Ordered: 04/16/2022 End: 01-16-2024 Calprotectin Stool JADE [employer] ALICIA Work Phone: Comment on above: Once for 1 Occurrences starting 01/16/20 24 until 01/16/2024 End: 02-26-2023 COLONOSCOPY DIAGNOSTIC COLONOSCOPY DIAGNOSTIC Endoscopy Routine Ulcerative pancolitis with rectal bleeding (HCC) 1 Occurrences starting 02/26/2022 until 02/26/2023 [facility] Work Phone: Comment on above: 1 Occurrences starting 02/26/2022 until 02/26/2023 EKG 12 Lead EKG 12 Lead ECG STAT 01/25/2022 8:25 PM EDT [employer] End: 01-14-2024 Ferritin [Mass/volume] in Serum or Plasma [employer] Comment on above: Once for 1 Occurrences starting 01/14/20 24 until 01/14/2024 End: 09-04-2022 Hemoglobin A1c/Hemoglobin.total in Blood [employer] Work Phone: Comment on above: 1 Occurrences starting 09/04/2022 until 09/04/2022 End: 01-14-2024 Iron and TIBC [employer] MARAL Comment on above: 1 Occurrences starting 01/14/2024 until 01/14/2024 Oxygen therapy [Minimum Data Set] Initiate Oxygen Therapy Protocol Respiratory Care Routine Daily until discontinued starting 09/18/2020 [employer] Work Phone: Comment on above: Daily until discontinued starting 2020 Phase I & II - metered glucose Phase I & II - metered glucose Point of Care Testing Routine As Needed until discontinued starting 09/18/2020 [employer] Phone: Comment on above: As Needed until discontinued starting SURGICAL PATHOLOGY [facility] Work Phone: Comment on above: Release Upon Ordering for 1 Occurrences starting 04/08/2022, 1 completed End: 12-09-2021 Urinalysis with Microscopic Urinalysis with Microscopic Lab STAT One Time for 1 Occurrences starting 12/09/2021 until 12/09/2021 [employer] Work Phone: Comment on above: One Time for 1 Occurrences starting 11/11 until 12/09/2021 End: 01-14-2024 Vitamin B12 & Folate [employer] [facility] Comment on above: 1 Occurrences starting 01/14/2024 until 01/14/2024 End: 01-14-2024 Vitamin D 25 Hydroxy JADE [employer] [facility] Comment on above: 1 Occurrences starting 01/14/2024 until 01/14/2024 [facility] Payers Date Payer Category Payer Unknown 2020 Medicaid [id number] 2018 Unknown [facility] xxxxxxxxxxxx 2018-Present [phone] [address] [place] [address] xxxxxxxxxxxx [id number] 1974 Unknown [id number] 2..[id number] 1974 Unknown [id number] .840.1.400629.3.579.2.593 1974 Unknown [id number] ..[id number] 1974 Unknown [id number] 2.16.840.1.303430.3.579.2.593 1974 Unknown [id number] 2.16.840.1.918108.3.579.2.593 1974 Unknown [id number] 2.16.840.1.829428.3.579.2.593 1974 Unknown [id number] 2.16.840.1.129893.3.579.2.593 1974 Unknown [id number] 2.16.840.1.871686.3.579.2.593 1974 Unknown [id number] 2.16.840.1.722195.3.579.2.356 1974 Unknown [id number] 2.16.840.1.918208.3.579.2.356 1974 Unknown [id number] 2.16.840.1.298188.3.579.2.106 8 1974 Unknown [id number] 2.16.840.1.688874.3.579.2.106 8 1974 Unknown [id number] 2.16.840.1.012180.3.579.2.173 1974 Unknown [id number] 2.16840.1.557489.3.579.2.173 1974 Unknown [id number] 2.16.840.1.971969.3.579.2.173 1974 Unknown [id number] 2.16.840.1.102508.3.579.2.173 1974 Unknown [id number] 2.16.840.1.656136.3.579.2.196 1974 Unknown [id number] 2.16.840.1.160900.3.579.2.196 1974 Unknown [id number] 2.16.840.1.377125.3.579.2.196 1974 Unknown [id number] 2.16.840.1.537644.3.579.2.196 1974 Unknown [id number] 2.16.840.1.794210.3.579.2.196 1974 Unknown [id number] 2.16.840.1.885823.3.579.2.196 1974 Unknown [id number] 2.16.840.1.907952.3.579.2.196 1959 Unknown [id number] 1.2.840.727357.1.13.239.2.7.3 .[id number] 1959 Unknown [id number] Social History Date Type Detail Facility Start: 01-05-2019 End: 09-18-2020 Tobacco smoking status [facility] Current every day smoker [place], [place] Start: 05-11-2006 End: 05-11-2021 History of tobacco use Cigarette Sm[place] Start: 01-05-2019 End: 09-24-2023 Cigarettes smoked current (pack per day) - Reported [place] Start: 01-05-2019 End: 09-24-2023 Alcohol intake No [place] Start: 1975 Sex Assigned At Not on file [place] Start: 01-05-2019 End: 04-10-2022 Tobacco use and exposure Never used [employer] Start: 01-05-2019 Alcohol intake Current non-dr scleroscope tester of alcohol (finding) [employer] Phone: Start: 09-08-2020 End: 09-18-2020 Alcohol intake Current drinker of alcohol (finding) [employer] Phone: Start: 09-08-2020 Alcohol Comment rare [employer] [facility] Work Phone: Start: 11-21-2021 End: 08-29-2022 Exposure to SARS-CoV-2 (event) Not sure [employer] Exposure to SARS-CoV -2 (event) Yes [employer] Start: 11-07-2021 End: 04-10-2022 Tobacco smoking status [facility]IS Ex-smoker [employer] Start: 05-11-2006 End: 05-11-2021 History of tobacco use Current smoker [employer] Phone: Start: 12-01-2021 End: 01-01-2024 Alcohol intake Ex-drinker (finding) [employer] Phone: Start: 11-07-2021 End: 07-15-2022 History SDOH Financial 5 [employer] Work Phone: Start: 11-07-2021 End: 07-15-2022 History SDOH Food Worry 1 [employer] Work Phone: [facility] smoking consumption unknown Start: 04-08-2022 Tobacco smoking stat [facility] Never smoked tobacco Start: 07-15-2022 History SDOH Transpo rt Non-Med 2 [employer] Work Phone: National Score (1-10 0), lower number is lower risk 53 (I/We) worried wheth er (my/our) food would run out before (I/we) got money to buy more. Never true [employer] At any time in the p ast 12 months, were you homeless or living in penitentiary [including now]? No [employer] Clinical Notes 09-18-2020 to 09-23-2023 Lucia Campos, MARINO - 09/23/2023 8:40 AM EDTTelephone Encounter - [facility] [place]10/2022 1:49 PM Dilia Brito MD - 04/16/2022 10:30 AM ESTPatient InstructionsDischarge Instructions Note Date & Type Note Facility 09-23-2023 History of Present illness Narrative Diana Venegas 1975 Diagnosis: 1. Dry eye syndrome of both eyes 2. Eyestrain, bilateral 3. Presbyopia Assessment/Plan: Discussed findings and etiology of dry eye syndrome. Recommended Systane Complete QID or prn. Patient advised to call if no improvement with artificial tears to schedule an appointment for further evaluation of their dry eye. Educated patient on frequent breaks on computer. For every 20 minutes take a 20 second break looking at something 20 feet away. This will help relax eyes and reduce eye strain. Updated glasses Rx given to patient today. Follow Up: Return for 2 year comprehensive exam. Chief Complaint: Diana Venegas had concerns including Blurred Vision. HPI Blurred Vision In both eyes. Onset was gradual. Vision is blurred. Occurring constantly. It is worse throughout the day. Context: distance vision and near vision. Since onset it is gradually worsening. Comments She is a previous patient of Dr. Rodriguez Her glasses are older and the vision is not as clear recently. She would like a refraction today and understands the fee. No drops at this time. Last edited by Faby Rodney on 09/23/2023 8:48 AM. ROS Positive for: Eyes Negative for: Constitutional, Gastrointestinal, Neurological, Skin, Genitourinary, Musculoskeletal, HENT, Endocrine, Cardiovascular, Respiratory, Psychiatric, Allergic/Imm, Heme/Lymph Last edited by Faby Rodney on 09/23/2023 8:48 AM. No current outpatient medications on file. (Ophthalmic Drugs) No current facility-administered medications for this visit. (Ophthalmic Drugs) Current Outpatient Medications (Other) Medication Sig ALPRAZolam (XANAX) 0.25 mg tablet TAKE 1 TABLET BY MOUTH THREE TIMES DAILY NEEDED FOR ANXIETY lisinopriL (PRINIVIL,ZESTRIL) 10 mg tablet Take 1 tablet (10 mg total) by mouth in the morning. sertraline (ZOLOFT) 50 mg tablet acetaminophen-codeine (TYLENOL #3) 300-30 mg per tablet Take 1 tablet by mouth every 6 (six) hours as needed. (Patient not taking: Reported on 05/22/2022) amitriptyline (ELAVIL) 10 mg tablet Take 1 tablet (10 mg total) by mouth nightly. (Patient not taking: Reported on 05/22/2022) mesalamine (LIALDA) 1.2 gram EC tablet take 4 tablets by mouth once daily take with food DO NOT CUT TABLET (Patient not taking: Reported on 05/22/2022) oxyCODONE-acetaminophen (PERCOCET) 5-325 mg per tablet Take 1 tablet by mouth 4 (four) times a day as needed. Max Daily Amount: 4 tablets (Patient not taking: Reported on 05/22/2022) promethazine (PHENERGAN) 12.5 mg tablet TAKE 1 TABLET BY MOUTH EVERY 4 HOURS FOR 30 DAYS NEEDED FOR NAUSEA AND VOMITING (Patient not taking: Reported on 05/22/2022) SUMAtriptan (IMITREX) 50 mg tablet take 1 tablet by mouth if needed AT ONSET OF HEADACHE may repeat in 2 hours IF headache PERSISTS (Patient not taking: Reported on 05/22/2022) VITAMIN D3 50 mcg (2,000 unit) capsule Take 1 capsule (2,000 Units total) by mouth in the morning. (Patient not taking: Reported on 09/23/2023) No current facility-administered medications for this visit. (Other) Ms. Venegas has a past medical history of Allergies, Colitis, and Migraine. She has a past surgical history that includes Tubal ligation; section; and Knee surgery (Bilateral). Base Eye Exam Visual Acuity (Snellen - Linear) Right Left Both Dist cc 20/30 20/25 20/25 Near sc J10 J5 J5 Correction: Glasses Tonometry (Applanation, 9:12 AM) Right Left Pressure 17 17 Pupils Pupils Right PERRL Left PERRL Visual Mcnair (Counting fingers) Right Left Full Full Extraocular Movement Right Left Full, Ortho Full, Ortho Dilation Both eyes: 1.0% Tropicamide, @ 9:10 AM Additional Tests Keratometry (Automated) K1 Cumming K2 Cumming Right 42.50 151 43.50 061 Left 43.75 152 44.00 062 Slit Lamp and Fundus Exam External Exam Right Left External Normal Normal Slit Lamp Exam Right Left Lids/Lashes Normal Normal Conjunctiva/Sclera White and quiet, thin tear film White and quiet, thin tear film Cornea Clear, trace NV Clear, trace NV Anterior Chamber Deep and quiet Deep and quiet Iris Round and reactive Round and reactive Lens Clear Clear Fundus Exam Right Left Vitreous Normal Normal Disc Normal Normal C/D Ratio Vertical 0.4 0.4 C/D Ratio Horizontal 0.4 0.4 Macula Normal Normal Vessels Normal Normal Periphery Retina flat 360 degrees Retina flat 360 degrees Refraction Wearing Rx Sphere Cylinder Cumming Right -2.00 +1.50 002 Left -1.75 +1.25 178 Age: ~7yrs Type: SVL Manifest Refraction (Auto) Sphere Cylinder Cumming Dist VA Add Right -2.25 +1.75 013 Left -2.00 +1.50 175 Manifest Refraction #2 Sphere Cylinder Cumming Dist VA Add Right -2.00 +2.00 011 20/20 +1.75 Left -2.25 +1.75 175 20/20 +1.75 Final Rx Sphere Cylinder Cumming Dist VA Add Right -2.00 +2.00 011 20/20 +1.75 Left -2.25 +1.75 175 20/20 +1.75 Type: PAL suggested - 1st bifocal or separate Expiration Date: 09/22/2025 Scribe Statement: Scribed for and in the presence of Lucia Campos OD by ASHLEE Eastman. Provider Statement: I, Lucia Campos OD personally performed the services described in the documentation, as scribed by ASHLEE Eastman in my presence, and it is both accurate and complete. documented [facility] encounter [facility] Note Patient: Qi Venegas Age: 47 years Sex: Female : 1975 Associated Diagnoses: None Author: Shyann Maria MD Pre-Procedure Procedure Date: 06/30/2023 . Procedure Type: Colonoscopy. Procedure provider: Performed by Shyann Maria MD. Referred by: Shyann Maria MD. Current history and physical: Performed prior to procedure. Informed Consent: After discussing the rationale, risks and benefits, and alternatives to this procedure, the patient provided signed consent for the procedure. Indication: Inflammatory bowel disease. Monitoring: See anesthesia record. Procedure Location: Endo Suite. See anesthesia record for sedation given during procedure. After informed consent, the patient was positioned in the left lateral decubitus position. Digital rectal exam was performed and was normal. The pediatric colonoscope was advanced under direct visualization from the anus to the cecum, confirmed by the presence of the appendiceal orifice and ileocecal valve with ease. The terminal ileum was then intubated and the scope was advanced 10 cm. The scope was then withdrawn and mucosa was carefully examined. The patient's tolerance of the procedure was excellent. The quality the bowel preparation was good. The examined terminal ileum was normal. There were numerous pseudopolyps throughout the colon. The examined colonic mucosa otherwise appeared normal. Biopsies were obtained with a cold biopsy forceps throughout the colon for histology. Retroflexion was performed in the rectum and was normal. . Post-Procedure Complications encountered during the procedure were none. Estimated blood loss during the procedure Minimal. Specimens were sent to pathology. Impression and Plan Notes: Impression: -Normal examined terminal ileum - Extensive pseudopolyps. Biopsied. Recommendations: -Discharge patient to home - Return to referring provider - Await pathology results -repeat colonoscopy in 1 year, unless otherwise indicated by pathology results - Continue current medications -The patient has a contact number available for emergencies. The signs and symptoms of potential delayed complications were discussed with the patient. Return to normal activities tomorrow. Written discharge instructions were provided to the patient. . Electronically signed by Shyann Maria MD 06/30/23 09:11 [facility] 06-30-2023 Note Clinical Information Procedure: EGD, Colonoscopy Pre-operative diagnosis: Ulcerative colitis, iron deficiency anemia SP Specimen A Duodenal Biopsy B Gastric Biopsy C Ascending Colon Biopsy D Transverse Colon Biopsy E Descending Colon Biopsy F Sigmoid Colon Biopsy G Rectal Biopsy Gross Description Part A: Received in formalin labeled 'duodenal biopsy' are three pieces of light tomlin tissue measuring 0.2 to 0.3 cm in greatest dimension. The specimen is entirely submitted in cassette A1. Part B: Received in formalin labeled 'gastric biopsy' are four pieces of light tomlin tissue measuring 0.1 to 0.4 cm in greatest dimension. The specimen is entirely submitted in cassette B1. Part C: Received in formalin labeled 'ascending colon biopsy' are four pieces of light tomlin tissue measuring 0.1 to 0.2 cm in greatest dimension. The specimen is entirely submitted in cassette C1. Part D: Received in formalin labeled 'transverse colon biopsy' are two pieces of light tomlin tissue measuring 0.1 and 0.2 cm in greatest dimension. The specimen is entirely submitted in cassette D1. Part E: Received in formalin labeled 'descending colon biopsy' are five pieces of light tomlin tissue measuring 0.1 to 0.2 cm in greatest dimension. The specimen is entirely submitted in cassette E1. Part F: Received in formalin labeled 'sigmoid colon biopsy' are multiple pieces of light tomlin tissue measuring 0.1 to 0.3 cm in greatest dimension. The specimen is entirely submitted in cassette F1. Part G: Received in formalin labeled 'rectal biopsy' are four pieces of light tomlin tissue measuring 0.2 to 0.5 cm in greatest dimension. The specimen is entirely submitted in cassette G1. Microscopic Description Part A: Sections examined at multiple levels show fragments of duodenal mucosa showing no significant villous shortening. The lamina propria shows a normal amount of chronic inflammatory cells. There is no evidence of acute inflammation or granulomatous disease. There is no evidence of dysplasia or malignancy. There is no evidence of celiac disease. Part B: Sections examined at multiple levels show fragments of gastric mucosa showing lamina propria with mildly increased lymphocytes, plasma cells and scattered eosinophils. The glandular epithelium shows slight reactive changes. There is no evidence of acute inflammation or granulomatous disease. There is no evidence of dysplasia or malignancy. No Helicobacter pylori is seen on the H&E. Parts C/D/E/F/G: Sections show slight glandular distortion and mild chronic inflammation. There is no active colitis. There is no dysplasia or malignancy. There are focal reactive changes to the glandular epithelium in the biopsy from the rectum. Diagnosis Part A: Duodenum, biopsy: Benign small bowel. Negative for celiac disease. Part B: Stomach, biopsy: Mild chronic gastritis. Parts C/D/E/F/G: Ascending colon, transverse colon, descending colon, sigmoid colon and rectum, multiple biopsies: Benign colonic mucosa with mild chronic inflammation consistent with quiescent ulcerative colitis. [id number] [id number] [id number] Noni Dexter MD (Electronically signed by) Verified: 07/03/23 09:55 [facility] Comment on above: Performed By: #### S NE #### [facility] (DEFAULT) [address] [place] [id number] 06-30-2023 Note Patient: Qi Venegas nifyony Cabrales Age: 47 years Sex: Female : 1975 Associated Diagnoses: None Author: Shyann Maria MD Pre-Procedure Procedure Date: 06/30/2023 . Procedure Type: Esophagogastroduodenoscopy. Procedure provider: Performed by Shyann Maira MD. Referred by: Shyann Maria MD. Current history and physical: Performed prior to procedure. Informed Consent: After discussing the rationale, risks and benefits, and alternatives to this procedure, the patient provided signed consent for the procedure. Indication: Diagnostic: iron deficiency . Monitoring: See anesthesia record. Procedure Location: Endo Suite. See anesthesia record for sedation given during procedure. After informed consent, the patient was positioned in the left lateral decubitus position. A gastroscope was advanced in the mouth the second portion of the duodenum under direct visualization without difficulty. The patient's tolerance of the procedure was excellent. The scope was withdrawn mucosa was carefully examined. Retroflexion was performed the stomach and the cardia and fundus were examined. Esophagus was normal. The Z-line was regular. There was mild erythema in the gastric antrum and body. Biopsies were obtained with a cold biopsy forceps per Jackie protocol and evaluation of H. pylori. There was mild erythema in the duodenal bulb and second portion of the duodenum. Biopsies were obtained with a cold biopsy forceps for histology. . Post-Procedure Complications encountered during the procedure were none. Estimated blood loss during the procedure Minimal. Specimens were sent to pathology. Impression and Plan Notes: Impression: -Normal esophagus - Gastric erythema. Biopsied. - Duodenal erythema. Biopsied. Recommendations: -Await pathology results - Outpatient GI follow-up - Proceed with same-day colonoscopy -The patient has a contact number available for emergencies. The signs and symptoms of potential delayed complications were discussed with the patient. Return to normal activities tomorrow. Written discharge instructions were provided to the patient.. Electronically signed by Shyann Maria MD 06/30/23 08:54 [facility] 05-10-2022 Miscellaneous Notes Outside ENT report scanned in [employer] for review (see office note Apr 16) Cara Black documented in this encounter 05-09-2022 Note HNO ID: [id number] Author: Sena Chaudhari RN Service: ? Author Type: Registered Nurse Type: Progress Notes Filed: 05/09/2022 1:03 PM Note Text: Patient referred to Blood Management for evaluation and treatment of pre-surgical anemia and/or iron deficiency. Non-surgical: iron deficiency anemia; malabsorption Date of surgery: NA Medical/Surgical History: No past medical history on file. No past surgical history on file. Other significant Medical/Surgical history: - Nutritional deficiencies - ulcerative colitis Current Outpatient Medications Medication Sig mesalamine (ROWASA) 4 gram/60 mL enema 60 mL by RECTAL route at bedtime as needed. acetaminophen (TYLENOL) 500 mg tablet Take 500 mg by mouth. acetaminophen-codeine (TYLENOL-COD #3) 300-30 mg per tablet Take 1 tablet by mouth every 6 hours as needed. budesonide, enteric coated (ENTOCORT EC) 3 mg 24 hr capsule Take 3 mg by mouth. lisinopril (ZESTRIL, PRINIVIL) 10 mg tablet Take 1 tablet by mouth once daily. carboxymethylcellulose sodium (ARTIFICIAL TEARS, CMC, OPHTHALMIC) Use in eyes. amitriptyline (ELAVIL) 10 mg tablet Take 1 tablet by mouth daily at bedtime. Mesalamine (LIALDA) 1.2 gram EC tablet Take 4 tablets by mouth once daily. Take with food. Do not cut tablet. No current facility-administered medications for this visit. Current medications that may affect iron absorption and/or blood loss: - None Baseline laboratory values: WBC (k/uL) Date Value 04/16/2022 7.84 RBC (m/uL) Date Value 04/16/2022 4.66 Hemoglobin (g/dL) Date Value 04/16/2022 10.5 (L) Hematocrit (%) Date Value 04/16/2022 35.6 (L) MCV (fL) Date Value 04/16/2022 76.4 (L) MCH (pg) Date Value 04/16/2022 22.5 (L) MCHC (g/dL) Date Value 04/16/2022 29.5 (L) RDW-CV (%) Date Value 04/16/2022 16.1 (H) Platelet Count (k/uL) Date Value 04/16/2022 422 (H) MPV (fL) Date Value 04/16/2022 8.5 (L) Iron Date Value Ref Range Status 04/16/2022 28 (L) 41 - 186 ug/dL Final TIBC Date Value Ref Range Status 04/16/2022 354 232 - 386 ug/dL Final Transferrin Saturation Date Value Ref Range Status 04/16/2022 7.9 (L) 15.0 - 57.0 % Final Assess for the need to augment a patient?s natural red blood cell production: - Blood transfusion avoidance - Iron depletion Recommendations according to Blood Management patient care guidelines: - Iron Sucrose 200 mg, IV infusion, dose(s) 4 Total iron deficit using Ganzoni equation = 759 mg (wt 72 kg/goal hgb 12 g/dL) Clinical information is sent to a provider for review and evaluation for treatment. [facility] 04-16-2022 Note HNO ID: [id number] Author: Agnieszka Xiao DO Service: Radiology Author Type: Resident Type: Plan of Care Filed: 04/16/2022 3:44 PM Note Text: Saline EXTRAVASATION NOTE Received call/page around 3:35 to evaluate a possible IV contrast extravasation on patient Diana Venegas. Reportedly, a total of about 20 mL of saline was injected and about 20 mLof it likely infiltrated. Patient was promptly seen and examined. Subjective Patient had no complaints of numbness, tingling, pain, or swelling. Patient had complaints of focal IV site pain Objective Exam of Right and Left Forearms/Hand Skin: no erythema or induration identified Sensation: preserved sensation in radial, median, and ulnar n. distributions bilaterally Strength: hand certified hand therapist 5/5 and symmetric bilaterally Motor: -preserved active/passive forearm pronation/supination bilaterally -preserved active/passive wrist flexion/extension bilaterally -preserved active thumb/pinky opposition bilaterally -preserved active finger abduction/adduction bilaterally -no pain with active or passive movements Pulses: radial pulses were 2+ and symmetric bilateral; capillary refill < 2 sec. bilaterally Assessment AND Plan 46 year old year old female with an IV Contrast Extravasation -Keep afflicted extremity elevated as much as possible for the next 36-48 hours -Apply cold compress initially for symptom relief and transition to warm compresses after 12-24 hours -Patient to be observed in the ED for ~30 minutes to ensure there is no immediate reaction -Patient was instructed to follow-up with their PCP within the next 2-3 days for re-evaluation -Patient was given specific instructions to seek out immediate medical attention should they develop symptoms in the area of extravasation such as, but not limited to, numbness, tingling, pain, weakness, worsening of redness, worsening of swelling, distal extremity weakness, or skin break over/around the site -Assess radial pulse of the afflicted extremity q2-4hours -Assess skin temperature, erythema, and size of extravasation q2-4hours -Plastic surgery should be consulted should symptoms worsen or if there is worsening of objective assessments Electronically Signed by: Agnieszka Xiao DO, PGY2 Diagnostic Time Study Statistician Pager: [phone] April 16, 2022 at 3:42 PM 's Guidelines for Extravasation of Contrast Media: http://author.portals.ccf.org/Port als/108/pdfs/SOP%20EXTRAVASATION.p df For more information regarding Extravasation of Contrast Media, please see the ACR Manual on Contrast Media, specifically pages 18-21 in the link below: [email or web address].acr.org/-/media/ACR/Fi [email or web address]-[email or web address]/Contrast_Me jose enrique.pdf [facility] 04-16-2022 Note HNO ID: [id number] Author: RT Camilo(R) Service: Radiology Author Type: Technologist Type: Progress Notes Filed: 04/16/2022 3:30 PM Note Text: Radiology Service Progress Note DATE OF SERVICE: April 16, 2022 TIME: 3:24 PM PATIENT IDENTITY VERIFICATION COMPLETED USING TWO (2) STANDARD IDENTIFIERS: Name and Date of confirmed by patient verbally and Name and Date of confirmed by identification band. FALL SCREENING: Has the patient had 2 falls in the last year or 1 fall with injury or currently using an Ambulatory Assistive Device (Walker, Cane, Wheelchair, Crutches, etc.)? Emergency Room Patient: Screened in ED PATIENT GENDER DATA: Female. status: : No status: NO. PATIENT RELEVANT IMPLANT DATA REVIEWED: Yes ALLERGIES: Reviewed and unchanged CONTRAST ALLERGY: NO. EXAM: CT -CONTRAST INDUCED NEPHROPATHY RISK FACTORS: Not applicable CREATININE: Creatinine Date Value Ref Range Status 04/16/2022 0.81 0.58 - 0.96 mg/dL Final Estimated Glomerular Filtration Rate Date Value Ref Range Status 04/16/2022 90 >=60 mL/min/1.73m? Final Comment: Estimated Glomerular Filtration Rate (eGFR) is calculated using the 2020 CKD-EPI creatinine equation. This equation utilizes serum creatinine, sex, and age as parameters. The creatinine assay has traceable calibration to isotope dilution-mass spectrometry. Refer to KDIGO guidelines for clinical interpretation. In patients with unstable renal function, e.g. those with acute kidney injury, the eGFR may not accurately reflect actual GFR. P.O.C.T. RESULTS: POC done: Yes, See Lab Tab April 16, 2022 TREATMENT: N/A PERIPHERAL IV DATA: Inpatient - refer to LDA documentation RADIOLOGY DEPARTMENT: CT; Exam(s) Completed: PE Study SIGNATURE: RT Camilo(R) PATIENT NAME: Diana Venegas DATE: April 16, 2022 TIME: 3:24 PM [facility] 04-16-2022 Note HNO ID: [id number] Author: Mikey Brito MD Service: ? Author Type: Physician Type: Progress Notes Filed: 04/16/2022 6:32 PM Note Text: Follow Up Visit 46 year old female with ulcerative pancolitis here for follow-up. Last seen 02/26/2022. Updated history: Changes and test results since last visit: (copied from previous note and reflects today's medical decision making). She had colonoscopy on 04/08/2022, which showed mild colitis in the transverse and descending colon with pseudopolyps. Reports 3 bowel moment, 5 times mucus with blood, lower abdominal pain symptoms which was started Friday. She went to see ophthalmology and was given eye drops for ulcers in eyes. Now reports much improvement. Has appointment with ENT for evaluation of neck mass in 1 week. Current IBD medications: Mesalamine 4.8 gm once daily Current Clinical Symptoms # of bowel movements daily: 3-4 # of liquid stools daily: 5 Consistency: soft Bloody bowel movements: yes Urgency: yes Abdominal pain: yes Abdominal distention: no Nausea/vomiting: nausea from time to time but no vomiting Weight loss over last 3 months: yes: 22lbs General well-being: average PHYSICAL EXAMINATION There were no vitals taken for this visit. General Appearance: alert, oriented x 3, pleasant and in no acute distress Heart:regular rate and rhythm, no murmurs or gallops Abdomen: Not distended. Normal bowel sounds. Soft and non-tender. No masses or organomegaly. Skin: no rashes or lesions Lymph:No cervical, axillary, supraclavicular, or inguinal adenopathy. Colonoscopy 04/08/2022 Impression: - Preparation of the colon was fair. - The examined portion of the ileum was normal. - Mild (Diaz Score 1) left-sided ulcerative colitis. - Pseudopolyps in the entire examined colon with descending colon narrowing. - Non-bleeding external and internal hemorrhoids. - Several biopsies were obtained. Pathology FINAL DIAGNOSIS A. Colon, right, biopsy - Colonic mucosa with architectural distortion (see comment) - Negative for colitis, granulomas and dysplasia B. Colon, transverse, biopsy - Chronic active colitis (see comment) - Negative for granulomas and dysplasia C. Colon, left, biopsy - Chronic active colitis (see comment) - Negative for granulomas and dysplasia - Negative for CMV by immunohistochemistry D. Rectum, biopsy - Rectal mucosa with architectural distortion (see comment) - Negative for proctitis, granulomas and dysplasia Labs TSH on 03/06/22: 0.40 T4:1.14 Hepatic Function Panel: No results found for: ALB, TBILI, CBILI, ALKPHOS, AST, ALT, TPROT Patient-Entered Data Current Outpatient Medications Medication Sig Dispense Refill acetaminophen (TYLENOL) 500 mg tablet Take 500 mg by mouth. acetaminophen-codeine (TYLENOL-COD #3) 300-30 mg per tablet Take 1 tablet by mouth every 6 hours as needed. budesonide, enteric coated (ENTOCORT EC) 3 mg 24 hr capsule Take 3 mg by mouth. lisinopril (ZESTRIL, PRINIVIL) 10 mg tablet Take 1 tablet by mouth once daily. carboxymethylcellulose sodium (ARTIFICIAL TEARS, CMC, OPHTHALMIC) Use in eyes. amitriptyline (ELAVIL) 10 mg tablet Take 1 tablet by mouth daily at bedtime. 30 tablet 2 Mesalamine (LIALDA) 1.2 gram EC tablet Take 4 tablets by mouth once daily. Take with food. Do not cut tablet. 120 tablet 2 No current facility-administered medications for this visit. ALLERGIES Allergen Reactions Egg Derived Other: See Comments Infliximab-Dyyb Anaphylaxis Measles Immune Glob* Other: See Comments Assessment Problem List Items Addressed This Visit Gastrointestinal Ulcerative pancolitis with rectal bleeding (HCC) - Primary Overview Dx with UC (unknown extent) 14-15 years ago was treated briefly with Colazol and PDN and stayed in symptomatic remission until 09/30. Started having symptoms of abdominal pain and bloody diarrhea. She was admitted in the hospital with ASUC flare and treated with rescue therapy (inflectra x 3 induction doses). She had anaphylactic reaction to 3rd dose of Inflectra. Had incomplete colonoscopy to transverse colon during hospitalization. Complains of headaches and CT head shows neck mass (pending further evaluation). 04/16/22: return clinic visit. Reports some pain in the lower abdomen associated with mucus in the stools. Otherwise symptoms are much stable Current IBD medications: Lialda 4.8gm everyday Current Assessment AND Plan Pending blood and stool work up today Continue with Lialda Trial of Rowasa enemas for urgency and increased mucus After pending ENT evaluation-possible plan for VDZ if disease is not controlled on Lailda Colonoscopy in 1 year to assess for disease activity. Relevant Orders CALPROTECTIN,FECAL Other History of endoscopy Overview Colonoscopy 04/08/2022: The terminal ileum appeared normal. Inflammation was found in the left sided colon. This was graded as Diaz Score 1 (mild (more content not included)... [facility] 04-16-2022 History of Present illness Narrative Follow Up Visit 46 year old female with ulcerative pancolitis here for follow-up. Last seen 02/26/2022. Updated history: Changes and test results since last visit: (copied from previous note and reflects today's medical decision making). She had colonoscopy on 04/08/2022, which showed mild colitis in the transverse and descending colon with pseudopolyps. Reports 3 bowel moment, 5 times mucus with blood, lower abdominal pain symptoms which was started Friday. She went to see ophthalmology and was given eye drops for ulcers in eyes. Now reports much improvement. Has appointment with ENT for evaluation of neck mass in 1 week. Current IBD medications: Mesalamine 4.8 gm once daily Current Clinical Symptoms # of bowel movements daily: 3-4 # of liquid stools daily: 5 Consistency: soft Bloody bowel movements: yes Urgency: yes Abdominal pain: yes Abdominal distention: no Nausea/vomiting: nausea from time to time but no vomiting Weight loss over last 3 months: yes: 22lbs General well-being: average PHYSICAL EXAMINATION There were no vitals taken for this visit. General Appearance: alert, oriented x 3, pleasant and in no acute distress Heart:regular rate and rhythm, no murmurs or gallops Abdomen: Not distended. Normal bowel sounds. Soft and non-tender. No masses or organomegaly. Skin: no rashes or lesions Lymph:No cervical, axillary, supraclavicular, or inguinal adenopathy. Colonoscopy 04/08/2022 Impression: - Preparation of the colon was fair. - The examined portion of the ileum was normal. - Mild (Diaz Score 1) left-sided ulcerative colitis. - Pseudopolyps in the entire examined colon with descending colon narrowing. - Non-bleeding external and internal hemorrhoids. - Several biopsies were obtained. Pathology FINAL DIAGNOSIS A. Colon, right, biopsy - Colonic mucosa with architectural distortion (see comment) - Negative for colitis, granulomas and dysplasia B. Colon, transverse, biopsy - Chronic active colitis (see comment) - Negative for granulomas and dysplasia C. Colon, left, biopsy - Chronic active colitis (see comment) - Negative for granulomas and dysplasia - Negative for CMV by immunohistochemistry D. Rectum, biopsy - Rectal mucosa with architectural distortion (see comment) - Negative for proctitis, granulomas and dysplasia Labs TSH on 03/06/22: 0.40 T4:1.14 Hepatic Function Panel: No results found for: ALB, TBILI, CBILI, ALKPHOS, AST, ALT, TPROT Patient-Entered Data Current Outpatient Medications Medication Sig Dispense Refill acetaminophen (TYLENOL) 500 mg tablet Take 500 mg by mouth. acetaminophen-codeine (TYLENOL-COD #3) 300-30 mg per tablet Take 1 tablet by mouth every 6 hours as needed. budesonide, enteric coated (ENTOCORT EC) 3 mg 24 hr capsule Take 3 mg by mouth. lisinopril (ZESTRIL, PRINIVIL) 10 mg tablet Take 1 tablet by mouth once daily. carboxymethylcellulose sodium (ARTIFICIAL TEARS, CMC, OPHTHALMIC) Use in eyes. amitriptyline (ELAVIL) 10 mg tablet Take 1 tablet by mouth daily at bedtime. 30 tablet 2 Mesalamine (LIALDA) 1.2 gram EC tablet Take 4 tablets by mouth once daily. Take with food. Do not cut tablet. 120 tablet 2 No current facility-administered medications for this visit. ALLERGIES Allergen Reactions Egg Derived Other: See Comments Infliximab-Dyyb Anaphylaxis Measles Immune Glob* Other: See Comments Assessment Problem List Items Addressed This Visit Gastrointestinal Ulcerative pancolitis with rectal bleeding (HCC) - Primary Overview Dx with UC (unknown extent) 14-15 years ago was treated briefly with Colazol and PDN and stayed in symptomatic remission until 09/30. Started having symptoms of abdominal pain and bloody diarrhea. She was admitted in the hospital with ASUC flare and treated with rescue therapy (inflectra x 3 induction doses). She had anaphylactic reaction to 3rd dose of Inflectra. Had incomplete colonoscopy to transverse colon during hospitalization. Complains of headaches and CT head shows neck mass (pending further evaluation). 04/16/22: return clinic visit. Reports some pain in the lower abdomen associated with mucus in the stools. Otherwise symptoms are much stable Current IBD medications: Lialda 4.8gm everyday Current Assessment & Plan Pending blood and stool work up today Continue with Lialda Trial of Rowasa enemas for urgency and increased mucus After pending ENT evaluation-possible plan for VDZ if disease is not controlled on Lailda Colonoscopy in 1 year to assess for disease activity. Relevant Orders CALPROTECTIN,FECAL Other History of endoscopy Overview Colonoscopy 04/08/2022: The terminal ileum appeared normal. Inflammation was found in the left sided colon. This was graded as Diaz Score 1 (mild, with erythema, decreased vascular pattern, mild friability). Several biopsies were obtained with cold forceps for histology. Diffuse pseudopolyps were found in the entire colon associated with narrowing in the descending colon. Non-bleeding external and internal hemorrhoids were found during retroflexion and during perianal exam. The hemorrhoids were moderate. FINAL DIAGNOSIS A. Colon, right, biopsy - Colonic mucosa with architectural distortion (see comment) - Negative for colitis, granulomas and dysplasia B. Colon, transverse, biopsy - Chronic active colitis (see comment) - Negative for granulomas and dysplasia C. Colon, left, biopsy - Chronic active colitis (see comment) - Negative for granulomas and dysplasia - Negative for CMV by immunohistochemistry D. Rectum, biopsy - Rectal mucosa with architectural distortion (see comment) - Negative for proctitis, granulomas and dysplasia ?Incomplete colonoscopy advanced to the transverse colon ? Severely inflamed, ulcerated colonic mucosa with spontaneous bleeding consistent with Diaz UC score 3. Biopsied. Colon biopsies at 50, 40, 30, 20, and 10cm: Active colitis consistent with ulcerative colitis with moderate inflammatory activity. PATIENT IS OK TO BE CONTACTED BY IBD GI RESEARCH TEAM TO EXPLORE PARTICIPATION IN RESEARCH STUDIES Mikey Brito MD, MD April 15, 2022 5:00 PM documented in this encounter 04-08-2022 Nurse Note AMBULATORY PATIENT EDUCATION NOTE TOPIC: GI PROCEDURES: Colonoscopy with or without biopsies based on clinical findings READINESS TO LEARN INSTRUCTION PROVIDED TO: Patient and family member COGNITIVE ABILITY: Alert and oriented PTED MOTIVATION TO LEARN: Interested FAMILY SUPPORT: None - Unavailable/disinterested IPATIENT LEARNS BEST BY: Individual Instruction Written Instruction - Hand-outs Verbal Instruction FACTORS AFFECTING LEARNING: None PHYSICAL LIMITATIONS AFFECTING LEARNING: None LEARNING RESPONSE METHOD OF INSTRUCTION: Individual instruction PATIENT / FAMILY RESPONSE: Verbalizes understanding of: WORSENING CONDITION-Signs and symptoms of a worsening condition that warrant a call to the physician FOLLOW-UP PLAN: Complete - No need for follow-up SUPPLEMENTAL MATERIAL: Procedure Discharge Instructions REFERRAL (RECOMMENDATION): None Electronically Signed By: Esther Meredith RN PRE OP LEARNING ASSESSMENT PROCEDURE/SURGERY: GI PROCEDURES: Colonoscopy READINESS TO LEARN COGNITIVE ABILITY: Alert and oriented MOTIVATION TO LEARN: Interested FAMILY SUPPORT: None - Unavailable/disinterested PATIENT LEARNS BEST BY: Individual Instruction FACTORS AFFECTING LEARNING: None PHYSICAL LIMITATIONS AFFECTING LEARNING: None Electronically Signed By: Esther Meredith RN In Department: GASTROENTEROLOGY documented in this encounter 04-08-2022 History and physical note PROCEDURAL SEDATION HISTORY AND PHYSICAL EXAM SERVICE DATE: 04/08/2022 SERVICE TIME: 10:16 AM Subjective HPI: This is a 46 year old female who presents for screening Colonoscopy PAST ANESTHESIA HISTORY: No history of adverse event No past medical history on file. No past surgical history on file. Prior to Admission medications as of 04/08/22 1013 Medication Sig Last Dose Taking acetaminophen (TYLENOL) 500 mg tablet Take 500 mg by mouth. 04/08/2022 Yes acetaminophen-codeine (TYLENOL-COD #3) 300-30 mg per tablet Take 1 tablet by mouth every 6 hours as needed. budesonide, enteric coated (ENTOCORT EC) 3 mg 24 hr capsule Take 3 mg by mouth. lisinopril (ZESTRIL, PRINIVIL) 10 mg tablet Take 1 tablet by mouth once daily. carboxymethylcellulose sodium (ARTIFICIAL TEARS, CMC, OPHTHALMIC) Use in eyes. amitriptyline (ELAVIL) 10 mg tablet Take 1 tablet by mouth daily at bedtime. Mesalamine (LIALDA) 1.2 gram EC tablet Take 4 tablets by mouth once daily. Take with food. Do not cut tablet. ALLERGIES Allergen Reactions Egg Derived Other: See Comments Infliximab-Dyyb Anaphylaxis Measles Immune Glob* Other: See Comments Objective PHYSICAL EXAM: The remainder of the physical exam is noncontributory. GENERAL: Alert, no distress, cooperative SKIN: Skin color, texture, turgor normal. No rashes or lesions. HEAD/SINUSES: No significant findings ABDOMEN: Abdomen soft, non-tender, BS normal, No masses or organomegaly AIRWAY: Airway Visualization of Uvula: Yes Mouth opening greater than 2 fingerbreadths: Yes Neck Full Range of Motion: Yes LUNGS: Lungs clear to auscultation CARDIAC: Regular rhythm,Regular rate Assessment/Plan ASA Class: ASA Class:: Patient with mild systemic disease Active Problems: * No active hospital problems. * Resolved Problems: * No resolved hospital problems. * Medication and Non-Pharmacologic VTE Prophylaxis/Anticoagulants VTE Prophylaxis: VTE prophylaxis appropriate Provisional Diagnosis/Treatment Plan: colonoscopy SEDATION GOAL: Moderate SIGNATURE: Mikey Brito MD, MD PATIENT NAME: Diana Venegas DATE: April 08, 2022 TIME: 10:16 AM documented in this encounter [facility] 04-01-2022 Miscellaneous Notes Attempted to reach the patient at the contact number that they provided [phone] (home) . 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 Failure to have a responsible adult accompany the patient to their procedure appointment prevents the use of sedation or anesthesia for their procedure; and can result in cancellation of the procedure Clear liquids the day before the procedure, stop all liquids 4 hours before the procedure Instructions to contact their primary care provider regarding their medications and which medications to stop in preparation for their procedure Instructions to completely read and follow the written instructions that they recieved regarding their procedure. Number to call with questions or concerns [phone] Number to call to cancel their procedure [phone] RAYRAY Uribe documented in this encounter 02-26-2022 Note HNO ID: [id number] Author: Mikey Brito MD Service: ? Author Type: Physician Type: Progress Notes Filed: 02/26/2022 4:02 PM Note Text: NAME: Diana Venegas [facility] NO: [id number] REASON FOR VISIT Diana Venegas is a 46 year old female who is scheduled for a consult at the request of Self. No chief complaint on file. PRESENTING COMPLAINT: History of UC HISTORY OF PRESENTING ILLNESS: This is a 46 years old female with history of ulcerative colitis dx 30 years ago presented in clinic today to establish care. History was obtained from patient. According to her, symptoms started in 1991 and consisted of bloody diarrhea and abdominal pain. She was at that time so no colonoscopy was done. Her symptoms subsided on its own. 15 years later in 2007 she had another flare with bloody diarrhea, abdominal pain and weight loss-flex sig showed inflammation started on PDN and colazol for 3-4 months. Her symptoms improved and she discontinued medications. 09/2021-->rectal bleeding diarrhea and abdominal pain, weight loss and fatigue. PCP gave PDN for a week which didn't worked. Disease worsened and ended up in the hospital with [facility]. She had incomplete colonoscopy to transverse colon which showed severe diaz score 3 colitis. She was started on rescue therapy with Inflectra and received 3 doses of inflectra. She had allergic/ anaphylactic reaction to Inflectra 3rd infusion on 02/15/22 treated with Benadryl and epi pen. Since then she has continuous headache. CT head done recently that showed neck mass. She also has some redness in her eye and went to see lead coater. She is currently on Budesonide for 2 months tapering down to 3 mg once everyday. IBD History Template Diagnosis Ulcerative Colitis: Date of diagnosis (year): 1991 Phenotype Extent: extensive Severity: Severe Prior Medications/Reason for Switch Surgery: No: Thiopurines: No Methotrexate: No Biologics: Yes - infliximab, reason for switch: allergic reaction Small molecules: No Current Medications Budesonide for 2 months now on 1 capsule Prior Complications and Extraintestinal Manifestations Clostridium difficile: no Thrombosis: no Ocular (Uveitis, Episcleritis): no Dermatologic (Pyoderma gangrenosum, Erythema nodosum): no Arthropathy/Arthralgia: no Oral ulcers: no Primary Sclerosing Cholangitis: no Other: no Labs TB Status: Unknown Hepatitis B Status: Unknown TPMT: Unknown Current Clinical Symptoms # of bowel movements daily: 2 times/ week # of liquid stools daily: 0 Consistency: formed, hard Bloody bowel movements: yes when wipes Urgency: yes Abdominal pain: yes Abdominal distention: yes Nausea/vomiting: yes Weight loss over last 3 months: no General well-being: poor Patient-Entered Data No past surgical history on file. No past medical history on file. No current outpatient medications on file. No current facility-administered medications for this visit. Patient has no allergy information on record. Recent Labs: CBC: No results found for: WBC, HCT, MCV, PLT, NEUT, LYMPHP Hepatic Function Panel: No results found for: ALB, TBILI, CBILI, ALKPHOS, AST, ALT, TPROT PERSONAL HABITS: Tobacco: Yes, How Many? Last April 2021 Alcohol: No PAST MEDICAL HISTORY Colon polyps:No Colon cancer: No Other cancer:No Radiation / Chemotherapy:No Crohn's disease / Ulcerative colitis:Yes High cholesterol or triglycerides:No Ulcers: No Gallstones:No Hepatitis / jaundice: No Heart Disease: No Lung Disease:No Liver problems:No Thyroid disease: No Kidney stones:No Pancreatitis:No Diabetes:No Arthritis:No Rheumatic fever:No Gastrointestinal bleeding:No Depression or other mental illness:depression Other personal illness: None GI SPECIFIC ROS Difficulty swallowing / foods sticking in throat:No Heartburn:No Hoarseness:No Chronic cough:No Regurgitation:No Chest pain:No Filling up quickly at meals:No Loss of appetite:No Nausea:No Vomiting: No Abdominal pain:Yes Recent change in bowel movements: No Bloody or black, bowel movements:Yes Constipation: Yes Diarrhea: No Loss of control of bowel movements:No Night sweats, fever, chills: No Thought or memory problems: No Fluid in abdomen (ascites): No Prominent leg swelling: No Vomiting blood: No Recent change in weight:No ROS EyesNegative for vision changes, diplopia or epiphora. Ears, Mouth, nose, throat:No problems Cardiovascular: No Problems Respiratory: Negative for cough, wheezing and shortness of breath Gastrointestinal : No problems Genitourinary: negative Musuloskeletal: Normal Integumentary: no rashes, lesions, or jaundice Neurological: No history of neurologic problems Endocrine: Negative for cold or heat intolerance, polyuria, polydipsia and goiter. Psychiatric: Cooperative and agreeable Allergic/ Immunologic: Negative All others negative (more content not included)... [facility] 02-26-2022 Instructions Mikey Brito MD - 02/26/2022 2:41 PM EDT Images from the original note were not included. Bowel Preparation Instructions for: Golytely, Nulytely, Trilyte or Colyte (polyethylene glycol 3350 and electrolytes) IF YOU DO NOT FOLLOW THESE DIRECTIONS, YOUR COLONOSCOPY WILL BE CANCELLED. [place] Instructions: Your bowel must be empty so that your doctor can clearly view your colon. Follow all of the instructions in this handout EXACTLY as they are written. Do NOT eat any solid food the ENTIRE day before your colonoscopy. Drink only clear liquids. Buy your bowel preparation at least 5 days before your colonoscopy. TRANSPORTATION on the Day of Your Exam A responsible person MUST be present with you at Check In prior to your colonoscopy and REMAIN in the endoscopy area until you are discharged. You are NOT ALLOWED to drive, take a taxi or bus, or leave the Endoscopy Center ALONE. If you do not have a responsible utility driver (family member or friend) with you to take you home, your exam cannot be done with sedation and will be cancelled. Please bring a list of all of your current medications, including any Over-the Counter medications with you. Medications If you take insulin, diabetic medications or blood thinners such as Coumadin (warfarin), Plavix (clopidogrel), Ticlid (ticlopidine hydrochloride), Agrylin (anagrelide), Xarelto (Rivaroxaban), Pradaxa (Dabigatran), Eliquis (Apixaban), and Effient (Prasugrel). You MUST call the doctors who orders those medicines for instructions on altering the dosage before your colonoscopy. All other medications should be taken the day of the exam with a sip of water including ASPIRIN. Five (5) Days Before Your Colonoscopy Do NOT take medicines that stop diarrhea - such as Imodium, Kaopectate, or Pepto Bismol. Do NOT take fiber supplements - such as Metamucil, Citrucel, or Perdiem. Do NOT take products that contain iron - such as multi-vitamins (the label lists what is in the products). Do NOT take Vitamin E. Buy the prescription bowel preparation solution at your local pharmacy or drugstore pharmacy. 04/2019 Bowel Preparation Instructions for: Golytely, Nulytely, Trilyte or Colyte (polyethylene glycol 3350 and electrolytes) Three (3) Days Before Your Colonoscopy Do NOT eat high-fiber foods - such as popcorn, beans, seeds (flax, sunflower, quinoa), multigrain bread, nuts, salad/vegetables, or fresh and dried fruit. One (1) Day Before Your Colonoscopy Only drink clear liquids the ENTIRE DAY before your colonoscopy. Do NOT eat any solid foods. Drink at least 8 ounces of clear liquids every hour after waking up. The clear liquids you can drink include: Clear Liquid (NO RED LIQUIDS) DO NOT DRINK Gatorade, Pedialyte or Powerade Clear broth or bouillon Coffee or tea (no milk or non-dairy creamer) Carbonated and non-carbonated soft drinks Isaias-Aid or other fruit flavored drinks Strained fruit juices (no pulp) Jell-O, popsicles, hard candy Water Alcohol Milk or non-dairy creamers Noodles or vegetables in soup Juice with pulp Liquid you cannot see through Do not use tobacco/vaping products The bowel preparation solution will be consumed in two parts. Mix the solution the evening before your colonoscopy and refrigerate before drinking. You may add the flavor pack that came with the bowel preparation. Do NOT add ice, sugar or any other flavorings to the solution. Part 1 At 6:00 PM - Evening before your colonoscopy Drink an 8-oz glass of bowel preparation every 10 minutes for a total of 8 glasses. You may continue to drink clear liquids until midnight. Part 2 On the day of your colonoscopy you may drink clear liquids up to (three) 3 hours before your procedure. 4 1/2 hours before your colonoscopy Drink an 8-oz glass of bowel preparation every 10 minutes for a total of 8 glasses. Fifteen (15) minutes later, drink an 8-oz glass of clear liquids every 15 minutes for a total of 2 glasses. You may continue to drink clear liquids up to (three) 3 hours before your exam. 2 04/2019 documented in this encounter 02-26-2022 History of Present illness Narrative NAME: Diana Venegas [facility] NO: [id number] REASON FOR VISIT Diana Venegas is a 46 year old female who is scheduled for a consult at the request of Self. No chief complaint on file. PRESENTING COMPLAINT: History of UC HISTORY OF PRESENTING ILLNESS: This is a 46 years old female with history of ulcerative colitis dx 30 years ago presented in clinic today to establish care. History was obtained from patient. According to her, symptoms started in 1991 and consisted of bloody diarrhea and abdominal pain. She was at that time so no colonoscopy was done. Her symptoms subsided on its own. 15 years later in 2007 she had another flare with bloody diarrhea, abdominal pain and weight loss-flex sig showed inflammation started on PDN and colazol for 3-4 months. Her symptoms improved and she discontinued medications. 09/2021-->rectal bleeding diarrhea and abdominal pain, weight loss and fatigue. PCP gave PDN for a week which didn't worked. Disease worsened and ended up in the hospital with [facility]. She had incomplete colonoscopy to transverse colon which showed severe diaz score 3 colitis. She was started on rescue therapy with Inflectra and received 3 doses of inflectra. She had allergic/ anaphylactic reaction to Inflectra 3rd infusion on 02/15/22 treated with Benadryl and epi pen. Since then she has continuous headache. CT head done recently that showed neck mass. She also has some redness in her eye and went to see lead coater. She is currently on Budesonide for 2 months tapering down to 3 mg once everyday. IBD History Template Diagnosis Ulcerative Colitis: Date of diagnosis (year): 1991 Phenotype Extent: extensive Severity: Severe Prior Medications/Reason for Switch Surgery: No: Thiopurines: No Methotrexate: No Biologics: Yes - infliximab, reason for switch: allergic reaction Small molecules: No Current Medications Budesonide for 2 months now on 1 capsule Prior Complications and Extraintestinal Manifestations Clostridium difficile: no Thrombosis: no Ocular (Uveitis, Episcleritis): no Dermatologic (Pyoderma gangrenosum, Erythema nodosum): no Arthropathy/Arthralgia: no Oral ulcers: no Primary Sclerosing Cholangitis: no Other: no Labs TB Status: Unknown Hepatitis B Status: Unknown TPMT: Unknown Current Clinical Symptoms # of bowel movements daily: 2 times/ week # of liquid stools daily: 0 Consistency: formed, hard Bloody bowel movements: yes when wipes Urgency: yes Abdominal pain: yes Abdominal distention: yes Nausea/vomiting: yes Weight loss over last 3 months: no General well-being: poor Patient-Entered Data No past surgical history on file. No past medical history on file. No current outpatient medications on file. No current facility-administered medications for this visit. Patient has no allergy information on record. Recent Labs: CBC: No results found for: WBC, HCT, MCV, PLT, NEUT, LYMPHP Hepatic Function Panel: No results found for: ALB, TBILI, CBILI, ALKPHOS, AST, ALT, TPROT PERSONAL HABITS: Tobacco: Yes, How Many? Last April 2021 Alcohol: No PAST MEDICAL HISTORY Colon polyps:No Colon cancer: No Other cancer:No Radiation / Chemotherapy:No Crohn's disease / Ulcerative colitis:Yes High cholesterol or triglycerides:No Ulcers: No Gallstones:No Hepatitis / jaundice: No Heart Disease: No Lung Disease:No Liver problems:No Thyroid disease: No Kidney stones:No Pancreatitis:No Diabetes:No Arthritis:No Rheumatic fever:No Gastrointestinal bleeding:No Depression or other mental illness:depression Other personal illness: None GI SPECIFIC ROS Difficulty swallowing / foods sticking in throat:No Heartburn:No Hoarseness:No Chronic cough:No Regurgitation:No Chest pain:No Filling up quickly at meals:No Loss of appetite:No Nausea:No Vomiting: No Abdominal pain:Yes Recent change in bowel movements: No Bloody or black, bowel movements:Yes Constipation: Yes Diarrhea: No Loss of control of bowel movements:No Night sweats, fever, chills: No Thought or memory problems: No Fluid in abdomen (ascites): No Prominent leg swelling: No Vomiting blood: No Recent change in weight:No ROS EyesNegative for vision changes, diplopia or epiphora. Ears, Mouth, nose, throat:No problems Cardiovascular: No Problems Respiratory: Negative for cough, wheezing and shortness of breath Gastrointestinal : No problems Genitourinary: negative Musuloskeletal: Normal Integumentary: no rashes, lesions, or jaundice Neurological: No history of neurologic problems Endocrine: Negative for cold or heat intolerance, polyuria, polydipsia and goiter. Psychiatric: Cooperative and agreeable Allergic/ Immunologic: Negative All others negative FAMILY HISTORY Has anyone in your family (grandparents, parents, brothers, sisters, aunts, or uncles) had: Liver problems: No Colitis: Yes-daughter has CD Colon cancer:No Other cancers: No No family history on file. PHYSICAL EXAMINATION General Appearance: alert, oriented x 3, pleasant and in no acute distress Eyes: No icterus or conjunctival pallor.. Oropharynx: Lips, tongue, and oral mucosa normal. There is no thrush or oral ulcers. Lungs: breath sounds clear to auscultation bilaterally Heart: regular rate and rhythm, no murmurs or gallops. Abdomen: Not distended. Normal bowel sounds. Soft and non-tender. No masses or organomegaly. Rectal: No external lesions, no masses Extremities: no cyanosis or edema. Skin: no rashes or lesions Lymph: No cervical, axillary, supraclavicular, or adenopathy. Assessment Problem List Items Addressed This Visit Gastrointestinal Ulcerative pancolitis with rectal bleeding (HCC) - Primary Overview Dx with UC (unknown extent) 14-15 years ago was treated briefly with Colazol and PDN and stayed in symptomatic remission until 09/30. Started having symptoms of abdominal pain and bloody diarrhea. She was admitted in the hospital with [facility] flare and treated with rescue therapy (inflectra x 3 induction doses). She had anaphylactic reaction to 3rd dose of Inflectra. Had incomplete colonoscopy to transverse colon during hospitalization. Complains of headaches and CT head shows neck mass (pending further evaluation). Current IBD medications: Entocort 3 mg OD Current Assessment & Plan -Blood work up today including CBC, CMP, inflammatory markers, vitamin levels and iron profile -Pre biological work up including hepatitisBsAG and TBQ -Trial of Elavil 10mg QHS -Lialda 4.8 gm once everyday (patient was counseled about the side effects) -Schedule colonoscopy -Stop Entocort -If patient do not respond to mesalamine will consider VDZ after pending neck mass evaluation Relevant Medications amitriptyline (ELAVIL) 10 mg tablet Mesalamine (LIALDA) 1.2 gram EC tablet Other Relevant Orders CBC + DIFF COMP METABOLIC PANEL C-REACTIVE PROTEIN (CRP) SED RATE WESTERGREN IRON + TIBC TRANSFERRIN BLD VITAMIN D 25 HYDROXY HEP B SURF AG SCRN BLOOD TB SCREEN COLONOSCOPY DIAGNOSTIC Other History of endoscopy Overview ?Incomplete colonoscopy advanced to the transverse colon ? Severely inflamed, ulcerated colonic mucosa with spontaneous bleeding consistent with Diaz UC score 3. Biopsied. Colon biopsies at 50, 40, 30, 20, and 10cm: Active colitis consistent with ulcerative colitis with moderate inflammatory activity. Imaging of gastrointestinal tract abnormal Overview CT ABD/PEL W IVCON 12/01/2021 Impression No acute abdominal or pelvic abnormality. Trace free fluid in the pelvis and right pericolic gutter that may be physiologic. PATIENT IS OK TO BE CONTACTED BY IBD GI RESEARCH TEAM TO EXPLORE PARTICIPATION IN RESEARCH STUDIES Mikey Brito MD, MD February 25, 2022 4:06 PM documented in this encounter 01-28-2022 Hospital Discharge instructions Alexa Andres, - 01/28/2022 7:05 PM EDT Please follow-up with your eye doctor tomorrow for detailed dilated eye exam. Use the ointment as prescribed. Continue with your budesonide to help with inflammation. Return if your symptoms get worse. The following attachments cannot be sent through Care Everywhere.Iritis ([place] Citizen)documented in this encounter [employer] Phone: 01-25-2022 Hospital Discharge instructions Fredy Davis MD - 01/25/2022 11:38 PM EDT Your evaluation today is reassuring. I recommend returning to the emergency department if you have worsened pain, shortness of breath, develop abdominal pain, vomiting or other concerns. Please follow-up with your PCP within the next 2 days. Use caution while taking oxycodone. It may cause drowsiness. Do not drive or perform dangerous activity while taking this medication and do not take with alcohol or other sedatives. The following attachments cannot be sent through Care Everywhere.Chest Pain ([place] Citizen)documented in this encounter [facility] [employer] Phone: 12-09-2021 History of Present illness Narrative Pt. Arrived to ED alert and oriented x4. Pt. Ambulates back to room with steady gait, Pt. Triage started. Pt. Positioned for comfort in bed. Physician at bedside at this time. documented in this encounter [facility] [employer] Phone: 12-01-2021 Hospital Discharge instructions Jesse Campos PA-C - 12/01/2021 2:22 PM EDT Follow-up with your GI specialist as soon as you can. I would phone their office on Friday and see if they have any appointment openings sooner than your scheduled visit. Take Zofran for nausea and Tylenol for pain as directed. Sinew to drink plenty of fluids as tolerated. Promptly return to emergency department for new, changing, worsening of symptoms or other concerns. The following attachments cannot be sent through Care Everywhere.Abdominal Pain ([place])Colitis: General Info ([place])documented in this encounter [employer] Phone: 09-18-2020 History of Present illness Narrative Discharge instructions given to patient and patients boyfriend. Both verbalize understanding and denies any questions at this time. Patient instructed on the pre-operative, intra-operative, and post-operative process. Patient instructed on NPO status. Medication instructions and Pre operative instruction sheet reviewed over the phone. CHG skin prep instructions reviewed with the patient. Instructed pt to bring crutches to the hospital the day of surgery. documented in this encounter [employer] Phone: Evaluation note Diagnosis Preoperative testing Preoperative examination, unspecified documented in this encounter [employer] Phone: evaluation note* Diagnosis S/P left knee arthroscopy- Primary Other postprocedural status documented in this encounter [employer] Phone: evaluation note* Diagnosis Generalized abdominal pain- Primary Abdominal pain, generalized History of colitis documented in this encounter [employer] Phone: evaluation note* Diagnosis Abdominal pain, unspecified abdominal location- Primary documented in this encounter [employer] Phone: evaluation note* Diagnosis Chest pain, unspecified type- Primary documented in this encounter [employer] Phone: evaluation note* Diagnosis Acute bacterial conjunctivitis of right eye- Primary Acute iritis of right eye Acute and subacute iridocyclitis, unspecified documented in this encounter [employer] Phone: evaluation note* Diagnosis Ulcerative pancolitis with rectal bleeding (HCC)- Primary History of endoscopy Other postprocedural status Imaging of gastrointestinal tract abnormal Nonspecific (abnormal) findings on radiological and other examination of gastrointestinal tract documented in this encounter [facility] note* Diagnosis Ulcerative pancolitis with rectal bleeding (HCC) documented in this encounter [facility] note* Diagnosis Ulcerative pancolitis with rectal bleeding (HCC)- Primary History of endoscopy Other postprocedural status documented in this encounter [facility] note* Diagnosis Iron deficiency anemia, unspecified iron deficiency anemia type- Primary documented in this encounter [facility] note* Diagnosis Iron deficiency anemia, unspecified iron deficiency anemia type- Primary Intestinal malabsorption, unspecified type documented in this encounter [facility] note* Diagnosis Other screening mammogram documented in this encounter [employer] Phone: evaluation note* Diagnosis Weight gain Abnormal weight gain Diabetes mellitus screening Screening for diabetes mellitus Lipid screening Screening for lipoid disorders documented in this encounter [employer] Phone: evaluation note* Diagnosis Abnormality of right breast on screening mammogram documented in this encounter [employer] Phone: evaluation note* Diagnosis B12 deficiency- Primary Other B-complex deficiencies documented in this encounter [facility] note* Diagnosis B12 deficiency- Primary Other B-complex deficiencies documented in this encounter [facility] note* Diagnosis Other fatigue documented in this encounter [facility] note* Diagnosis Dry eye syndrome of both eyes- Primary Eyestrain, bilateral Visual discomfort Presbyopia [facility] CC: skull base mass * Consulted by: dr butler * HPI: was getting migraines, got a ct scan showed the mass * no sympomts * no swalloinwg issues * no issues opening jaw * Past medical history:UC, no DM, + HTN * Past surgical history: knee surgery, c section, tubal * Social history: stopped smoking one year ago, prior 1 ppd for 15 years, no drinking, lives with * Family history: Reviewed and not relevant to the presenting complaint * Current medications: * Reviewed as noted in current orders * Allergies: * Reviewed and as noted in current orders * ROS: All other systems have been reviewed and are negative for complaint. I personally reviewed theintake form that was scanned in today * PE: * CONSTITUTIONAL: Vitals -reviewed from intake field, well developed, well nourished. * VOICE: * RESPIRATION: Breathing comfortably, no stridor. * CV: No clubbing/cyanosis/edema in hands. * EYES: EOM Intact, sclera normal. * NEURO: Alert and oriented times 3, Cranial nerves II-XII intact and symmetric bilaterally. * HEAD AND FACE: Symmetric facial features, no masses or lesions, sinuses nontender to palpation. * SALIVARY GLANDS: Parotid and submandibular glands normal bilaterally. * EARS: Normal external ears, external auditory canals, and TMs to otoscopy, normal hearing to whispered voice. * NOSE: External nose midline, anterior rhinoscopy is normal with limited visualization to the anterior aspect of the inferior turbinates. No lesions noted. * ORAL CAVITY/OROPHARYNX/LIPS: Normal mucous membranes, normal floor of mouth/tongue/OP, no masses orlesions are noted. * PHARYNGEAL ELIAS AND NASOPHARYNX: No masses noted. Mucosa appears clean and moist * NECK/LYMPH: No LAD, no thyroid masses. Trachea palpably midline * SKIN: Neck skin is without scar or injury * PSYCH: Alert and oriented with appropriate mood and affect * Radiology reviewed: * I personally reviewed the ct sacn showing left paraphayngeal space mass * A/P: * left parapharyngeal space mass, asymptomatic * disussed differential diagnosis and treatment option * MRI +/- contrast * discussed surgical options and observation in addition to indications for IR guided FNA * regional cranial nerves and great vessels and functional defictis with surgery and options for rehab in needed reviewed * surgical approaches reviewed * interval for repeat imaging reviewed if obs chosen * multiple questions answered * ulikely cancer, she can proceed with UC infusions if medically indicated [facility] [address] Work Phone: Hospital Discharge instructions* Instructions* Shayla Juarez RN - 09/18/2020 Images from the original note were not included. SAME DAY SURGERY DISCHARGE INSTRUCTIONS 1. Do not drive or operate hazardous machinery for 24 hours. 2. Do not make important personal or business decisions for 24 hours. 3. Do not drink alcoholic beverages for 24 hours. 4. Do not smoke tobacco products for 24 hours. 5. Eat light foods (Jell-O, soups, etc....) and drink plenty of fluids (water, Sprite, etc...) up to 8 glasses per day, as you can tolerate. 6. If your bandages become soaked with bright red blood, place another dressing pad over your bandages. (DO NOT remove original bandage.) Call your surgeon for further instructions. A small amount ofbright red blood is to be expected. 7. Limit your activities for 24 hours. Do not engage in heavy work until your surgeon gives you permission. 8. Report the following signs or any questions regarding your physical condition to your surgeon immediately: Excessive swelling of, or around the wound area. Redness. Temperature of 100 degrees (F) or above. Excessive pain. 9. Call your surgeon [phone] for any questions regarding your surgery. 10. Call for an appointment to see your surgeon in 2 weeks. SPECIAL INSTRUCTIONS AND MEDICATIONS 1. Elevate leg on pillow for comfort & ice to operative site. 2. Move toes to improve circulation. 3. Continue leg exercises as instructed by Physical Therapy. 4. Use prescribed pain pill as directed by the doctor. You may use aspirin or Tylenol if you prefer. 5. Keep your dressing on and dry. 6. Remove operative bandage on 4th post op day. Then you may shower if wound is clean and dry. 7. Re-wrap with elastic wrap if knee is swollen. 8. Start knee motion on 1st post op day. 9. Use crutches only as needed. To begin the day after surgery 5-6 times a day for 15-20 minutes QUAD SETS 1. Sit on a firm flat surface with your hands behind you for support 2. Bend your uninvolved leg, keeping the involved leg straight. 3. Straighten out the involved leg as much as possible, tightening the muscle on top of your thigh 4. Hold 15 seconds. Relax 5. Repeat for 2-3 minutes. STRAIGHT LEG RAISE 1. Lie on your back with involved knee straight. Bend the other knee and place foot with firm contact with the floor; 2. Tighten your thigh muscle on the involved side and slowly lift your leg. 3. Lift as high as the other bent knee. Now retighten the thigh muscle. Hold for 2-3 seconds. . 4. Lower the leg back to the floor slowly. Completely relax. 5. Re-tighten the thigh and repeat x 10 HEEL SLIDES 1. Lie on your back with your legs out straight and relaxed. 2. Keep your kneecaps pointed toward the ceiling throughout the exercise. 3. Slide one foot toward your buttocks, bending your knee and hip. Do not bend your hip more than 80 degrees. 4. Slowly return to the starting position. LONG ARC QUAD 1. Sit on a sturdy surface high enough that your feet do not touch the floor, 2. Baker Chef the sides of the surface for support. 3. Raise one foot until your knee is completely straight 4. Slowly return to the starting position and relax. 5. Repeat 20 times ANKLE PUMPS 1. Bend ankles up and down, alternating foot 2. Repeat 25 times Yared Mohr M.D. [phone] Eric Contreras M.D. documented in this encounter[facility]MT[facility] Phone: InstructionsNot on filedocumented in this encounter [facility] (narrative[facility] Outpatient Procedure (Routine) - Authorized Specialty Diagnoses / Procedures Referred By Marline alba Referred To Contact [facility] Diagnoses Ulcerative pancolitis with rectal bleeding (HCC) Procedures COLONOSCOPY DIAGNOSTIC COLONOSCOPY FLX DX W/COLLJ SPEC WHEN PFRMD Mikey Brito MD [address] [place] [address] [facility] [address] [place] [address] Referral ID Status Reason Start Date Expiration Date Visits Requested Visits Authorized [id number] Authorized Auto-Generat ed Referral 2 02/26/2023 1 1 * Medication Prior Authorization - Closed Specialty Diagnoses / Procedures Referred By Marline alba Referred To Contact Diagnoses Ulcerative pancolitis with rectal bleeding (HCC) Mikey Brito MD [address] [place] [address] Referral ID Status Reason Start Date Expiration Date Visits Re quested Visits Authorized [id number] Closed 1 1 [facility] for referral (narrative)* Outpatient Procedure (Routine) - Closed Specialty Diagnoses / Procedures Referred By Anayac t Referred To Contact ENDOSCOPY Diagnoses Ulcerative pancolitis with rectal bleeding (HCC) Procedures COLONOSCOPY DIAGNOSTIC COLONOSCOPY FLX DX W/COLLJ SPEC WHEN Mikey Dockery MD [address] [place] [address] [facility] [address] [place] [id number] Referral ID Status Reason Start Date Expiration Date V isits Requested Visits Authorized [id number] Closed Auto-Generate d Referral 02/26/2022 02/26/2023 1 1 [facility] for visit Narrative* Outpatient Procedure (Routine) - Closed Specialty Diagnoses / Procedures Referred By Marline t Referred To Contact ENDOSCOPY Diagnoses Ulcerative pancolitis with rectal bleeding (HCC) Procedures COLONOSCOPY DIAGNOSTIC COLONOSCOPY FLX DX W/COLLJ SPEC WHEN Mikey Dockery MD [address] [place] [address] [facility] [address] [place] [phone] Referral ID Status Reason Start Date Expiration Date V isits Requested Visits Authorized [id number] Closed Auto-Generate d Referral 02/26/2022 02/26/2023 1 1 [facility] for visit Narrative* Treatment Plan and Therapy Plan (Routine) - Authorized Specialty Diagnoses / Procedures Referred By Marline t Referred To Contact Diagnoses B12 deficiency Procedures NE [place]ITAMIN [place] [address] [place] [address] [facility] [address] [place] [address] Referral ID Status Reason Start Date Expiration Date V isits Requested Visits Authorized [id number] Authorized 11/18/2022 11/18/2023 99 99 [facility] Discharge Instructions * Instructions* Holger Olivares MD - 01/05/2019 Please take all medications as prescribed. Please follow up with your primary care physician by calling today, or as soon as possible, for thefirst available appointment. If you do not have a primary care physician, please contact a physician or clinic listed below today to establish care. Please return to the emergency department IMMEDIATELY if you develop uncontrolled fevers, uncontrolled vomiting, change in symptoms, worsening of symptoms, or ANY other concerns. * Attachments The following attachments cannot be sent through Care Everywhere. * Migraine Headache ([place]) documented in this encounter Assessments Diagnosis Other migraine without status migrainosus, not intractable- Primary Advance Directives Documents on File Type Date Recorded Patient Electric Lift Truck Driver Expl anation Advance Directives and Livin g Will 01/23/2011 12:22 PM Advance Directives and Livin g Will 02/05/2011 5:20 PM Power of Newspaper Carriers Supervisor Documents on File Type Date Recorded Patient Electric Lift Truck Driver Expl anation ACP-Advance Directive 01/23/2011 12:22 PM ACP-Advance Directive 02/05/2011 5:20 PM ACP-Power of Newspaper Carriers Supervisor Documents on File Type Date Recorded Patient Electric Lift Truck Driver Expl anation ACP-Advance Directive 01/23/2011 12:22 PM ACP-Advance Directive 02/05/2011 5:20 PM ACP-Power of Newspaper Carriers Supervisor Documents on File Type Date Recorded Patient Electric Lift Truck Driver Expl anation ACP-Advance Directive 02/05/2011 5:20 PM ACP-Advance Directive 01/23/2011 12:22 PM Documents on File Type Date Recorded Patient Electric Lift Truck Driver Expl anation ACP-Advance Directive 02/05/2011 5:20 PM ACP-Advance Directive 01/23/2011 12:22 PM Medications Administered Section Inactive Administered Medications - up to 3 most recent administrations Medication Order MAR Action Action Date Dose Rate Site fentaNYL 50 mcg/mL injection (SUBLIMAZE) INTRAVENOUS, X (OR/PROCEDURE) PRN, Starting on Fri04/08/22 at 1109, Until Fri04/08/22 at 1120, Intraprocedure Given 04/08/2022 11:20 AM EST 25 mcg Given 04/08/2022 11:14 AM EST 25 mcg Given 04/08/2022 11:11 AM EST 25 mcg midazolam (PF) injection (VERSED) INTRAVENOUS, X (OR/PROCEDURE) PRN, Starting on Fri04/08/22 at 1109, Until Fri04/08/22 at 1120, Intraprocedure Given 04/08/2022 11:20 AM EST 1 mg Given 04/08/2022 11:14 AM EST 1 mg Given 04/08/2022 11:11 AM EST 1 mg Chief Complaint parapharyngeal space mass Summary Purpose Family History No Family History Records FoundNo Family History Records FoundNo Family History Records FoundNo Family History Records FoundNo Family History Records FoundNo Family History Records FoundNo Family History Records Found Reason for Referral Specialty Diagnoses / Procedures Referred By Marline t Referred To Contact Radiology Diagnoses Other screening mammogram Procedures ABBIE KIMBERLY DIGITAL SCREEN BILATERAL Vernell Ackerman, JOHN - ROUTE DRIVER SALESPERSON [address] [place] [address] Referral ID Status Reason Start Date Expiration Date Visits Re quested Visits Authorized [id number] Closed 07/15/2022 07/15/2023 1 1 Additional Source Comments Reason for Visit (unrecogniz ed section and content) Reason Comments Headache onset yesterday Status Reason Specialty Diagnoses / Procedures Referre d By Contact Referred To Contact Diagnoses Acute medial meniscus tear of left knee MEDIAL MENISCUS TEAR LEFT KNEE Procedures NE ARTHRS KNE SURG W/MENISCECTOMY MED/LAT W/SHVG KNEE ARTHROSCOPY, LATERAL MENISCECTOMY, MEDIAL MENISCUS ROOT REPAIR Eric Contreras MD [facility] [place] [address] [facility] Reason Comments Abdominal Pain Lower abd pain ongoi ng for 7 weeks, hx of colitis does not se GI until mid december. Reports blood in stool Reason Comments Nausea & Vomiting For past 2 weeks - s een previously in ED for this Reason Comments Chest Pain Ongoing all day, mid sternal straight through to back Reason Comments Eye Pain Patient states that right eye increased in pain, excessive drainage and increased sensitivity over the past few days. Reason Comments New Patient UC Reason Comments Appointment Reason Comments Established Patient Colonoscopy follow u p Reason Comments Received Outside Medical Records Outside ENT report Specialty Diagnoses / Procedures Referred By Marline alba Referred To Contact Radiology Diagnoses Other screening mammogram Procedures ABBIE KIMBERLY DIGITAL SCREEN BILATERAL Vernell Ackerman, KNOT BORER - ROUTE DRIVER SALESPERSON [address] [place] [address] Referral ID Status Reason Start Date Expiration Date Visits Re quested Visits Authorized [id number] Closed 07/15/2022 07/15/2023 1 1 Specialty Diagnoses / Procedures Referred By Marline alba Referred To Contact Radiology Diagnoses Abnormality of right breast on screening mammogram Procedures ABBIE KIMBERLY DIGITAL DIAGNOSTIC UNILATERAL RIGHT ABBIE DIGITAL DIAGNOSTIC W OR WO CAD BILATERAL Vernell Ackerman, KNOT BORER - ROUTE DRIVER SALESPERSON [address] [place] [address] Referral ID Status Reason Start Date Expiration Date Visits Re quested Visits Authorized [id number] Closed 08/29/2022 08/29/2023 1 1 Reason Comments Blurred Vision Ordered Prescriptions (unrec ognized section and content) Prescription Sig Dispensed Refills Start Date End Da te HYDROcodone-acetaminophe n (NORCO) 5-325 MG per tabletIndications:S/P left knee arthroscopy Take 1-2 tablets by mouth every 6 hours as needed for Pain for up to 7 days. 30 tablet 0 09/18/2020 09/25/2020 Prescription Sig Dispensed Refills Start Date End Da te ondansetron (ZOFRAN ODT) 4 MG disintegrating tablet Take 1 tablet by mouth every 8 hours as needed for Nausea or Vomiting 10 tablet 0 12/01/2021 Prescription Sig Dispensed Refills Start Date End Da te HYDROcodone-acetaminophe n (NORCO) 5-325 MG per tabletIndications:Abdomi nal pain, unspecified abdominal location Take 1 tablet by mouth every 4 hours as needed for Pain for up to 3 days. Intended supply: 3 days. Take lowest dose possible to manage pain 18 tablet 0 12/09/2021 12/12/2021 metoclopramide (REGLAN) 10 MG tablet Take 1 tablet by mouth in the morning and 1 tablet at noon and 1 tablet in the evening and 1 tablet before bedtime. 20 tablet 0 12/09/2021 predniSONE (DELTASONE) 10 MG tablet Day 1-4: Take 6 tablets once a day. Day 5-6: Take 5 tablets once a day.Day 7-8: Take 4 tablets once a day.Day 9-10: Take 3 tablets once a day.Day 11-12: Take 2 tablets once a day.Day 13-14: Take 1 tablet once a day. 54 tablet 0 12/09/2021 Scheduled Active and Recently Administ ered Medications (unrecognized section and content) Medication Order 11/29/2021 11/30/2021 12/01/2021 0.9 % sodium chloride bolus (COMPLETED) 1,000 mL (12.7 mL/kg), IntraVENous, at 495.9 mL/hr, Administer over 121 Minutes, ONCE, On 12/01/21 at 1330, For 1 dose, For adult patients weighing > 55 kg (120 lbs.) and less than <50 years of age initiate 0.9NS at 500 mL/ hr. All bolus orders are to be given over 10 to 15 minutes 1328 (New Bag - Prov ider: Lucia Burt RN)1446 (Stopped - Provider: Tiara Sin RN) morphine (PF) injection 2 mg (COMPLETED) 2 mg, IntraVENous, ONCE, 1 dose, On 12/01/21 at 1330, If oral and IV narcotics ordered, use oral first and only use IV if oral is ineffective or cannot take oral. Do Not give oral and IV within 1 hour of each other unless specifically ordered. 1329 (Given - Provid er: Lucia Burt RN) ondansetron (ZOFRAN) injection 4 mg (COMPLETED) 4 mg, IntraVENous, ONCE, 1 dose, On 12/01/21 at 1330 1329 (Given - Provid er: Lucia Burt RN) PRN Medication Order 11/29/2021 11/30/2021 12/01/2021 iopamidol (ISOVUE-370) 76 % injection 75 mL (COMPLETED) 75 mL, IntraVENous, IMG ONCE PRN, 1 dose, Starting on 12/01/21 at 1233, Until 12/01/21 at 1234, Other 1234 (Given - Provid er: Allyson Ayala) Scheduled Medication Order 12/07/2021 12/08/2021 12/09/2021 diphenhydrAMINE (BENADRYL) injection 12.5 mg 12.5 mg, IntraVENous, ONCE, 1 dose, On 12/09/21 at 1300 1412 (Not Given - Pr ovider: Ira Mai RN - Reason: Other - Comment: Per Dr. Jurado, pt does not need anymore.) fentaNYL (SUBLIMAZE) injection 50 mcg (COMPLETED) 50 mcg, IntraVENous, ONCE, 1 dose, On 12/09/21 at 1300, If oral and IV narcotics ordered, use oral first and only use IV if oral is ineffective or cannot take oral. Do Not give oral and IV within 1 hour of each other unless specifically ordered. 1258 (Given - Provid er: Qiana Villegas RN) lactated ringers bolus (COMPLETED) 1,000 mL, IntraVENous, at 1,000 mL/hr, Administer over 1 Hours, ONCE, On 12/09/21 at 1245, For 1 dose 1249 (New Bag - Prov ider: Qiana Villegas RN)1349 (Stopped - Provider: Qiana Villegas RN) metoclopramide (REGLAN) injection 10 mg (COMPLETED) 10 mg, IntraVENous, ONCE, 1 dose, On 12/09/21 at 1300 1259 (Given - Provid er: Qiana Villegas RN) predniSONE (DELTASONE) tablet 60 mg (COMPLETED) 60 mg, Oral, ONCE, 1 dose, On Fri12/09/21 at 1430 1422 (Given - Provid er: Ira Mai RN) Scheduled Medication Order 01/23/2022 01/24/2022 01/25/2022 aspirin chewable tablet 324 mg (COMPLETED) 324 mg, Oral, ONCE, 1 dose, On Fri01/25/22 at 2130 213 (Given - Provid er: Geraldo Caruso RN) morphine injection 4 mg (COMPLETED) 4 mg, IntraVENous, ONCE, 1 dose, On Fri01/25/22 at 2130, If oral and IV narcotics ordered, use oral first and only use IV if oral is ineffective or cannot take oral. Do Not give oral and IV within 1 hour of each other unless specifically ordered. 2136 (Given - Provid er: Geraldo Caruso RN) oxyCODONE-acetaminophen (PERCOCET) tablet 5-325 mg (2 tablet STARTER PACK) This order is for a take home starter pack of medication. Please document Not Given with a reason of other on the MAR along with a comment of sent home with patient. Maximum dose of acetaminophen is 4000 mg from all sources in 24 hours. 2345 (Not Given - Pr ovider: Geraldo Caruso RN - Reason: Other - Comment: sent home with patient) PRN Medication Order 01/23/2022 01/24/2022 01/25/2022 iopamidol (ISOVUE-370) 76 % injection 75 mL (COMPLETED) 75 mL, IntraVENous, IMG ONCE PRN, 1 dose, Starting on Fri01/25/22 at 2208, Until Fri01/25/22 at 2214, Other 2214 (Given - Provid er: Lindsay Estevez) Scheduled Medication Order 01/26/2022 01/27/2022 01/28/2022 acetaminophen (TYLENOL) tablet 650 mg (COMPLETED) 650 mg, Oral, ONCE, 1 dose, On Fri01/28/22 at 1815, Maximum dose of acetaminophen is 4000 mg from all sources in 24 hours. 173 (Given - Provid er: Ira Mai RN) acetaminophen-codeine (TYLENOL #3) 300-30 MG per tablet 1 tablet (COMPLETED) 1 tablet, Oral, ONCE, 1 dose, On Fri01/28/22 at 1900, Please select a reason the therapeutic interchange was not accepted: Okay for Pharmacy to Substitute, Maximum dose of acetaminophen is 4000 mg from all sources in 24 hours. 1924 (Given - Provid er: Ira Mai RN) erythromycin (ROMYCIN) ophthalmic ointment Right Eye, EVERY 8 HOURS SCHEDULED (3 times per day), First dose on Fri01/28/22 at 1930 5 (Given - Provid er: Ira Mai RN) fluorescein ophthalmic strip 1 mg 1 mg (1 strip), Right Eye, ONCE, 1 dose, On Fri01/28/22 at 1700, 1 mg = 1 strip 1700 (Due) ketorolac (TORADOL) injection 60 mg (COMPLETED) Ketorolac is contraindicated in patients with advanced renal impairment and in patients at risk of renal failure due to volume depletion. For 65 years of age and older OR weight less than 50 kg, use 15 mg IV every 6 hours; MAX dose: 60 mg/day. Dose greater than 30 mg must be administered via intramuscular route. Do not administer for more than 5 days., 60 mg, IntraMUSCular, ONCE, 1 dose, On Fri01/28/22 at 1730, Do not administer for more than 5 days. 1735 (Given - Provid er: Ira Mai RN) proparacaine (ALCAINE) 0.5 % ophthalmic solution 2 drop (COMPLETED) 2 drop, Right Eye, ONCE, 1 dose, On Fri01/28/22 at 1700 1742 (Given - Provid er: Ira Mai RN - Comment: Given by Dr. Andres.) Care Teams (unrecognized sec tion and content) Filler Spreader Relationship Specialty Start Date End Date Vernell Ackerman APRN - ROUTE DRIVER SALESPERSON [address] [phone] PCP - General Certified Nurse Practitioner 11/07/21 Filler Spreader Relationship Specialty Start Date End Date Vernell Ackerman APRN - ROUTE DRIVER SALESPERSON [address] [phone] PCP - General Certified Nurse Practitioner 11/07/21 Filler Spreader Relationship Specialty Start Date End Date Vernell Ackerman APRN - ROUTE DRIVER SALESPERSON [address] [phone] PCP - General Certified Nurse Practitioner 11/07/21 Filler Spreader Relationship Specialty Start Date End Date Vernell Ackerman APRN - ROUTE DRIVER SALESPERSON [address] [phone] PCP - General Certified Nurse Practitioner 11/07/21 Filler Spreader Relationship Specialty Start Date End Date Vernell Ackerman APRN - ROUTE DRIVER SALESPERSON [address] [phone] PCP - General Certified Nurse Practitioner 11/07/21 Filler Spreader Relationship Specialty Start Date End Date Agnieszka Frost, DO PCP - General 06/08/12 Filler Spreader Relationship Specialty Start Date End Date Vernell Ackerman APRN - ROUTE DRIVER SALESPERSON [address] [place] [facility] [address] PCP - General Certified Nurse Practitioner 11/07/21 Filler Spreader Relationship Specialty Start Date End Date Agnieszka Frost, DO PCP - General 06/08/12 Filler Spreader Relationship Specialty Start Date End Date Agnieszka rFost, DO PCP - General 06/08/12 Filler Spreader Relationship Specialty Start Date End Date Agnieszka Frost, DO PCP - General 06/08/12 Baltazar Vernell Banks [address] [place] [facility] [address] 04/16/22 Filler Spreader Relationship Specialty Start Date End Date Agnieszka Frost, DO PCP - General 06/08/12 Baltazar Vernell Banks [address] [place] [facility] [address] 04/16/22 Filler Spreader Relationship Specialty Start Date End Date Agnieszka Frost, DO PCP - General 06/08/12 Vernell Ackerman [address] [place] [facility] [place] [facility] [address] 04/16/22 Filler Spreader Relationship Specialty Start Date End Date Agnieskza Frost, DO PCP - General 06/08/12 Vernell Ackerman [address] [place] [facility] [place] [facility] [address] 04/16/22 Filler Spreader Relationship Specialty Start Date End Date Vernell Ackerman KNOT BORER - ROUTE DRIVER SALESPERSON [address] [place] [facility] [place] [facility] [address] PCP - General Certified Nurse Practitioner 08/29/22 Filler Spreader Relationship Specialty Start Date End Date Vernell Ackreman APRN - CNP [address] [place] [facility] [place] [facility] [address] PCP - General Certified Nurse Practitioner 08/29/22 Filler Spreader Relationship Specialty Start Date End Date Vernell Ackerman APRN - CNP [address] [place] [facility] [place] [facility] [address] PCP - General Certified Nurse Practitioner 08/29/22 Filler Spreader Relationship Specialty Start Date End Date Vernell Ackerman APRN - CNP [address] [place] [facility] [place] [facility] [address] PCP - General Certified Nurse Practitioner 08/29/22 Filler Spreader Relationship Specialty Start Date End Date Vernell Ackerman APRN - CNP [address] [place] [facility] [place] [facility] [address] PCP - General Certified Nurse Practitioner 08/29/22 Filler Spreader Relationship Specialty Start Date End Date Lilasergio Agnieszka HurstDO PCP - General 06/08/12 Vernell Ackerman [address] [place] [facility] [address] 04/16/22 Filler Spreader Relationship Specialty Start Date End Date Vernell Ackerman APRN - CNP [address] [place] [facility] [address] PCP - General Certified Nurse Practitioner 08/29/22 Filler Spreader Relationship Specialty Start Date End Date Vernell Ackerman APRN - ROUTE DRIVER SALESPERSON [address] [place] [facility] [address] PCP - General Certified Nurse Practitioner 08/29/22 Filler Spreader Relationship Specialty Start Date End Date Vernell Ackerman APRN - ROUTE DRIVER SALESPERSON [address] [place] [address] PCP - General Certified Nurse Practitioner 08/29/22 Filler Spreader Relationship Specialty Start Date End Date Vernell Ackerman APRN-ROUTE DRIVER SALESPERSON [address] [place] [address] PCP - General Nurse Practitioner 05/22/22 Source Comments (unrecognize d section and content) In the event this informatio n is protected by the Federal Confidentiality of Alcohol and Drug Abuse Patient Records regulations: The Federal rules restrict any use of the information to criminally investigate or prosecute any alcohol or drug abuse patient.In the event this information is protected by the Federal Confidentiality of Alcohol and Drug Abuse Patient Records regulations: The Federal rules restrict any use of the information to criminally investigate or prosecute any alcohol or drug abuse patient.In the event this information is protected by the Federal Confidentiality of Alcohol and Drug Abuse Patient Records regulations: The Federal rules restrict any use of the information to criminally investigate or prosecute any alcohol or drug abuse patient.In the event this information is protected by the Federal Confidentiality of Alcohol and Drug Abuse Patient Records regulations: The Federal rules restrict any use of the information to criminally investigate or prosecute any alcohol or drug abuse patient.In the event this information is protected by the Federal Confidentiality of Alcohol and Drug Abuse Patient Records regulations: The Federal rules restrict any use of the information to criminally investigate or prosecute any alcohol or drug abuse patient.In the event this information is protected by the Federal Confidentiality of Alcohol and Drug Abuse Patient Records regulations: The Federal rules restrict any use of the information to criminally investigate or prosecute any alcohol or drug abuse patient.In the event this information is protected by the Federal Confidentiality of Alcohol and Drug Abuse Patient Records regulations: The Federal rules restrict any use of the information to criminally investigate or prosecute any alcohol or drug abuse patient.In the event this information is protected by the Federal Confidentiality of Alcohol and Drug Abuse Patient Records regulations: The Federal rules restrict any use of the information to criminally investigate or prosecute any alcohol or drug abuse patient.In the event this information is protected by the Federal Confidentiality of Alcohol and Drug Abuse Patient Records regulations: The Federal rules restrict any use of the information to criminally investigate or prosecute any alcohol or drug abuse patient.In the event this information is protected by the Federal Confidentiality of Alcohol and Drug Abuse Patient Records regulations: The Federal rules restrict any use of the information to criminally investigate or prosecute any alcohol or drug abuse patient. INFORMATION SOURCE (unrecogn ized section and content) DATE CREATED AUTHOR 05/02/2022 [facility] DATE CREATED AUTHOR AUTHOR'S ORGANIZ ATION 05/03/2022 [employer] DATE CREATED AUTHOR AUTHOR'S ORGANIZ ATION 05/10/2022 [facility] DATE CREATED AUTHOR AUTHOR'S ORGANIZ ATION 05/24/2022 [facility] DATE CREATED AUTHOR AUTHOR[facility]S ORGANIZ ATION [facility]/28/2022 [facility] [place] DATE CREATED AUTHOR AUTHOR'S ORGANIZ ATION 01/22/2024 Karin vasquez DATE CREATED AUTHOR AUTHOR'S ORGANIZ ATION 06/11/2024 [facility] FOR RECORDS PERTAINING TO PATIENTS WHO ARE OR HAVE BEEN ENROLLED IN A CHEMICAL DEPENDENCY/SUBSTANCEABUSE PROGRAM, SOME INFORMATION MAY BE OMITTED. This clinical summary was aggregated from multiple sources. Caution should be exercised in using it in the provision of clinical care. This summary normalizes information from multiple sources, and as a consequence, information in this document may materially change the coding, format and clinical context of patient data. In addition, data may be omitted in some cases. CLINICAL DECISIONS SHOULD BE BASED ON THE PRIMARY CLINICAL RECORDS. [facility]. provides no warranty or guarantee of the accuracy or completeness of information in this document.
[2024-07-16 14:14] VITALS: BP 150/100; PULSE 80; O2SAT 97
== END 2024-07-16 14:16 | disposition home or self-care (01) ==
PROVIDERS: Emergency Provider Emergency Medicine; PCP Nurse Practitioner Family
DX: J06.9 Acute upper respiratory infection, unspecified (principal); Z87.01 Personal history of pneumonia (recurrent); I10 Essential (primary) hypertension; Z79.899 Other long term (current) drug therapy; F17.210 Nicotine dependence, cigarettes, uncomplicated
CPT/HCPCS: 71046; 99283